=== PATIENT | male | born 1945 | race Caucasian/White ===

== ENCOUNTER 2022-02-07 15:09 | Emergency (ER) | payer MEDICARE, SELFPAY ==
[2022-02-07 15:24] VITALS: BP 144/82; PULSE 66; RESP 20; TEMP 36.7; O2SAT 98; BMI 22.4
[2022-02-07 15:33] VITALS: BP 124/82; PULSE 64; RESP 20; O2SAT 98
--- NOTE | 2022-02-07 15:46 | CRLHL7_ITS ---
For Patients: As a result of the Century Cures Act, medical imaging exams and procedure reports are released immediately into your electronic medical record. You may view this report before your referring provider. If you have questions, please contact your health care provider. INDICATION: Constipation, distention. TECHNIQUE: CT abdomen and pelvis acquired with 83 cc Isovue 370 IV contrast. COMPARISON: None. FINDINGS: Lower chest: Moderate right-sided and trace left-sided pleural effusions with compressive consolidation. Partial visualization of enlarged heart with right atrial/ventricle leads. Liver: Multiple simple hepatic cysts. Gallbladder and bile ducts: Unremarkable. No stones or inflammation. No biliary dilatation. Pancreas: Unremarkable. No mass or inflammation. Spleen: Unremarkable. Normal in size. No masses. Adrenal glands: Indeterminate 1.5 centimeter left adrenal nodule Kidneys: Tiny hypodensities in both kidneys, too small to characterize. Additional large right superior pole renal cyst. Indeterminate 1.2 centimeter left exophytic heterogeneous renal lesion. GI tract: Moderate colonic stool burden.. Normal in caliber. No sign of mass or inflammation. Appendix not seen. Vasculature: Abdominal aorta is normal in caliber. Mesenteric arteries are patent. Lymph nodes: No lymphadenopathy. Peritoneum/Abdominal Wall: Unremarkable. No sign of mass or infiltration. No free air or significant free fluid. Pelvis: Significant prostatomegaly, abutting the base of the bladder. Bladder is mildly distended with circumferential wall thickening. Bones: Degenerative changes of the osseous structures. Minimal anterolisthesis of L4 on L5. Posterior hardware fixation at L4-L5 IMPRESSION: Moderate colonic stool burden. No free intraperitoneal air, or drainable fluid collections. Significant prostatomegaly, abutting the base of the bladder. Correlate for chronic bladder outlet obstruction. Moderate right and small left-sided pleural effusions with bibasilar consolidations. Indeterminate 1.2 centimeter left exophytic heterogeneous renal lesion. Recommend outpatient contrast-enhanced renal protocol MRI. Questionable additional indeterminate 1.5 centimeter adrenal nodule. This could be followed up with outpatient MRI as well. Please note that all CT scans at this facility use dose modulation, iterative reconstruction, and/or weight-based dosing when appropriate to reduce radiation dose to as low as reasonably achievable. Dictated by Reilly Song MD @ 02/07/2022 5:46:05 PM (Electronically Signed)
--- NOTE | 2022-02-07 15:47 | ED.GENADULT ---
HPI - General Adult General Chief complaint: Constipation Stated complaint: Bowel obstruction Time Seen by Provider: 02/07/22 15:26 History of Present Illness HPI narrative: This 76-year-old male comes in reporting constipation over the past couple weeks more intensely the than normal. He states that he has a neurogenic bladder and bowel. He states that he had a surgery on his low back because of nerve impingement. He has been dealing with urinary frequency and constipation for the past several years. He did have a normal colonoscopy about a year ago. He states that he has not had a good bowel movement for upwards of 2 weeks. He has had some liquid passing but no bowel movement. He did start a new medicine which is helping him significantly with regard to his urinary frequency. This may be contributing to more constipation. He has been taking senna and Dulcolax. He also uses a fiber supplement. Related Data Home Medications Medication Instructions Recorded Confirmed fluoxetine 10 mg capsule 10 mg PO DAILY 02/07/22 02/07/22 gemster 02/07/22 Allergies Allergy/AdvReac Type Severity Reaction Status Date / Time epinephrine AdvReac tacycardia Verified 02/07/22 17:07 Review of Systems Status of ROS: Reports: 10 or more systems reviewed and unremarkable except as noted in History and below Narrative: Constitutional: Well-developed, well-nourished, no acute distress. HEENT: Normocephalic, atraumatic. Neck: Normal range of motion. Nontender. Supple. Heart: Regular. No murmurs. Normal rate. Intact distal pulses. Lungs: Clear to auscultation. No chest discomfort. No wheezes, rhonchi, or rales. Abdomen: Normal bowel sounds. No particular tenderness. No rebound tenderness. Mild abdominal distension. Genitalia: Deferred. Back: No midline tenderness. Normal range of motion. Extremities: Normal range of motion. No injury. Skin: Intact. No rash. Warm. No erythema or pallor. Neurologic: No altered sensation. No weakness. Alert and oriented. Psychiatric: No suicidality. No anxiety or depression. No insomnia. Nursing notes and vitals signs are reviewed. [facility] Social History Smoking Status: Never smoker Do you use any of these nicotine containing products: None Second hand tobacco smoke exposure: No How often do you have a drink containing alcohol: monthly or less How many standard drinks containing alcohol do you have on a typical day: 1 or 2 AUDIT-C Alcohol total score: 1 Non-prescribed substance use: denies use Exam Narrative: Exam Narrative: Constitutional: Well-developed, well-nourished, no acute distress. HEENT: Normocephalic, atraumatic. Neck: Normal range of motion. Nontender. Supple. Heart: Regular. No murmurs. Normal rate. Intact distal pulses. Lungs: Clear to auscultation. No chest discomfort. No wheezes, rhonchi, or rales. Abdomen: Normal bowel sounds. No rebound tenderness. Genitalia: Deferred. Back: No midline tenderness. Normal range of motion. Extremities: Normal range of motion. No injury. Skin: Intact. No rash. Warm. No erythema or pallor. Neurologic: No altered sensation. No weakness. Alert and oriented. Psychiatric: No suicidality. No anxiety or depression. No insomnia. Nursing notes and vitals signs are reviewed. Const: Vital Signs, click to edit/add: Vital Signs - 24 hr 02/07/22 15:24 02/07/22 15:33 02/07/22 16:30 Temperature 98.0 F Pulse Rate [Left P ulse Oximeter] 66 64 Respiratory Rate 20 20 Blood Pressure [Ri ght Upper Arm] 144/82 H 124/82 113/81 Pulse Oximetry 98 98 Oxygen Delivery Me thod Room Air Room Air Course Vital Signs Vital signs: Initial Vital Signs Temperature 98.0 F 02/07/22 15:24 Temperature Source Temporal Artery Scan 02/07/22 15:24 Pulse Rate 66 02/07/22 15:24 Pulse Rhythm 02/07/22 15:24 Respiratory Rate 20 02/07/22 15:24 Blood Pressure 144/82 H 02/07/22 15:24 Blood Pressure Mean 102 02/07/22 15:24 Blood Pressure Position Sitting 02/07/22 15:24 Pulse Oximetry 98 02/07/22 15:24 Oxygen Delivery Method 02/07/22 15:24 Vital Signs Temperature 98.0 F 02/07/22 15:24 Pulse Rate 66 02/07/22 15:24 Respiratory Rate 20 02/07/22 15:24 Blood Pressure 144/82 H 02/07/22 15:24 Pulse Oximetry 98 02/07/22 15:24 Oxygen Delivery Method 02/07/22 15:24 Temperature 98.0 F 02/07/22 15:24 Pulse Rate 64 02/07/22 15:33 Respiratory Rate 20 02/07/22 15:33 Blood Pressure 113/81 02/07/22 16:30 Pulse Oximetry 98 02/07/22 15:33 Oxygen Delivery Method 02/07/22 15:33 Medical Decision Making MDM Narrative Medical decision making narrative: This patient comes in reporting chronic constipation related to some neurogenic causes. His constipation is been worse over the past couple weeks during which time he started a medicine from his urologist to treat urinary frequency. He is concerned that there may be some blockage or more serious problem in his abdomen. He comes in requesting a CT scan for evaluation. An IV was established and labs were drawn an order for this to occur. CT imaging does not show any serious findings. There are some lesions on his kidneys and adrenal gland. These can be evaluated later. He does have a significantly enlarged prostate which may be causing some urinary outlet obstruction. He has a moderate colonic stool burden. These findings are relayed to the patient. I actually printed out the CT report for him. He was reassured with these findings. He did receive a bottle of magnesium citrate and is encouraged to use mxbg-cir-suwjoie treatments to manage his constipation. I suggested that he may decrease the frequency of taking the new medication for urinary retention as this may be contributing to his constipation. He should otherwise follow-up with his urologist or primary physician as needed. Lab Data Labs: Lab Results 02/07/22 02/07/22 Range/Units 16:20 16:20 WBC 3.93 L (4.50-11.00) K/uL RBC 4.28 L (4.30-5.90) m/uL Hgb 12.2 L (13.5-17.5) gm/dL Hct 36.4 L (37.0-53.0) % MCV 85 (80-100) fL MCH 29 (26-34) pg MCHC 34 (32-36) gm/dL RDW Coeff of Valdo 12.4 (11.5-15.5) % Plt Count 221 (140-440) K/uL Neut % (Auto) 64.8 (42.0-72.0) % Lymph % (Auto) 17.6 L (20-44) % [place] % (Auto) 8.4 (0.0-11.0) % Eos % (Auto) 8.4 H (0.0-7.0) % Baso % (Auto) 0.8 (0.0-3.0) % Neut # (Auto) 2.50 (1.7-7.0) K/uL Lymph # (Auto) 0.70 L (0.90-2.90) K/uL [place] # (Auto) 0.30 (0.00-0.90) K/UL Eos # (Auto) 0.30 (0.00-0.50) K/uL Baso # (Auto) 0.00 (0.00-0.30) K/uL Abs Immat Gran (auto) 0.00 (0.00-0.30) K/uL Sodium 134 L (135-149) mmol/L Potassium 4.5 (3.6-5.1) mmol/L Chloride 102 (96-114) mmol/L Carbon Dioxide 29 (20-32) mmol/L BUN 15 (7-30) mg/dL Creatinine 0.7 (0.5-1.5) mg/dL Estimated Creat Clear 68.54 Estimated GFR 95 ml/min Glucose 108 (60-115) mg/dL Calcium 8.4 (8.4-10.6) mg/dL Imaging Data CT scan - abdomen: Radiologist's impression: Moderate colonic stool burden. No free intraperitoneal air, or drainable fluid collections. Significant prostatomegaly, abutting the base of the bladder. Correlate for chronic bladder outlet obstruction. Moderate right and small left-sided pleural effusions with bibasilar consolidations. Indeterminate 1.2 centimeter left exophytic heterogeneous renal lesion. Recommend outpatient contrast-enhanced renal protocol MRI. Questionable additional indeterminate 1.5 centimeter adrenal nodule. This could be followed up with outpatient MRI as well. Discharge Plan Discharge Clinical Impression: Constipation Patient Disposition: Home, Self-Care Condition: Unchanged Additional Instructions: Use [id number]-[id number] medicines as needed and directed to manage bowel regimens. Follow-up with primary physician or urologist for further evaluation and treatment as needed. Prescriptions: No Action fluoxetine 10 mg capsule 10 mg PO DAILY Label Comments: TAKE 1 CAPSULE BY MOUTH ONCE DAILY. gemster Follow Up/Referrals: Jair Hancock MD [Primary Care Provider] - Stand Alone Forms: Second Light Info Instructions
--- OUTSIDE RECORDS SUMMARY | 2022-02-07 15:54 | XMS_ITS | Encounter Summary ---
:1945 Author Organization [place] Address [facility] [place] [address] Care Team Providers Name Role Phone Clinic, [facility] Primary Care Provider [phone] Encounter Details Date Type Department Care Team Description 05/28/2020 Home Infusion [facility] ChriststephanbenignoTamiko fry, [facility] [address] [place], [place] [phone] [place] [address] [place] [address] (Wo rk) Social History Tobacco Use Types Packs/Day Years Used Date Never Smoker Smokeless Tobacco: Never Used Alcohol Use Standard Drinks/Week Comments Yes 0 (1 standard drink = 0.6 oz pure alcoho l) Sex Assigned at Date Recorded Not on file COVID-19 Exposure Response Date Recorded In the last month, have you been in contact Unable to assess 05/15/2020 9:41 AM FINANCE BUSINESS PARTNER with someone who was confirmed or suspected to have Coronavirus / COVID-19? documented as of this encounter Progress Notes Sebastian Mccarthy - 05/28/2020 11:59 PM CST This is a recent snapshot of the patient's [facility] medical record. For current drug dose and complete information and questions, call [phone] or In Basket pool, home[facility]usion ([id number]) CSN Number: [id number] NCE BUSINESS PARTNER documented in this encounter Plan of Treatment Not on filedocumented as of this encounter Visit Diagnoses Not on filedocumented in this encounter Care Teams Inside Barrel Lathe Operator Relationship Specialty Start Date End Date Clinic, Marianna [facility] PCP - General 05/01/20 [address] [place] [address] documented as of this encounter
--- OUTSIDE RECORDS SUMMARY | 2022-02-07 15:54 | XMS_ITS | Encounter Summary ---
:1945 Author Organization [place] Address [facility] [place] [address] Care Team Providers Name Role Phone [facility] [phone] Encounter Details Date Type Department Care Team Description 11/29/2021 Documentation Only [facility] Art aRmirez, [facility] RN [address] [place] [address] Social History Tobacco Use Types Packs/Day Years Used Date Never Smoker Smokeless Tobacco: Never Used Alcohol Use Standard Drinks/Week Comments Yes 0 (1 standard drink = 0.6 oz pure alcoho l) Sex Assigned at Date Recorded Not on file documented as of this encounter Progress Notes Ansley Ramirez RN - 11/29/2021 8:28 AM CDT Delete documented in this encounter Plan of Treatment Not on filedocumented as of this encounter Visit Diagnoses Not on filedocumented in this encounter Care Teams Metal Neutralizer Relationship Specialty Start Date End Date [facility], [facility] PCP - General 05/01/20 [address] [place], [place] [id number] documented as of this encounter
--- OUTSIDE RECORDS SUMMARY | 2022-02-07 15:54 | XMS_ITS | Encounter Summary ---
:1945 Author Organization [place] Address [address] [place] [address] Care Team Providers Name Role Phone Clinic, [facility] [place] Primary Care Provider [phone] Reason for Visit Reason Comments MRI Safety Clearance Checklist MRI checklist Encounter Details Date Type Department Care Team Description 11/29/2021 Documentation Only [facility], MRI Safety Clearance [facility] Checklist (MRI [place] checkl... [address] [facility] [address] [place] [address] Social History Tobacco Use Types Packs/Day Years Used Date Never Smoker Smokeless Tobacco: Never Used Alcohol Use Standard Drinks/Week Comments Yes 0 (1 standard drink = 0.6 oz pure alcoho l) Sex Assigned at Date Recorded Not on file documented as of this encounter Progress Notes Ansley Ramirez RN - 11/29/2021 8:31 AM CDT Is the implanted device safe for MRI Exam? Yes Is this device 3T compatible? Yes Device Type: Pacemaker Device Information: Make: Medidio Model: [facility] Orders for Device Programming -- Yes -- The patient has a MRI conditional pulse generator and leads from the same litigator -- Yes -- The pulse generator and leads have been implanted for at least 6 weeks -- Yes-- The device is implanted in the right or left pectoral region -- Yes -- There are not any additional active cardiac devices, abandoned leads, lead extenders or adapters -- Yes -- The device lead impedance measurements are within the normal range. (Manufacture recommendations: Medtronic Advisa and Revo 200-1,500 ohms; Medtronic ICD and EYEWEAR CONSULTANT's 200-3000 ohms and defibrillation lead impedance 20-200 ohms) -- Yes -- If the patient is pacemaker dependent the thresholds are less than or equal to 2.0V @ 0.4ms. Date of last in-office Device check: 11/13/2021 Results of last in-office Device check: 1. Right atrium impedance: 608 ohms 2. Right ventricle impedance: 513 ohms 3. Left ventricle impedance: N/A 4. Right atrium threshold: 0.75V @ 0.4 ms 5. Right ventricle threshold: 0.75V @ 0.4 ms 6. Left ventricle threshold: N/A Device programming during the scan guidelines Pacing Mode (check one): DOO Pacing Rate: 80 bpm or 10 beats above intrinsic rate Ansley Ramirez and Mony Sanchez, Device RN's documented in this encounter Plan of Treatment Not on filedocumented as of this encounter Visit Diagnoses Not on filedocumented in this encounter Care Teams Machine Tool Dresser Relationship Specialty Start Date End Date Clinic, [facility]na [facility] PCP - General 05/01/20 [address] [place] [address] documented as of this encounter
--- OUTSIDE RECORDS SUMMARY | 2022-02-07 15:54 | XMS_ITS | Encounter Summary ---
:1945 Author Organization [place] Address [address] [place] [address] Care Team Providers Name Role Phone Clinic, [facility]na [facility] Primary Care Provider [phone] Reason for Visit Reason Onset Date Comments *-*INCOMING RECORDS*-* 01/29/2022 Neurosurgery refe rral Encounter Details Date Type Department Care Team Description 01/29/2022 Telephone [facility] Alfredo, *-*INCOM ING RECORDS*-* Neurosurgery Clinic Argenis Bonds LPN (Neurosurgery referral) [place] [phone] [place] [address] (Work) [place] [address] Social History Tobacco Use Types Packs/Day Years Used Date Never Smoker Smokeless Tobacco: Never Used Alcohol Use Standard Drinks/Week Comments Yes 0 (1 standard drink = 0.6 oz pure alcoho l) Sex Assigned at Date Recorded Not on file COVID-19 Exposure Response Date Recorded In the last 10 days, have you been in contact with No / Unsu re 01/08/2022 1:33 PM CDT someone who was confirmed or suspected to have Coronavirus/COVID-19? documented as of this encounter Miscellaneous Notes Telephone Encounter - Cammie Fuentes LPN - 01/29/2022 9:01 AM CDT Fax request sent for medical records to [phone]. Are Everywhere also accessed. Pt had cervical MR Cervical At [facility] 01/08/2022.. Cammie Fisher LPN Telephone Encounter - Cammie Fuentes LPN - 01/29/2022 8:59 AM CDT Referred by: Dr Zakiya Roberts @ [facility] Fx: [phone] [place] Auth/Ref #: [id number] Please call to schedule your appointment ?? 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 Now w. progressive weakness of upper extremities,neurogenic bladder. Additional Information: Referred to Dr Souza or Dr Douglas documented in this encounter Plan of Treatment Not on filedocumented as of this encounter Visit Diagnoses Not on filedocumented in this encounter Care Teams Vice President Relationship Specialty Start Date End Date Clinic, Marianna [facility] PCP - General 05/01/20 [address] [place] [address] documented as of this encounter
--- OUTSIDE RECORDS SUMMARY | 2022-02-07 15:54 | XMS_ITS | Encounter Summary ---
:1945 Author Organization [place] Address [address] [place] [address] Care Team Providers Name Role Phone Clinic, [facility] [place] Primary Care Provider [phone] Reason for Referral Consultation (Routine) - Pending Review Specialty Diagnoses / Procedures Referred By Contact Refer red To Contact Neurological Surgery Diagnoses Disease of spinal cord, unspecified (H) Generic External Data [facility] [address] [facility] [address] [place] [address] Phone: Fax: Referral ID Status Reason Start Date Expiration Date Visits V isits Requested Authorized [id number] Pending 01/27/2022 01/27/2023 1 1 Review Encounter Details Date Type Department Care Team Description 01/27/2022 Transcribe Orders GENERIC EXTERNAL Provider, Generic D isease of spinal DATA DEPARTMENT External Data cord, unspe cified (H) (Primary Dx ) Social History Tobacco Use Types Packs/Day Years [...] have Coronavirus/COVID-19? documented as of this encounter Plan of Treatment Scheduled Referrals Name Type Priority Associated Diagnoses Order S chedule Neurosurgery Referral Referral Routine Disease of spinal c ord, Ordered: 01/27/2022 unspecified (H) documented as of this encounter Visit Diagnoses Diagnosis Disease of spinal cord, unspecified (H) - Primary documented in this encounter Care Teams Licensed Final Expense Agents Relationship Specialty Start Date End Date Clinic, [facility]na [facility] PCP - General 05/01/20 [address] [place] [address] documented as of this encounter
--- OUTSIDE RECORDS SUMMARY | 2022-02-07 15:54 | XMS_ITS | Encounter Summary ---
:1945 Author Organization [place] Address [facility] [place] [address] Care Team Providers Name Role Phone Clinic, Marianna [facility] Primary Care Provider [phone] Encounter Details Date Type Department Care Team Description 05/29/2020 Home Infusion [place] [facility] ChriststephanbenignoTamiko fry, [facility] [address] [facility] [address] [place], [place] [phone] [place] [address] [place] [address] (Wo rk) Social History Tobacco Use Types Packs/Day Years Used Date Never Smoker Smokeless Tobacco: Never Used Alcohol Use Standard Drinks/Week Comments Yes 0 (1 standard drink = 0.6 oz pure alcoho l) Sex Assigned at Date Recorded Not on file COVID-19 Exposure Response Date Recorded In the last month, have you been in contact Unable to assess 05/15/2020 9:41 AM MARKER MACHINE with someone who was confirmed or suspected to have Coronavirus / COVID-19? documented as of this encounter Progress Notes Sebastian Mccarthy - 05/29/2020 11:59 PM CST This is a recent snapshot of the patient's [facility] medical record. For current drug dose and complete information and questions, call [phone] or In Basket pool, [facility] ([id number]) CSN Number: [id number] ER MACHINE documented in this encounter Plan of Treatment Not on filedocumented as of this encounter Visit Diagnoses Not on filedocumented in this encounter Care Teams Prism Inspector Relationship Specialty Start Date End Date Clinic, [facility]na [facility] PCP - General 05/01/20 [address] [place] [address] documented as of this encounter
--- OUTSIDE RECORDS SUMMARY | 2022-02-07 15:54 | XMS_ITS | Clinical Summary ---
:1945 Author Organization [facility] Address [address] [place] [address] Care Team Providers Name Role Phone Clinic, Marianna [facility] Primary Care Provider [phone] Allergies Active Allergy Reactions Severity Noted Date Comments Epinephrine Unknown 06/09/2019 Tachycardia In 1970's Fentanyl Unknown 06/09/2019 Difficult awake catherine Medications Medication Sig Dispensed Refills Start Date End Date Status FLUoxetine (PROZAC) 20 [FLUOXETINE 0 06/09/2019 Active MG capsule (PROZAC) 20 MG CAPSULE] Take 20 mg by mouth daily as needed. cholecalciferol, [CHOLECALCIFEROL, 0 06/09/2019 Active vitamin D3, (VITAMIN D3 VITAMIN D3, ORAL) (VITAMIN D3 ORAL)] Take 1 tablet by mouth daily as needed. magnesium oxide [MAGNESIUM OXIDE 0 06/09/2019 Active (MAG-OX) 400 mg (241.3 (MAG-OX) 400 MG mg magnesium) tablet (241.3 MG MAGNESIUM) TABLET] Take 400 mg by mouth daily. aspirin 325 MG EC [ASPIRIN 325 MG 0 06/16/2019 Active tabletIndications: EC TABLET] Take 1 Neurogenic claudication tablet (325 mg due to lumbar spinal total) by mouth stenosis at bedtime. Resume 5 days after spine surgery on 06/20/19. senna-docusate [SENNA-DOCUSATE 0 06/16/2019 Active (PERICOLACE) 8.6-50 mg (PERICOLACE) tabletIndications: 8.6-50 MG TABLET] Neurogenic claudication Take 1 tablet by due to lumbar spinal mouth 2 (two) stenosis times a day as needed for constipation. acetaminophen (TYLENOL) [ACETAMINOPHEN 0 06/19/2019 Active 500 MG (TYLENOL) 500 MG tabletIndications: TABLET] Take 1 Neurogenic claudication tablet (500 mg due to lumbar spinal total) by mouth stenosis every 4 (four) hours as needed. baclofen (LIORESAL) 5 [BACLOFEN 20 tablet 0 06/19/2019 Active mg tabletIndications: (LIORESAL) 5 MG Neurogenic claudication TABLET] Take 1 due to lumbar spinal tablet (5 mg stenosis total) by mouth at bedtime as needed (pain/spasms, belching). Active Problems Problem Noted Date Neurogenic claudication due to lumbar spinal stenosis 06/15/2019 Recurrent major depressive disorder, in full remission 06/15/2019 S/P ablation of atrial fibrillation 06/15/2019 Peripheral polyneuropathy 06/15/2019 Encounters Date Type Specialty Care Team Description 01/29/2022 Telephone Neurosurgery Cammie Fuentes, *-*[facility] RECORDS*-* (Neurosurgery referral) 01/27/2022 Transcribe Orders Provider, Generic Disea se of spinal External Data cord, unspecif ied (H) (Primary Dx ) 01/08/2022 Hospital Encounter Radiology. Non-Fv Credentialed Ce rvical disc Provider, Radiology disorder with myelopathy, mid-cervical re gion, unspecified lev el 01/08/2022 Hospital Encounter Med Surg Non-Fv Credentialed Provider, Radiol Ellen Healy MD 01/08/2022 Travel 01/07/2022 Telephone Med Surg Estrella White Pt. RN Information/ins truct ion 11/29/2021 Documentation Only Cardiology Mony Sanchez RN MRI Safety Clearance Checklist (MRI checkl... 11/29/2021 Documentation Only Cardiology Ansley Ramirez, ASCENCION from Last 3 Months Immunizations Name Administration Dates Next Due FLU 6-35 months 02/23/2019, 03/23/2018, 03/10/2017, 03/01/2013, 04/26/2012, 03/06/2011, 02/12/2010, 02/06/2009 Influenza (High Dose) 3 valent 04/05/2015, 02/13/2014 vaccine Influenza Vaccine IM > 6 months 07/15/2016 Valent IIV4 (Alfuria,Fluzone) Pneumo Conj 13-V (2010&after) 04/05/2015 Pneumococcal 23 valent 03/06/2011 Tdap (Adacel,Boostrix) 07/15/2016 Zoster vaccine recombinant adjuvanted 10/22/2018 (SHINGRIX) Social History Tobacco Use Types Packs/Day Years [...] was confirmed or suspected to have Coronavirus/COVID-19? Last Filed Vital Signs Vital Sign Reading Time Taken Comments Blood Pressure 131/91 01/08/2022 2:30 PM CDT Pulse 78 01/08/2022 3:05 PM CDT Temperature - - Respiratory Rate 16 01/08/2022 2:30 PM CDT Oxygen Saturation 100% 01/08/2022 3:05 PM CDT Inhaled Oxygen Concentration - - Weight 75.4 kg (166 lb 3.2 oz) 06/15/2019 6:22 AM REFUGE WORKER Height 185.4 cm (6' 1) 06/09/2019 10:57 AM REFUGE WORKER Body Mass Index 21.93 06/09/2019 10:57 AM REFUGE WORKER Plan of Treatment Health Maintenance Due Date Last Done Comments ANNUAL REVIEW OF HM ORDERS 1945 DEPRESSION ACTION PLAN 1945 PHQ-9 1945 HEPATITIS C SCREENING 1963 LIPID 1980 FALL RISK ASSESSMENT 2010 MEDICARE ANNUAL WELLNESS 2010 VISIT ZOSTER IMMUNIZATION (2 of 12/17/2018 10/22/2018 2) COVID-19 Vaccine (3 - 09/27/2020 08/02/2020, 07/12/2020 Booster for Pfizer series) INFLUENZA VACCINE (#1) 2022 03/01/2021, 02/25/2021, 01/20/2020, Additional history exists ADVANCE CARE PLANNING 06/15/2024 06/15/2019 DTAP/TDAP/TD IMMUNIZATION 07/15/2026 07/15/2016, 02/09/2013 , (4 - Td or Tdap) 08/07/2002 Pneumococcal Vaccine: 65+ Completed 04/05/2015, 02/15/2015 , Years 03/06/2011, Additional history exists HEPATITIS B IMMUNIZATION Aged Out No long er eligible based on patient 's age to complete this topic IPV IMMUNIZATION Aged Out No longer eligi ble based on patient 's age to complete this topic MENINGITIS IMMUNIZATION Aged Out No longe r eligible based on patient 's age to complete this topic Medical Devices Implanted Type Area Clinical Engineering Manager Device Shelf Model / Identifier Expiration Serial / Date Lot Imp Erasmo Medt Tsrh Prebent 04.0cm [id number] Metallic Right: [employer] [id number] / Implanted: Qty: 1 on 06/15/2019 Hardware/Anc Spine / hor Lumbar NA Procedures Procedure Name Priority Date/Time Associated Diagnosis Comme nts MR CERVICAL SPINE Routine 01/08/2022 3:17 PM Cervical disc Res ults for this W/O & W CONTRAST CDT disorder with procedure are in myelopathy, the results mid-cervical region, section . unspecified level from Last 3 Months Results MR Cervical Spine w/o & w Contrast (01/08/2022 3:17 PM CDT) Anatomical Region Laterality Modality Spine, SUBRAD MR NEURO, UMP MR SPINE, RAD MR Magnetic Resonance Specimen (Source) Anatomical Location Collection Method / Collectio n Time Received Time / Laterality Volume Impressions 01/09/2022 9:40 AM CDT IMPRESSION: ?? 1. Expansile cystic lesion in the mid ce rvical spinal cord as detailed above. No obvious enhancement of the les ion and there is a peripheral T2 hypointense rim. This could represent a cavernous venous malformation with sequela of previous he morrhage, although other etiologies are not entirely excluded. Co mparison to previous imaging to document stability may be helpful. 2. Marked multilevel degenerative change s throughout the cervical spine as detailed above. Multiple disc h erniations throughout the cervical spine. Marked facet hypertrophy , particularly on the right at C2-C3 and C3-C4 and on the left at C4-C5 . 3. Edema on the right at the opposing C2 -C3 endplates also apparently involving the right C2-C3 facet. This co uld potentially be a source of pain. 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 Previously told inoperable. Now with pro gressive weakness of upper extremities, neurogenic bladder. TECHNIQUE: Multiplanar, multisequence MR I of the cervical spine without and with gadobutrol (GADAVIST) i njection 7.5 mL. COMPARISON: None. FINDINGS: Cervical spine alignment is gr ossly within normal limits. No significant loss of vertebral body heigh t. No focal destructive bony lesion. Moderate STIR hyperintense edema asymmetric towards the right at the endplates at C2-C3 also appearing to involve the right C2 pedicle and around the C2-C3 facet joint . No focal destructive bony lesion. Abnormal heterogeneous expansile lesion within the spinal cord extending from approximately the C3-C4 l evel down to the mid aspect of C6. There appear to be internal cystic c avities with septations in this lesion as well as a peripheral STIR and T2 hypointense rim. The periphery of the lesion also demonstrate s susceptibility hypointensity probably due to blood products. No defin ite associated enhancement with the lesion. This expansile lesion m easures approximately 1.0 x 1.8 x 4.3 cm in AP, transverse, and cran iocaudal dimensions. Level by level as follows: C2-C3: Moderate loss of disc height with degenerative endplate changes and edema more pronounced towards the ri ght as well as involving the right posterior elements. Marked right g reater than left facet hypertrophy. No spinal canal narrowing. Severe right neural foraminal narrowing. Moderate left neural foramina l narrowing. C3-C4: Moderate loss of disc height. Cir cumferential disc bulge with endplate osteophytic spurring more prono unced towards the right subarticular and foraminal region. Marke d right greater than left facet hypertrophy. Mild spinal canal manda rowing. Severe right neural foraminal narrowing. Mild left neural fo raminal narrowing. C4-C5: Mild loss of disc height. Circumf erential disc bulge with mild endplate osteophytic spurring. Marked le ft greater than right facet hypertrophy. Mild spinal canal narrowing . Severe right neural foraminal narrowing. Severe left neural foraminal narrowing. C5-C6: Mild loss of disc height. Circumf erential disc bulge. Moderate left greater than right facet of atrophy with possible fusion of the left facet joint. Mild spinal canal narr owing. Moderate to severe right neural foraminal narrowing. Modera te left neural foraminal narrowing. C6-C7: Mild loss of disc height. No sign ificant disc herniation. Mild facet hypertrophy. No spinal canal narro wing. Mild bilateral neural foraminal narrowing. C7-T1: Mild loss of disc height. No sign ificant disc herniation. Moderate left greater than right facet h ypertrophy. No spinal canal narrowing. Mild right neural foraminal n arrowing. Moderate left neural foraminal narrowing. Paraspinous soft tissues are unremarkabl e. 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 Previously told inoperable. Now with pro gressive weakness of upper extremities, neurogenic bladder. TECHNIQUE: Multiplanar, multisequence MR I of the cervical spine without and with gadobutrol (GADAVIST) i njection 7.5 mL. COMPARISON: None. FINDINGS: Cervical spine alignment is gr ossly within normal limits. No significant loss of vertebral body heigh t. No focal destructive bony lesion. Moderate STIR hyperintense edema asymmetric towards the right at the endplates at C2-C3 also appearing to involve the right C2 pedicle and around the C2-C3 facet joint . No focal destructive bony lesion. Abnormal heterogeneous expansile lesion within the spinal cord extending from approximately the C3-C4 l evel down to the mid aspect of C6. There appear to be internal cystic c avities with septations in this lesion as well as a peripheral STIR and T2 hypointense rim. The periphery of the lesion also demonstrate s susceptibility hypointensity probably due to blood products. No defin ite associated enhancement with the lesion. This expansile lesion m easures approximately 1.0 x 1.8 x 4.3 cm in AP, transverse, and cran iocaudal dimensions. Level by level as follows: C2-C3: Moderate loss of disc height with degenerative endplate changes and edema more pronounced towards the ri ght as well as involving the right posterior elements. Marked right g reater than left facet hypertrophy. No spinal canal narrowing. Severe right neural foraminal narrowing. Moderate left neural foramina l narrowing. C3-C4: Moderate loss of disc height. Cir cumferential disc bulge with endplate osteophytic spurring more prono unced towards the right subarticular and foraminal region. Marke d right greater than left facet hypertrophy. Mild spinal canal manda rowing. Severe right neural foraminal narrowing. Mild left neural fo raminal narrowing. C4-C5: Mild loss of disc height. Circumf erential disc bulge with mild endplate osteophytic spurring. Marked le ft greater than right facet hypertrophy. Mild spinal canal narrowing . Severe right neural foraminal narrowing. Severe left neural foraminal narrowing. C5-C6: Mild loss of disc height. Circumf erential disc bulge. Moderate left greater than right facet of atrophy with possible fusion of the left facet joint. Mild spinal canal narr owing. Moderate to severe right neural foraminal narrowing. Modera te left neural foraminal narrowing. C6-C7: Mild loss of disc height. No sign ificant disc herniation. Mild facet hypertrophy. No spinal canal narro wing. Mild bilateral neural foraminal narrowing. C7-T1: Mild loss of disc height. No sign ificant disc herniation. Moderate left greater than right facet h ypertrophy. No spinal canal narrowing. Mild right neural foraminal n arrowing. Moderate left neural foraminal narrowing. Paraspinous soft tissues are unremarkabl e. IMPRESSION: 1. Expansile cystic lesion in the mid ce rvical spinal cord as detailed above. No obvious enhancement of the les ion and there is a peripheral T2 hypointense rim. This could represent a cavernous venous malformation with sequela of previous he morrhage, although other etiologies are not entirely excluded. Co mparison to previous imaging to document stability may be helpful. 2. Marked multilevel degenerative change s throughout the cervical spine as detailed above. Multiple disc h erniations throughout the cervical spine. Marked facet hypertrophy , particularly on the right at C2-C3 and C3-C4 and on the left at C4-C5 . 3. Edema on the right at the opposing C2 -C3 endplates also apparently involving the right C2-C3 facet. This co uld potentially be a source of pain. 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 Agent Dior Casas Daughter [facility] Agent Care Teams Haul Truck Driver Relationship Specialty Start Date End Date Clinic, Marianna Monroe PCP - General 05/01/20 [id number] [place] [address]
--- OUTSIDE RECORDS SUMMARY | 2022-02-07 15:54 | XMS_ITS | Encounter Summary ---
:1945 Author Organization [facility] Address [facility] [place] [address] Care Team Providers Name Role Phone Clinic, Marianna Monroe Primary Care Provider [phone] Encounter Details Date Type Department Care Team Description 05/22/2020 Home Infusion [facility] Tamiko Iniguez, [facility] [address] [facility] [address] [place], [place] [phone] [place] [address] [place] [address] (Wo rk) Social History Tobacco Use Types Packs/Day Years Used Date Never Smoker Smokeless Tobacco: Never Used Alcohol Use Standard Drinks/Week Comments Yes 0 (1 standard drink = 0.6 oz pure alcoho l) Sex Assigned at Date Recorded Not on file COVID-19 Exposure Response Date Recorded In the last month, have you been in contact Unable to assess 05/15/2020 9:41 AM MATERIALS SPECIALIST with someone who was confirmed or suspected to have Coronavirus / COVID-19? documented as of this encounter Progress Notes Derek Ruiz - 05/22/2020 11:59 PM CST This is a recent snapshot of the patient's [facility] medical record. For current drug dose and complete information and questions, call [phone] or In Basket pool, homeinfusion ([id number]) CSN Number: [id number] RIALS SPECIALIST documented in this encounter Plan of Treatment Not on filedocumented as of this encounter Visit Diagnoses Not on filedocumented in this encounter Care Teams Spice Mixer Relationship Specialty Start Date End Date Clinic, Marianna Monroe PCP - General 05/01/20 [address] [place] [address] documented as of this encounter
--- OUTSIDE RECORDS SUMMARY | 2022-02-07 15:54 | XMS_ITS | Encounter Summary ---
:1945 Author Organization [facility] Address [address] [place] [address]. [place] [address] Care Team Providers Name Role Phone Marianna Valderrama Primary Care Provider [phone] Encounter Details Date Type Department Care Team Description 01/08/2022 Travel Social History Tobacco Use Types Packs/Day Years [...] as of this encounter Plan of Treatment Not on filedocumented as of this encounter Visit Diagnoses Not on filedocumented in this encounter Care Teams String Cutter Relationship Specialty Start Date End Date [facility], Marianna Monroe PCP - General 05/01/20 [address] [place] [address] documented as of this encounter
--- OUTSIDE RECORDS SUMMARY | 2022-02-07 15:54 | XMS_ITS | Encounter Summary ---
:1945 Author Organization [facility] Address [address] [place] [address] Care Team Providers Name Role Phone [facility], Marianna Monroe Primary Care Provider [phone] Reason for Visit Reason Onset Date Comments Pt. Information/instruction 01/07/2022 Encounter Details Date Type Department Care Team Description 01/07/2022 Telephone [facility] Estrella White Pt. [facility] [address] richy De Oliveira RN Information/instruction [address] [place] [address] Social History Tobacco Use Types Packs/Day Years Used Date Never Smoker Smokeless Tobacco: Never Used Alcohol Use Standard Drinks/Week Comments Yes 0 (1 standard drink = 0.6 oz pure alcoho l) Sex Assigned at Date Recorded Not on file documented as of this encounter Miscellaneous Notes Telephone Encounter - Estrella White, RN - 01/07/2022 3:44 PM CDT Chart review for upcoming procedure. documented in this encounter Plan of Treatment Not on filedocumented as of this encounter Visit Diagnoses Not on filedocumented in this encounter Care Teams Riveting Machine Operator Tape Control Relationship Specialty Start Date End Date Clinic, Marianna Monroe PCP - General 05/01/20 [address] [place] [address] documented as of this encounter
--- OUTSIDE RECORDS SUMMARY | 2022-02-07 15:54 | XMS_ITS | Encounter Summary ---
:1945 Author Organization [facility] Address [address] [place] [address] Care Team Providers Name Role Phone Clinic, Marianna Carreroton Primary Care Provider [phone] Reason for Referral Diagnostic Imaging MRI (Routine) - Closed Specialty Diagnoses / Procedures Referred By Contact Refer red To Contact Diagnoses Cervical disc disorder with myelopathy, mid-cervical region, unspecified level Zakiya Roberts MD Procedures MR Cervical Spine w/o & w Contrast [place] [id number] 5 Referral ID Status Reason Start Date Expiration Date Visits Requ ested Visits Authorized [id number] Closed 11/27/2021 11/27/2022 1 1 Reason for Visit Diagnostic Imaging MRI (Routine) - Closed Specialty Diagnoses / Procedures Referred By Contact Refer red To Contact Diagnoses Cervical disc disorder with myelopathy, mid-cervical region, unspecified level Zakiya Roberts MD Procedures MR Cervical Spine w/o & w Contrast [place] [address] 5 Referral ID Status Reason Start Date Expiration Date Visits Requ ested Visits Authorized [id number] Closed 11/27/2021 11/27/2022 1 1 Encounter Details Date Type Department Care Team Description 01/08/2022 [facility] Non-Fv Credentialed Cer vical disc Encounter [facility] Imaging Provider, Radiology disorder with [address] myelopathy, [place], [place] mid-cervical [address] region, unspecified [phone] level Social History Tobacco Use Types Packs/Day Years [...] have Coronavirus/COVID-19? documented as of this encounter Medications at Time of Discharge Medication Sig Dispensed Refills Start Date End Date acetaminophen (TYLENOL) 500 [ACETAMINOPHEN 0 06/2019 MG tabletIndications: (TYLENOL) 500 MG Neurogenic claudication due TABLET] Take 1 to lumbar spinal stenosis tablet (500 mg total) by mouth every 4 (four) hours as needed. aspirin 325 MG EC [ASPIRIN 325 MG EC 0 06/16/2019 tabletIndications: TABLET] Take 1 Neurogenic claudication due tablet (325 mg to lumbar spinal stenosis total) by mouth at bedtime. Resume 5 days after spine surgery on 06/20/19. baclofen (LIORESAL) 5 mg [BACLOFEN (LIORESAL) 20 tablet 0 0 06/19/2019 tabletIndications: 5 MG TABLET] Take 1 Neurogenic claudication due tablet (5 mg total) to lumbar spinal stenosis by mouth at bedtime as needed (pain/spasms, belching). cholecalciferol, vitamin [CHOLECALCIFEROL, 0 05/19 D3, (VITAMIN D3 ORAL) VITAMIN D3, (VITAMIN D3 ORAL)] Take 1 tablet by mouth daily as needed. FLUoxetine (PROZAC) 20 MG [FLUOXETINE (PROZAC) 0 06/09/2019 capsule 20 MG CAPSULE] Take 20 mg by mouth daily as needed. magnesium oxide (MAG-OX) [MAGNESIUM OXIDE 0 06/09 400 mg (241.3 mg magnesium) (MAG-OX) 400 MG tablet (241.3 MG MAGNESIUM) TABLET] Take 400 mg by mouth daily. senna-docusate (PERICOLACE) [SENNA-DOCUSATE 0 8.6-50 mg (PERICOLACE) 8.6-50 tabletIndications: MG TABLET] Take 1 Neurogenic claudication due tablet by mouth 2 to lumbar spinal stenosis (two) times a day as needed for constipation. documented as of this encounter Plan of Treatment Not on filedocumented as of this encounter Procedures Procedure Name Priority Date/Time Associated Diagnosis Comme nts MR CERVICAL SPINE Routine 01/08/2022 3:17 PM Cervical disc Res ults for this W/O & W CONTRAST CDT disorder with procedure are in myelopathy, the results mid-cervical region, section . unspecified level documented in this encounter Results MR Cervical Spine w/o & w [...] uld potentially be a source of pain. ABE ORTIZ MD Narrative 01/09/2022 9:40 AM CDT [...] soft tissues are unremarkabl e. Procedure Note Abe Ortiz MD - 01/09/2022 MRI CERVICAL SPINE [...] uld potentially be a source of pain. ABE ORTIZ MD Zakiya Roberts MD IMG MRI ORDERABLES documented in this encounter Visit Diagnoses Diagnosis Cervical disc disorder with myelopathy, mid-cervical region, unspecified level documented in this encounter Administered Medications Inactive Administered Medications - up to 3 most recent administrations Medication Order MAR Action Action Date Dose Rate Site gadobutrol (GADAVIST) injection Given 01/08/2022 3:10 PM CDT 7.5 mLs 7.5 mL 7.5 mL, Intravenous, ONCE, On Thu01/08/22 at 1430, For 1 dose, Supplied by, and administered by MRI. documented in this encounter Care Teams Headliner Installer Relationship Specialty Start Date End Date Clinic, Marianna Monroe PCP - General 05/01/20 [address] [place] [address] documented as of this encounter
--- OUTSIDE RECORDS SUMMARY | 2022-02-07 15:55 | XMS_ITS | Encounter Summary ---
:1945 Author Organization [place] Address [facility] [place] [address] Care Team Providers Name Role Phone Clinic, Marianna Monroe Primary Care Provider [phone] Encounter Details Date Type Department Care Team Description 05/07/2020 Home Infusion [facility] Infusi on Tamiko Iniguez, [facility] [address] [facility] [address] [place], [place] [phone] [place] [address] [place] [address] (Wo rk) Social History Tobacco Use Types Packs/Day Years Used Date Never Smoker Smokeless Tobacco: Never Used Alcohol Use Standard Drinks/Week Comments Yes 0 (1 standard drink = 0.6 oz pure alcoho l) Sex Assigned at Date Recorded Not on file documented as of this encounter Progress Notes Maxim Tejeda - 05/07/2020 11:59 PM CST This is a recent snapshot of the patient's [facility] medical record. For current drug dose and complete information and questions, call [phone] or In [employer], homeinfusion ([id number]) CSN Number: [id number] RMAN & CHIEF EXECUTIVE OFFICER documented in this encounter Plan of Treatment Not on filedocumented as of this encounter Visit Diagnoses Not on filedocumented in this encounter Care Teams Information Systems Audit Manager Relationship Specialty Start Date End Date Clinic, Marianna Monroe PCP - General 05/01/20 [address] [place] [address] documented as of this encounter
--- OUTSIDE RECORDS SUMMARY | 2022-02-07 15:55 | XMS_ITS | Encounter Summary ---
:1945 Author Organization [place] Address [facility] [place] [address] Care Team Providers Name Role Phone Unavailable Primary Care Provider Unavailable Encounter Details Date Type Department Care Team Description 04/26/2020 Home Infusion [facility] on Tamiko Iniguez, [facility] [address] [place], [place] [phone] [facility] [phone] [place] [address] (Wo rk) Social History Tobacco Use Types Packs/Day Years Used Date Never Smoker Smokeless Tobacco: Never Used Alcohol Use Standard Drinks/Week Comments Yes 0 (1 standard drink = 0.6 oz pure alcoho l) Sex Assigned at Date Recorded Not on file documented as of this encounter Progress Notes Sebastian Mccarthy - 04/26/2020 11:59 PM CST This is a recent snapshot of the patient's [facility] medical record. For current drug dose and complete information and questions, call [phone] or In avtar [place] homeinfusion ([id number]) CSN Number: [id number] KERCHIEF SAMPLE CLERK documented in this encounter Plan of Treatment Not on filedocumented as of this encounter Visit Diagnoses Not on filedocumented in this encounter
--- OUTSIDE RECORDS SUMMARY | 2022-02-07 15:55 | XMS_ITS | Encounter Summary ---
:1945 Author Organization [place] Address [facility] [place] [address] Care Team Providers Name Role Phone Unavailable Primary Care Provider Unavailable Encounter Details Date Type Department Care Team Description 04/27/2020 Home Infusion [place] [facility] on Tamiko Iniguez, [facility] [address] [place], [place] [phone] 500 [facility] [phone] [place] [address] (Wo rk) Social History Tobacco Use Types Packs/Day Years Used Date Never Smoker Smokeless Tobacco: Never Used Alcohol Use Standard Drinks/Week Comments Yes 0 (1 standard drink = 0.6 oz pure alcoho l) Sex Assigned at Date Recorded Not on file documented as of this encounter Progress Notes Derek Ruiz - 04/27/2020 11:59 PM CST This is a recent snapshot of the patient's [facility] medical record. For current drug dose and complete information and questions, call [phone] or In avtar [place] [facility] ([id number]) CSN Number: [id number] DINNER documented in this encounter Plan of Treatment Not on filedocumented as of this encounter Visit Diagnoses Not on filedocumented in this encounter
--- OUTSIDE RECORDS SUMMARY | 2022-02-07 15:55 | XMS_ITS | Encounter Summary ---
:1945 Author Organization [place] Address [address] [place] [address] Care Team Providers Name Role Phone Clinic, Marianna [place] Primary Care Provider [phone] Encounter Details Date Type Department Care Team Description 05/18/2020 Orders Only [facility], [facility] PA-C [address] [place] [facility] [place] [address] CLINICS [phone] [address] [place], [place] [address] (Wo rk) Social History Tobacco Use Types Packs/Day Years Used Date Never Smoker Smokeless Tobacco: Never Used Alcohol Use Standard Drinks/Week Comments Yes 0 (1 standard drink = 0.6 oz pure alcoho l) Sex Assigned at Date Recorded Not on file COVID-19 Exposure Response Date Recorded In the last month, have you been in contact Unable to assess 05/15/2020 9:41 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 documented as of this encounter Plan of Treatment Not on filedocumented as of this encounter Procedures Procedure Name Priority Date/Time Associated Comments Diagnosis CBC WITH PLATELETS & Routine 05/29/2020 4:30 PM R esults for this DIFFERENTIAL GOLD FRAME ASSEMBLER procedure are i n the results section. ERYTHROCYTE Routine 05/29/2020 4:30 PM Results f or this SEDIMENTATION RATE GOLD FRAME ASSEMBLER procedure are in AUTO the results section. CRP INFLAMMATION Routine 05/29/2020 4:30 PM Resul ts for this GOLD FRAME ASSEMBLER procedure are i n the results section. AST Routine 05/29/2020 4:30 PM Results f or this GOLD FRAME ASSEMBLER procedure are i n the results section. BASIC METABOLIC PANEL Routine 05/29/2020 4:30 PM Results for this GOLD FRAME ASSEMBLER procedure are i n the results section. CBC WITH PLATELETS & Routine 05/22/2020 10:45 Res ults for this DIFFERENTIAL AM GOLD FRAME ASSEMBLER procedure are i n the results section. ERYTHROCYTE Routine 05/22/2020 10:45 Results for this SEDIMENTATION RATE AM GOLD FRAME ASSEMBLER procedure are in AUTO the results section. CRP INFLAMMATION Routine 05/22/2020 10:45 Results for this AM GOLD FRAME ASSEMBLER procedure are i n the results section. BASIC METABOLIC PANEL Routine 05/22/2020 10:45 Re sults for this AM GOLD FRAME ASSEMBLER procedure are i n the results section. documented in this encounter Results Erythrocyte sedimentation rate auto (05/29/2020 4:30 PM GOLD FRAME ASSEMBLER) P athologist Signature Sed Rate 8 0 - 20 mm/h 05/29/2020 [facility] 9:21 PM [facility] Specimen Anatomical Collection Method Collection Time Receive d Time (Source) Location / / Volume Laterality 05/29/2020 4:30 PM 1 7:09 GOLD FRAME ASSEMBLER PM GOLD FRAME ASSEMBLER Barry Wright PA-C LAB - BLOOD ORDERABLES Performing Organization Address City/State/ZIP Code Phon e Number M [facility] [address] [place], [place] [address] [phone] [facility] [address] [phone] CRP inflammation (05/29/2020 4:30 PM GOLD FRAME ASSEMBLER) athologist Signature CRP Inflammation <2.9 0.0 - 8.0 05/29/2020 [place] mg/L 7:56 PM [facility] Specimen Anatomical Collection Method Collection Time Receive d Time (Source) Location / / Volume Laterality 05/29/2020 4:30 PM 1 7:09 GOLD FRAME ASSEMBLER PM GOLD FRAME ASSEMBLER Barry Wright PA-C LAB - BLOOD ORDERABLES Performing Organization Address City/State/ZIP Code Phon e Number M [facility] [address] [place], [place] [address] [facility] [address] [place], [place] [address] [place] [address] (ABNORMAL) CBC with platelets differential (05/29/2020 4:30 PM GOLD FRAME ASSEMBLER) [facility] gist Method Time Signature WBC 3.5 (L) 4.0 - 05/29/2020 [facility] 11.0 7:40 PM [facility] 10e9/L [facility] RBC Count 4.67 4.4 - 5.9 05/29/2020 [facility] 10e12/L 7:40 PM [facility] Hemoglobin 13.7 13.3 - 05/29/2020 [facility] 17.7 g/dL 7:40 PM [facility] Hematocrit 41.3 40.0 - 05/29/2020 [facility] 53.0 % 7:40 PM [facility] MCV 88 78 - 100 05/29/2020 [facility] fl 7:40 PM [facility] MCH 29.3 26.5 - 05/29/2020 [facility] 33.0 pg 7:40 PM [facility] MCHC 33.2 31.5 - 05/29/2020 [facility] 36.5 g/dL 7:40 PM [facility] RDW 13.1 10.0 - 05/29/2020 [facility] 15.0 % 7:40 PM [facility] Platelet Count 180 150 - 450 05/29/2020 [facility] 10e9/L 7:40 PM [facility] Diff Method Automated 05/29/2020 [facility] Method 7:40 PM [facility] % Neutrophils 60.2 % 05/29/2020 [facility] 7:40 PM [facility] % Lymphocytes 22.9 % 05/29/2020 [facility] 7:40 PM [facility] % Monocytes 9.0 % 05/29/2020 [facility] 7:40 PM [facility] % Eosinophils 6.5 % 05/29/2020 [facility] 7:40 PM [facility] % Basophils 1.4 % 05/29/2020 [facility] 7:40 PM [facility] % Immature 0.0 % 05/29/2020 [facility] Granulocytes 7:40 PM [facility] Nucleated RBCs 0 0 /100 05/29/2020 [facility] 7:40 PM [facility] Absolute 2.1 1.6 - 8.3 05/29/2020 [facility] Neutrophil 10e9/L 7:40 PM [facility] Absolute 0.8 0.8 - 5.3 05/29/2020 [facility] Lymphocytes 10e9/L 7:40 PM [facility] Absolute 0.3 0.0 - 1.3 05/29/2020 [facility] Monocytes 10e9/L 7:40 PM [facility] Absolute 0.2 0.0 - 0.7 05/29/2020 [facility] Eosinophils 10e9/L 7:40 PM [facility] Absolute 0.1 0.0 - 0.2 05/29/2020 [facility] Basophils 10e9/L 7:40 PM [facility] Abs Immature 0.0 0 - 0.4 05/29/2020 [facility] Granulocytes 10e9/L 7:40 PM [facility] Absolute 0.0 05/29/2020 [facility] Nucleated RBC 7:40 PM [facility] Specimen Anatomical Collection Method Collection Time Receive d Time (Source) Location / / Volume Laterality 05/29/2020 4:30 PM 7:09 GOLD FRAME ASSEMBLER PM GOLD FRAME ASSEMBLER Barry Wright PA-C LAB - BLOOD ORDERABLES Performing Organization Address City/State/ZIP Code Phon e Number [facility] [address] [place], [place] [address] [phone] [facility] [address] [phone] (ABNORMAL) Basic metabolic panel (05/29/2020 4:30 PM GOLD FRAME ASSEMBLER) athologist Signature Sodium 137 133 - 144 05/29/2020 [place] mmol/L 7:50 PM [facility] Potassium 3.8 3.4 - 5.3 05/29/2020 [place] mmol/L 7:50 PM [facility] Chloride 104 94 - 109 05/29/2020 [place] mmol/L 7:50 PM [facility] Carbon Dioxide 32 20 - 32 05/29/2020 [place] mmol/L 7:[address] [facility] Anion Gap 1 (L) 3 - 14 05/29/2020 [place] mmol/L 7:[address] [facility] Glucose 110 (H) 70 - 99 05/29/2020 [place] mg/dL 7:[address] [facility] Urea Nitrogen 13 7 - 30 05/29/2020 [place] mg/dL 7:[address] [facility] Creatinine 0.77 0.66 - 05/29/2020 [place] 1.25 mg/dL 7:[address] [facility] GFR Estimate 89 >60 05/29/2020 [place] mL/min/{1. 7:54 PM [facility] 73_m2} HOSPITAL Comment: Non GFR Calc Starting 05/04/2018, serum creatinine ba sed estimated GFR (eGFR) will be calculated using the Chronic Kidney Dise [facility] Epidemiology Collaboration (CKD-EPI) equation. GFR Estimate If >90 >60 mL/min/{1.73_m2} 05/29/2020 7: 54 PM [facility] Comment: GFR Calc Starting 05/04/2018, serum creatinine ba sed estimated GFR (eGFR) will be calculated using the Chronic Kidney Dise [facility] Epidemiology Collaboration (CKD-EPI) equation. Calcium 9.0 8.5 - 10.1 mg/dL 05/29/2020 7:54 PM [facility] Specimen Anatomical Collection Method Collection Time Receive d Time (Source) Location / / Volume Laterality 05/29/2020 4:30 PM 7:09 GOLD FRAME ASSEMBLER PM GOLD FRAME ASSEMBLER Barry Wright PA-C LAB - BLOOD ORDERABLES Performing Organization Address City/State/ZIP Code Phon e Number M [facility] [address] [place] [address] [facility] [address] [place] [place] [address], [facility] [phone] [facility] [address] [place] [address], [facility] AST (05/29/2020 4:30 PM GOLD FRAME ASSEMBLER) athologist Signature AST 24 0 - 45 U/L 05/29/2020 [place] 7:54 PM GOLD FRAME ASSEMBLER [facility] Specimen Anatomical Collection Method Collection Time Receive d Time (Source) Location / / Volume Laterality 05/29/2020 4:30 PM 7:09 GOLD FRAME ASSEMBLER PM GOLD FRAME ASSEMBLER Barry MILLER-C LAB - BLOOD ORDERABLES Performing Organization Address City/State/ZIP Code Phon e Number M [facility] [address] [place] [address] [facility] [address] [place] [address], [place] [phone] Erythrocyte sedimentation rate auto (05/22/2020 10:45 AM GOLD FRAME ASSEMBLER) athologist Signature Sed Rate 8 0 - 20 mm/h 05/22/2020 [facility] 1:52 PM GOLD FRAME ASSEMBLER [facility] Specimen Anatomical Collection Method Collection Time Receive d Time (Source) Location / / Volume Laterality 05/22/2020 10:45 05/22/2020 AM GOLD FRAME ASSEMBLER 12:40 PM GOLD FRAME ASSEMBLER Barry MILLER-C LAB - BLOOD ORDERABLES Performing Organization Address City/State/ZIP Code Phon e Number [facility] [address] [place], [place] [address] [facility] [address] [place], [place] [address]33 [facility] [phone] CRP inflammation (05/22/2020 10:45 AM GOLD FRAME ASSEMBLER) athologist Signature CRP Inflammation <2.9 0.0 - 8.0 05/22/2020 [place] mg/L 1:00 PM GOLD FRAME ASSEMBLER [facility] Specimen Anatomical Collection Method Collection Time Receive d Time (Source) Location / / Volume Laterality 05/22/2020 10:45 05/22/2020 AM GOLD FRAME ASSEMBLER 12:40 PM GOLD FRAME ASSEMBLER Barry Reilly Adriana MILLER-C LAB - BLOOD ORDERABLES Performing Organization Address City/State/ZIP Code Phon e Number M [facility] [address] [place] [address] [facility] [address] [place], [place] [address], [place] [phone] (ABNORMAL) CBC with platelets differential (05/22/2020 10:45 AM [facility]) [facility] Method Time Signature WBC 3.0 (L) 4.0 - 05/22/2020 [facility] 11.0 12:47 PM [facility] 10e9/L [facility] RBC Count 4.55 4.4 - 5.9 05/22/2020 [facility] 10e12/L 12:47 PM [facility] Hemoglobin 13.7 13.3 - 05/22/2020 [facility] 17.7 g/dL 12:47 [facility] Hematocrit 40.3 40.0 - 05/22/2020 [facility] 53.0 % 12:47 PM [facility] MCV 89 78 - 100 05/22/2020 [facility] fl 12:47 PM [facility] MCH 30.1 26.5 - 05/22/2020 [facility] 33.0 pg 12:47 PM [facility] MCHC 34.0 31.5 - 05/22/2020 [facility] 36.5 g/dL 12:47 [facility] RDW 13.2 10.0 - 05/22/2020 [facility] 15.0 % 12:47 PM [facility] Platelet Count 185 150 - 450 05/22/2020 [facility] 10e9/L 12:47 [facility] Diff Method Automated 05/22/2020 [facility] Method 12:47 PM [facility] % Neutrophils 56.1 % 05/22/2020 [facility] 12:47 PM [facility] % Lymphocytes 23.1 % 05/22/2020 [facility] 12:47 PM [facility] % Monocytes 11.4 % 05/22/2020 [facility] 12:47 PM [facility] % Eosinophils 7.4 % 05/22/2020 [facility] 12:47 PM [facility] % Basophils 2.0 % 05/22/2020 [facility] 12:47 PM [facility] % Immature 0.0 % 05/22/2020 [facility] Granulocytes 12:47 [facility] Nucleated RBCs 0 0 /100 05/22/2020 [facility] 12:47 PM [facility] Absolute 1.7 1.6 - 8.3 05/22/2020 [facility] Neutrophil 10e9/L 12:47 PM [facility] Absolute 0.7 (L) 0.8 - 5.3 05/22/2020 [facility] Lymphocytes 10e9/L 12:47 PM [facility] Absolute 0.3 0.0 - 1.3 05/22/2020 [facility] Monocytes 10e9/L 12:47 PM [facility] Absolute 0.2 0.0 - 0.7 05/22/2020 [facility] Eosinophils 10e9/L 12:47 PM [facility] Absolute 0.1 0.0 - 0.2 05/22/2020 [facility] Basophils 10e9/L 12:47 PM [facility] Abs Immature 0.0 0 - 0.4 05/22/2020 [facility] Granulocytes 10e9/L 12:47 PM [facility] Absolute 0.0 05/22/2020 [facility] Nucleated RBC 12:47 PM [facility] Specimen Anatomical Collection Method Collection Time Receive d Time (Source) Location / / Volume Laterality 05/22/2020 10:45 05/22/2020 AM GOLD FRAME ASSEMBLER 12:40 PM GOLD FRAME ASSEMBLER Barry Wright PA-C LAB - BLOOD ORDERABLES Performing Organization Address City/State/ZIP Code Phon e Number [facility] [address] [place] [address] [facility] [address] [phone] (ABNORMAL) Basic metabolic panel (05/22/2020 10:45 AM GOLD FRAME ASSEMBLER) P athologist Signature Sodium 136 133 - 144 05/22/2020 [facility] mmol/L 12:54 PM [facility] Potassium 3.6 3.4 - 5.3 05/22/2020 [facility] mmol/L 12:54 PM [facility] Chloride 104 94 - 109 05/22/2020 [facility] mmol/L 12:54 PM [facility] Carbon Dioxide 29 20 - 32 05/22/2020 [facility] mmol/L 1:[address] [facility] Anion Gap 3 3 - 14 05/22/2020 [place] mmol/L 1:[address] [facility] Glucose 103 (H) 70 - 99 05/22/2020 [place] mg/dL 1:[address] [facility] Urea Nitrogen 12 7 - 30 05/22/2020 [place] mg/dL 1:[address] [facility] Creatinine 0.74 0.66 - 05/22/2020 [place] 1.25 mg/dL 1:[address] [facility] GFR Estimate >90 >60 05/22/2020 [place] mL/min/{1. 1:00 PM [facility] 73_m2} HOSPITAL Comment: Non GFR Calc Starting 05/04/2018, serum creatinine ba sed estimated GFR (eGFR) will be calculated using the Chronic Kidney Dise [facility] Epidemiology Collaboration (CKD-EPI) equation. GFR Estimate If >90 >60 mL/min/{1.73_m2} 05/22/2020 1: 00 PM [facility] Comment: GFR Calc Starting 05/04/2018, serum creatinine ba sed estimated GFR (eGFR) will be calculated using the Chronic Kidney Dise [facility] Epidemiology Collaboration (CKD-EPI) equation. Calcium 8.9 8.5 - 10.1 mg/dL 05/22/2020 1:00 PM [facility] Specimen Anatomical Collection Method Collection Time Receive d Time (Source) Location / / Volume Laterality 05/22/2020 10:45 05/22/2020 AM GOLD FRAME ASSEMBLER 12:40 PM GOLD FRAME ASSEMBLER Barry Wright PA-C LAB - BLOOD ORDERABLES Performing Organization Address City/State/ZIP Code Phon e Number M [place] [address] [place] [address] [address] [facility] [address] [place] [address], [facility] [phone] [place] [address] [place] [address], [facility] [phone] HOSPITAL documented in this encounter Visit Diagnoses Not on filedocumented in this encounter Care Teams Electrical And Instrument Mechanic Relationship Specialty Start Date End Date Clinic, Marianna Monroe PCP - General 05/01/20 [address] [place] [address] documented as of this encounter
--- OUTSIDE RECORDS SUMMARY | 2022-02-07 15:55 | XMS_ITS | Encounter Summary ---
:1945 Author Organization [place] Address [facility] [place] [address] Care Team Providers Name Role Phone Unavailable Primary Care Provider Unavailable Encounter Details Date Type Department Care Team Description 04/28/2020 Home Infusion [place] [facility] Tamiko Iniguez, [facility] [address] [place], [place] [phone] 500 [facility] [phone] [place] [address] (Wo rk) Social History Tobacco Use Types Packs/Day Years Used Date Never Smoker Smokeless Tobacco: Never Used Alcohol Use Standard Drinks/Week Comments Yes 0 (1 standard drink = 0.6 oz pure alcoho l) Sex Assigned at Date Recorded Not on file documented as of this encounter Progress Notes Derek Ruiz - 04/28/2020 11:59 PM CST This is a recent snapshot of the patient's [facility] medical record. For current drug dose and complete information and questions, call [phone] or In Gretel avilez home[facility]usion ([id number]) CSN Number: [id number] TENANCE SHOP LABORER documented in this encounter Plan of Treatment Not on filedocumented as of this encounter Visit Diagnoses Not on filedocumented in this encounter
--- OUTSIDE RECORDS SUMMARY | 2022-02-07 15:55 | XMS_ITS | Encounter Summary ---
:1945 Author Organization [place] Address [facility] [place] [address] Care Team Providers Name Role Phone Clinic, Marianna Monroe Primary Care Provider [phone] Encounter Details Date Type Department Care Team Description 05/06/2020 Home Infusion [place] [facility] Tamiko Iniguez, [facility] [address] [facility] [place], [place] [phone] [place] [address] [place] [address] (Wo rk) Social History Tobacco Use Types Packs/Day Years Used Date Never Smoker Smokeless Tobacco: Never Used Alcohol Use Standard Drinks/Week Comments Yes 0 (1 standard drink = 0.6 oz pure alcoho l) Sex Assigned at Date Recorded Not on file documented as of this encounter Progress Notes Christa Calix - 05/06/2020 11:59 PM CST This is a recent snapshot of the patient's [facility] medical record. For current drug dose and complete information and questions, call [phone] or In Estate Assist, homeinfusion ([id number]) CSN Number: [id number] L OPERATOR documented in this encounter Plan of Treatment Not on filedocumented as of this encounter Visit Diagnoses Not on filedocumented in this encounter Care Teams Mechanical Adjuster Relationship Specialty Start Date End Date Clinic, Marianna Monroe PCP - General 05/01/20 [address] [place] [address] documented as of this encounter
--- OUTSIDE RECORDS SUMMARY | 2022-02-07 15:55 | XMS_ITS | Encounter Summary ---
:1945 Author Organization [place] Address [address] [place] [address]. [place] [address] Care Team Providers Name Role Phone Clinic, Marianna Monroe Primary Care Provider [phone] Encounter Details Date Type Department Care Team Description 04/30/2020 Home Infusion [facility] Infusi on Tamiko Iniguez, [facility] [address] [facility] [address] [place], [place] [phone] [place] [address] [place] [address] (Wo rk) Social History Tobacco Use Types Packs/Day Years Used Date Never Smoker Smokeless Tobacco: Never Used Alcohol Use Standard Drinks/Week Comments Yes 0 (1 standard drink = 0.6 oz pure alcoho l) Sex Assigned at Date Recorded Not on file documented as of this encounter Progress Notes Derek Ruiz - 04/30/2020 11:59 PM CST This is a recent snapshot of the patient's [facility] medical record. For current drug dose and complete information and questions, call [phone] or In [employer] jber homeinfusion ([id number]) CSN Number: [id number] CAL COATING TECHNICIAN documented in this encounter Plan of Treatment Not on filedocumented as of this encounter Visit Diagnoses Not on filedocumented in this encounter Care Teams Web Ui Designer Relationship Specialty Start Date End Date Clinic, Marianna Monroe PCP - General 05/01/20 [address] [place] [address] documented as of this encounter
--- OUTSIDE RECORDS SUMMARY | 2022-02-07 15:55 | XMS_ITS | Encounter Summary ---
:1945 Author Organization [facility] [place] [address] Care Team Providers Name Role Phone Clinic, [facility] Primary Care Provider [phone] Encounter Details Date Type Department Care Team Description 05/15/2020 Home [facility] Tamiko Iniguez, [facility] [address] [facility] [address] [place], [place] [phone] [place] [address] [place] [address] (Wo rk) Social History Tobacco Use Types Packs/Day Years Used Date Never Smoker Smokeless Tobacco: Never Used Alcohol Use Standard Drinks/Week Comments Yes 0 (1 standard drink = 0.6 oz pure alcoho l) Sex Assigned at Date Recorded Not on file COVID-19 Exposure Response Date Recorded In the last month, have you been in contact Unable to assess 05/15/2020 9:41 AM [employer] MEMBER with someone who was confirmed or suspected to have Coronavirus / COVID-19? documented as of this encounter Progress Notes Nisha Matthew - 05/15/2020 11:59 PM CST This is a recent snapshot of the patient's [facility] medical record. For current drug dose and complete information and questions, call [phone] or In [employer], homeinfusion ([id number]) CSN Number: [id number] [employer]AC[employer] MEMBER documented in this encounter Plan of Treatment Not on filedocumented as of this encounter Visit Diagnoses Not on filedocumented in this encounter Care Teams Scarfer Relationship Specialty Start Date End Date Clinic, [facility] PCP - General 05/01/20 [id number] [place] [address] documented as of this encounter
--- OUTSIDE RECORDS SUMMARY | 2022-02-07 15:55 | XMS_ITS | Encounter Summary ---
:1945 Author Organization [place] Address [address] [place] [address] Care Team Providers Name Role Phone Unavailable Primary Care Provider Unavailable Encounter Details Date Type Department Care Team Description 04/17/2020 [facility] [address] [facility] [place] [address] [facility] [phone] [address] [place], [place] [address] (Wo rk) Social History Tobacco Use Types Packs/Day Years Used Date Never Smoker Smokeless Tobacco: Never Used Alcohol Use Standard Drinks/Week Comments Yes 0 (1 standard drink = 0.6 oz pure alcoho l) Sex Assigned at Date Recorded Not on file documented as of this encounter Plan of Treatment Not on filedocumented as of this encounter Procedures Procedure Name Priority Date/Time Associated Comments Diagnosis CBC WITH PLATELETS & Routine 05/15/2020 2:45 PM R esults for this DIFFERENTIAL SNOW PLOW OPERATOR procedure are i n the results section. ERYTHROCYTE Routine 05/15/2020 2:45 PM Results f or this SEDIMENTATION RATE SNOW PLOW OPERATOR procedure are in AUTO the results section. CRP INFLAMMATION Routine 05/15/2020 2:45 PM Resul ts for this SNOW PLOW OPERATOR procedure are i n the results section. AST Routine 05/15/2020 2:45 PM Results f or this SNOW PLOW OPERATOR procedure are i n the results section. BASIC METABOLIC PANEL Routine 05/15/2020 2:45 PM Results for this SNOW PLOW OPERATOR procedure are i n the results section. CBC WITH PLATELETS & Routine 05/07/2020 6:43 PM R esults for this DIFFERENTIAL SNOW PLOW OPERATOR procedure are i n the results section. ERYTHROCYTE Routine 05/07/2020 6:43 PM Results f or this SEDIMENTATION RATE SNOW PLOW OPERATOR procedure are in AUTO the results section. CRP INFLAMMATION Routine 05/07/2020 6:43 PM Resul ts for this SNOW PLOW OPERATOR procedure are i n the results section. AST Routine 05/07/2020 6:43 PM Results f or this SNOW PLOW OPERATOR procedure are i n the results section. BASIC METABOLIC PANEL Routine 05/07/2020 6:43 PM Results for this SNOW PLOW OPERATOR procedure are i n the results section. CBC WITH PLATELETS & Routine 05/01/2020 2:45 PM R esults for this DIFFERENTIAL SNOW PLOW OPERATOR procedure are i n the results section. ERYTHROCYTE Routine 05/01/2020 2:45 PM Results f or this SEDIMENTATION RATE SNOW PLOW OPERATOR procedure are in AUTO the results section. CRP INFLAMMATION Routine 05/01/2020 2:45 PM Resul ts for this SNOW PLOW OPERATOR procedure are i n the results section. AST Routine 05/01/2020 2:45 PM Results f or this SNOW PLOW OPERATOR procedure are i n the results section. BASIC METABOLIC PANEL Routine 05/01/2020 2:45 PM Results for this SNOW PLOW OPERATOR procedure are i n the results section. documented in this encounter Results Erythrocyte sedimentation rate auto (05/15/2020 2:45 PM SNOW PLOW OPERATOR) athologist Signature Sed Rate 8 0 - 20 mm/h 05/15/2020 [facility] 4:43 PM SNOW PLOW OPERATOR [facility]OSPITAL Specimen Anatomical Collection Method Collection Time Receive d Time (Source) Location / / Volume Laterality 05/15/2020 2:45 PM 0 4:17 SNOW PLOW OPERATOR PM SNOW PLOW OPERATOR Barry Wright PA-C LAB - BLOOD ORDERABLES Performing Organization Address City/State/ZIP Code Phon e Number [facility] [address] [place], [place] [address] [facility] [address] [place] [address] [facility] [phone] CRP inflammation (05/15/2020 2:45 PM SNOW PLOW OPERATOR) athologist Signature CRP Inflammation <2.9 0.0 - 8.0 05/15/2020 [facility] mg/L 4:[address] [facility] Specimen Anatomical Collection Method Collection Time Receive d Time (Source) Location / / Volume Laterality 05/15/2020 2:45 PM 0 4:17 SNOW PLOW OPERATOR PM SNOW PLOW OPERATOR Barry Wright PA-C LAB - BLOOD ORDERABLES Performing Organization Address City/State/ZIP Code Phon e Number [place] [address] [address], [place] [address] [facility] [address] [place], [place] [address] [facility] [phone] CBC with platelets differential (05/15/2020 2:45 PM SNOW PLOW OPERATOR) [facility] Method Time Signature WBC 4.5 4.0 - 05/15/2020 [facility] 11.0 4:29 PM [facility] 10e9/L [facility] RBC Count 4.71 4.4 - 5.9 05/15/2020 [facility] 10e12/L 4:[address] [facility] Hemoglobin 13.7 13.3 - 05/15/2020 [facility] 17.7 g/dL 4:[address] [facility] Hematocrit 42.0 40.0 - 05/15/2020 [facility] 53.0 % 4:[address] [facility] MCV 89 78 - 100 05/15/2020 [facility] fl 4:[address] [facility] MCH 29.1 26.5 - 05/15/2020 [facility] 33.0 pg 4:[address] [facility] MCHC 32.6 31.5 - 05/15/2020 [facility] 36.5 g/dL 4:[address] [facility] RDW 13.2 10.0 - 05/15/2020 [facility] 15.0 % 4:[address] [facility] Platelet Count 207 150 - 450 05/15/2020 [facility] 10e9/L 4:[address] [facility] Diff Method Automated 05/15/2020 [facility] Method 4:[address] [facility] % Neutrophils 67.9 % 05/15/2020 [facility] 4:[address] [facility] % Lymphocytes 17.4 % 05/15/2020 [facility] 4:[address] [facility] % Monocytes 7.5 % 05/15/2020 [facility] 4:[address] [facility] % Eosinophils 5.9 % 05/15/2020 [facility] 4:[address] [facility] % Basophils 1.1 % 05/15/2020 [facility] 4:[address] [facility] % Immature 0.2 % 05/15/2020 [facility] Granulocytes 4:[address] [facility] Nucleated RBCs 0 0 /100 05/15/2020 [facility] 4:[address] [facility] Absolute 3.1 1.6 - 8.3 05/15/2020 [facility] Neutrophil 10e9/L 4:[address] [facility] Absolute 0.8 0.8 - 5.3 05/15/2020 [facility] Lymphocytes 10e9/L 4:[address] [facility] Absolute 0.3 0.0 - 1.3 05/15/2020 [place] Monocytes 10e9/L 4:[address] [facility] Absolute 0.3 0.0 - 0.7 05/15/2020 [facility] Eosinophils 10e9/L 4:[address] [facility] Absolute 0.1 0.0 - 0.2 05/15/2020 [facility] Basophils 10e9/L 4:[address] [facility] Abs Immature 0.0 0 - 0.4 05/15/2020 [facility] Granulocytes 10e9/L 4:[address] [facility] Absolute 0.0 05/15/2020 [place] Nucleated RBC 4:[address] [facility] Specimen Anatomical Collection Method Collection Time Receive d Time (Source) Location / / Volume Laterality 05/15/2020 2:45 PM 0 4:17 SNOW PLOW OPERATOR PM SNOW PLOW OPERATOR Barry Wright PA-C LAB - BLOOD ORDERABLES Performing Organization Address City/State/ZIP Code Phon e Number [facility] [address] [place] [address] [facility] [address] [phone] (ABNORMAL) Basic metabolic panel (05/15/2020 2:45 PM SNOW PLOW OPERATOR) P athologist Signature Sodium 138 133 - 144 05/15/2020 [place] mmol/L 4:[address] [facility] Potassium 3.5 3.4 - 5.3 05/15/2020 [place] mmol/L 4:[address] [facility] Chloride 104 94 - 109 05/15/2020 [place] mmol/L 4:[address] [facility] Carbon Dioxide 31 20 - 32 05/15/2020 [place] mmol/L 4:[address] [facility] Anion Gap 3 3 - 14 05/15/2020 [place] mmol/L 4:[address] [facility] Glucose 108 (H) 70 - 99 05/15/2020 [place] mg/dL 4:[address] [facility] Urea Nitrogen 13 7 - 30 05/15/2020 [place] mg/dL 4:[address] [facility] Creatinine 0.79 0.66 - 05/15/2020 [place] 1.25 mg/dL 4:[address] [facility] GFR Estimate 88 >60 05/15/2020 [place] mL/min/{1. 4:43 PM [facility] 73_m2} HOSPITAL Comment: Non GFR Calc Starting 05/04/2018, serum creatinine ba sed estimated GFR (eGFR) will be calculated using the Chronic Kidney Dise [facility] Epidemiology Collaboration (CKD-EPI) equation. GFR Estimate If >90 >60 mL/min/{1.73_m2} 05/15/2020 4: 43 PM [facility] Comment: GFR Calc Starting 05/04/2018, serum creatinine ba sed estimated GFR (eGFR) will be calculated using the Chronic Kidney Dise [facility] Epidemiology Collaboration (CKD-EPI) equation. Calcium 8.9 8.5 - 10.1 mg/dL 05/15/2020 4:43 PM [facility] Specimen Anatomical Collection Method Collection Time Receive d Time (Source) Location / / Volume Laterality 05/15/2020 2:45 PM 0 4:17 SNOW PLOW OPERATOR PM SNOW PLOW OPERATOR Barry Wright PA-C LAB - BLOOD ORDERABLES Performing Organization Address City/State/ZIP Code Phon e Number [facility] [address] [place], [place] [address] [facility] [address] [place], [place] [address] [facility] [phone] AST (05/15/2020 2:45 PM SNOW PLOW OPERATOR) P athologist Signature AST 19 0 - 45 U/L 05/15/2020 [facility] 4:43 PM SNOW PLOW OPERATOR [facility] Specimen Anatomical Collection Method Collection Time Receive d Time (Source) Location / / Volume Laterality 05/15/2020 2:45 PM 0 4:17 SNOW PLOW OPERATOR PM SNOW PLOW OPERATOR Barry FAMC LAB - BLOOD ORDERABLES Performing Organization Address City/[facility]/ZIP Code Phon e Number [facility] [address] [place], [place] [address] [facility] [address] [place], [place] [address], [facility] [phone] Erythrocyte sedimentation rate auto (05/07/2020 6:43 PM SNOW PLOW OPERATOR) P athologist Signature Sed Rate 9 0 - 20 mm/h 05/08/2020 [facility] 9:43 AM SNOW PLOW OPERATOR [facility] Specimen Anatomical Collection Method Collection Time Receive d Time (Source) Location / / Volume Laterality 05/07/2020 6:43 PM 0 7:57 SNOW PLOW OPERATOR AM SNOW PLOW OPERATOR Barry FAMC LAB - BLOOD ORDERABLES Performing Organization Address City/[facility]/ZIP Code Phon e Number [facility] [address] [place], [place] [address] [facility] [address] [place], [place] [address], [facility] [phone] CRP inflammation (05/07/2020 6:43 PM SNOW PLOW OPERATOR) P athologist Signature CRP Inflammation <2.9 0.0 - 8.0 05/08/2020 [place] mg/L 8:49 AM SNOW PLOW OPERATOR [facility] Specimen Anatomical Collection Method Collection Time Receive d Time (Source) Location / / Volume Laterality 05/07/2020 6:43 PM 0 7:57 SNOW PLOW OPERATOR AM SNOW PLOW OPERATOR Barry MILLER-C LAB - BLOOD ORDERABLES Performing Organization Address City/[facility]/ZIP Code Phon e Number [facility] [address] [place], [place] [address] [facility] [address] [place], [place] [address] [place] [address] CBC with platelets differential (05/07/2020 6:43 PM [facility]) [facility] gist Method Time Signature WBC 4.6 4.0 - 05/08/2020 [facility] 11.0 9:40 AM [facility] 10e9/L [facility] RBC Count 4.52 4.4 - 5.9 05/08/2020 [facility] 10e12/L 9:[address] [facility] Hemoglobin 13.3 13.3 - 05/08/2020 [facility] 17.7 g/dL 9:[address] [facility] Hematocrit 40.0 40.0 - 05/08/2020 [facility] 53.0 % 9:[address] [facility] MCV 89 78 - 100 05/08/2020 [facility] fl 9:[address] [facility] MCH 29.4 26.5 - 05/08/2020 [facility] 33.0 pg 9:[address] [facility] MCHC 33.3 31.5 - 05/08/2020 [facility] 36.5 g/dL 9:[address] [facility] RDW 13.2 10.0 - 05/08/2020 [facility] 15.0 % 9:[address] [facility] Platelet Count 223 150 - 450 05/08/2020 [facility] 10e9/L 9:[address] [facility] Diff Method Automated 05/08/2020 [facility] Method 9:[address] [facility] % Neutrophils 64.2 % 05/08/[address] [facility] 9:[address] [facility] % Lymphocytes 21.0 % 05/08/[address] [facility] 9:[address] [facility] % Monocytes 7.0 % 05/08/[address] [facility] 9:[address] [facility] % Eosinophils 6.3 % 05/08/[address] [facility] 9:[address] [facility] % Basophils 1.3 % 05/08/2020 [facility] 9:[address] [facility] % Immature 0.2 % 05/08/2020 [facility] Granulocytes 9:[address] [facility] Nucleated RBCs 0 0 /100 05/08/2020 [facility] 9:[address] [facility] Absolute 2.9 1.6 - 8.3 05/08/2020 [facility] Neutrophil 10e9/L 9:[address] [facility] Absolute 1.0 0.8 - 5.3 05/08/2020 [place] Lymphocytes 10e9/L 9:[address] [facility] Absolute 0.3 0.0 - 1.3 05/08/2020 [facility] Monocytes 10e9/L 9:[address] [facility] Absolute 0.3 0.0 - 0.7 05/08/2020 [facility] Eosinophils 10e9/L 9:[address] [facility] Absolute 0.1 0.0 - 0.2 05/08/2020 [place] Basophils 10e9/L 9:[address] [facility] Abs Immature 0.0 0 - 0.4 05/08/2020 [place] Granulocytes 10e9/L 9:[address] [facility] Absolute 0.0 05/08/2020 [place] Nucleated RBC 9:[address] [facility] Specimen Anatomical Collection Method Collection Time Receive d Time (Source) Location / / Volume Laterality 05/07/2020 6:43 PM 0 7:57 SNOW PLOW OPERATOR AM SNOW PLOW OPERATOR Barry Wright PA-C LAB - BLOOD ORDERABLES Performing Organization Address City/State/ZIP Code Phon e Number [facility] [address] [place] [address] [facility] [address] [phone] (ABNORMAL) Basic metabolic panel (05/07/2020 6:43 PM SNOW PLOW OPERATOR) P athologist Signature Sodium 137 133 - 144 05/08/2020 [place] mmol/L 8:[address] [facility] Potassium 3.8 3.4 - 5.3 05/08/2020 [place] mmol/L 8:[address] [facility] Chloride 106 94 - 109 05/08/2020 [place] mmol/L 8:[address] [facility] Carbon Dioxide 29 20 - 32 05/08/2020 [place] mmol/L 8:[address] [facility] Anion Gap 2 (L) 3 - 14 05/08/2020 [place] mmol/L 8:[address] [facility] Glucose 106 (H) 70 - 99 05/08/2020 [place] mg/dL 8:[address] [facility] Urea Nitrogen 12 7 - 30 05/08/2020 [place] mg/dL 8:[address] [facility] Creatinine 0.80 0.66 - 05/08/2020 [place] 1.25 mg/dL 8:[address] [facility] GFR Estimate 85 >60 05/08/2020 [place] mL/min/{1. 8:49 AM [facility] 73_m2} HOSPITAL Comment: Starting 05/04/2018, serum creatinine ba sed estimated GFR (eGFR) will be calculated using the Chronic Kidney Dise [facility] Epidemiology Collaboration (CKD-EPI) equation. GFR Estimate If 99 >60 mL/min/{1.73_m2} 05/08/2020 8: 49 AM [facility] Comment: Starting 05/04/2018, serum creatinine ba sed estimated GFR (eGFR) will be calculated using the Chronic Kidney Dise [facility] Epidemiology Collaboration (CKD-EPI) equation. Calcium 8.7 8.5 - 10.1 mg/dL 05/08/2020 8:49 AM [facility] Specimen Anatomical Collection Method Collection Time Receive d Time (Source) Location / / Volume Laterality 05/07/2020 6:43 PM 0 7:57 SNOW PLOW OPERATOR AM SNOW PLOW OPERATOR Barry Wright PA-C LAB - BLOOD ORDERABLES Performing Organization Address City/State/ZIP Code Phon e Number [facility] [address] [place], [place] [address] [facility] [address] [place], [place] [address], [facility] [phone] AST (05/07/2020 6:43 PM SNOW PLOW OPERATOR) P athologist Signature AST 21 0 - 45 U/L 05/08/2020 [facility] 8:[address] [facility] Specimen Anatomical Collection Method Collection Time Receive d Time (Source) Location / / Volume Laterality 05/07/2020 6:43 PM 0 7:57 SNOW PLOW OPERATOR AM SNOW PLOW OPERATOR Barry Wright PA-C LAB - BLOOD ORDERABLES Performing Organization Address City/State/ZIP Code Phon e Number [facility] [address] [place], [place] [address] [facility] [address] [place] [address], [facility] [phone] Erythrocyte sedimentation rate auto (05/01/2020 2:45 PM SNOW PLOW OPERATOR) athologist Signature Sed Rate 13 0 - 20 mm/h 05/01/2020 [facility] 4:[address] [facility] Specimen Anatomical Collection Method Collection Time Receive d Time (Source) Location / / Volume Laterality 05/01/2020 2:45 PM 0 4:01 SNOW PLOW OPERATOR PM SNOW PLOW OPERATOR Barry Wright PA-C LAB - BLOOD ORDERABLES Performing Organization Address City/[facility]/ZIP [facility] Phon e Number [facility] [address] [place], [place] [address] [facility] [address] [place], [place] [address], [facility] [phone] CRP inflammation (05/01/2020 2:45 PM SNOW PLOW OPERATOR) athologist Signature CRP Inflammation <2.9 0.0 - 8.0 05/01/2020 [place] mg/L 4:[address] [facility] Specimen Anatomical Collection Method Collection Time Receive d Time (Source) Location / / Volume Laterality 05/01/2020 2:45 PM 0 4:01 SNOW PLOW OPERATOR PM SNOW PLOW OPERATOR Barry Wright PA-C LAB - BLOOD ORDERABLES Performing Organization Address City/[facility]/ZIP Code Phon e Number [facility] [address] [place], [place] [address] [facility] [address] [place], [place] [address], [facility] [phone] CBC with platelets differential (05/01/2020 2:45 PM SNOW PLOW OPERATOR) [facility] gist Method Time Signature WBC 5.3 4.0 - 05/01/2020 [facility] 11.0 4:06 PM [facility] 10e9/L [facility] RBC Count 4.56 4.4 - 5.9 05/01/2020 [place] 10e12/L 4:[address] [facility] Hemoglobin 13.5 13.3 - 05/01/2020 [facility] 17.7 g/dL 4:[address] [facility] Hematocrit 40.5 40.0 - 05/01/2020 [facility] 53.0 % 4:[address] [facility] MCV 89 78 - 100 05/01/2020 [facility] fl 4:[address] [facility] MCH 29.6 26.5 - 05/01/2020 [facility] 33.0 pg 4:[address] [facility] MCHC 33.3 31.5 - 05/01/2020 [facility] 36.5 g/dL 4:[address] [facility] RDW 13.1 10.0 - 05/01/2020 [facility] 15.0 % 4:[address] [facility] Platelet Count 198 150 - 450 05/01/2020 [facility] 10e9/L 4:[address] [facility] Diff Method Automated 05/01/2020 [facility] Method 4:[address] [facility] % Neutrophils 69.9 % 05/01/[address] [facility] 4:[address] [facility] % Lymphocytes 15.4 % 05/01/[address] [facility] 4:[address] [facility] % Monocytes 8.3 % 05/01/[address] [facility] 4:[address] [facility] % Eosinophils 5.5 % 05/01/2020 [facility] 4:[address] [facility] % Basophils 0.9 % 05/01/2020 [facility] 4:[address] [facility] % Immature 0.0 % 05/01/2020 [facility] Granulocytes 4:[address] [facility] Nucleated RBCs 0 0 /100 05/01/2020 [facility] 4:[address] [facility] Absolute 3.7 1.6 - 8.3 05/01/2020 [facility] Neutrophil 10e9/L 4:[address] [facility] Absolute 0.8 0.8 - 5.3 05/01/2020 [facility] Lymphocytes 10e9/L 4:[address] [facility] Absolute 0.4 0.0 - 1.3 05/01/2020 [facility] Monocytes 10e9/L 4:[address] [facility] Absolute 0.3 0.0 - 0.7 05/01/2020 [facility] Eosinophils 10e9/L 4:[address] [facility] Absolute 0.1 0.0 - 0.2 05/01/2020 [facility] Basophils 10e9/L 4:[address] [facility] Abs Immature 0.0 0 - 0.4 05/01/2020 [facility] Granulocytes 10e9/L 4:[address] [facility] Absolute 0.0 05/01/2020 [place] Nucleated RBC 4:[address] [facility] Specimen Anatomical Collection Method Collection Time Receive d Time (Source) Location / / Volume Laterality 05/01/2020 2:45 PM 0 4:01 SNOW PLOW OPERATOR PM SNOW PLOW OPERATOR Barry Wright PA-C LAB - BLOOD ORDERABLES Performing Organization Address City/State/ZIP Code Phon e Number [place] [address] [address] [place] [address] [facility] [address] [phone] (ABNORMAL) Basic metabolic panel (05/01/2020 2:45 PM SNOW PLOW OPERATOR) athologist Signature Sodium 137 133 - 144 05/01/2020 [place] mmol/L 4:[address] [facility] Potassium 3.8 3.4 - 5.3 05/01/2020 [place] mmol/L 4:[address] [facility] Chloride 106 94 - 109 05/01/2020 [place] mmol/L 4:[address] [facility] Carbon Dioxide 28 20 - 32 05/01/2020 [place] mmol/L 4:[address] [facility] Anion Gap 3 3 - 14 05/01/2020 [place] mmol/L 4:[address] [facility] Glucose 101 (H) 70 - 99 05/01/2020 [place] mg/dL 4:[address] [facility] Urea Nitrogen 18 7 - 30 05/01/2020 [place] mg/dL 4:[address] [facility] Creatinine 0.78 0.66 - 05/01/2020 [facility] 1.25 mg/dL 4:[address] [facility] GFR Estimate 88 >60 05/01/2020 [place] mL/min/{1. 4:20 PM [facility] 73_m2} HOSPITAL Comment: Non GFR Calc Starting 05/04/2018, serum creatinine ba sed estimated GFR (eGFR) will be calculated using the Chronic Kidney Dise [facility] Epidemiology Collaboration (CKD-EPI) equation. GFR Estimate If >90 >60 mL/min/{1.73_m2} 05/01/2020 4: 20 PM [facility] Comment: GFR Calc Starting 05/04/2018, serum creatinine ba sed estimated GFR (eGFR) will be calculated using the Chronic Kidney Dise [facility] Epidemiology Collaboration (CKD-EPI) equation. Calcium 8.5 8.5 - 10.1 mg/dL 05/01/2020 4:20 PM [facility] Specimen Anatomical Collection Method Collection Time Receive d Time (Source) Location / / Volume Laterality 05/01/2020 2:45 PM 0 4:01 SNOW PLOW OPERATOR PM SNOW PLOW OPERATOR Barry Wright PA-C LAB - BLOOD ORDERABLES Performing Organization Address City/State/ZIP [facility] Phon e Number [facility] [address] [place], [place] [address] [facility] [address] [place], [place] [address], [facility] [phone] AST (05/01/2020 2:45 PM SNOW PLOW OPERATOR) athologist Signature AST 18 0 - 45 U/L 05/01/2020 [facility] 4:[address] [facility] Specimen Anatomical Collection Method Collection Time Receive d Time (Source) Location / / Volume Laterality 05/01/2020 2:45 PM 0 4:01 SNOW PLOW OPERATOR PM SNOW PLOW OPERATOR Barry Wright PA-C LAB - BLOOD ORDERABLES Performing Organization Address City/State/ZIP [facility] Phon e Number [facility] [address] [place], [place] [address] [facility] [address] [place], [place] [address], [facility] [phone] documented in this encounter Visit Diagnoses Not on filedocumented in this encounter
--- OUTSIDE RECORDS SUMMARY | 2022-02-07 15:55 | XMS_ITS | Encounter Summary ---
:1945 Author Organization [place] Address [facility] [place] [address] Care Team Providers Name Role Phone Clinic, Marianna Monroe Primary Care Provider Encounter Details Date Type Department Care Team Description 05/16/2020 Home Infusion [facility] Tamiko Iniguez, [facility] [address] [facility] [place], [place] [phone] [place] [address] [place] [address] (Wo rk) Social History Tobacco Use Types Packs/Day Years Used Date Never Smoker Smokeless Tobacco: Never Used Alcohol Use Standard Drinks/Week Comments Yes 0 (1 standard drink = 0.6 oz pure alcoho l) Sex Assigned at Date Recorded Not on file COVID-19 Exposure Response Date Recorded In the last month, have you been in contact Unable to assess 05/15/2020 9:41 AM FINANCIAL REPORTING ANALYST with someone who was confirmed or suspected to have Coronavirus / COVID-19? documented as of this encounter Progress Notes Nisha Matthew - 05/16/2020 11:59 PM CST This is a recent snapshot of the patient's [facility] medical record. For current drug dose and complete information and questions, call [phone] or In [facility], homeinfusion ([id number]) CSN Number: [id number] NCIAL REPORTING ANALYST documented in this encounter Plan of Treatment Not on filedocumented as of this encounter Visit Diagnoses Not on filedocumented in this encounter Care Teams Movers Relationship Specialty Start Date End Date Clinic, Marianna Monroe PCP - General 05/01/20 [id number] [place] [address] documented as of this encounter
--- OUTSIDE RECORDS SUMMARY | 2022-02-07 15:55 | XMS_ITS | Encounter Summary ---
:1945 Author Organization [place] Address [address] [place] [address]. [place] [address] Care Team Providers Name Role Phone Marianna Valderrama Primary Care Provider [phone] Encounter Details Date Type Department Care Team Description 05/15/2020 Travel Social History Tobacco Use Types Packs/Day Years Used Date Never Smoker Smokeless Tobacco: Never Used Alcohol Use Standard Drinks/Week Comments Yes 0 (1 standard drink = 0.6 oz pure alcoho l) Sex Assigned at Date Recorded Not on file COVID-19 Exposure Response Date Recorded In the last month, have you been in contact Unable to assess 05/15/2020 9:41 AM STATEMENT REQUEST CLERK with someone who was confirmed or suspected to have Coronavirus / COVID-19? documented as of this encounter Plan of Treatment Not on filedocumented as of this encounter Visit Diagnoses Not on filedocumented in this encounter Care Teams Ton Container Shipper Relationship Specialty [facility] Date [facility] - [facility] [address] [place] [address] documented as of this encounter
--- OUTSIDE RECORDS SUMMARY | 2022-02-07 15:55 | XMS_ITS | Encounter Summary ---
:1945 Author Organization [place] Address [facility] [place] [address] Care Team Providers Name Role Phone Unavailable Primary Care Provider Unavailable Encounter Details Date Type Department Care Team Description 04/29/2020 Home Infusion [facility] Tamiko Iniguez, [facility] [address] [place], [place] [phone] [address] [facility] [phone] [place] [address] (Wo rk) Social History Tobacco Use Types Packs/Day Years Used Date Never Smoker Smokeless Tobacco: Never Used Alcohol Use Standard Drinks/Week Comments Yes 0 (1 standard drink = 0.6 oz pure alcoho l) Sex Assigned at Date Recorded Not on file documented as of this encounter Progress Notes Derek Ruiz - 04/29/2020 11:59 PM CST This is a recent snapshot of the patient's [facility] medical record. For current drug dose and complete information and questions, call [phone] or In [facility] home[facility]usion ([id number]) CSN Number: [id number] CE SUPPORT CLERK documented in this encounter Plan of Treatment Not on filedocumented as of this encounter Visit Diagnoses Not on filedocumented in this encounter
--- OUTSIDE RECORDS SUMMARY | 2022-02-07 15:56 | XMS_ITS | Encounter Summary ---
:1945 Author Organization [place] Address [address] [place] [address]. 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 documented as of this encounter Plan of Treatment Not on filedocumented as of this encounter Procedures Procedure Name Priority Date/Time Associated Diagnosis Comme nts EMG - HIM SCAN 06/15/2019 documented in this encounter Results EMG - HIM SCAN (06/15/2019) Narrative This result has an attachment that is no t available. Historical Provider IP NEUROLOGY ORDERABLES documented in this encounter Visit Diagnoses Not on filedocumented in this encounter Care Teams Founder And Ceo Relationship Specialty Start Date End Date Clinic, Marianna Monroe PCP - General 05/01/20 [id number] [place], [place] [phone] documented as of this encounter
--- OUTSIDE RECORDS SUMMARY | 2022-02-07 15:56 | XMS_ITS | Encounter Summary ---
:1945 Author Organization [place] Address [address] [place] [address]. [place] [address] Care Team Providers Name Role Phone Unavailable Primary Care Provider Unavailable Encounter Details Date Type Department Care Team Description 11/20/2005 Historic Results [facility] Heart Unknown, [facility] ide[address] [place] [address] Social History Tobacco Use Types Packs/Day Years Used Date Never Assessed Sex Assigned at Date Recorded Not on file documented as of this encounter Plan of Treatment Not on filedocumented as of this encounter Procedures Procedure Name Priority Date/Time Associated Diagnosis Comme nts ECHO CARDIAC - HIM SCAN 11/20/2005 12:00 AM CDT - ARCHIVE documented in this encounter Results ECHO CARDIAC - HIM SCAN - ARCHIVE (11/20/2005 12:00 AM CDT) Specimen (Source) Anatomical Location Collection Method / Collectio n Time Received Time / Laterality Volume 11/20/2005 Narrative This result has an attachment that is no t available. Provider Scan CV ECHO ORDERABLES documented in this encounter Visit Diagnoses Not on filedocumented in this encounter
--- OUTSIDE RECORDS SUMMARY | 2022-02-07 15:56 | XMS_ITS | Encounter Summary ---
:1945 Author Organization [place] Address [address] [place] [address]. 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 He has had problems in his left hand with both pain and numbness for about the past year. This has gotten progressively more severe. He ultimately sought orthopedic consultation which was followed by neurologic consultation with Dr. Trujillo. EMG was positive for carpal tunnel in his left hand and he was admitted to the hospital for left carpal tunnel release. At present he has no symptoms in his right hand. PAST MEDICAL HISTORY: Father age 63 of cerebrovascular accident. Mother at age 88 of natural causes. He has two sisters both of whom suffer from schizophrenia. SOCIAL HISTORY: Nicotine none. Alcohol occasional. Caffeine occasional. MEDICATIONS: Include Protonix 40 mg every other day and Diamox which he uses three times a day to control facial tick. ALLERGIES: HE STATES NOVOCAIN. HOSPITALIZATIONS: None. PAST SURGICAL PROCEDURES: Deviated septum corrected in the past. Double hernia corrected in the past. SIGNIFICANT PAST MEDICAL PROBLEMS: 1. Sleep apnea for which he has C-PAP. 2. He has a chronic cough which is best described as a tick and he has also developed an involuntary head shaking motion which has been successfully treated with Diamox by his neurologist. 3. GERD for which he received satisfactory relief from Protonix. REVIEW OF SYSTEMS: His general weight has been stable. His energy level is good. He feels he is under more stress than usual due to his [employer] present labor dispute with the [employer]. HEENT: His hearing and vision are adequate. Involuntary head bobbing has been noted in the past. No chronic sinus problems. Teeth are in good condition. CARDIOVASCULAR/RESPIRATORY: No chest aches or pains. No rapid or irregular heart rate. No chronic cough, no shortness of breath with exertion. GASTROINTESTINAL: Food is well tolerated. Bowel habits are normal. No abdominal pain. Esophageal reflux as noted above. No blood in the stool. GENITOURINARY: No nocturia, no dysuria. NEUROMUSCULAR: Strength is normal. Joints negative. SKIN negative. PHYSICAL EXAM: Revealed an alert well nourished, well developed white male in no distress. Height 74, weight 191 pounds, temperature 97.6, pulse 64 and regular. Blood pressure 130/80. HEENT: Pupils equal and reactive to light. Extraocular muscles intact. Conjunctiva normal. Tympanic membranes negative. Nose midline. Mouth - posterior pharynx negative. Slight involuntary head bobbing noted. NECK: Supple without palpable cervical adenopathy or thyroid irregularities. No carotid bruits. CHEST: Lungs were clear to auscultation. HEART was regular without murmur. No apparent cardiomegaly. ABDOMEN: Soft, flat and easily palpable without palpable liver, kidney, spleen or other abdominal masses. GENITORECTAL: Deferred. UPPER EXTREMITIES: Of mild interest the patient exhibits mild clonus type activity in his right hand when it is forcibly fully extended. Left hand, findings deferred to his operating surgeon. LOWER EXTREMITIES: Negative. IMPRESSION: 1. Carpal tunnel syndrome left wrist. SECONDARY DIAGNOSIS: 1. Sleep apnea. 2. Chronic involuntary head bobbing, etiology undetermined. 3. GERD. LABORATORY FINDINGS: Hemoglobin was 14.3 grams percent, WBC was 3,900 with 54 neutrophils, 32 lymphs, 8 monos, 3 eosinophils, 2 basophils. Serum potassium is 4.1. Serum creatinine was 1.1. Chest x-ray appeared to be within normal limits. Electrocardiogram showed a normal sinus bradycardia, no evidence of injury or ischemia. The patient is a good surgical risk. [id number] _ E BARB CRAWLEY MD 141:0 MT: Document: [id number] [place], [place] Name: MR#: [id number] KUMAR -[id number] HISTORY AND PHYSCIAL Page 3 of 2 LCN: SDS DSC: [place], [place] Name: MR#: THONG KUMAR -[id number] : Admit Date: Account #: 1945 12/10/2004 [id number] Doctor: Ivette CRAWLEY MD HISTORY AND PHYSICAL Page 1 of 2 documented in this encounter Plan of Treatment Not on filedocumented as of this encounter Visit Diagnoses Not on filedocumented in this encounter
--- OUTSIDE RECORDS SUMMARY | 2022-02-07 15:56 | XMS_ITS | Encounter Summary ---
:1945 Author Organization [place] Address [address] [place] [address]. [place] [address] Care Team Providers Name Role Phone Unavailable Primary Care Provider Unavailable Encounter Details Date Type Department Care Team Description 11/20/2005 Historic Results [facility] Isidro Pickett [facility] [address] [place], [place] [address] (Wo rk) Social History Tobacco Use Types Packs/Day Years Used Date Never Assessed Sex Assigned at Date Recorded Not on file documented as of this encounter Plan of Treatment Not on filedocumented as of this encounter Procedures Procedure Name Priority Date/Time Associated Comments Diagnosis TROPONIN I Timed 11/20/2005 6:30 PM Results f or this CDT procedure are i n the results section. TROPONIN I Timed 11/20/2005 2:58 PM Results f or this CDT procedure are i n the results section. ROUTINE UA WITH STAT 11/20/2005 11:25 Results for this MICROSCOPIC AM CDT procedure are i n the results section. TROPONIN I STAT 11/20/2005 10:36 Results for this AM CDT procedure are i n the results section. HEMOGRAM DIFFERENTIAL STAT 11/20/2005 10:36 Re sults for this AND PLATELET AM CDT procedure are i n the results section. TSH WITH FREE T4 REFLEX STAT 11/20/2005 10:36 Results for this AM CDT procedure are i n the results section. INR STAT 11/20/2005 10:36 Results for this AM CDT procedure are i n the results section. PARTIAL THROMBOPLASTIN STAT 11/20/2005 10:36 R esults for this TIME AM CDT procedure are i n the results section. MYOGLOBIN STAT 11/20/2005 10:36 Results for this AM CDT procedure are i n the results section. D DIMER QUANTITATIVE STAT 11/20/2005 10:36 Res ults for this AM CDT procedure are i n the results section. BASIC METABOLIC PANEL STAT 11/20/2005 10:36 Re sults for this AM CDT procedure are i n the results section. documented in this encounter Results Troponin I (11/20/2005 6:30 PM CDT) P athologist Signature Troponin I <0.04 0.00 - 0.40 MISYS ug/L Comment: Note: New test methodology star cali on September. Specimen Anatomical Collection Method Collection Time Receive d Time (Source) Location / / Volume Laterality 11/20/2005 6:30 PM 6 6:30 CDT PM CDT Isidro Pickett MD LAB - BLOOD ORDERABLES Performing Organization Address City/State/[facility] Code Phon e Number MISYS Troponin I (11/20/2005 2:58 PM CDT) athologist Signature Troponin I <0.04 0.00 - 0.40 MISYS ug/L Comment: Note: New test methodology star cali on September. Specimen Anatomical Collection Method Collection Time Receive d Time (Source) Location / / Volume Laterality 11/20/2005 2:58 PM 6 2:30 CDT PM CDT Isidro Pickett MD LAB - BLOOD ORDERABLES Performing Organization Address City/State/ZIP Code Phon e Number MISYS (ABNORMAL) Routine UA with microscopic (11/20/2005 11:25 AM CDT) [facility] gist Method Time Signature Source Midstream MISYS Urine Color Urine Light Yellow MISYS Appearance Urine Clear MISYS Glucose Urine Negative NEG mg/dL MISYS Bilirubin Urine Negative NEG MISYS Ketones Urine 5 (A) NEG mg/dL MISYS Specific [place] 1.005 1.003 - MISYS Urine 1.035 Blood Urine Negative NEG MISYS pH Urine 8.0 (H) 5.0 - 7.0 MISYS pH Protein Albumin Negative NEG mg/dL MISYS Urine Urobilinogen Normal 0.0 - 2.0 MISYS mg/dL mg/dL Nitrite Urine Negative NEG MISYS Leukocyte Negative NEG MISYS Esterase Urine WBC Urine 0 0 - 2 MISYS /HPF RBC Urine 0 0 - 2 MISYS /HPF Mucous Urine Present (A) NEG /LPF MISYS Specimen Anatomical Collection Method Collection Time Receive d Time (Source) Location / / Volume Laterality 11/20/2005 11:25 11/20/2005 AM CDT 10:25 AM CDT Shi Sagastume MD LAB - URINE ORDERABLES Performing Organization Address City/State/ZIP Code Phon e Number MISYS (ABNORMAL) Hemogram differential and platelet (11/20/2005 10:36 AM CDT) [facility] gist Method Time Signature MCV 83 78 - 100 MISYS fl MCH 28.2 26.5 - MISYS 33.0 pg MCHC 34.2 32.0 - MISYS 36.0 g/dL RDW 12.2 10.0 - MISYS 15.0 % WBC 2.7 (L) 4.0 - MISYS 11.0 10e9/L RBC Count 5.64 4.4 - 5.9 MISYS 10e12/L Hemoglobin 15.9 13.3 - MISYS 17.7 g/dL Hematocrit 46.6 40.0 - MISYS 53.0 % % Neutrophils 54 40 - 75 % MISYS % Lymphocytes 33 20 - 48 % MISYS % Monocytes 10 0 - 12 % MISYS % Eosinophils 3 0 - 6 % MISYS % Basophils 0 0 - 2 % MISYS Platelet Count 184 150 - 450 MISYS 10e9/L Absolute 1.5 (L) 1.6 - 8.3 MISYS Neutrophil 10e9/L Absolute 0.9 0.8 - 5.3 MISYS Lymphocytes 10e9/L Absolute 0.3 0.0 - 1.3 MISYS Monocytes 10e9/L Absolute 0.1 0.0 - 0.7 MISYS Eosinophils 10e9/L Absolute 0.0 0.0 - 0.2 MISYS Basophils 10e9/L Diff Method Automated MISYS Method Specimen Anatomical Collection Method Collection Time Receive d Time (Source) Location / / Volume Laterality 11/20/2005 10:36 11/20/2005 AM CDT 10:25 AM CDT Shi Sagastume MD LAB - BLOOD ORDERABLES Performing Organization Address City/State/ZIP Code Phon e Number MISYS INR (11/20/2005 10:36 AM CDT) P athologist Signature INR 0.96 0.86 - 1.14 MISYS Specimen Anatomical Collection Method Collection Time Receive d Time (Source) Location / / Volume Laterality 11/20/2005 10:36 11/20/2005 AM CDT 10:25 AM CDT Shi Sagastume MD LAB - BLOOD ORDERABLES Performing Organization Address City/[facility] Code Phon e Number MISYS Partial thromboplastin time (11/20/2005 10:36 AM CDT) P athologist Signature PTT 25 22 - 37 sec MISYS Specimen Anatomical Collection Method Collection Time Receive d Time (Source) Location / / Volume Laterality 11/20/2005 10:36 11/20/2005 AM CDT 10:25 AM CDT Shi Sagastume MD LAB - BLOOD ORDERABLES Performing Organization Address City/[facility]/ZIP Code Phon e Number MISYS D dimer quantitative (11/20/2005 10:36 AM CDT) P athologist Signature D Dimer <0.2 0.0 - 0.50 MISYS ug/ml FEU Comment: Reviewed, acceptable Specimen Anatomical Collection Method Collection Time Receive d Time (Source) Location / / Volume Laterality 11/20/2005 10:36 11/20/2005 AM CDT 10:25 AM CDT Shi Sagastume MD LAB - BLOOD ORDERABLES Performing Organization Address City/[facility]/ZIP Code Phon e Number MISYS Basic metabolic panel (11/20/2005 10:36 AM CDT) P athologist Signature Sodium 140 133 - 144 MISYS mmol/L Potassium 4.4 3.4 - 5.3 MISYS mmol/L Chloride 108 94 - 109 MISYS mmol/L Carbon Dioxide 22 20 - 32 MISYS mmol/L Glucose 92 60 - 110 MISYS mg/dL Urea Nitrogen 14 7 - 30 MISYS mg/dL Creatinine 0.80 0.80 - MISYS 1.50 mg/dL GFR Estimate >90 >60 MISYS mL/min/1.7 m2 GFR Estimate If >90 >60 MISYS Black mL/min/1.7 m2 Calcium 9.2 8.5 - 10.4 MISYS mg/dL Anion Gap 10 6 - 17 MISYS mmol/L Specimen Anatomical Collection Method Collection Time Receive d Time (Source) Location / / Volume Laterality 11/20/2005 10:36 11/20/2005 AM CDT 10:25 AM CDT Shi Sagastume MD LAB - BLOOD ORDERABLES Performing Organization Address City/State/ZIP Code Phon e Number MISYS Troponin I (11/20/2005 10:36 AM CDT) P athologist Signature Troponin I <0.04 0.00 - 0.40 MISYS ug/L Comment: Note: New test methodology star cali on September. Specimen Anatomical Collection Method Collection Time Receive d Time (Source) Location / / Volume Laterality 11/20/2005 10:36 11/20/2005 AM CDT 10:25 AM CDT Shi Sagastume MD LAB - BLOOD ORDERABLES Performing Organization Address City/[facility]/ZIP Code Phon e Number MISYS Myoglobin (11/20/2005 10:36 AM CDT) P athologist Signature Myoglobin 68 <120 ug/L MISYS Specimen Anatomical Collection Method Collection Time Receive d Time (Source) Location / / Volume Laterality 11/20/2005 10:36 11/20/2005 AM CDT 10:25 AM CDT Shi Sagastume MD LAB - BLOOD ORDERABLES Performing Organization Address City/State/ZIP Code Phon e Number MISYS TSH with free T4 reflex (11/20/2005 10:36 AM CDT) P athologist Signature TSH 1.54 0.4 - 5.0 MISYS mU/L Specimen Anatomical Collection Method Collection Time Receive d Time (Source) Location / / Volume Laterality 11/20/2005 10:36 11/20/2005 AM CDT 10:25 AM CDT Shi Sagastume MD LAB - BLOOD ORDERABLES Performing Organization Address City/State/ZIP Code Phon e Number MISYS documented in this encounter Visit Diagnoses Not on filedocumented in this encounter
--- OUTSIDE RECORDS SUMMARY | 2022-02-07 15:56 | XMS_ITS | Encounter Summary ---
:1945 Author Organization [place] Address [address] [place] [address] Care Team Providers Name Role Phone Unavailable Primary Care Provider Unavailable Encounter Details Date Type Department Care Team Description 11/20/2005 Results [facility] [place] [facility] Isidro Pickett MD Hospital Results [address] [place], [place] [address] (Wo rk) Social History Tobacco Use Types Packs/Day Years Used Date Never Assessed Sex Assigned at Date Recorded Not on file documented as of this encounter Plan of Treatment Not on filedocumented as of this encounter Procedures Procedure Name Priority Date/Time Associated Diagnosis Comme [facility] ECHO HEART Routine 11/20/2005 3:32 PM Results for this XTHORACIC,COMPLETE, CDT procedur e are in W/O DOPPLER the results section. documented in this encounter Results ECHO HEART,COMPLETE (11/20/2005 3:32 PM CDT) Specimen (Source) Anatomical Collection Method Collection Time Re ceived Time Location / / Volume Laterality 11/20/2005 3:32 PM CDT Impressions RADIOLOGY RESULTS - 11/29/2005 10:09 AM CDT ECHOCARDIOGRAM Tape #: ??[id number] ?? Name of Patient: ??Sherrell Kumar ?? : ??45 Technologist's initials: ??JT M-Mode (cm) _2.5+ ??LA (<4.0) 3.7-5.0Ao (<3.7) _5.6_ ??LVed (<5.6) _3.9_ ??LVes (variable) _1.3_ ??IVSd (<1.2) _1.3_ ??LVPWd (<1.2) _30.1 ??FS (>25%) 60-65 ??EF (55-65%) Aortic Valve ??JOSAFAT (cm2) ??LVOT (cm) ??max PG (mmHg) ??mean PG (mmHg) ??max toñito V1 (m/s) ??max toñito V2 (m/s) _452_ ??P1/2t (msec) ?? Mitral Valve ??MVA (cm2) ??mean PG (mmHg) ??max PG (mmHg) Tricuspid Valve ??TR max toñito (m/s) _25.6 ??mmHg+RAP=RVSP Pulmonary Valve ??mmHg+RAP=PAPed ?? INDICATION FOR PROCEDURE: ??Lkwre-kzpe-v ld patient with atrial fibrillation and chest pain. IMPRESSION: 1. ??The underlying rhythm is difficult to evaluate, it appears to be relatively regular. 2. ??The aortic root is moderately enla rged measuring 4.5 centimeters at the coronary sinuses and 5.0 centimet ers at the ascending aorta. ?? The aortic valve is trileaflet. ??There is mild aortic insufficiency. 3. ??Both atria are normally sized and configured. 4. ??The mitral valve complex reveals m ild thickening of the mitral leaflets. ??There is no mitral stenosis, there is trace mitral insufficiency. 5. ??Imaging of the ventricles shows LV at the upper limits of normal. ??There is mild left ventricular hypertrophy. ??LV and RV systolic function are normal. ??LVEF of 60 percent is approximated. ?? No wall motion abnormalities are seen. 6. ??Flow patterns across the mitral va lve support mild diastolic dysfunction of the left ventricle. 7. ??The pulmonary outflow tract is nor mal. 8. ??Right ventricle, tricuspid valve a nd right atrium are normal. ?? There is trace tricuspid insufficiency. ??The velocity is upper limits of normal at 25 millimeters of mercury p nathaniel right atrial pressure to give RV systolic pressure. 9. ??No pleural or pericardial effusion s are seen. ??The interatrial septum is mildly thickened but appears i ntact. 10.No pleural or pericardial effusions are evident. This patient with history of atrial fibr illation showed normal size atria, no wall motion abnormalities, no pericardial effusion, but there was moderate+ aortic root dilation at 4.5 up to 5.0 centimeters. ??Clinical correlation is i ndicated. ??LV and RV systolic function are well maintained. ??There is trace MR, trace TR, mild AR, and there is diastolic dysfunction of th e LV. ?? Isidro Pickett MD SPECIAL IMAGING STUDIES Performing Organization Address City/State/ZIP Code Phon e Number RADIOLOGY RESULTS documented in this encounter Visit Diagnoses Not on filedocumented in this encounter
--- OUTSIDE RECORDS SUMMARY | 2022-02-07 15:56 | XMS_ITS | Encounter Summary ---
:1945 Author Organization [place] Address [address] [place] [address] Care Team Providers Name Role Phone Unavailable Primary Care Provider Unavailable Encounter Details Date Type Department Care Team Description 04/06/2010 Results Only [facility] Francisco Foster MD Hospital Results [facility] [address] [place], [place] [address] (Wo rk) Social History Tobacco Use Types Packs/Day Years Used Date Never Assessed Sex Assigned at Date Recorded Not on file documented as of this encounter Plan of Treatment Not on filedocumented as of this encounter Procedures Procedure Name Priority Date/Time Associated Diagnosis Comme nts CT HEAD W/O Routine 04/06/2010 6:57 PM Results f or this CONTRAST PAPER SPOOLER procedure are i n the results section. documented in this encounter Results CT Head w/o contrast* (04/06/2010 6:57 PM PAPER SPOOLER) Specimen (Source) Anatomical Collection Method Collection Time Re ceived Time Location / / Volume Laterality 04/06/2010 6:57 PM PAPER SPOOLER Impressions RADIOLOGY RESULTS - 04/06/2010 8:[address] HEAD WITHOUT CONTRAST ?? Apr 06 0 6:57:00 PM HISTORY: Left facial trauma. The patient has known tremors. ?? TECHNIQUE: Noncontrast axial images are obtained from the skull base to the vertex. FINDINGS: Study is slightly degraded due to patient motion. The imaged portions of the paranasal sinuses demons trate mucous retention cysts or polyps within both maxillary sinuses. The remaining paranasal sinuses are clear. No fracture is eviden t. The ventricles are normal in size, shape and position. There is no acute intracranial hemorrhage, mass effect or stroke. IMPRESSION: 1. No acute intracranial abnormality. 2. Mucous retention cysts or polyps with in both maxillary sinuses. Kaylin Foster MD IMG CT ORDERABLES Performing Organization Address City/State/ZIP Code Phon e Number RADIOLOGY RESULTS documented in this encounter Visit Diagnoses Not on filedocumented in this encounter
--- OUTSIDE RECORDS SUMMARY | 2022-02-07 15:56 | XMS_ITS | Encounter Summary ---
:1945 Author Organization [place] Address [address] [place] [address] Care Team Providers Name Role Phone Clinic, [facility] Primary Care Provider [phone] Encounter Details Date Type Department Care Team Description 06/14/2019 [facility] [place] [facility] [address] [facility] [address] [place], [place] [id number] Social History Tobacco Use Types Packs/Day Years Used Date Never Assessed Sex Assigned at Date Recorded Not on file COVID-19 Exposure Response Date Recorded In the last month, have you been in contact Unable to assess 05/15/2020 9:41 AM MAPPER with someone who was confirmed or suspected to have Coronavirus / COVID-19? documented as of this encounter OR Notes Anesthesia Postprocedure Evaluation - Marcie Negrete - 06/15/2019 2:25 PM MAPPER Patient: Thong Kumar Procedure(s): RIGHT LUMBAR 4-5 TRANSFORAMINAL LUMBAR INTERBODY FUSION (Right) Anesthesia type: general Patient location: PACU Last vitals: Vitals Value Taken Time BP 101/51 06/15/2019 2:05 PM Temp 36.4 ??C (97.5 ??F) 06/15/2019 2:05 PM Pulse 45 06/15/2019 2:05 PM Resp 16 06/15/2019 2:05 PM SpO2 94 % 06/15/2019 2:05 PM Post vital signs: stable Level of consciousness: awake and responds to simple questions Post-anesthesia pain: pain controlled Post-anesthesia nausea and vomiting: no Pulmonary: unassisted, return to baseline Cardiovascular: stable and blood pressure at baseline Hydration: adequate Anesthetic events: no QCDR Measures: ASA# 11 - Anushka-op Cardiac Arrest: ASA11B - Patient did NOT experience unanticipated cardiac arrest ASA# 12 - Anushka-op Mortality Rate: ASA12B - Patient did NOT ASA# 13 - PACU Re-Intubation Rate: ASA13B - Patient did NOT require a new airway mgmt ASA# 10 - Composite Anes Safety: ASA10A - No serious adverse event Additional Notes: Patient with post-op pain. Groans, answers affirmative when asked about pain. Sayspain is burning, sharp quality. Heart rate into 50s and 60s (which is essentially tachycardic for him). Treated with IV Tylenol, IV dilaudid (patient received Mg2+, precedex, pre-op tylenol, ketamine). at bedside, said no more dilaudid. Hemodynamics stable. Patient still endorsing pain. Wakes, answers questions. ER Anesthesia Preprocedure Evaluation - Marcie Negrete - 06/15/2019 6:32 AM MAPPER Anesthesia Evaluation Patient summary reviewed History of anesthetic complications (slow emergence) Airway Mallampati: I Neck ROM: limited Pulmonary - normal exam breath sounds clear to auscultation (-) asthma, shortness of breath, recent URI Cardiovascular - normal exam (+) , hypercholesterolemia, (-) past [place], CAD, CABG/stent, angina ROS comment: Patient cleared by cardiology for this surgery. S/P valve sparing aortic root replacement. Asymptomatic. Atrial fibrillation briefly post-op at that time, no recurrences. Patient bradycardic at baseline but heart rate does respond to exercise. Vice President Payer recommends avoiding beta-blockade and AV-evans blockers. Neuro/Psych Endo/Other GI/Hepatic/Renal (+) GERD well controlled, Dental Anesthesia Plan Planned anesthetic: general endotracheal Pre-op: Mg2+, tylenol Intra-op: precedex infusion, versed, ketamine NO Fentanyl ASA 2 Induction: intravenous Anesthetic plan and risks discussed with: patient Anesthesia plan special considerations: antiemetics, Post-op plan: routine recovery ER documented in this encounter Miscellaneous Notes Addendum Note - Marcie Negrete MD - 06/15/2019 9:58 PM CST Addendum Note by Marcie Negrete MD at 06/15/2019 9:58 PM Author: Marcie Negrete MD Service: -- Author Type: Physician Filed: 06/15/2019 9:58 PM Date of Service: 06/15/2019 9:58 PM Status: Signed Toilet Attendant: Marcie Negrete MD (Physician) Addendum created 06/15/192157 by Marcie Negrete MD Clinical Note Signed ER Anesthesia Care Transfer Note - Jailyn Cody APRN CRNA - 06/15/2019 10:28 AM CST Last vitals: Vitals: 06/15/19 1020 BP: 111/56 Pulse: (!) 44 Resp: 21 Temp: 35.9 ??C (96.6 ??F) SpO2: 100% Patient's level of consciousness is drowsy Spontaneous respirations: yes Maintains airway independently: yes Dentition unchanged: yes Oropharynx: oropharynx clear of all foreign objects QCDR Measures: ASA# 20 - Surgical Safety Checklist: WHO surgical safety checklist completed prior to induction PQRS# 430 - Adult PONV Prevention: 4558F - Pt received => 2 anti-emetic agents (different classes) preop & intraop ASA# 8 - Peds PONV Prevention: NA - Not pediatric patient, not GA or 2 or more risk factors NOT present PQRS# 424 - Anushka-op Temp Management: 4559F - At least one body temp DOCUMENTED => 35.5C or 95.9F within required timeframe PQRS# 426 - PACU Transfer Protocol:G9655 - Transfer of care checklist used ASA# 14 - Acute Post-op Pain: ASA14B - Patient did NOT experience pain >= 7 out of 10 ER documented in this encounter Plan of Treatment Not on filedocumented as of this encounter Visit Diagnoses Not on filedocumented in this encounter Care Teams Utilization Management Manager Relationship Specialty Start Date End Date Lav[place], Marianna Monroe PCP - General 05/01/20 [address] [place] [address] documented as of this encounter
--- OUTSIDE RECORDS SUMMARY | 2022-02-07 15:56 | XMS_ITS | Encounter Summary ---
:1945 Author Organization [place] Address [address] [place] [address]. [place] [address] Care Team Providers Name Role Phone Unavailable Primary Care Provider Unavailable Encounter Details Date Type Department Care Team Description 11/20/2005 Discharge Summary [facility] Ember Roy, ([facility]) [facility] [address] [place] [address] (Wo rk) Social History Tobacco Use Types Packs/Day Years Used Date Never Assessed Sex Assigned at Date Recorded Not on file documented as of this encounter Progress Notes Ember Roy - 11/23/2005 11:38 AM CDT PRELIMINARY DISCHARGE DIAGNOSIS: 1. Paroxysmal atrial fibrillation. 2. Chest pressure in setting of a. fib. with rapid ventricular response. 3. Ruled out for myocardial infarction. 4. Normal stress echocardiogram. 5. Gastroesophageal reflux disease. 6. Obstructive sleep apnea, untreated. HISTORY OF PRESENT ILLNESS AND HOSPITAL COURSE: Mr. Kumar is a 60-year-old male who in general been pretty healthy. 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 He presented to the ER yesterday for 1 hour of palpitations with some associated chest discomfort best described as a pressure. It is nonradiating, he did perhaps havea little bit of shortness of breath but no nausea, vomiting or diaphoresis. In the ER he was found to have atrial fibrillation with a heart rate of 141. He did spontaneously convert in the ER. This seemed to happen after Valsalva maneuver. He was admitted for further evaluation. Serial troponins were obtained because of his chest pressure. They were normal. This morning he hada stress echocardiogram that was normal. The stress EKG portion was nondiagnostic because of abnormality on the resting EKG. He had no symptoms with this stress test, he did have 6 seconds of a. fib. at the end of the stress test. Overnight I reviewed his telemetry on the tele. box and his heart rate was generally 50-53. I have considered a beta-kelly for rate control when he does have these episodes of a. fib. but at this point it seems to probably pose more risk than benefit given his resting bradycardia. Certainly if he continues to have problems, a low dose beta-kelly with slow titration might be reasonable for rate control. I also offered anticoagulation with Coumadin. Even though his episodes are relatively short, I do think that Coumadin was indicated. He describes several episodes in the last 5 years that, albeit brief, were consistent with a. fib. His episode after the stress test th is morning was not symptomatic. I suspect he has more episodes than he realizes. He does, however, not want to Coumadin. His friends who have been on it and does not want to be tied to the INR checks, etc. etc. He has opted instead for aspirin. I have recommended 325 mg of aspirin daily in lieu of Coumadin. I have explained that the relative risk of atrial fibrillation untreated versus treatment withaspirin versus treatment with Coumadin. He understands that his risk of stroke is somewhat higher onaspirin than on Coumadin. He also understands that his risk of significant bleeding is also somewhatlower on aspirin than on Coumadin. All in all it is his choice to take aspirin. His episodes are relatively brief. His ejection fraction is his normal and in the big picture taking aspirin for this is probably an okay decision. I am recommending that he avoid stimulants such as caffeine or theophylline. I am providing a card, a number for the [facility]. He has expressed some interest in following up with a music educator for second opinion. EMBER ROY MD MT: [id number] Name: THONG KUMAR MRN: [id number] Account: [id number] : 1945 Admit Date: Discharge Date: 11/21/2005 Document: [id number] cc: Ivette Crawley MD [facility] documented in this encounter Plan of Treatment Not on filedocumented as of this encounter Visit Diagnoses Not on filedocumented in this encounter
--- OUTSIDE RECORDS SUMMARY | 2022-02-07 15:56 | XMS_ITS | Encounter Summary ---
:1945 Author Organization [place] Address [address] [place] [address]. [place] [address] Care Team Providers Name Role Phone Unavailable Primary Care Provider Unavailable Encounter Details Date Type Department Care Team Description 06/13/[address] [facility] Heart Unknown, [facility] ide[address] [place] [address] Social History Tobacco Use Types Packs/Day Years Used Date Never Assessed Sex Assigned at Date Recorded Not on file documented as of this encounter Plan of Treatment Not on filedocumented as of this encounter Procedures Procedure Name Priority Date/Time Associated Diagnosis Comme nts ECHO CARDIAC - HIM SCAN 06/13/2011 12:00 AM CPAS - ARCHIVE documented in this encounter Results ECHO CARDIAC - HIM SCAN - ARCHIVE (06/13/2011 12:00 AM CPAS) Specimen (Source) Anatomical Location Collection Method / Collectio n Time Received Time / Laterality Volume 06/13/2011 Narrative This result has an attachment that is no t available. Provider Scan CV ECHO ORDERABLES documented in this encounter Visit Diagnoses Not on filedocumented in this encounter
--- OUTSIDE RECORDS SUMMARY | 2022-02-07 15:56 | XMS_ITS | Encounter Summary ---
:1945 Author Organization [place] Address [address] [place] [address]. [place] [address] Care Team Providers Name Role Phone Unavailable Primary Care Provider Unavailable Encounter Details Date Type Department Care Team Description 12/11/2004 Operative Report Fiona Zavala MD (911 Telecommunicator) [facility] [address] [place] [address] (Wo rk) Social History Tobacco Use Types Packs/Day Years Used Date Never Assessed Sex Assigned at Date Recorded Not on file documented as of this encounter Progress Notes Fiona Zavala - 12/11/2004 11:59 PM CDT : 1st ASS'T: Hilda Resendez CST 2nd ASS'T: PRE-OPERATIVE DIAGNOSIS: Left carpal tunnel syndrome. POST-OPERATIVE DIAGNOSIS: Left carpal tunnel syndrome. OPERATION: Left carpal tunnel release. ANESTHESIA: Local. INDICATIONS: Mr. Kumar is a young man with carpal tunnel syndrome in his left upper extremity. He is brought to surgery for carpal tunnel release. PROCEDURE: After obtaining informed surgical consent, the patient was brought to the operating room. The left arm was prepped and draped in the usual sterile fashion. The palm was infiltrated with one percent plain lidocaine. The arm was exsanguinated, and the tourniquet inflated. A standard carpal tunnel incision was made. Dissection was carried down to the palmar fascia, which was divided longitudinally. An Olivecrona was place into the carpal canal. Transverse carpal ligament was divided. Deep forearm fascia was divided. The underlying median nerve had a classic hourglass constriction. The synovium was gently debrided away from the nerve, allowing the nerve to expand and revascularize. Motor branch was free of compression. The wound was irrigated thoroughly and closed in a single layer with interrupted nylon suture. A sterile dressing was applied along with a volar splint. The tourniquet was deflated. There were no intraoperative complications. Blood loss was minimal. Sponge and needle counts were correct, and the patient was returned to the recovery room in stable condition. [id number] FIONA ZAVALA MD MT: Document: [id number] [place], [place] Name: MR#: THONG KUMAR [id number] OPERATIVE REPORT Page 2 of 1 LCN: SDS DSC: 12/10/2004 [place], [place] Name: MR#: THONG KUMAR [id number] : Procedure Date: Account #: 1945 [id number] Doctor: FIONA ZAVALA MD OPERATIVE REPORT Page 1 of 1 documented in this encounter Plan of Treatment Not on filedocumented as of this encounter Visit Diagnoses Not on filedocumented in this encounter
--- OUTSIDE RECORDS SUMMARY | 2022-02-07 15:56 | XMS_ITS | Encounter Summary ---
:1945 Author Organization [place] Address [address] [place] [address]. [place] [address] Care Team Providers Name Role Phone Unavailable Primary Care Provider Unavailable Encounter Details Date Type Department Care Team Description 04/16/2005 [facility] [place] [address] (Wo rk) Social History Tobacco Use Types Packs/Day Years Used Date Never Assessed Sex Assigned at Date Recorded Not on file documented as of this encounter Plan of Treatment Not on filedocumented as of this encounter Procedures Procedure Name Priority Date/Time Associated Diagnosis Comme [facility] COLON BARIUM Routine 04/16/2005 2:24 PM Result s for this ENEMA WWO KUB PEANUT SHAKER procedure are in the results section. documented in this encounter Results X-RAY COLON CONTRAST (04/16/2005 2:24 PM PEANUT SHAKER) Specimen (Source) Anatomical Collection Method Collection Time Re ceived Time Location / / Volume Laterality 04/16/2005 2:24 PM PEANUT SHAKER Impressions RADIOLOGY RESULTS - 04/17/2005 9:[address] WATER SOLUBLE ENEMA ?? HISTORY: ??Abdominal pain and redundant colon. ? FINDINGS: ??There is a large amount of f eces seen throughout the colon which makes it impossible to exclude xiao yps or mass lesion. ??There is, however, no obstruction from flow of the contrast from the rectum through the cecum. ??No other significan t abnormality noted. ? IMPRESSION: ?? 1. ??No evidence for obstruction. 2. ??Extensive, residual feces, which ma kes it impossible to exclude mass lesion. ?? 3. ??Very redundant colon. Julito Padron MD SPECIAL IMAGING STUDIES Performing Organization Address City/State/ZIP Code Phon e Number RADIOLOGY RESULTS documented in this encounter Visit Diagnoses Not on filedocumented in this encounter
--- OUTSIDE RECORDS SUMMARY | 2022-02-07 15:56 | XMS_ITS | Encounter Summary ---
:1945 Author Organization [facility] Address [address] [place] [id number] Care Team Providers Name Role Phone Unavailable Primary Care Provider Unavailable Encounter Details Date Type Department Care Team Description [facility] to [facility]; 06/19/2019 [facility] MD Alvino HSV (herpes simplex virus) infection; [place] [facility] Acute urinary retention [address] [id number] [place], [place] [phone] [id number] Social History Tobacco Use Types Packs/Day Years Used Date Never Smoker Smokeless Tobacco: Never Used Alcohol Use Standard Drinks/Week Comments Yes 0 (1 standard drink = 0.6 oz pure alcoho l) Sex Assigned at Date Recorded Not on file documented as of this encounter Last Filed Vital Signs Vital Sign Reading Time Taken Comments Blood Pressure - - Pulse - - Temperature - - Respiratory Rate - - Oxygen Saturation - - Inhaled Oxygen Concentration - - Weight 75.4 kg (166 lb 3.2 oz) 06/15/2019 6:22 AM [employer]AR[employer] WORK[employer] Height 185.4 cm (6' 1) 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 male underwent the aforementioned procedure on 06/15/2019. There were no intraoperative complications and the patient was transferred to the recovery room and later the orthopedic unit in stable condition. Once the patient reached the orthopedic floor our orthopedic pain protocol was implemented along with the following: Therapy: PT and OT Complications during admission: None Consultations during admission: Hospitalist service for medical management Pertinent Results at Discharge: Hemoglobin Date/Time Value Ref Range Status 06/17/2019 12:15 PM 11.2 (L) 14.0 - 18.0 g/dL Final 06/17/2019 06:01 AM 11.4 (L) 14.0 - 18.0 g/dL Final 06/16/2019 08:48 AM 12.2 (L) 14.0 - 18.0 g/dL Final Platelets Date/Time Value Ref Range Status 06/17/2019 12:15 PM 164 140 - 440 thou/uL Final 06/17/2019 06:01 AM 157 140 - 440 thou/uL Final Vitals: 06/19/19 0753 BP: 154/74 Pulse: 60 Resp: 16 Temp: 97.3 ??F (36.3 ??C) SpO2: 97% Principal Problem: Neurogenic claudication due to lumbar spinal stenosis Active Problems: Recurrent major depressive disorder, in full remission (H) S/P ablation of atrial fibrillation Peripheral polyneuropathy Discharge Information: Condition at discharge: good Discharge destination: Home or Self Care Medications at discharge: Thong Kumar Home Medication Instructions KEESHA:[id number] Printed on:07/03/19 1232 Medication Information acetaminophen (TYLENOL) 500 MG tablet Take 1 tablet (500 mg total) by mouth every 4 (four) hours as needed. aspirin 325 MG EC tablet Take 1 tablet (325 mg total) by mouth at bedtime. Resume 5 days after spine surgery on 06/20/19. baclofen (LIORESAL) 5 mg tablet Take 1 tablet (5 mg total) by mouth at bedtime as needed (pain/spasms, belching). cholecalciferol, vitamin D3, (VITAMIN D3 ORAL) Take 1 tablet by mouth daily as needed. FLUoxetine (PROZAC) 20 MG capsule Take 20 mg by mouth daily as needed. magnesium oxide (MAG-OX) 400 mg (241.3 mg magnesium) tablet Take 400 mg by mouth daily. senna-docusate (PERICOLACE) 8.6-50 mg tablet Take 1 tablet by mouth 2 (two) times a day as needed for constipation. Activity: WBAT. No bending, lifting, or twisting for 6 weeks Follow-up Care: The patient will be followed in our office in approximately 2 weeks or sooner should the need arise. Patient should follow up with their PCP as directed. 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 documented as of this encounter Progress Notes Irina Hogue - 06/19/2019 11:34 AM CST Contacted following TCUs regarding bed availability today 1.[facility]-does not accept weekend admissions 2. [facility]-no male bed available to day. Will update pt and when available. MARIAN Strong [facility] 06/19/2019 11:36 AM Pt planning to dc home with . Home care arranged with [facility]. 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 Medicine PROGRESS NOTE Identification/Summary: Thong Kumar is a 74 y.o. male with a past medical history of aortic valveinsufficiency, MDD in remission, CAD, essential tremor, afib s/p ablation, valve-sparing aortic rootaneurysm s/p replacement, HLD who was admitted on 06/15/2019 for elective spinal surgery. Assessment and MDM: Addendum/ekg changes Changes reverted to baseline, no further Sx or wkup Hyponatremia Has improved Epigastric discomfort/belching Frequent belching at baseline Discomfort resolved one-time dose of baclofen was effective Orolabia HSV New herpetiform lesion posterior pharynx Starting acyclovir treatment plan 7 days No evidence of viral encephalitis Hypomagnesium Protocol Hallucinations Resolved, likely was oxycodone related Oxycodone prn Acute urinary retention Joseph, will order referral urology MDD, remission Continue fluoxetine ?? GERD Diet controlled ?? Afib, s/p ablation Regular on exam today No recurrences of afib ?? Peripheral neuropathy Chronic, upper extremities, related to spinal disease Agree with DC for today Diet: Diet Regular DVT Prophylaxis: Defer to ortho service Code Status: Full (Unassessed) Milestones to discharge: per ortho Interval History/Subjective: Voiding well, had BM, no cp or shortness of breath. Physical Exam/Objective: Vitals I/O Temp: [97.2 ??F (36.2 ??C)-97.8 ??F (36.6 ??C)] 97.3 ??F (36.3 ??C) Heart Rate: [60-67] 60 Resp: [16] 16 BP: (123-154)/(67-74) 154/74 SpO2: [94 %-97 %] 97 % I/O last 3 completed shifts: In: 2009 [P.O.:2009] Out: 3731 [Urine:3700; Drains:30; Stool:1] 166 lb 3.2 oz (75.4 kg) Body mass index is 21.93 kg/m??. Constitutional: Appears comfortable in the bed Eyes: Anicteric, non-pallorous conjunctiva HENT: dentition intact, mucous membranes moist, healing lip ulcer, see image of pharynx, unchanged Neck: No masses, no lymphadenopathy, trachea midline Lungs: CTA B/L, normal WOB Cardiovascular: RRR, murmur, quiet Gastrointestinal: Soft, nontender, bowel sounds present Extremities: No hand or foot lesions, no edema, moving all 4 extremities, drain removed, numbness ofarms (baseline) Skin: Normal temperature and texture, no rashes or ulcers of visible skin Psych: Normal mood and affect, A&Ox3, no hallucinations at this time Joseph catheter removed Medications: Personally Reviewed. ??? acyclovir 400 mg Oral TID ??? bisacodyL 10 mg Rectal Once ??? calcium (as carbonate) 200 mg Oral BID ??? docusate sodium 100 mg Oral BID ??? FLUoxetine 20 mg Oral DAILY ??? magnesium oxide 400 mg Oral DAILY ??? multivitamin therapeutic 1 tablet Oral DAILY ??? polyethylene glycol 17 g Oral BID ??? senna-docusate 1 tablet Oral BID ??? sodium chloride 3 mL Intravenous Line Care ??? sodium phosphates 133 mL 1 enema Rectal Once Data reviewed today: I personally reviewed all new medications, labs, imaging/diagnostics reports over the past 24 hours. Abe Cardoza MD, MPH Hospitalist [facility] Office # [phone] Garrett Morales - 06/19/2019 7:14 AM CST ORTHOPEDIC PROGRESS NOTE Procedure(s): RIGHT LUMBAR 4-5 TRANSFORAMINAL LUMBAR INTERBODY FUSION on 06/15/2019. 4 Days Post-Op PAIN: No pain at this time, Baclofen given at bedtime worked well, not taking any pain medication otherwise NAUSEA: no Denies chest pain and shortness of breath Vitals: 06/19/19 0008 BP: 143/67 Pulse: 66 Resp: 16 Temp: 97.8 ??F (36.6 ??C) SpO2: 94% Temp (24hrs), Av.8 ??F (36.6 ??C), Min:97.2 ??F (36.2 ??C), Max:98.4 ??F (36.9 ??C) Lab Results Component Value Date HGB 11.2 (L) 06/17/2019 HGB 11.4 (L) 06/17/2019 HGB 12.2 (L) 06/16/2019 EXAM The patient is A&Ox3. Calves are soft and non-tender. Sensation is intact. Dorsiflexion and plantar flexion is intact. Dorsalis pedis pulses intact. The incision is covered. Dressing C/D/I Hemovac drain removed yesterday without incident ASSESSMENT POD #4 s/p right L4-5 transforaminal fusion PLAN Continue PT/OT Weightbearing status:??WBAT.??No bending, lifting, or twisting for 6 weeks after spine surgery Discharge planning: TCU when bed available Garrett Linares PA-C [facility] Abigail Mtz LICSW - 06/18/2019 2:49 PM CST SW discussed with PT. SW met with pt to discuss recommendations. Pts WINSOME and grandson also present. Discussed TCU. Pt reports that he would like SW to check with [facility] in [place] as it is very close to home. SW asked about other options and pt agreeable to referral to [facility] in [place] as he hasbeen there before. Pt initially reported that if [facility] unable to accept that he will return home with home care. Pt Agreeable to SW following care. Will plan to continue to see how pt does and assistwith discharge plan. SW sent referrals to [facility] and [facility]. 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 Medicine PROGRESS NOTE Identification/Summary: Thong Kumar is a 74 y.o. male with a past medical history of aortic valveinsufficiency, MDD in remission, CAD, essential tremor, afib s/p ablation, valve-sparing aortic rootaneurysm s/p replacement, HLD who was admitted on 06/15/2019 for elective spinal surgery. Assessment and MDM: Addendum/ekg changes Changes reverted to baseline, no further Sx or wkup Hyponatremia Recheck tomorrow, po has improved Epigastric discomfort/belching Frequent belching at baseline Discomfort resolved one-time dose of baclofen was effective Orolabia HSV New herpetiform lesion posterior pharynx Starting acyclovir treatment plan 7 days No evidence of viral encephalitis Hypomagnesium Protocol Recheck at 1pm Hallucinations/adverse affect of oxycodone Resolved, likely was oxycodone related Oxycodone changed to prn Acute urinary retention Will send UA given hallucinations MDD, remission Continue fluoxetine ?? GERD Diet controlled ?? Afib, s/p ablation Regular on exam today No recurrences of afib ?? Peripheral neuropathy Chronic, upper extremities, related to spinal disease Diet: Diet Regular DVT Prophylaxis: Defer to ortho service Code Status: Full (Unassessed) Milestones to discharge: per ortho Interval History/Subjective: Vital signs stable, no further hallucinations, has been refusing oxycodone, daily urinary output, belching improved. Physical Exam/Objective: Vitals I/O Temp: [97.8 ??F (36.6 ??C)-98.5 ??F (36.9 ??C)] 98.4 ??F (36.9 ??C) Heart Rate: [65-81] 81 Resp: [16-18] 16 BP: (106-129)/(57-61) 108/61 SpO2: [93 %-95 %] 93 % I/O last 3 completed shifts: In: 660 [P.O.:660] Out: 3485 [Urine:3420; Drains:65] 166 lb 3.2 oz (75.4 kg) Body mass index is 21.93 kg/m??. Constitutional: Appears comfortable in the chair Eyes: Anicteric, non-pallorous conjunctiva HENT: dentition intact, mucous membranes moist, healing lip ulcer, see image of pharynx Neck: No masses, no lymphadenopathy, trachea midline Lungs: CTA B/L, normal WOB Cardiovascular: RRR, murmur, quiet Gastrointestinal: Soft, nontender, bowel sounds present Extremities: No hand or foot lesions, no edema, moving all 4 extremities, drain removed, site is oozing, numbness of arms (baseline) Skin: Normal temperature and texture, no rashes or ulcers of visible skin Psych: Normal mood and affect, A&Ox3, no hallucinations at this time Joseph catheter Medications: Personally Reviewed. ??? acyclovir 400 mg Oral TID ??? bisacodyL 10 mg Rectal Once ??? calcium (as carbonate) 200 mg Oral BID ??? docusate sodium 100 mg Oral BID ??? FLUoxetine 20 mg Oral DAILY ??? magnesium oxide 400 mg Oral TID ??? [START ON 06/19/2019] magnesium oxide 400 mg Oral DAILY ??? multivitamin therapeutic 1 tablet Oral DAILY ??? polyethylene glycol 17 g Oral BID ??? senna-docusate 1 tablet Oral BID ??? sodium chloride 3 mL Intravenous Line Care ??? sodium phosphates 133 mL 1 enema Rectal Once Data reviewed today: I personally reviewed all new medications, labs, imaging/diagnostics reports over the past 24 hours. Abe Cardoza MD, MPH Hospitalist [facility] Office # [phone] Garrett Morales - 06/18/2019 8:59 AM CST ORTHOPEDIC PROGRESS NOTE Procedure(s): RIGHT LUMBAR 4-5 TRANSFORAMINAL LUMBAR INTERBODY FUSION on 06/15/2019. 3 Days Post-Op PAIN: mild NAUSEA: no Denies chest pain and shortness of breath Vitals: 06/18/19 0744 BP: 108/61 Pulse: 81 Resp: 16 Temp: 98.4 ??F (36.9 ??C) SpO2: 93% Temp (24hrs), Av.2 ??F (36.8 ??C), Min:97.8 ??F (36.6 ??C), Max:98.5 ??F (36.9 ??C) Lab Results Component Value Date HGB 11.2 (L) 06/17/2019 HGB 11.4 (L) 06/17/2019 HGB 12.2 (L) 06/16/2019 EXAM The patient is A&Ox3. Calves are soft and non-tender. Sensation is intact. Dorsiflexion and plantar flexion is intact. Dorsalis pedis pulses intact. The incision is covered. Dressing C/D/I Hemovac drain intact, 25cc output overnight ASSESSMENT POD #3 s/p right L4-5 transforaminal fusion PLAN Continue PT/OT Follow drain protocol -??remove drain when output is less than 30ml in 8 hours or on POD#3 at 0600. Weightbearing status:??WBAT.??No bending, lifting, or twisting for 6 weeks after spine surgery Discharge planning: TCU likely Thursday Garrett Linares PA-C [facility] Ekaterina Uribe PA-C - 06/17/2019 4:32 PM CST Orthopedic Progress Note Assessment: 2 Days Post-Op S/P RIGHT LUMBAR 4-5 TRANSFORAMINAL LUMBAR INTERBODY FUSION Plan: - Follow drain protocol - remove drain when output is less than 30ml in 8 hours or on POD#3 at 0600. - 800ml blood loss after cell saver return - hgb stable at 12.2 today, use caution with drain to ensure it remains in place. - Epigastric pain - hospitalist addressing - Urinary retention - joseph in place - Continue PT/OT - Weightbearing status: WBAT. No bending, lifting, or twisting for 6 weeks after spine surgery. - Anticoagulation: SCDs, cindy stockings and early ambulation. - Discharge planning: TCU recommended, however patient is refusing. Hopefully home with home care pending clinical improvement, likely 1-2 days Subjective: Pain: mild Nausea, Vomiting: No Lightheadedness, Dizziness: No Neuro: Patient denies new onset numbness or paresthesias Patient is doing okay today. He has epigastric pain and frequent belching. He continues to report some neck pain, but has good range of motion of the neck. Surgical pain in the back is mild. He reportspain in his anterior thigh exacerbated by straight leg raise and states it feels muscular. No radiating pain, new numbness or tingling. He has a slight headache, mild and non- positional. He did have some confusion and hallucinations overnight, but feels like his head is more clear today. No other complaints. Objective: Vitals: 06/17/19 1604 BP: 106/57 Pulse: 67 Resp: 16 Temp: 98.5 ??F (36.9 ??C) SpO2: 93% The patient is A&Ox3. Appears comfortable. Sensation is intact. Dorsiflexion and plantar flexion is intact. Dorsalis pedis pulse intact. Calves are soft and non-tender. Negative Shoaib's. The incision is covered. Dressing C/D/I. Pertinent Labs Lab Results: personally reviewed. 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 Medicine PROGRESS NOTE Identification/Summary: Thong Kumar is a 74 y.o. male with a past medical history of aortic valveinsufficiency, MDD in remission, CAD, essential tremor, afib s/p ablation, valve-sparing aortic rootaneurysm s/p replacement, HLD who was admitted on 06/15/2019 for elective spinal surgery. Addendum: this note was accidentaly amended with 06/18/19 clinical information. It therefore appears similar to 06/18/19 note. Please see the note addendum Hx for the events of 06/17/19 Assessment and MDM: Addendum/ekg changes Changes reverted to baseline, no further Sx or wkup Hyponatremia Recheck tomorrow, po has improved Epigastric discomfort/belching Frequent belching at baseline Discomfort resolved one-time dose of baclofen was effective Orolabia HSV New herpetiform lesion posterior pharynx Starting acyclovir treatment plan 7 days No evidence of viral encephalitis Hypomagnesium Protocol Recheck at 1pm Hallucinations Resolved, likely was oxycodone related Acute urinary retention Will send UA given hallucinations MDD, remission Continue fluoxetine ?? GERD Diet controlled ?? Afib, s/p ablation Regular on exam today No recurrences of afib ?? Peripheral neuropathy Chronic, upper extremities, related to spinal disease Diet: Diet Regular DVT Prophylaxis: Defer to ortho service Code Status: Full (Unassessed) Milestones to discharge: per ortho Interval History/Subjective: Vital signs stable, no further hallucinations, has been refusing oxycodone, daily urinary output, belching improved. Physical Exam/Objective: Vitals I/O Temp: [97.3 ??F (36.3 ??C)-98.7 ??F (37.1 ??C)] 97.3 ??F (36.3 ??C) Heart Rate: [60-82] 64 Resp: [16-20] 16 BP: (118-141)/(58-73) 128/63 SpO2: [92 %-96 %] 92 % I/O last 3 completed shifts: In: 1094.6 [P.O.:300; I.V.:794.6] Out: 1775 [Urine:1575; Drains:200] 166 lb 3.2 oz (75.4 kg) Body mass index is 21.93 kg/m??. Constitutional: Appears comfortable in the chair Eyes: Anicteric, non-pallorous conjunctiva HENT: dentition intact, mucous membranes moist, healing lip ulcer, see image of pharynx Neck: No masses, no lymphadenopathy, trachea midline Lungs: CTA B/L, normal WOB Cardiovascular: RRR, murmur, quiet Gastrointestinal: Soft, nontender, bowel sounds present Extremities: No hand or foot lesions, no edema, moving all 4 extremities, drain removed, site is oozing, numbness of arms (baseline) Skin: Normal temperature and texture, no rashes or ulcers of visible skin Psych: Normal mood and affect, A&Ox3, no hallucinations at this time Joseph catheter Medications: Personally Reviewed. ??? acetaminophen 500 mg Oral Q4H ??? bisacodyL 10 mg Rectal Once ??? calcium (as carbonate) 200 mg Oral BID ??? docusate sodium 100 mg Oral BID ??? FLUoxetine 20 mg Oral DAILY ??? magnesium oxide 400 mg Oral TID ??? [START ON 06/19/2019] magnesium oxide 400 mg Oral DAILY ??? multivitamin therapeutic 1 tablet Oral DAILY ??? oxyCODONE 5 mg Oral Q4H ??? polyethylene glycol 17 g Oral BID ??? senna-docusate 1 tablet Oral BID ??? sodium chloride 0.9% 1,000 mL Intravenous Once ??? sodium chloride 3 mL Intravenous Line Care ??? [START ON 06/18/2019] sodium phosphates 133 mL 1 enema Rectal Once Data reviewed today: I personally reviewed all new medications, labs, imaging/diagnostics reports over the past 24 hours. 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 Cynthia Ken - 06/16/2019 3:15 PM CST Progress Notes by Cynthia Ken OT Student at 06/16/2019 3:15 PM Author: Cynthia Ken OT Student Service: -- Author Type: OT Student Filed: 06/16/2019 3:33 PM Date of Service: 06/16/2019 3:15 PM Status: Attested Deck Hand: Cynthia Ken OT Student (OT Student) Related Notes: Original Note by Cynthia Ken OT Student (OT Student) filed at 06/16/2019 3:32 PM Cosigner: Lisa Garcia OT at 06/16/2019 3:34 PM Attestation signed by Lisa Garcia OT at 06/16/2019 3:34 PM Therapy was directed and co-signed by Lisa PERDUE/L on 06/16/2019 SLUMS Scoring If High School Educated If Less than High School Educated Normal 27-30 25-30 Mild Neurocognitive Disorder 21-26 20-24 Dementia 1-20 1-19 The SLUMS is a cognitive screening assessment used to identify the presence of cognitive deficits, and/or to identify a change in cognition over time. High school education:Yes Patient Score: Orientation: 3 Short term memory: 5 Language: 33 Attention: 01/28 Visuospatial/executive function: /6 Score Interpretation: Per chart above, pt demonstrates mild cognitive deficits in the areas noted above. Per clinical observation, pt has difficulty with problem-solving and safety judgement. Recommending pt have 24-hour supervision to ensure safety upon discharge. We will continue to monitor pt whilein the hospital. Please note that this examination is used to screen individuals to look for the presence of cognitive deficits, and to identify changes in cognition over time. This is not a diagnosis and the examination should be followed by further cognitive assessments if deficits are observed. 06/16/2019 by HERNÁN Vanegas Abe Hoover MD - 06/16/2019 1:[address] [facility] Medicine PROGRESS NOTE Identification/Summary: Thong Kumar is a 74 y.o. male with a past medical history of aortic valveinsufficiency, MDD in remission, CAD, essential tremor, afib s/p ablation, valve sparing aortic rootreplacement, HLD who was admitted on 06/15/2019 for elective spinal surgery. Assessment and MDM: MDD, remission Continue fluoxetine ?? GERD Diet controlled ?? Afib, s/p ablation Regular on exam today No recurrences of afib ?? Peripheral neuropathy Chronic, upper extremities, related to spinal disease Diet: Diet Regular DVT Prophylaxis: Defer to ortho service Code Status: Full (Unassessed) Milestones to discharge: per ortho Interval History/Subjective: Says that his arm numbness is baseline. Tolerating p.o. Pain fairly well controlled. Hemoglobin stable. Physical Exam/Objective: Vitals I/O Temp: [96.9 ??F (36.1 ??C)-98.2 ??F (36.8 ??C)] 97.3 ??F (36.3 ??C) Heart Rate: [45-75] 70 Resp: [15-24] 20 BP: (95-156)/(51-86) 118/58 SpO2: [94 %-98 %] 96 % I/O last 3 completed shifts: In: 4462 [P.O.:320; I.V.:2050; Blood:792; IV Piggyback:1100] Out: 3200 [Urine:1275; Drains:300; Blood:1625] 166 lb 3.2 oz (75.4 kg) Body mass index is 21.93 kg/m??. Constitutional: Appears comfortable in the chair Eyes: Anicteric, non-pallorous conjunctiva HENT: dentition intact, mucous membranes moist, healing lip ulcer Neck: No masses, no lymphadenopathy, trachea midline Lungs: CTA B/L, normal WOB Cardiovascular: RRR, murmur, quiet Gastrointestinal: Soft, nontender, bowel sounds present Extremities: drain in place decreased output, no edema, moving all 4 extremities, numbness of arms (baseline) Skin: Normal temperature and texture, no rashes or ulcers of visible skin Psych: Normal mood and affect, A&Ox3 Medications: Personally Reviewed. ??? acetaminophen 500 mg Oral Q4H ??? [START ON 06/17/2019] bisacodyL 10 mg Rectal Once ??? docusate sodium 100 mg Oral BID ??? FLUoxetine 20 mg Oral DAILY ??? magnesium oxide 400 mg Oral DAILY ??? multivitamin therapeutic 1 tablet Oral DAILY ??? oxyCODONE 5 mg Oral Q4H ??? polyethylene glycol 17 g Oral BID ??? senna-docusate 1 tablet Oral BID ??? sodium chloride 3 mL Intravenous Line Care ??? [START ON 06/18/2019] sodium phosphates 133 mL 1 enema Rectal Once Data reviewed today: I personally reviewed all new medications, labs, imaging/diagnostics reports over the past 24 hours. Abe Cardoza MD, MPH Hospitalist [facility] Office # [phone] [employer]UCATION WORKER Ekaterina Moreira PA-C - 06/16/2019 1:01 PM CST Orthopedic Progress Note Assessment: 1 Day Post-Op S/P RIGHT LUMBAR 4-5 TRANSFORAMINAL LUMBAR INTERBODY FUSION Plan: - Follow drain protocol - leave drain in until at least POD #2 and notify ortho prior to removing. Plan to remove drain when output is less than 30ml in 8 hours or on POD#3 at 0600. - 800ml blood loss after cell saver return - hgb stable at 12.2 today, use caution with drain to ensure it remains in place. - Continue PT/OT - Weightbearing status: WBAT. No bending, lifting, or twisting for 6 weeks after spine surgery. - Anticoagulation: SCDs, cindy stockings and early ambulation. - Discharge planning: TCU recommended, however patient is refusing. Hopefully home with home care pending clinical improvement, likely in 2 days. Subjective: Pain: mild Nausea, Vomiting: No Lightheadedness, Dizziness: Yes Neuro: Patient denies new onset numbness or paresthesias Patient is doing okay today. During therapy, he became unbalance and reported feeling lightheaded. He reports that this neck is stiff and sore, but that is a chronic problem and he denies any headachesor head pain. Offered to have him get back in bed from the chair, but he wanted to remain sitting inthe chair. He denies any new numbness, tingling or weakness. Surgical pain is under good control. Noother complaints. Objective: Vitals: 06/16/19 1134 BP: 118/58 Pulse: 70 Resp: 20 Temp: 97.3 ??F (36.3 ??C) SpO2: 96% The patient is A&Ox3. Appears comfortable. Sensation is intact. Dorsiflexion and plantar flexion is intact. Dorsalis pedis pulse intact. Calves are soft and non-tender. Negative Shoaib's. The incision is covered. Dressing C/D/I. Drain output 20ml overnight Pertinent Labs Lab Results: personally reviewed. No results found for: INR, PROTIME Lab Results Component Value Date HGB 12.2 (L) 06/16/2019 No results found for: NA, K, CL, CO2 Report completed by: Ekaterina Moreira PA-C Date: 06/16/2019 Time: 1:01 PM Y CHILDHOOD EDUCATION WORKER Lisa Garcia OT - 06/16/2019 10:29 AM CST 06/16/19 0930 Visit Specifics Eval Type Inital eval Inital OT Consult 06/16/19 Bed/Tabs/Pad Alarm Applied Yes Treatment Time ADL Training 15 General Onset date 06/15/19 Chart Reviewed Yes PT/OT Patient/Caregiver Stated Goals get dressed; none stated Family/Caregiver Present No Precautions Weight Bearing Status fwb LEs General Precautions Spinal;Bed alarm/Tab alarm Home Living Type of Home House Home Layout Two level;Able to live on main level with bedroom/bathroom Bathroom Shower/Tub Walk-in shower (also has tub/shower with grab bars) Bathroom Toilet Raised Bathroom Equipment Shower chair;Grab bars in shower;Other (Comment) (cupboard near toilet;grab bars in tub shower) Prior Status Independent With All ADL's/IADL's;Driving;Functional mobility (Pt reports he was ind in everything) Lives With Spouse Device Used No Comments R foot drop per PT; pt may be a poor historian. ADL Upper Body Dressing recovery assistant Land Surveying Party Chief SBA;Sitting;Cues for technique;Cues for safety;After OT intervention;Increased effort;Increased time to complete;Decreased cognition Lower Body Dressing Pants;Underware;Socks Pants CGA;Standing;Sitting;Cues for technique;Cues for safety;Cues for sequencing;After OT interventions;Increased effort;Increased time to complete;Decreased cognition;Decreased flexability Underware CGA;Sitting;Standing;Cues for technique;Cues for safety;After OT interventions;Increased effort;Increased time to complete;Decreased balance;Decreased flexability;Decreased cognition Socks SBA;Sitting;Cues for technique;Cues for safety;Cues for sequencing;After OT interventions;Increased effort;Increased time to complete;Decreased flexability;Pain;Decreased cognition ADL Comments needed problem solving cueing for dressing. Activity Tolerance Endurance Good Balance Sitting Balance Standby Standing Balance Standby Functional Transfers Functional Transfers Chair Transfers Chair Transfers CGA (x2 reps ) Transfer Cues Technique;Correct hand placement;Safety;Step by step instructions Transfer Deficits Fatigue;Increased effort;Increased time;Decreased cognition Cognition Overall Cognitive Status Further cognitive assessment recommended Behavior Behavior During Session Cooperative Vision-Basic Assessment Current Vision Wears glasses only for reading Glasses on During Eval/Cognitive Testing Yes RUE Assessment RUE Assessment WFL LUE Assessment LUE Assessment WFL Hand Function Gross Grasp Functional Gross Motor Coordination Functional Fine Motor Coordination (pt complained of weak grasp from past spinal cord injury.) Sensation Light Touch No apparent deficits Assessment Assessment Decreased ADL status;Decreased funtional mobility;Decreased cognition Recommendations OT Discharge Recommendation TCU Treatment Suggestions for Next Session SLUMS;tx toilet OT Care Plan REVIEWED DAILY Yes, goals remain appropriate Handouts Given Precautions after Spine/Back Surgery;Body Mechanics after Spine/Back Surgery Y CHILDHOOD EDUCATION WORKER Christa Morales - 06/16/2019 8:58 AM CST 06/16/19 0830 Visit Specifics Eval Type Initial eval Inital PT Consult 06/16/19 Bed/Tabs/Pad Alarm Applied Yes General Onset date 06/15/19 Chart Reviewed Yes PT/OT Patient/Caregiver Stated Goals None Stated Family/Caregiver Present No Treatment Time Gait Training 10 Precautions Weight Bearing Status fwb LEs General Precautions Spinal Home Living Type of Home House Home Layout Two level;Able to live on main level with bedroom/bathroom;Stairs to enter without rails (2 steps to enter) Prior Status Independent With Functional mobility;Stairs/Steps;Without device Lives With Spouse Device Used No Comments Chronic right foot drop Cognition Overall Cognitive Status Impaired Arousal/Alertness Delayed responses to stimuli Following Commands Follows one step commands Safety Judgment Decreased awareness of need for safety;Decreased awareness of need for assistance Awareness of Errors Decreased awareness of errors Deficits Decreased awareness of deficits Problem Solving Assistance required to generate solutions;Assistance required to implement solutions;Assistance required to identify errors made RLE Assessment RLE Assessment (Gross weakness, right foot drop) LLE Assessment LLE Assessment (Gross weakness) Transfer Sit To Stand Min assist;Assist of 1;Verbal cues Stand To Sit Min assist;Assist of 2;Verbal cues Transfer Comments reviewed spine precautions. verbal cueing for safety and hand placement. Extra assist to sit due to dizziness and poor balance Ambulation Weight Bearing Status fwb LEs Distance (ft) 5 Assistance Minimum assistance;Chair follow;Minimal verbal cues Assistive Device Rolling walker Verbal Cues Safety;Posture;Device advancement Quality of Gait/Comment LOB right, need assist of PT and rehabilitation specialist to chair, patient reports feeling off balance. BP assessed 118/56, RN notified Pattern Step through;Decreased step length;Decreased pace;Flexed posture;Unsteady;Narrow KATHE Plan Treatment/Interventions Functional transfer training;Gait/stair training;Home exercise program;Neuromuscular re-ed;Strengthening/ROM PT Frequency 2x/day Assessment Prognosis Good Problem List Decreased mobility;Impaired balance;Pain;Decreased strength Barriers to Discharge None Recommendation PT Discharge Recommendation TCU PT Equipment Recommendation Rolling walker / FWW;Transfer / gait belt Treatment Suggestions for Next Session Gait, LE exercises PT Care Plan REVIEWED DAILY Yes, goals remain appropriate PT Handouts Given HEP;spine precautions Y CHILDHOOD EDUCATION WORKER Tamar Vo - 06/15/2019 6:52 AM CST Pharmacy Note - Admission Medication History Pertinent Provider Information: does not take medication every day, only when not sun for several days Prior To Admission ([employer]) med list completed and updated in EMR. [employer] Med List Medication Sig Last Dose ??? aspirin 325 MG EC tablet Take 325 mg by mouth at bedtime. 06/07/2019 ??? cholecalciferol, vitamin D3, (VITAMIN D3 ORAL) Take 1 tablet by mouth daily as needed. Past Weekat Unknown time ??? FLUoxetine (PROZAC) 20 MG capsule Take 20 mg by mouth daily as needed. Past Week at Unknown time ??? magnesium oxide (MAG-OX) 400 mg (241.3 mg magnesium) tablet Take 400 mg by mouth daily. Past Week at Unknown time Information source(s): Patient Patient was asked about OTC/herbal products specifically. [employer] med list reflects this. Based on the pharmacist???s assessment, the [employer] med list information appears reliable Allergies were reviewed, assessed, and updated with the patient. Patient does not use any multi-dose medications prior to admission. Thank you for the opportunity to participate in the care of this patient. Tamar Vo RPh 06/15/2019 6:52 AM Y CHILDHOOD EDUCATION WORKER documented in this encounter H&P Notes Fortunato Hunter - 06/15/2019 7:24 AM CST I have performed an assessment and examined the patient, as necessary, to update the patient's current status that may have changed since the prior History and Physical. The History & Physical has been reviewed and no updates are needed. Y CHILDHOOD EDUCATION WORKER documented in this encounter Consult Notes Abe Cardoza MD - 06/15/2019 3:10 PM CST MEDICINE CONSULT Physician requesting consult: Dr. Hunter Reason for consult: HTN Assessment and Plan: Thong Kumar is a 74 y.o. old male with aortic valve insufficiency, MDD in remission, CAD, essential tremor, afib s/p ablation, valve sparing aortic root replacement, HLD HTN? Cardiology recommends avoid BB and AVnode blockers. Not on meds currently, asa held MDD, remission Continue fluoxetine GERD Diet controlled Afib, s/p ablation Regular on exam No recurrences of afib Peripheral neuropathy unk etiology per pt, possibly lumbar spinal stenosis Discussed with ortho, will need Hb recheck tomorror for significant blood loss Status-post L4-5 transforaminal decompression/fusion/autobone graft performed on 06/15/19 Medical history/pre-op/office notes reviewed as available EBL: 1625 mL from 06/15/2019 7:24 AM to 06/15/2019 10:15 AM Pre-op Hb: 13.6 PPx: defer to surgery, will comment if medicine input requested History: Thong Kumar is a 74 y.o. old male vs stable post op, on ra now, pain controlled. Tolerating po, no abd pain, n/v. No shortness of breath, cp. Hx obtained from pt and . 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 Past Medical History: Diagnosis Date ??? H/O atrial fibrillation without current medication ??? History of anesthesia complications Patient Active Problem List Diagnosis Date Noted ??? Neurogenic claudication due to lumbar spinal stenosis 06/15/2019 Surgical History He has a past surgical history that includes Nasal septum surgery; Hernia repair; Carpal tunnel release; Cardiac electrophysiology mapping and ablation; and Cardiac surgery (2011). Past Surgical History: Procedure Laterality Date ??? CARDIAC ELECTROPHYSIOLOGY MAPPING AND ABLATION ??? CARDIAC SURGERY 2012 aortic aneurysm ??? CARPAL TUNNEL RELEASE ??? HERNIA REPAIR ??? NASAL SEPTUM SURGERY Allergies Allergies Allergen Reactions ??? Epinephrine Tachycardia In 1970's ??? Fentanyl Difficult awakening Prior to Admission Medications Medications Prior to Admission Medication Sig Dispense Refill Last Dose ??? aspirin 325 MG EC tablet Take 325 mg by mouth at bedtime. 06/07/2019 ??? cholecalciferol, vitamin D3, (VITAMIN D3 ORAL) Take 1 tablet by mouth daily as needed. Past Weekat Unknown time ??? FLUoxetine (PROZAC) 20 MG capsule Take 20 mg by mouth daily as needed. Past Week at Unknown time ??? magnesium oxide (MAG-OX) 400 mg (241.3 mg magnesium) tablet Take 400 mg by mouth daily. Past Week at Unknown time Social History Reviewed, and he reports that he has never smoked. He has never used smokeless tobacco. He reports current alcohol use. He reports that he does not use drugs. Social History Tobacco Use ??? Smoking status: Never Smoker ??? Smokeless tobacco: Never Used Substance Use Topics ??? Alcohol use: Yes Family History Reviewed, and family history is not on file. Denies FMHx diabetes Review of Systems All pertinent positives and negatives reviewed in History. All other 12 point review of systems reviewed and negative. Objective: Physical Exam Constitutional: Appears drowsy but responsive, Body mass index is 21.93 kg/m??. Eyes: Anicteric, non-pallorous conjunctiva HENT: dentition intact, mucous membranes moist, healing lip ulcer Neck: No masses, no lymphadenopathy, trachea midline Lungs: CTA B/L, normal WOB Cardiovascular: RRR, murmur quiet Gastrointestinal: Soft, nontender, bowel sounds present Extremities: drain in place, no edema Skin: Normal temperature and texture, no rashes or ulcers of visible skin Psych: Normal mood and affect, drowsy joseph Cardiographics ECG: bradycardia, artifact present Imaging XR C Arm Greater Than One Hour Please see Operative or Procedure Note for details on this exam or Radiology Report for body part of interest (if applicable). XR Crosstable Lateral Lumbar Spine Ranjith Narrative: EXAM: XR CROSSTABLE LATERAL LUMBAR SPINE PORTABLE LOCATION: [facility] DATE/TIME: 06/15/2019, 8:06 AM INDICATION: Intraoperative. COMPARISON: Lumbar MRI 03/24/2019. Impression: A lateral fluoroscopic image of the lumbar spine performed at 0809 hours on 06/15/2019. Anterior spondylolisthesis at L4-L5 as on preoperative imaging. A surgical instrument is present terminating along the posterosuperior margin of the L5 pedicle. This was communicated with Dr. Hunter at 0809 hours on 06/15/2019. Lab Review No results found for any previous visit. Appreciate the opportunity to participate in the care of Thong Kumar, please feel free to contactfor any questions or concerns Abe Cardoza MD, MPH Hospitalist [facility] Office # [phone] Y CHILDHOOD EDUCATION WORKER documented in this encounter Nursing Notes González Rivera RN - 06/15/2019 8:22 AM CST Level confirmed with Dr. Brooks at 0810 to be at Lumbar 4-5 consistent with consent. Y CHILDHOOD EDUCATION WORKER documented in this encounter Miscellaneous Notes Plan of Care - Philomena Sinha I - 06/19/2019 3:08 PM CST Problem: Discharge Barriers Goal: Patient's discharge needs are met Outcome: Adequate for Discharge Patient education given on 06/19/2019 including joseph catheter care and the patient and spouse expresses understanding and acceptance of instructions. Philomena Sinha 06/19/2019 3:08 PM Y CHILDHOOD EDUCATION WORKER Plan of Care - Benoit Dodd - 06/19/2019 2:59 PM CST Problem: Physical Therapy Goal: PT Goals Description Patient will demonstrate the following by 06/19/19, in order to maximize independence with functional mobility to facilitate safe discharge: -Sit<>stand with FWW assistive device, mod I -Ambulate 100 feet with FWW assistive device, supervision -Negotiate 2 stairs with 1 rails, CGA, in order to access home. -Pt will demonstrate and verbalize understanding of spinal precautions. -Pt will demonstrate understanding and independence of post-surgical back exercises with handout provided. Goals entered on 06/16/2019 by Christa Morales PT Outcome: Completed Physical Therapy Discharge Summary Date of PT Discharge: 06/19/2019 Recommended Equipment: FWW Discharge Destination: Home Discharge Comments: pt met goals 2 and 3 above; pt is progressing toward goals #1, 4 and 5. Pt wouldbenefit from TCU stay to allow pt to progress with these goals, but pt and spouse chose to go home with home care. 06/19/2019 by Benoit Dodd PT, DPT Y CHILDHOOD EDUCATION WORKER Plan of Care - Ce Gallegos - 06/19/2019 12:23 PM CST Problem: Occupational Therapy Goal: OT Goals Description Patient will demonstrate the following by 06/22/19, in order to maximize independence with ADL/IADL performance: -Patient will be SBA with dressing him/herself with AE as needed. -Patient will be SBA with bed, chair, toilet, tub/shower, and kitchen mobility. Goals entered on 06/16/2019 by Lisa Garcia OT Outcome: Progressing Occupational Therapy Discharge Summary Date of OT Discharge: 06/19/19 Refer to daily doc flowsheet for equipment issued and current functional status. Discharge Destination: TCU Discharge Comments: Progressing goals. Requires assistance to stand from chair d/t weakness and unsteady and with LB dressing. Pt unsteady and impulsive increasing risk for falls. Continue OT at TCU> 06/19/2019 by Ce Gallegos OT Y CHILDHOOD EDUCATION WORKER Plan of Care - Cary Valdivia - 06/19/2019 1:20 AM CST Problem: Pain Goal: Patient's pain/discomfort is manageable Outcome: Progressing Problem: Safety Goal: Patient will be injury free during hospitalization Outcome: Progressing Patient offering no complaints of pain. Uses call light appropriately. Bed alarm remains in place orpatient safety. Y CHILDHOOD EDUCATION WORKER Plan of Care - Real Carrizales - 06/18/2019 3:03 PM CST Problem: Safety Goal: Patient will be injury free during hospitalization Outcome: Progressing Problem: Daily Care Goal: Daily care needs are met Outcome: Progressing Problem: Impaired Physical Mobility Goal: Mobility is maintained at optimum level per patient situation Outcome: Progressing Pt states pain is minimal and does not want to take tylenol or oxycodone. States baclofen yesterday helped is chronic neck pain and requested to take some again later this evening. Joseph in place. Hemovac discontinued per protocol with initial moderate, serous drainage from site that has since slowed down; no bleeding. Incision CDI. Continues to be slightly unsteady while ambulating. No complaints ofepigastric upset this shift and tolerating all meals. Plan: anticipate discharge tomorrow home vs TCU. Y CHILDHOOD EDUCATION WORKER Plan of Care - Cary Valdivia - 06/18/2019 12:59 AM CST Problem: Potential for Falls Goal: Patient will remain free of falls Outcome: Progressing Problem: Pain Goal: Patient's pain/discomfort is manageable Outcome: Progressing Patient offers no complaints of pain, declining scheduled tylenol and oxycodone. Uses call light, bed alarm in place for safety. Y CHILDHOOD EDUCATION WORKER Plan of Care - Doris Joyner - 06/17/2019 10:34 PM CST Pt is alert and oriented x 3 but does seem forgetful. Bed and chair alarm in place. Up with one assist, gait belt and walker. Working with PT. TCU encouraged, however, patient would like to return home. Pain controlled. Refusing oxycodone and tylenol. States pain with swallowing. Throat red. Acyclovirordered. VSS. Drain not removed as patient had more than 50cc out after therapy. Dressing to back CDI. CMS intact. Y CHILDHOOD EDUCATION WORKER Plan of Care - Tracee Goel - 06/17/2019 2:08 PM CST Problem: Discharge Barriers Goal: Patient's discharge needs are met Outcome: Progressing Goal: Patient???s discharge needs are met. Outcome: Care Progression reviewed with Hospitalist, Director Informatics. Discharge Disposition: Discussed and plan to discharge to: Home with [facility] for PT and OT Planned Discharge Date: 1 day Problem: Barriers to discharge include: POD 2, Post op cares, Pain control, Joseph, Hallucinations overnight, Clinical progression, Ortho recommendations Transportation needs/Ride Time: Family Met with patient and to re-address therapy recommendations for TCU at discharge. Patient again declines TCU. Offered home care again, patient now agreeable. Does not have a preference in home careagency. Referral sent to [facility], patient will be seen by Alida. states she will transport patient home. Plan of Care - Real Carrizales - 06/17/2019 2:08 PM CST Problem: Pain Goal: Patient's pain/discomfort is manageable Outcome: Progressing Problem: Safety Goal: Patient will be injury free during hospitalization Outcome: Progressing Problem: Impaired Physical Mobility Goal: Mobility is maintained at optimum level per patient situation Outcome: Progressing Problem: Potential for bowel or bladder impairment Goal: Elimination patterns remain at baseline or improves Outcome: Progressing Pt refuses the need for oxycodone stating he has minimal pain to surgical back, complains of pain inneck which is chronic in nature, and complains of heartburn with increased amount of belching. Pt states that tylenol doesn't agree with him and prefers not to take it. Cardiac workup performed and baclofen given for his symptoms. Up with 1-2 and walker, unsteady at times. No hallucinations or disorientation. Joseph patient. 1Liter bolus NS given for low sodium level. Plan: discharge to TCU vs Home 1-2 days. Y CHILDHOOD EDUCATION WORKER Plan of Care - Jordan Elizabeth - 06/17/2019 6:21 AM CST Problem: Potential for Falls Goal: Patient will remain free of falls Outcome: Progressing Patient is unsteady on feet. Having tremors this morning in Lower extremities. Problem: Pain Goal: Patient's pain/discomfort is manageable Outcome: Progressing Patient c/o 10/10 pain, PRN Dilaudid given and scheduled Oxycodone given. Patient refused scheduled Oxycodone this morning. MD came to see patient this AM. Problem: Daily Care Goal: Daily care needs are met Outcome: Progressing Patient mention that he is hallucinating, seeing mice run across the ground and having visitors sitting at the side of the bed. Catheter in place. Up with 2 assist and a gait belt, on a bed/chair alarm. Drinking plenty of fluids. Patient nauseas this morning and c/o heartburn as well is a headache, MD saw patient as discussed pain medications, patient is wanting to hold off for now. PRN Maalox given with some relief of the heartburn. IV SL. Dressing CDI. No Numbness and tingling present. Drain in place with no output this morning. Patient is currently refusing a TCU. Will continue to monitor. Y CHILDHOOD EDUCATION WORKER Plan of Care - Trisha Reed - 06/16/2019 10:37 PM CST Problem: Knowledge Deficit Goal: Patient/family/caregiver demonstrates understanding of disease process, treatment plan, medications, and discharge instructions Outcome: Progressing Problem: Potential for Falls Goal: Patient will remain free of falls Outcome: Progressing Problem: Pain Goal: Patient's pain/discomfort is manageable Outcome: Progressing Problem: Safety Goal: Patient will be injury free during hospitalization Outcome: Progressing Patient alert and oriented. VSS. Tolerating diet. Denies shortness of breath/chest pain. Denies nausea/vomiting. Patient have trouble voiding all day and have been refusing to be straight cath despite constant encouragement and education. Patient finally agreed to be catheterize after feeling a lot of bladder discomfort. Bladder scan showing 580. Joseph inserted per bladder protocol and Dr. Cardoza made aware; 800 ml of returned urine. At 2039,patient complained of back, neck and leg pain and urethral pain from joseph insertion and requested for a quick pain relief. Per patient the discomfort is making him feel very miserable. IV dilaudid given X1; patient verbalized adequate pain control since. Neurovascular checks, no deviation from baseline. Back incision clean, dry and intact. Up with 1 assist and a walker. Provided with much emotional support. Will continue with plan of care. Y CHILDHOOD EDUCATION WORKER Plan of Care - Mitali Barba - 06/16/2019 3:36 PM CST Problem: Knowledge Deficit Goal: Patient/family/caregiver demonstrates understanding of disease process, treatment plan, medications, and discharge instructions Outcome: Progressing Problem: Potential for Falls Goal: Patient will remain free of falls Outcome: Progressing Problem: Pain Goal: Patient's pain/discomfort is manageable Outcome: Progressing Problem: Safety Goal: Patient will be injury free during hospitalization Outcome: Progressing Pt aaox4. Pt reports pain in neck and back max 6/10 with movement, tolerable with scheduled pain medications. Ice in use. Back incision site c/d/i, dressing changed this shift. CMS intact with baselinenumbness and weakness in fingers. Pt unsteady with ambulation, ax2 with belt and walker. Pt unable to void post joseph removal this am. Pt bladder scanned for 308 initially after an attempted void around noon. Pt hesitant to straight cath, pt attempted again to void with no results. Straight cath attempted at 1300, unsuccessful. Pt did not tolerate further advancement of catheter. Pt refused second attempt. Education done, pt still refused a second attempt. Pt tried to void qh after attempt. Bladder scan showed around 400ml. Oncoming nurse notified, will have pt attempt in one hour. Y CHILDHOOD EDUCATION WORKER Plan of Care - Tracee Goel - 06/16/2019 12:04 PM CST Problem: Discharge Barriers Goal: Patient's discharge needs are met Outcome: Progressing Goal: Patient???s discharge needs are met. Outcome: Care Progression reviewed with Hospitalist, Director Informatics. Discharge Disposition: Discussed and plan to discharge to: Home Planned Discharge Date: 1 days Problem: Barriers to discharge include: POD 1, Post op cares, Therapy, Ortho recommendations, Monitoring hgb Transportation needs/Ride Time: Family Met with patient to review role of care management, progression of care and possible need for services at discharge, including OP services, home care, or nursing home care. Patient lives with spousein a single family home. States he is independent with all ADLs at baseline. will transport home. Discussed therapy recommendations for TCU at discharge. Patient declines TCU, states that he has hada bad experience at a TCU in the past and has no interest in going to one again. Discussed home careas an option. Patient states that he does not need any home care set up. States that his gym offers therapy services and he plans on utilizing that. CM will remain available for any discharge planning needs. Plan of Care - Doris Hayes - 06/16/2019 5:07 AM CST Problem: Knowledge Deficit Goal: Patient/family/caregiver demonstrates understanding of disease process, treatment plan, medications, and discharge instructions Outcome: Progressing Problem: Potential for Falls Goal: Patient will remain free of falls Outcome: Progressing Problem: Pain Goal: Patient's pain/discomfort is manageable Outcome: Progressing Bed alarm remained on throughout the night, did not set off. Provided education on use of SCDs, as pt reluctant to wear them. Pt has difficulty articulating needs, many demands and uncertainty. Pain managed by Oxycodone and Tylenol during the night. Y CHILDHOOD EDUCATION WORKER Plan of Care - Mitali Barba - 06/15/2019 3:11 PM CST Problem: Safety Goal: Patient will be injury free during hospitalization Outcome: Progressing Problem: Daily Care Goal: Daily care needs are met Outcome: Progressing Pt lethargic post operatively. Pt is not awake enough to answer questions, arouses to voice but quickly falls asleep. Pt does follow commands but does not get any words out at this time due to sleepiness. Pt is on a NC at 4L, has periods of apnea. RT called to set up CPAP, pt does have history of OSAbut does not use CPAP at home. HR in 40's. Hand foreman/project manager ankle strength strong and equal bilaterally. Joseph and hemovac patent and intact. Y CHILDHOOD EDUCATION WORKER Op Note - Fortunato Hunter - 06/15/2019 12:49 PM CST DATE OF SERVICE: 06-15-19 PREOPERATIVE DIAGNOSES: 1. 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 Failure of extensive conservative measures. 3. Expansile lesion cervical spine which has been extensively evaluated at [facility] and was deemed to be nonoperative 4. Use of neuro monitoring throughout the case to make certain that positioning would not cause problems given the cervical spine expansile lesion POSTOPERATIVE DIAGNOSES: same PROCEDURE: 1. Right-sided L4-5 transforaminal/transfacet decompression of the exiting L4 and traversing L5 nerve root. 2. Transforaminal lumbar interbody fusion L4-5 with autograft bone from the facet joint and placement of a Medtronic elevate 8-12 mm height, 28 mm length cage. 3. Left-sided posterior spinal fusion with decortication of the transverse processes, the facet joint and the lamina. 4. Pedicle screw fixation in the pedicles of L4 and L5 bilaterally. SURGEON: Dr. Rizwna Hunter. EMPLOYMENT ASSISTANT: Gustavo Gonzalez PA-C who was needed for patient positioning, soft tissue retraction, patient safety and assistance with closure of the wound. ESTIMATED BLOOD LOSS: 800 after Cell Saver return DRAINS: One deep Hemovac due to the bleeding during surgery. COMPLICATIONS: None perceived. SPECIMENS SENT: None. HISTORY OF PRESENT ILLNESS AND INDICATIONS FOR PROCEDURE: This is a pleasant 74-year-old pt who has had a chronic right-sided foot drop for years. He initially came to see me because of an expansile lesion in the cervical spine. He had this extensively evaluated at [facility] and it has been deemed to be nonoperative. He then came to see me about this chronic foot drop and we had a very extensive conversation about the fact that it is possible that his foot drop is coming from his expansile lesion in the cervical spine but he had severe right-sided foraminal stenosis L4-5 and central stenosis L4-5 with a degenerative spondylolisthesis. I told him I couldnot be certain the surgery would help him but he was insistent that we try to do something to help his foot drop. We discussed risks benefits options and alternatives to surgery. He had severe spinal stenosis and a degenerative spondylolisthesis at L4-5. We discussed that the fusion would be necessaryalong with the decompression laminectomy surgery. We also discussed the risks of surgery including but not limited to, bleeding, infection, nerve damage, failure of the procedure to relieve symptoms, iatrogenic instability, errant instrumentation placement requiring revision or repair, DVT, PE, blindness and even . Therefore, the patient was seen in the preop area of [facility] today. Low back was marked and the consent was again reverified. Pt was brought to the operating room, intubated via general endotracheal anesthetic and placed on a Ray table with a Familia frame with care taken to pad all bony prominences. Pause for the Cause was performed correctly identifying the patient, procedure, proposed plan and radiographs and all were in agreement. We then prepped and draped the patient in a standard fashion for a lumbar spine procedure. We localized our incision and dissected down over the L4 hemilamina bilaterally. We performed a right L4 hemilaminotomy and then scored the pars intraarticularis. We used an osteotome to remove the descending articular process of L4 flush with the pedicle. We then removed the ascending articular process of L5 flush with the pedicle which gave us our transforaminal/transfacet decompression of the exiting L4 and traversing L5 nerve roots. The patient had a fair amount of bleeding from the very beginning but had a severe amount of bleeding in the epidural space from his severe stenosis. We packed it a number of times and spent a great deal of time using bipolar electrocautery in an attempt to cauterize all bleeding epidurals thatwould not stop with packing. We then performed a box annulotomy at L4-5, used a combination of ODC curettes, pituitary rongeurs and Kerrison rongeurs to remove the disk material. We gently decorticated the endplates and placed autograft bone from our facetectomy in the disk space. We then placed our Medtronic cage. It had good fit and fill. We then performed a full laminectomy on the left side and partial medial facetectomy at L4-5. We then turned our attention to placing our pedicle screws. We then used a Midas Javy tamia for our starting point. Then used a pedicle probe to cannulate the pedicle. We then used a Day probe to palpate our cannulated pedicle to make sure there were no breaches. We then used a 5.5 mm tap again, using our Day probe to palpate our cannulated pedicle. We placed 6.5 x45 screws in the pedicles of L4 and L5 bilaterally. All screws had good position on PA and lateral x-ray. We then decorticated our left-sided transverse processes, facet joint and lamina, and placed autograft bone . We then placed our 4 small connectorsand two rods which were tightened to direct selling counselor's specifications. We then irrigated the wound copiously, placed vancomycin powder in the wound and closed the deep fascia with #1 Vicryl, subcutaneous tissue with 2-0 Vicryl, skin with 3-0 Vicryl. Sterile dressing was applied. We did place a deep draingiven the significant epidural bleeding. the patient tolerated procedure well. There were no apparent complications. He will be weightbearing as tolerated bilateral lower extremities with strict instructions to avoid bending, lifting and twisting over the next 6 weeks. He will have early mobilization and CINDY stockings for his DVT prophylaxis and 2 grams of Ancef IV q.8 hours x2 doses for antibiotics. Return to see me in 6 weeks, sooner if there are any problems, questions or concerns. Instrumentation used for this case was a Medtronic TSRH 3Dx screws 6.5 x45 with 4 small connectors and two rods. Y CHILDHOOD EDUCATION WORKER documented in this encounter Plan of Treatment Not on filedocumented as of this encounter Procedures Procedure Name Priority Date/Time Associated Comments Diagnosis MAGNESIUM Routine 06/19/2019 6:29 AM Results f or this EARLY CHILDHOOD EDUCATION WORKER procedure are i n the results section. BASIC METABOLIC PANEL Routine 06/19/2019 6:29 AM Results for this EARLY CHILDHOOD EDUCATION WORKER procedure are i n the results section. POTASSIUM Routine 06/18/2019 6:01 AM Results f or this EARLY CHILDHOOD EDUCATION WORKER procedure are i n the results section. TROPONIN I Routine 06/17/2019 6:11 PM Results f or this EARLY CHILDHOOD EDUCATION WORKER procedure are i n the results section. ECG 12-LEAD WITH MUSE Routine 06/17/2019 6:00 PM Results for this ? EARLY CHILDHOOD EDUCATION WORKER procedure are in SJN,SJO,[facility] the results section. XR CHEST PORT 1 VIEW Routine 06/17/2019 3:06 PM R esults for this EARLY CHILDHOOD EDUCATION WORKER procedure are i n the results section. ROUTINE UA WITH Routine 06/17/2019 12:26 Results for this MICROSCOPIC REFLEX TO PM EARLY CHILDHOOD EDUCATION WORKER proced ure are in CULTURE the results section. URINE CULTURE - Routine 06/17/2019 12:26 Results for this HISTORICAL PM EARLY CHILDHOOD EDUCATION WORKER procedure are i n the results section. EXTRA RED TOP TUBE Routine 06/17/2019 12:25 PM EARLY CHILDHOOD EDUCATION WORKER CBC WITH PLATELETS AND Routine 06/17/2019 12:15 R esults for this DIFFERENTIAL PM EARLY CHILDHOOD EDUCATION WORKER procedure are i n the results section. TROPONIN I Routine 06/17/2019 12:15 Results for this PM EARLY CHILDHOOD EDUCATION WORKER procedure are i n the results section. MAGNESIUM Routine 06/17/2019 12:15 Results for this PM EARLY CHILDHOOD EDUCATION WORKER procedure are i n the results section. LIPASE Routine 06/17/2019 12:15 Results for this PM EARLY CHILDHOOD EDUCATION WORKER procedure are i n the results section. COMPREHENSIVE Routine 06/17/2019 12:15 Results fo r this METABOLIC PANEL PM EARLY CHILDHOOD EDUCATION WORKER procedure ar e in the results section. ECG 12-LEAD WITH MUSE STAT 06/17/2019 12:02 Re sults for this ? PM EARLY CHILDHOOD EDUCATION WORKER procedure are in SJN,SJO,WWH the results section. CBC WITH PLATELETS AND Routine 06/17/2019 6:01 AM Results for this DIFFERENTIAL EARLY CHILDHOOD EDUCATION WORKER procedure are i n the results section. TROPONIN I Routine 06/17/2019 6:01 AM Results f or this EARLY CHILDHOOD EDUCATION WORKER procedure are i n the results section. MAGNESIUM Routine 06/17/2019 6:01 AM Results f or this EARLY CHILDHOOD EDUCATION WORKER procedure are i n the results section. BASIC METABOLIC PANEL Routine 06/17/2019 6:01 AM Results for this EARLY CHILDHOOD EDUCATION WORKER procedure are i n the results section. HEMOGLOBIN Routine 06/16/2019 8:48 AM Results f or this EARLY CHILDHOOD EDUCATION WORKER procedure are i n the results section. XR SURGERY CINDY FLUORO Routine 06/15/2019 9:23 AM Results for this GREATER THAN 5 MIN EARLY CHILDHOOD EDUCATION WORKER procedure are in the results section. XR CROSSTABLE LATERAL Routine 06/15/2019 8:06 AM Results for this LUMBAR SPINE PORTABLE EARLY CHILDHOOD EDUCATION WORKER proced ure are in the results section. EKG CARDIAC - HIM SCAN 06/15/2019 ECHO CARDIAC - HIM 06/15/2019 SCAN documented in this encounter Results (ABNORMAL) Basic metabolic panel (06/19/2019 6:29 AM EARLY CHILDHOOD EDUCATION WORKER) [facility] gist Method Time Signature Sodium 133 (L) 136 - 145 06/19/2019 [facility] mmol/L 7:11 AM EARLY CHILDHOOD EDUCATION WORKER [facility] Potassium 4.2 3.5 - 5.0 06/19/2019 [facility] mmol/L 7:11 AM EARLY CHILDHOOD EDUCATION WORKER [facility] [employer] [employer] [facility] Chloride 103 98 - 107 06/19/2019 [facility] mmol/L 7:11 AM [facility] Carbon Dioxide 23 22 - 31 06/19/2019 [facility] (CO2) mmol/L 7:11 AM EARLY CHILDHOOD EDUCATION WORKER [facility] [employer] [facility] Anion Gap 7 5 - 18 06/19/2019 [facility] mmol/L 7:11 AM EARLY CHILDHOOD EDUCATION WORKER [facility] Glucose 95 70 - 125 06/19/2019 [facility] mg/dL 7:11 AM [facility] Calcium 8.5 8.5 - 10.5 06/19/2019 [facility] mg/dL 7:11 AM [facility] Urea Nitrogen 9 8 - 28 06/19/2019 [facility] mg/dL 7:11 AM [facility] Creatinine 0.62 (L) 0.70 - 06/19/2019 [facility] 1.30 mg/dL 7:11 AM [facility] GFR Estimate If >60 >60 06/19/2019 [facility]ALTH Black mL/min/1.7 7:[address] LABORATORY GFR Estimate >60 >60 06/19/2019 [facility]ALTH mL/min/1.7 7:[address] LABORATORY Specimen Anatomical Collection Method / Collection Time Recei isai Time (Source) Location / Volume Laterality Blood specimen Venipuncture / 06/19/2019 6:29 06/19/19 20 6:52 (specimen) Unknown AM EARLY CHILDHOOD EDUCATION WORKER AM EARLY CHILDHOOD EDUCATION WORKER Narrative [facility] - 06/19/2019 7:11 AM EARLY CHILDHOOD EDUCATION WORKER Fasting Glucose reference range is 70-99 mg/dL per [place] [employer] (ADA) michelle felix. Abe Cardoza MD LAB - BLOOD ORDERABLES Performing Organization Address City/State/[place] [address] [facility] CenterMirna Elizabeth [address] [place] [address] [facility] [address] [place], [place] [address] [id number] Magnesium (06/19/2019 6:29 AM EARLY CHILDHOOD EDUCATION WORKER) P athologist Signature Magnesium 1.8 1.8 - 2.6 06/19/2019 [facility]ALTH mg/dL 7:13 AM EARLY CHILDHOOD EDUCATION WORKER [facility] Specimen Anatomical Collection Method / Collection Time Recei isai Time (Source) Location / Volume Laterality Blood specimen Venipuncture / 06/19/2019 6:29 06/19/19 20 6:52 (specimen) Unknown AM EARLY CHILDHOOD EDUCATION WORKER AM EARLY CHILDHOOD EDUCATION WORKER Abe Cardoza MD LAB - BLOOD ORDERABLES Performing Organization Address City/[facility]/ZIP Code Phon e Number [facility] [place] [address] Lab Isac Elizabeth [facility] [place] [place] [address] LABORATORY Potassium (06/18/2019 6:01 AM EARLY CHILDHOOD EDUCATION WORKER) athologist Signature Potassium 4.0 3.5 - 5.0 06/18/2019 [facility]ALTH mmol/L 6:25 AM EARLY CHILDHOOD EDUCATION WORKER [facility] Specimen Anatomical Collection Method / Collection Time Recei isai Time (Source) Location / Volume Laterality Blood specimen Venipuncture / 06/18/2019 6:01 06/18/19 20 6:15 (specimen) Unknown AM EARLY CHILDHOOD EDUCATION WORKER AM EARLY CHILDHOOD EDUCATION WORKER Karina Candelaria MD LAB - BLOOD ORDERABLES Performing Organization Address [facility]/ZIP Code Phon e Number [facility] [place] [address] Lab Isac Elizabeth [facility]MAURICIO [facility] [address] [id number] LABORATORY Troponin I (06/17/2019 6:11 PM EARLY CHILDHOOD EDUCATION WORKER) athologist Signature Troponin I <0.01 0.00 - 0.29 06/17/2019 [facility]ALTH ng/mL 6:35 PM [facility] Specimen Anatomical Collection Method / Collection Time Recei isai Time (Source) Location / Volume Laterality Blood specimen Venipuncture / 06/17/2019 6:11 06/17/19 20 6:13 (specimen) Unknown PM EARLY CHILDHOOD EDUCATION WORKER PM EARLY CHILDHOOD EDUCATION WORKER Abe Cardoza MD LAB - BLOOD ORDERABLES Performing Organization Address City/[facility]/ZIP Code Phon e Number [facility] [place] [address] Jhonny Elizabeth [facility] [address] LABORATORY ECG 12-LEAD WITH MUSE (LHE) (06/17/2019 6:00 PM EARLY CHILDHOOD EDUCATION WORKER) [facility] gist Method Time Signature Systolic Blood 06/18/2019 [facility] RADIANT Pressure 4:00 PM CONVERSION EARLY CHILDHOOD EDUCATION WORKER Diastolic Blood 06/18/2019 HE RADIANT Pressure 4:00 PM CONVERSION EARLY CHILDHOOD EDUCATION WORKER Ventricular Rate 67 BPM 06/18/2019 [facility] RADIANT 4:00 PM CONVERSION EARLY CHILDHOOD EDUCATION WORKER Atrial Rate 67 BPM 06/18/2019 HE RADIANT 4:00 PM CONVERSION EARLY CHILDHOOD EDUCATION WORKER OR Interval 136 ms 06/18/2019 HE RADIANT 4:00 PM CONVERSION EARLY CHILDHOOD EDUCATION WORKER QRS Duration 100 ms 06/18/2019 [facility] RADIANT 4:00 PM CONVERSION EARLY CHILDHOOD EDUCATION WORKER QT 402 ms 06/18/2019 HE RADIANT 4:00 PM CONVERSION EARLY CHILDHOOD EDUCATION WORKER QTc 424 ms 06/18/2019 [facility] RADIANT 4:00 PM CONVERSION EARLY CHILDHOOD EDUCATION WORKER P [place] 06/18/2019 [facility] RADIANT 4:00 PM CONVERSION EARLY CHILDHOOD EDUCATION WORKER R AXIS 53 degrees 06/18/2019 HE RADIANT 4:00 PM CONVERSION EARLY CHILDHOOD EDUCATION WORKER T [place] 43 degrees 06/18/2019 HE RADIANT 4:00 PM CONVERSION EARLY CHILDHOOD EDUCATION WORKER Interpretation Baseline artifact makes rhythm difficult to evaluate 06/18/2019 HE RADIANT ECG Voltage criteria for left ventricular hypertrophy 4:[address] and T wave abnormality CS T Abnormal ECG When compared with ECG of 17-JUN-2019 12:15, Premature ventricular complexes are no longer Present ST no longer depressed in Inferior leads T wave inversion no longer evident in Inferior leads Confirmed by TALA ??QING MARIE LOC: ([id number]) on 06/18/2019 4:00:33 PM Specimen Anatomical Collection Method Collection Time Receive d Time (Source) Location / / Volume Laterality 06/17/2019 6:00 PM 0 4:00 EARLY CHILDHOOD EDUCATION WORKER PM EARLY CHILDHOOD EDUCATION WORKER Abe Cardoza MD ECG ORDERABLES Performing Organization Address City/State/ZIP Code Phon e Number HE CARDIOLOGY CONVERSION HE RADIANT CONVERSION XR Chest Port 1 View (06/17/2019 3:06 PM EARLY CHILDHOOD EDUCATION WORKER) Anatomical Region Laterality Modality Chest Digital Radiography Specimen (Source) Anatomical Location Collection Method / Collectio n Time Received Time / Laterality Volume Impressions 06/17/2019 3:29 PM EARLY CHILDHOOD EDUCATION WORKER The cardiac silhouette is normal in size . Enlarged main pulmonary artery contour. Mediastinal borders are well-defined. Intact and aligned sternal wires. The lungs are symmetrically inflated. No alveolar or interstitial lung opacities. No pleural fluid or pneumothorax. A skin fold projects in the right chest lateral to the hilum on the second acquired view. Symmetric acromioclavicular osteoarthrosis. Narrative 06/17/2019 3:29 PM EARLY CHILDHOOD EDUCATION WORKER EXAM: XR CHEST 1 VIEW PORTABLE LOCATION: [facility] DATE/TIME: 06/17/2019 3:06 PM INDICATION: h o aortic root replacement, epigastric discomfort, CAD hx COMPARISON: MR angiogram chest 11/25/2017 Procedure Note Aleksey Noland MD - 10/25/2020Format ting of this note might be different from the original. EXAM: XR CHEST 1 VIEW PORTABLE LOCATION: [facility] DATE/TIME: 06/17/2019 3:06 PM INDICATION: h o aortic root replacement, epigastric discomfort, CAD hx COMPARISON: MR angiogram chest 11/25/2017 IMPRESSION: The cardiac silhouette is normal in size . Enlarged main pulmonary artery contour. Mediastinal borders are well-defined. Intact and aligned sternal wires. The lungs are symmetrically inflated. No alveolar or interstitial lung opacities. No pleural fluid or pneumothorax. A skin fold projects in the right chest lateral to the hilum on the second acquired view. Symmetric acromioclavicular osteoarthrosis. Abe Cardoza MD IMG DIAGNOSTIC IMAGING ORDER KORI (ABNORMAL) UA with Microscopic reflex to Culture (06/17/2019 12:26 PM EARLY CHILDHOOD EDUCATION WORKER) [facility] gist Method Time Signature Color Urine Yellow Colorless, 06/17/2019 [facility]ALTH Yellow, 12:41 PM [employer], EARLY CHILDHOOD EDUCATION WORKER [facility] Yellow Appearance Urine Clear Clear 06/17/2019 [facility]ALTH 12:41 PM [employer] EARLY CHILDHOOD EDUCATION WORKER [facility] Glucose Urine Negative Negative 06/17/2019 [facility] 12:41 PM [employer] [facility] Bilirubin Urine Negative Negative 06/17/2019 [facility] 12:41 PM [employer] [facility] Ketones Urine 100 mg/dL Negative 06/17/2019 [facility] (A) 12:41 PM [employer] [facility] Specific [place] 1.005 1.001 - 06/17/2019 [facility] Urine 1.030 12:41 PM [employer] [facility] Blood Urine Moderate Negative 06/17/2019 [facility] (A) 12:41 PM [employer] [facility] pH Urine 5.0 4.5 - 8.0 06/17/2019 [facility] 12:41 PM [employer] [facility] Protein Albumin Negative Negative 06/17/2019 [facility] Urine mg/dL 12:41 PM [employer] EARLY CHILDHOOD EDUCATION WORKER [facility] Urobilinogen <2.0 <2.0 06/17/2019 [facility] Urine E.U./dL E.U./dL, 12:41 PM [facility] 2.0 E.U./dL EARLY CHILDHOOD EDUCATION WORKER [facility] Nitrite Urine Negative Negative 06/17/2019 [facility] 12:41 PM [employer] EARLY CHILDHOOD EDUCATION WORKER [facility] Leukocyte Moderate Negative 06/17/2019 [facility] Esterase Urine (A) 12:41 PM [employer] EARLY CHILDHOOD EDUCATION WORKER [facility] Bacteria Urine None Seen None Seen 06/17/2019 HEALTH hpf 12:41 PM [employer] EARLY CHILDHOOD EDUCATION WORKER [facility] RBC Urine 3-5 (A) None Seen, 06/17/2019 [facility] 0-2 hpf 12:41 PM [place] EARLY CHILDHOOD EDUCATION WORKER [facility] WBC Urine 10-25 (A) None Seen, 06/17/2019 [facility] 0-5 hpf 12:41 PM [place] EARLY CHILDHOOD EDUCATION WORKER [facility] Squamous 0-5 None Seen, 06/17/2019 [facility] Epithelials 0-5 lpf 12:41 PM [place] [employer] EARLY CHILDHOOD EDUCATION WORKER [facility] Mucus Urine Few (A) None Seen 06/17/2019 [facility] lpf 12:41 PM [place] EARLY CHILDHOOD EDUCATION WORKER [facility] Specimen Anatomical Location Collection Method Collection Time Received Time (Source) / Laterality / Volume Urine specimen URINE SPECIMEN Non-blood 06/17/2019 12:26 020 (specimen) COLLECTION, Collection / PM EARLY CHILDHOOD EDUCATION WORKER 12:31 PM EARLY CHILDHOOD EDUCATION WORKER CATHETERIZED / Unknown Unknown Narrative [facility] - 06/17/2019 12:41 PM EARLY CHILDHOOD EDUCATION WORKER Urine Culture ordered based on [facility] Laboratory criteria Abe Cardoza MD LAB - URINE ORDERABLES Performing Organization Address City/State/ZIP Code Phon e Number [facility] [place] [id number] [facility] Isac Ver[address] [place] [address] [facility] [place] [id number], [facility] Urine Culture - Historical (06/17/2019 12:26 PM EARLY CHILDHOOD EDUCATION WORKER) athologist Signature Culture No Growth 06/18/2019 [facility] 7:13 AM [facility] Specimen Anatomical Location Collection Method Collection Time Received Time (Source) / Laterality / Volume Urine specimen URINE SPECIMEN Non-blood 06/17/2019 12:26 020 2:13 (specimen) COLLECTION, Collection / PM EARLY CHILDHOOD EDUCATION WORKER PM EARLY CHILDHOOD EDUCATION WORKER CATHETERIZED / Unknown Unknown Abe Cardoza MD LAB - MICRO GENERAL ORDERABL ES Performing Organization Address City/State/ZIP Code Phon [place] [address] [address] [facility] EXTRA [employer] TOP TUBE (06/17/2019 12:25 PM EARLY CHILDHOOD EDUCATION WORKER) Specimen Anatomical Collection Method / Collection Time Recei isai Time (Source) Location / Volume Laterality Blood specimen Venipuncture / 06/17/2019 12:25 020 1:30 (specimen) Unknown PM EARLY CHILDHOOD EDUCATION WORKER PM EARLY CHILDHOOD EDUCATION WORKER Fortunato Hunter MD LAB - BLOOD ORDERABLES (ABNORMAL) CBC WITH PLATELETS AND DIFFERENTIAL (06/17/2019 12:15 PM EARLY CHILDHOOD EDUCATION WORKER) [facility] gist Method Time Signature WBC 8.5 4.0 - 06/17/2019 HEALTH 11.0 12:21 PM [facility] thou/uL INDS LABORATORY RBC Count 3.82 (L) 4.40 - 06/17/2019 HEALTH 6.20 12:21 PM [facility] mill/uL IN[facility] LABORATORY Hemoglobin 11.2 (L) 14.0 - 06/17/2019 HEALTH 18.0 g/dL 12:21 PM EARLY CHILDHOOD EDUCATION WORKER [facility] INDS LABORATORY Hematocrit 32.1 (L) 40.0 - 06/17/2019 HEALTH 54.0 % 12:21 PM EARLY CHILDHOOD EDUCATION WORKER [facility] INDS LABORATORY MCV 84 80 - 100 06/17/2019 HEALTH fL 12:21 PM [facility] INDS LABORATORY MCH 29.3 27.0 - 06/17/2019 HEALTH 34.0 pg 12:21 PM [facility] LABORATORY MCHC 34.9 32.0 - 06/17/2019 HEALTH 36.0 g/dL 12:21 PM [facility] [employer] LAB[facility] RDW 12.4 11.0 - 06/17/2019 M HEALTH 14.5 % 12:21 PM EARLY CHILDHOOD EDUCATION WORKER [employer] LAB[facility] Platelet Count 164 140 - 440 06/17/2019 M HEALTH thou/uL 12:21 PM [facility]REG[facility] H[facility]ITAL COMPANYHantec [employer] [place] [employer] LAB[facility] Mean Platelet 8.9 8.5 - 06/17/2019 M HEALTH Volume 12.5 fL 12:21 PM EARLY CHILDHOOD EDUCATION WORKER NovariantREGENCY HOSPITAL COMPANYHantec [employer] [place] [employer] LAB[facility] % Neutrophils 80 (H) 50 - 70 % 06/17/2019 M HEALTH 12:21 PM [facility] [employer] [place] [employer] LAB[facility] % Lymphocytes 8 (L) 20 - 40 % 06/17/2019 M HEALTH 12:21 PM [facility]ariantREGENCY HOSPITAL COMPANYHantec [employer] [place] [employer] LAB[facility] % Monocytes 11 (H) 2 - 10 % 06/17/2019 M HEALTH 12:21 PM [facility] [employer] [place] [employer] LAB[facility] % Eosinophils 0 0 - 6 % 06/17/2019 M HEALTH 12:21 PM EARLY CHILDHOOD EDUCATION WORKER [employer] [employer] LAB[facility] % Basophils 0 0 - 2 % 06/17/2019 HEALTH 12:21 PM EARLY CHILDHOOD EDUCATION WORKER [employer] LAB[facility] Absolute 6.8 2.0 - 7.7 06/17/2019 M HEALTH Neutrophils thou/uL 12:21 PM EARLY CHILDHOOD EDUCATION WORKER [employer] [employer] LAB[facility] Absolute 0.7 (L) 0.8 - 4.4 06/17/2019 M HEALTH Lymphocytes thou/uL 12:21 PM EARLY CHILDHOOD EDUCATION WORKER [employer] [employer] LAB[facility] Absolute 1.0 (H) 0.0 - 0.9 06/17/2019 M HEALTH Monocytes thou/uL 12:21 PM EARLY CHILDHOOD EDUCATION WORKER [employer] [employer] LAB[facility] Eosinophils 0.0 0.0 - 0.4 06/17/2019 M HEALTH Absolute thou/uL 12:21 PM EARLY CHILDHOOD EDUCATION WORKER [employer] [employer] LABOR[facility] Absolute 0.0 0.0 - 0.2 06/17/2019 M HEALTH Basophils thou/uL 12:21 PM EARLY CHILDHOOD EDUCATION WORKER [employer] [employer] LAB[facility] Specimen Anatomical Collection Method / Collection Time Recei isai Time (Source) Location / Volume Laterality Blood specimen Venipuncture / 06/17/2019 12:15 020 (specimen) Unknown PM EARLY CHILDHOOD EDUCATION WORKER 12:19 PM EARLY CHILDHOOD EDUCATION WORKER Abe Cardoza MD LAB - BLOOD ORDERABLES Performing Organization Address City/[facility]/ZIP Code Phon e Number [facility] [place] [address] Lab Mirna Elizabeth [facility] [place] [address] LABORATORY Lipase (06/17/2019 12:15 PM EARLY CHILDHOOD EDUCATION WORKER) P athologist Signature Lipase 21 0 - 52 U/L 06/17/2019 HEALTH 12:39 PM EARLY CHILDHOOD EDUCATION WORKER [facility] LABORATORY Specimen Anatomical Collection Method / Collection Time Recei isai Time (Source) Location / Volume Laterality Blood specimen Venipuncture / 06/17/2019 12:15 020 (specimen) Unknown PM EARLY CHILDHOOD EDUCATION WORKER 12:19 PM EARLY CHILDHOOD EDUCATION WORKER Abe Cardoza MD LAB - BLOOD ORDERABLES Performing Organization Address [facility] Phon e Number [facility] [place] [address] Lab Isac Elizabeth [facility] [place]Mir[place] [address] LABORATORY (ABNORMAL) Comprehensive metabolic panel (06/17/2019 12:15 PM EARLY CHILDHOOD EDUCATION WORKER) Patholo gist Method Time Signature Sodium 129 (L) 136 - 145 06/17/2019 HEALTH mmol/L 12:37 PM [facility] LABORATORY Potassium 4.3 3.5 - 5.0 06/17/2019 HEALTH mmol/L 12:37 PM [facility] LABORATORY Chloride 95 (L) 98 - 107 06/17/2019 HEALTH mmol/L 12:37 PM [facility] LABORATORY Carbon Dioxide 26 22 - 31 06/17/2019 M HEALTH (CO2) mmol/L 12:37 PM [facility] LABORATORY Anion Gap 8 5 - 18 06/17/2019 HEALTH mmol/L 12:37 PM [facility] LABORATORY Glucose 125 70 - 125 06/17/2019 M HEALTH mg/dL 12:37 PM [facility] LABOR[facility]ORY Urea Nitrogen 12 8 - 28 06/17/2019 HEALTH mg/dL 12:37 PM [facility] LABORATORY Creatinine 0.66 (L) 0.70 - 06/17/2019 HEALTH 1.30 12:37 PM [facility] mg/dL [facility] LAB[facility] GFR Estimate If >60 >60 06/17/2019 HEALTH Black mL/min/1. 12:37 PM [facility] 73m2 [facility] LAB[facility] GFR Estimate >60 >60 06/17/2019 HEALTH mL/min/1. 12:37 PM [facility] 73m2 [facility] Bilirubin Total 1.0 0.0 - 1.0 06/17/2019 HEALTH mg/dL 12:37 PM [facility] LABORATORY Calcium 8.2 (L) 8.5 - 06/17/2019 HEALTH 10.5 12:37 PM [facility] mg/dL [facility] Protein Total 5.5 (L) 6.0 - 8.0 06/17/2019 HEALTH g/dL 12:37 PM [facility] LABORATORY Albumin 3.2 (L) 3.5 - 5.0 06/17/2019 HEALTH g/dL 12:37 PM [facility] LABOR[facility] Alkaline 54 45 - 120 06/17/2019 HEALTH Phosphatase U/L 12:37 PM [facility] LABOR[facility] AST 25 0 - 40 06/17/2019 HEALTH U/L 12:37 PM [facility] LAB[facility] ALT 13 0 - 45 06/17/2019 HEALTH U/L 12:37 PM [facility] LAB[facility] Specimen Anatomical Collection Method / Collection Time Recei isai Time (Source) Location / Volume Laterality Blood specimen Venipuncture / 06/17/2019 12:15 020 (specimen) Unknown PM EARLY CHILDHOOD EDUCATION WORKER 12:19 PM EARLY CHILDHOOD EDUCATION WORKER Narrative [facility] - 06/17/2019 12:37 PM EARLY CHILDHOOD EDUCATION WORKER Fasting Glucose reference range is 70-99 mg/dL per [place] [employer] (ADA) michelle felix. Abe Cardoza MD LAB - BLOOD ORDERABLES Performing Organization Address City/State/ZIP Code Phon e Number [place] [address] [facility] [address] [place] [address] [address] [facility] [place] [address] [facility] [place] [address], [facility] Troponin I (06/17/2019 12:15 PM EARLY CHILDHOOD EDUCATION WORKER) athologist Signature Troponin I 0.01 0.00 - 0.29 06/17/2019 M HEALTH ng/mL 12:43 PM EARLY CHILDHOOD EDUCATION WORKER [facility] LAB[facility]ATORY Specimen Anatomical Collection Method / Collection Time Recei isai Time (Source) Location / Volume Laterality Blood specimen Venipuncture / 06/17/2019 12:15 020 (specimen) Unknown PM EARLY CHILDHOOD EDUCATION WORKER 12:19 PM EARLY CHILDHOOD EDUCATION WORKER Abe Cardoza MD LAB - BLOOD ORDERABLES Performing Organization Address City/[facility] Phon e Number [facility] [place] [address] [place], [place] [address]mauricio Elizabeth [facility] [address] [address] LABORATORY (ABNORMAL) Magnesium (06/17/2019 12:15 PM EARLY CHILDHOOD EDUCATION WORKER) athologist Signature Magnesium 1.6 (L) 1.8 - 2.6 06/17/2019 M HEALTH mg/dL 12:39 PM EARLY CHILDHOOD EDUCATION WORKER [facility] LABORATORY Specimen Anatomical Collection Method / Collection Time Recei isai Time (Source) Location / Volume Laterality Blood specimen Venipuncture / 06/17/2019 12:15 020 (specimen) Unknown PM EARLY CHILDHOOD EDUCATION WORKER 12:19 PM EARLY CHILDHOOD EDUCATION WORKER Abe Cardoza MD LAB - BLOOD ORDERABLES Performing Organization Address City/[facility]/ZIP Code Phon e Number [facility] [place] [address] Lab Isac Elizabeth [facility] [address] [address] LABORATORY ECG 12-LEAD WITH MUSE (LHE) (06/17/2019 12:02 PM EARLY CHILDHOOD EDUCATION WORKER) [facility] gist Method Time Signature Systolic Blood 06/17/2019 HE RADIANT Pressure 4:53 PM CONVERSION EARLY CHILDHOOD EDUCATION WORKER Diastolic Blood 06/17/2019 HE RADIANT Pressure 4:53 PM CONVERSION EARLY CHILDHOOD EDUCATION WORKER Ventricular Rate 61 BPM 06/17/2019 HE RADIANT 4:53 PM CONVERSION EARLY CHILDHOOD EDUCATION WORKER Atrial Rate 61 BPM 06/17/2019 HE RADIANT 4:53 PM CONVERSION EARLY CHILDHOOD EDUCATION WORKER OR Interval 160 ms 06/17/2019 HE RADIANT 4:53 PM CONVERSION EARLY CHILDHOOD EDUCATION WORKER QRS Duration 102 ms 06/17/2019 HE RADIANT 4:53 PM CONVERSION EARLY CHILDHOOD EDUCATION WORKER QT 422 ms 06/17/2019 HE RADIANT 4:53 PM CONVERSION EARLY CHILDHOOD EDUCATION WORKER QTc 424 ms 06/17/2019 HE RADIANT 4:53 PM CONVERSION EARLY CHILDHOOD EDUCATION WORKER P [place] 117 degrees 06/17/2019 HE RADIANT 4:53 PM CONVERSION EARLY CHILDHOOD EDUCATION WORKER R AXIS 84 degrees 06/17/2019 HE RADIANT 4:53 PM CONVERSION EARLY CHILDHOOD EDUCATION WORKER T [place] -59 degrees 06/17/2019 HE RADIANT 4:53 PM CONVERSION EARLY CHILDHOOD EDUCATION WORKER Interpretation Sinus rhythm with marked sin us arrhythmia with occasional Premature ventricular complexes 06/17/2019 HE RADIAN T ECG Voltage criteria for left ventricular hypertrophy 4:[address] & T wave abnormality, consider inferolateral ischemia EARLY CHILDHOOD EDUCATION WORKER Abnormal ECG No previous ECGs available Confirmed by COLETTE ??, LES LOC:JN ([id number]) on 06/17/2019 4 :53:42 PM Specimen Anatomical Collection Method Collection Time Receive d Time (Source) Location / / Volume Laterality 06/17/2019 12:02 06/17/2019 4:53 PM EARLY CHILDHOOD EDUCATION WORKER PM EARLY CHILDHOOD EDUCATION WORKER Abe Cardoza MD ECG ORDERABLES Performing Organization Address City/State/ZIP Code Phon e Number HE CARDIOLOGY CONVERSION HE RADIANT CONVERSION (ABNORMAL) CBC WITH PLATELETS AND DIFFERENTIAL (06/17/2019 6:01 AM EARLY CHILDHOOD EDUCATION WORKER) [facility] gist Method Time Signature WBC 8.9 4.0 - 06/17/2019 M HEALTH 11.0 6:19 AM EARLY CHILDHOOD EDUCATION WORKER [facility] thou/uL INDS LABORATORY RBC Count 3.98 (L) 4.40 - 06/17/2019 M HEALTH 6.20 6:19 AM EARLY CHILDHOOD EDUCATION WORKER [facility] mill/uL INDS LABORATORY Hemoglobin 11.4 (L) 14.0 - 06/17/2019 M HEALTH 18.0 g/dL 6:19 AM EARLY CHILDHOOD EDUCATION WORKER [facility] INDS LABORATORY Hematocrit 33.6 (L) 40.0 - 06/17/2019 M HEALTH 54.0 % 6:19 AM EARLY CHILDHOOD EDUCATION WORKER [facility]ONArist[facility]ST[facility] MCV 84 80 - 100 06/17/2019 HEALTH fL 6:19 AM EARLY CHILDHOOD EDUCATION WORKER [facility] LAB[facility] MCH 28.6 27.0 - 06/17/2019 M HEALTH 34.0 pg 6:19 AM EARLY CHILDHOOD EDUCATION WORKER [facility] IN[facility] LAB[facility] MCHC 33.9 32.0 - 06/17/2019 M HEALTH 36.0 g/dL 6:19 AM [facility] INDS LABORAT[facility] RDW 12.4 11.0 - 06/17/2019 M HEALTH 14.5 % 6:19 AM EARLY CHILDHOOD EDUCATION WORKER [employer] [facility] Platelet Count 157 140 - 440 06/17/2019 HEALTH thou/uL 6:19 AM EARLY CHILDHOOD EDUCATION WORKER [employer] [facility] [employer] [facility] Mean Platelet 9.6 8.5 - 06/17/2019 M HEALTH Volume 12.5 fL 6:19 AM EARLY CHILDHOOD EDUCATION WORKER [employer] [facility] % Neutrophils 85 (H) 50 - 70 % 06/17/2019 M HEALTH 6:19 AM EARLY CHILDHOOD EDUCATION WORKER [employer] [facility] [employer] [facility] % Lymphocytes 6 (L) 20 - 40 % 06/17/2019 HEALTH 6:19 AM EARLY CHILDHOOD EDUCATION WORKER [employer] [facility] % Monocytes 8 2 - 10 % 06/17/2019 HEALTH 6:19 AM EARLY CHILDHOOD EDUCATION WORKER [employer] [facility] [employer] % Eosinophils 0 0 - 6 % 06/17/2019 M HEALTH 6:19 AM EARLY CHILDHOOD EDUCATION WORKER [employer] [facility] % Basophils 0 0 - 2 % 06/17/2019 M HEALTH 6:19 AM EARLY CHILDHOOD EDUCATION WORKER [employer] [facility] LAB[facility]AT[facility] Absolute 7.6 2.0 - 7.7 06/17/2019 M HEALTH Neutrophils thou/uL 6:19 AM EARLY CHILDHOOD EDUCATION WORKER [facility] INDS LABORATORY Absolute 0.6 (L) 0.8 - 4.4 06/17/2019 M HEALTH Lymphocytes thou/uL 6:19 AM EARLY CHILDHOOD EDUCATION WORKER [employer] [facility] LAB[facility] Absolute 0.7 0.0 - 0.9 06/17/2019 M HEALTH Monocytes thou/uL 6:19 AM EARLY CHILDHOOD EDUCATION WORKER [employer] [facility] LABORATORY Eosinophils 0.0 0.0 - 0.4 06/17/2019 M HEALTH Absolute thou/uL 6:19 AM EARLY CHILDHOOD EDUCATION WORKER [employer] [facility] Absolute 0.0 0.0 - 0.2 06/17/2019 M HEALTH Basophils thou/uL 6:19 AM EARLY CHILDHOOD EDUCATION WORKER [employer] [facility] Specimen Anatomical Collection Method / Collection Time Recei isai Time (Source) Location / Volume Laterality Blood specimen Venipuncture / 06/17/2019 6:01 06/17/19 20 6:06 (specimen) Unknown AM EARLY CHILDHOOD EDUCATION WORKER AM EARLY CHILDHOOD EDUCATION WORKER Karina Candelaria MD LAB - BLOOD ORDERABLES Performing Organization Address City/State/ZIP Code Phon e Number [facility] [place] [address] Lab [address] [place], [place] [address] LABORATORY (ABNORMAL) Basic metabolic panel (06/17/2019 6:01 AM EARLY CHILDHOOD EDUCATION WORKER) [facility] gist Method Time Signature Sodium 129 (L) 136 - 145 06/17/2019 HEALTH mmol/L 6:31 AM [facility] LABORATORY Potassium 4.3 3.5 - 5.0 06/17/2019 HEALTH mmol/L 6:31 AM [facility] LABORATORY Chloride 95 (L) 98 - 107 06/17/2019 HEALTH mmol/L 6:31 AM [facility] LABORATORY Carbon Dioxide 24 22 - 31 06/17/2019 HEALTH (CO2) mmol/L 6:31 AM [facility] LABORATORY Anion Gap 10 5 - 18 06/17/2019 HEALTH mmol/L 6:31 AM [facility] LABORATORY Glucose 118 70 - 125 06/17/2019 HEALTH mg/dL 6:31 AM [facility] LABORATORY Calcium 8.3 (L) 8.5 - 10.5 06/17/2019 HEALTH mg/dL 6:31 AM [facility] LABORATORY Urea Nitrogen 13 8 - 28 06/17/2019 HEALTH mg/dL 6:31 AM [facility] LABORATORY Creatinine 0.68 (L) 0.70 - 06/17/2019 HEALTH 1.30 mg/dL 6:31 AM [facility] LABORATORY GFR Estimate If >60 >60 06/17/2019 HEALTH Black mL/min/1.7 6:31 AM [place] [id number] INDS LABORATORY GFR Estimate >60 >60 06/17/2019 HEALTH mL/min/1.7 6:31 AM [facility] 3m2 INDS LABORATORY Specimen Anatomical Collection Method / Collection Time Recei isai Time (Source) Location / Volume Laterality Blood specimen Venipuncture / 06/17/2019 6:01 06/17/19 20 6:06 (specimen) Unknown AM EARLY CHILDHOOD EDUCATION WORKER AM EARLY CHILDHOOD EDUCATION WORKER Narrative [facility] - 06/17/2019 6:31 AM EARLY CHILDHOOD EDUCATION WORKER Fasting Glucose reference range is 70-99 mg/dL per [place] [employer] (ADA) michelle felix. Karina Candelaria MD LAB - BLOOD ORDERABLES Performing Organization Address City/[facility] Phon e Number [place] [address] [facility] CenterMirna Elizabeth [place] [address] [address] [facility] LABORATORY [facility] [place] [address], [facility] Troponin I (06/17/2019 6:01 AM EARLY CHILDHOOD EDUCATION WORKER) P athologist Signature Troponin I <0.01 0.00 - 0.29 06/17/2019 [facility] ng/mL 6:40 AM [facility] LABORATORY Specimen Anatomical Collection Method / Collection Time Recei isai Time (Source) Location / Volume Laterality Blood specimen Venipuncture / 06/17/2019 6:01 06/17/19 20 6:06 (specimen) Unknown AM EARLY CHILDHOOD EDUCATION WORKER AM EARLY CHILDHOOD EDUCATION WORKER Karina Candelaria MD LAB - BLOOD ORDERABLES Performing Organization Address City/[facility]/ZIP Code Phon e Number [facility] [place] [address] Lab [facility] CenterMirna Elizabeth [facility] [address] [address] LABORATORY (ABNORMAL) Magnesium (06/17/2019 6:01 AM EARLY CHILDHOOD EDUCATION WORKER) P athologist Signature Magnesium 1.6 (L) 1.8 - 2.6 06/17/2019 HEALTH mg/dL 6:35 AM [facility] LABORATORY Specimen Anatomical Collection Method / Collection Time Recei isai Time (Source) Location / Volume Laterality Blood specimen Venipuncture / 06/17/2019 6:01 06/17/19 20 6:06 (specimen) Unknown AM EARLY CHILDHOOD EDUCATION WORKER AM EARLY CHILDHOOD EDUCATION WORKER Karina Candelaria MD LAB - BLOOD ORDERABLES Performing Organization Address City/[facility]/ZIP Code Phon e Number [facility] [place] [address] Lab [address] [facility] [address] [place] [address] [facility] [place] [address] LABORATORY (ABNORMAL) Hemoglobin (06/16/2019 8:48 AM EARLY CHILDHOOD EDUCATION WORKER) athologist Signature Hemoglobin 12.2 (L) 14.0 - 06/16/2019 HEALTH 18.0 g/dL 8:54 AM EARLY CHILDHOOD EDUCATION WORKER [facility] LABORATORY Specimen Anatomical Collection Method / Collection Time Recei isai Time (Source) Location / Volume Laterality Blood specimen Venipuncture / 06/16/2019 8:48 06/16/19 20 8:51 (specimen) Unknown AM EARLY CHILDHOOD EDUCATION WORKER AM EARLY CHILDHOOD EDUCATION WORKER Abe Cardoza MD LAB - BLOOD ORDERABLES Performing Organization Address City/[facility]/ZIP Code Phon e Number [facility] [place] [address] Elizabeth [address] [place] [address] LABORATORY XR Surgery CINDY Fluoro G/T 5 Min (06/15/2019 9:23 AM EARLY CHILDHOOD EDUCATION WORKER) Anatomical Region Laterality Modality Abdomen/Pelvis Other Specimen (Source) Anatomical Location Collection Method / Collectio n Time Received Time / Laterality Volume Narrative 06/15/2019 9:24 AM EARLY CHILDHOOD EDUCATION WORKER Please see Operative or Procedure Note for details on this exam or Radiology Report for body part of interest (if applicable). Procedure Note Provider, Historical - 10/25/2020Formatt ing of this note might be different from the original. Please see Operative or Procedure Note f or details on this exam or Radiology Report for body part of interest (if applicable). Bismark Gnozalez PA-C IMG DIAGNOSTIC IMAGING ORDER KORI XR Lumbar Spine Port 1 View (06/15/2019 8:06 AM EARLY CHILDHOOD EDUCATION WORKER) Anatomical Region Laterality Modality Spine Other Specimen (Source) Anatomical Location Collection Method / Collectio n Time Received Time / Laterality Volume Impressions 06/15/2019 8:51 AM EARLY CHILDHOOD EDUCATION WORKER A lateral fluoroscopic image of the lumbar spine performed at 0809 hours on 06/15/2019. Anterior spondylolisthesis at L4-L5 as on preoperative imaging. A surgical instrument is present terminating along the posterosuperior margin of the L5 pedicle. This was communicated with Dr. Hunter at 0809 hours on 06/15/2019. Narrative 06/15/2019 8:51 AM EARLY CHILDHOOD EDUCATION WORKER EXAM: XR CROSSTABLE LATERAL LUMBAR SPINE PORTABLE LOCATION: [facility] DATE/TIME: 06/15/2019, 8:06 AM INDICATION: Intraoperative. COMPARISON: Lumbar MRI 03/24/2019. Procedure Note Jason Brooks MD - 10/25/2020Forma tting of this note might be different from the original. EXAM: XR CROSSTABLE LATERAL LUMBAR SPINE PORTABLE LOCATION: [facility] DATE/TIME: 06/15/2019, 8:06 AM INDICATION: Intraoperative. COMPARISON: Lumbar MRI 03/24/2019. IMPRESSION: A lateral fluoroscopic image of the lumb ar spine performed at 0809 hours on 06/15/2019. Anterior spondylolisthesis at L4-L5 as on preoperative imaging. A surgical instrument is present terminating along the posterosuperior margin of the L5 pedicle. This was communicated with Dr. Hunter at 0809 hours on 06/15/2019. Bismark Gonzalez PA-C IMG DIAGNOSTIC IMAGING ORDER KORI ECHO CARDIAC - HIM SCAN (06/15/2019) Narrative This result has an attachment that is no t available. Historical Provider CV ECHO ORDERABLES EKG CARDIAC - HIM SCAN (06/15/2019) Narrative This result has an attachment that is no t available. 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
--- OUTSIDE RECORDS SUMMARY | 2022-02-07 15:56 | XMS_ITS | Encounter Summary ---
:1945 Author Organization [place] Address [address] [place] [address]. [place] [address] Care Team Providers Name Role Phone Unavailable Primary Care Provider Unavailable Encounter Details Date Type Department Care Team Description 11/20/2005 Historic Results [facility] Heart Unknown, [facility] ide[address] [place] [address] Social History Tobacco Use Types [...]
--- OUTSIDE RECORDS SUMMARY | 2022-02-07 15:56 | XMS_ITS | Encounter Summary ---
:1945 Author Organization [place] Address [address] [place] [address] Care Team Providers Name Role Phone Unavailable Primary Care Provider Unavailable Encounter Details Date Type Department Care Team Description 11/21/2005 Results [facility] Isidro Pickett MD Hospital Results [address], [place] [address] (Wo rk) Social History Tobacco Use Types Packs/Day Years Used Date Never Assessed Sex Assigned at Date Recorded Not on file documented as of this encounter Plan of Treatment Not on filedocumented as of this encounter Procedures Procedure Name Priority Date/Time Associated Diagnosis Comme [facility] ECHO HEART Routine 11/21/2005 7:40 AM Result s for this XTHORACIC, CDT procedure are i n STRESS/REST the results section. documented in this encounter Results ECHO HEART, FULL STRESS/REST (11/21/2005 7:40 AM CDT) Specimen (Source) Anatomical Collection Method Collection Time Re ceived Time Location / / Volume Laterality 11/21/2005 7:40 AM CDT Impressions RADIOLOGY RESULTS - 11/29/2005 10:09 AM CDT Tape #: ??[id number] ?? Name of Patient: ??Sherrell Kumar ?? : ??45 Technologist's initials: ??JT INDICATION FOR PROCEDURE: ??chest pain, palpitations, new atrial fibrillation with chest discomfort durin g the arrhythmia noted. The patient exercised for ten minutes an d 44 seconds of the [place] protocol. ??Heart rate went from 77 to 1 42 beats per minute which was 88 percent of maximum for his age. ??Blo od pressure went from 120/84 to 156/88. ??He had no chest pain. His resting EKG is abnormal with voltage and ST-T changes suggesting mild LVH with secondary ST abnormalities . ??With exercise the inferolateral ST abnormalities become mo re marked although they are upsloping going 3 to 4 millimeters of de pression all of it upsloping in the inferior leads and less dramatica lly in the lateral leads. ?? Post-exercise these ST segment changes n ormalize. No significant arrhythmias were noted du ring exercise. ??Post-exercise the patient had a ten second run of what is likely paroxysmal atrial fibrillation. ??Regular sinus rhythm was subsequently restored. Echocardiography at rest shows normal LV systolic function. ??There is mild left ventricular hypertrophy presen t. Post-exercise all wall segments improved . ??No evidence of exercise induced hypokinesia-ischemia is seen. IMPRESSION: 1. ??Negative stress echocardiographic study for wall motion abnormalities or ischemia. 2. ??Nondiagnostic stress EKG study. 3. ??Underlying mild left ventricular h ypertrophy. 4. ??Post-exercise a ten second run of what appears to be paroxysmal atrial fibrillation noted. Isidro Pickett MD SPECIAL IMAGING STUDIES Performing Organization Address City/State/ZIP Code Phon e Number RADIOLOGY RESULTS documented in this encounter Visit Diagnoses Not on filedocumented in this encounter
--- OUTSIDE RECORDS SUMMARY | 2022-02-07 15:56 | XMS_ITS | Encounter Summary ---
:1945 Author Organization [place] Address [address] [place] [address]. [place] [address] Care Team Providers Name Role Phone Marianna Valderrama Primary Care Provider [phone] Reason for Visit Reason Comments Other acp Encounter Details Date Type Department Care Team Description 06/15/2019 Ambulatory - [facility] Katina Ariza [facility] [address] [facility] [address] [place] [address] Social History Tobacco Use Types Packs/Day Years Used Date Never Smoker Smokeless Tobacco: Never Used Alcohol Use Standard Drinks/Week Comments Yes 0 (1 standard drink = 0.6 oz pure alcoho l) Sex Assigned at Date Recorded Not on file COVID-19 Exposure Response Date Recorded In the last month, have you been in contact Unable to assess 05/15/2020 9:41 AM ANGLESMITH HELPER with someone who was confirmed or suspected to have Coronavirus / COVID-19? documented as of this encounter Plan of Treatment Not on filedocumented as of this encounter Visit Diagnoses Not on filedocumented in this encounter Care Teams Gps Field Data Collector Relationship Specialty Start Date End Date Clinic, [facility]na [facility] PCP - General 05/01/2038155 [address] [place], [place] [id number] documented as of this encounter
--- OUTSIDE RECORDS SUMMARY | 2022-02-07 15:56 | XMS_ITS | Encounter Summary ---
:1945 Author Organization [place] Address [address] [place] [address] Care Team Providers Name Role Phone Unavailable Primary Care Provider Unavailable Reason for Visit Reason Comments acp Encounter Details Date Type Department Care Team Description 06/15/2019 Documentation Only [facility] Katina Persaud acp [address] [facility] [address] [place] [address] Social History Tobacco Use Types [...]
--- OUTSIDE RECORDS SUMMARY | 2022-02-07 15:56 | XMS_ITS | Encounter Summary ---
:1945 Author Organization [place] Address [address] [place] [address]. [place] [address] Care Team Providers Name Role Phone Unavailable Primary Care Provider Unavailable Encounter Details Date Type Department Care Team Description 04/06/2010 Emergency room [facility] Francisco Foster MD Hospital Results EMERGENCY PHYSI [facility] [address] [place], [place] [address] (Wo rk) Social History Tobacco Use Types Packs/Day Years Used Date Never Assessed Sex Assigned at Date Recorded Not on file documented as of this encounter Progress Notes Kaylin Foster - 04/07/2010 10:59 PM ART DISPLAY MAKER FINAL CHIEF COMPLAINT: Slipped on black ice. HISTORY OF PRESENT ILLNESS: Mr. Thong Kumar is a 65-year-old gentleman with a history of paroxysmal atrial fibrillation on Coumadin who was walking outside when he slipped on some black ice and hefell striking the left side of his head. He had no loss of consciousness. He does have a bruise overthat area as well as a laceration. He described a bruise over his left forearm. He states that he has no significant amount of pain. He apparently felt like his right leg where shaky initially but he did ambulate at the scene and has ambulated since then. He denies a headache, nausea, vomiting, arm orleg pain or weakness at this time. He denies any neck pain, shortness of breath, palpitations, lightheadedness or other symptoms. He believes his last tetanus shot was in the last few years. He has been treated for melanoma and he believes that this was updated when he had his surgery at least a year ago. He says that his INR levels are always normal, the last time it was checked was several months ago. He denies any symptoms prior to the fall. States that it was purely a mechanical fall. PAST MEDICAL HISTORY: Carpal tunnel, atrial fibrillation, depression, GERD, melanoma. CURRENT MEDICATIONS: Coumadin, citalopram, antacid. ALLERGIES: Novocain, but denies an allergy to lidocaine. SOCIAL HISTORY: He denies smoking and alcohol use. REVIEW OF SYSTEMS: Pertinent positives and negatives per HPI, remainder of 10- point review of systems is negative. PHYSICAL EXAMINATION: VITAL SIGNS: Blood pressure 160/88, pulse 60, respiratory rate 20, temperature 98.0, oxygen saturation 96% on room air. HEENT: Eyes: Conjunctivae pink. Sclerae are anicteric. Ears, nose and throat: Moist mucous membranes. Posterior oropharynx is clear. Tympanic membranes clear bilaterally, no hemotympanum. NECK: Supple without any meningeal signs. There is no midline tenderness and full range of motion. RESPIRATORY: Lungs are clear to auscultation bilaterally, no crackles, rubs or wheezes. No chestwall tenderness. CARDIOVASCULAR: Regular rate and rhythm, no murmurs, rubs or gallops. BACK: No midline tenderness over the back. GASTROINTESTINAL: Abdomen is soft and nontender. PELVIS: Stable. No tenderness, no pain with axial loading. EXTREMITIES: There is a contusion with ecchymoses over the ulnar aspect of the left forearm. The patient has no significant tenderness to palpation. He has full range of motion at the shoulders, elbows, wrists and hands without any tenderness over these areas. No tenderness over the clavicles. NEUROLOGIC: No facial droop, dysphasia or dysarthria. Tongue is midline. Symmetric palatal elevation. Extraocular motion intact, no nystagmus. Normal sensation over the face, bilateral upper and lower extremities. Strength 5/5 of bilateral upper and lower extremities, trapezius and sternocleidomastoid. Coordination intact to [id number]. Normal casual gait. SKIN: There is an abrasion over the left maxilla. There is a 3 cm laceration above the left eyebrow. It is 0.5 cm wide and 0.5 cm deep, there does not appear to be any underlying crepitus or bony violation, it does extend approximately 0.2 cm over the left eyebrow and there is a significant amount of swelling. The patient also does have periorbital ecchymosis on the left with some tenderness over the upper orbit. He has full extraocular motionincluding upward gaze. LABORATORY STUDIES AND EVALUATION: CT scan of the head was obtained and was negative without evidence of fracture or intracranial hemorrhage. CT of the orbits was ordered, but the patient declined to stay. INR was therapeutic at 2.5. EMERGENCY DEPARTMENT COURSE AND MEDICAL DECISION MAKING: Mr. Thong Kumar is a 65-year-old gentleman who comes today with a fall with laceration and head injury after slipping on the ice. He had a laceration that involved the left forehead and extended into the eyebrow. I repaired this laceration with good cosmesis, so I did recommend to him that he may need to see a plastic surgeon in followup given that it extends over the eyebrow and there may be some cosmesis difficulties once the swelling goes down. A head CT was obtained promptly when the patient arrived at the Emergency Department and this showed no evidence of fracture or bleeding. His INR was therapeutic at 2.5. He was observed in the emergency department over the course of several hours and he had no changes in his neurologic function, worsening headache or other signs of progressive head injury. I did recommend to him that we obtain a CT of the orbits given that he had some tenderness over the orbits. He has full extraocular range of motion and I see no entrapment, but I cannot rule out an orbital fracture and he does have a significant amount of swelling in that. He declined to stay for this and so this was canceled. The patient went home with his [id number]. He was given strict precautions to return if he develops any worsening of his symptoms, any new neurologic symptoms, any vomiting or if he becomes worse in any way.He was instructed to have his sutures removed in the next 5-7 days and to follow up with Plastic Surgery if there is any cosmetic concerns; he does have a plastic surgeon already. He is instructed to follow up with his primary care doctor in the next few days as well for recheck. He was given instructions for facial laceration and concussion. He was discharged home on no new medications. DIAGNOSES: 1. Closed head injury. 2. Facial laceration. 3. Facial abrasion. 4. Arm contusion. Electronically signed on 04/07/2010 22:59 by KAYLIN FOSTER MD MT: [id number] Name: THONG KUMAR MRN: [id number] Account: [id number] : 1945 Visit Date: 04/06/2010 Document: [id number] DISPLAY MAKER documented in this encounter Plan of Treatment Not on filedocumented as of this encounter Visit Diagnoses Not on filedocumented in this encounter
--- OUTSIDE RECORDS SUMMARY | 2022-02-07 15:56 | XMS_ITS | Encounter Summary ---
:1945 Author Organization [place] Address [address] [place] [address] Care Team Providers Name Role Phone Unavailable Primary Care Provider Unavailable Encounter Details Date Type Department Care Team Description 11/20/2005 Historic Results INTERFACED REPORT InterfaceLara MD Social History Tobacco Use Types Packs/Day Years Used Date Never Assessed Sex Assigned at Date Recorded Not on file documented as of this encounter Plan of Treatment Not on filedocumented as of this encounter Procedures Procedure Name Priority Date/Time Associated Diagnosis Comme nts EKG 12 LEAD Routine 11/20/2005 10:26 AM Results for this CDT procedure are i n the results section . documented in this encounter Results EKG 12 LEAD (11/20/2005 10:26 AM CDT) Component Value Ref Range Test Analysis Performed Pathologis t Method Time At Signature Ventricular Rate 59 BPM RADIOLOGY RESULTS Atrial Rate 59 BPM RADIOLOGY RESULTS AR Interval 172 ms RADIOLOGY RESULTS QRS Duration 90 ms RADIOLOGY RESULTS QT 406 ms RADIOLOGY RESULTS QTc 401 ms RADIOLOGY RESULTS P [place] 62 degrees RADIOLOGY RESULTS R AXIS 39 degrees RADIOLOGY RESULTS T [place] 60 degrees RADIOLOGY RESULTS Interpretation AGE AND GENDER SPECIFIC ECG ANALYSIS RADIOLOGY ECG Sinus bradycardia RESULTS Otherwise normal ECG Unconfirmed report - interpretation of this ECG is compute r generated - see medical record for final interpretation Specimen Anatomical Collection Method Collection Time Receive d Time (Source) Location / / Volume Laterality 11/20/2005 10:26 11/25/2005 6:07 AM CDT PM CDT Transcripton Ady MARIE ECG ORDERABLES Performing Organization Address City/State/ZIP Code Phon e Number RADIOLOGY RESULTS documented in this encounter Visit Diagnoses Not on filedocumented in this encounter
--- OUTSIDE RECORDS SUMMARY | 2022-02-07 15:56 | XMS_ITS | Encounter Summary ---
:1945 Author Organization [place] Address [address] [place] [address]. [place] [address] Care Team Providers Name Role Phone Unavailable Primary Care Provider Unavailable Encounter Details Date Type Department Care Team Description 11/20/2005 Admission [facility]&P [facility] Ember Roy, (Manager Social) [facility] [address] [place] [address] (Wo rk) Social History Tobacco Use Types Packs/Day Years Used Date Never Assessed Sex Assigned at Date Recorded Not on file documented as of this encounter Progress Notes Ember Roy - 11/20/2005 6:03 PM CDT PRELIMINARY CHIEF COMPLAINT: Palpitations and chest pressure. HISTORY OF PRESENT ILLNESS: Mr. Kumar is a 60-year-old male who is very healthy. He does not really have any chronic medical problems except for sleep apnea and gastroesophageal reflux disease. He had 1 hour of palpitations with some associated chest discomfort which he best described as a pressure,although he states that that is not a completely accurate description. The chest discomfort was nonradiating and he did perhaps have a little bit of shortness of breath, but no nausea, vomiting or diaphoresis. He came into the ER for evaluation. EKG reveals atrial fibrillation with rapid ventricular response of 141. He spontaneously converted in the Emergency Department and now his heart rate is in the 60s. His chest pressure has resolved. He is being admitted for further evaluation of atrial fibrillation with chest pressure. He does state that he has had perhaps 5-6 similar episodes in the past that have all been self-limited and have occurred over the last 5 years perhaps every 4-6 months. PAST MEDICAL HISTORY: Gastroesophageal reflux disease, obstructive sleep apnea. He has had a sleep study and has tried CPAP but did not tolerate the machine. He also has constipation chronically. PAST SURGICAL HISTORY: Bilateral hernia repair and a left carpal tunnel release. MEDICATIONS: Protonix 40 mg every other day. ALLERGIES: No known drug allergies. FAMILY HISTORY: His father had a stroke at 58 years of age but nothing else. 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 He is and lives withhis , has 2 grown kids who are healthy and live locally. He does not drink alcohol or use tobacco. REVIEW OF SYSTEMS: Cardiac symptoms as mentioned above. Pulmonary symptoms are just a little bit ofshortness of breath, but nothing else. No GI symptoms or urinary symptoms. No bruising or bleeding, no rashes or skin changes. No endocrine complaints. No musculoskeletal complaints. No neurologic symptoms. No cognitive changes. No edema or lymphadenopathy. No infectious symptoms. PHYSICAL EXAMINATION: VITAL SIGNS: Blood pressure 115/70, heart rate 65, temperature 95.8, respiratory rate 18, oxygen saturation 95% on room air. GENERAL: Generally no distress. HEENT: Extraocular muscles intact. Pupils are equally round and react to light. Posterior oropharynx is clear. NECK: Without lymphadenopathy or masses. CHEST: Clear to auscultation with good effort. HEART: Regular rate and rhythm without murmur. ABDOMEN: Bowel sounds present, nontender, nondistended. EXTREMITIES: Show no clubbing, cyanosis or edema. SKIN: Appears normal. LABORATORY DATA: White blood cell count 2.7, hemoglobin 15.9, platelets 194,000. INR 0.96, PTT 25, D-dimer less than 0.2. Sodium 140, potassium 4.4, chloride 108, bicarbonate 22, BUN 14, creatinine 0.8, calcium 9.2, troponin less than 0.04, myoglobin 68, TSH reflex is normal at 1.54. Chest x-ray is un remarkable, no acute disease. Urinalysis shows no significant abnormalities. Second troponin less than 0.04. EKG as mentioned above shows atrial fibrillation with rapid ventricular response with a rateof 140. IMPRESSION: 1. Paroxysmal atrial fibrillation, newly diagnosed. 2. Chest pressure associated with rapid ventricular response. 3. Gastroesophageal reflux disease. 4. Obstructive sleep apnea, untreated. PLAN: We will monitor him on telemetry. We will check serial troponins to be sure that he has not had a myocardial infarction. I doubt that he has. His symptoms, however, with atrial fib do warrant further evaluation for underlying heart disease. Assuming that he will rule out, I will check a stress e chocardiogram tomorrow. This will be to evaluate for underlying coronary ischemia. I talked with himabout taking Coumadin for his atrial fib, but he does not really want to take Coumadin. I explained the risk of stroke and its reduction with Coumadin use. He prefers to take aspirin. He is aware that a lthough aspirin dose decrease the risk of stroke, it does not decrease it as much as Coumadin. He isjust not willing to endure the inconvenience of Coumadin dosing at this time. I will prescribe aspirin 325 mg daily. Depending on how things go over this next day, I would consider a low dose beta-kelly for rate control when he has these episodes. Even though he does have symptoms that warrant further evaluation for underlying heart disease, I do imagine his stress echocardiogram will probably be normal and if that is the case, we will discharge him after that test tomorrow. EMBER ROY MD MT: [id number] Name: THONG KUMAR MRN: [id number] Account: [id number] : 1945 Admitted: [id number] Document: [id number] documented in this encounter Plan of Treatment Not on filedocumented as of this encounter Visit Diagnoses Not on filedocumented in this encounter
--- OUTSIDE RECORDS SUMMARY | 2022-02-07 15:56 | XMS_ITS | Encounter Summary ---
:1945 Author Organization [place] Address [address] [place] [address] Care Team Providers Name Role Phone Clinic, [facility] Primary Care Provider [phone] Encounter Details Date Type Department Care Team Description 06/15/2019 Surgery - [facility] Fortunato Hunter, [facility] [address] [place] [phone] [place], [place] [id number] (Wo rk) Social History Tobacco Use Types Packs/Day Years Used Date Never Smoker Smokeless Tobacco: Never Used Alcohol Use Standard Drinks/Week Comments Yes 0 (1 standard drink = 0.6 oz pure alcoho l) Sex Assigned at Date Recorded Not on file COVID-19 Exposure Response Date Recorded In the last month, have you been in contact Unable to assess 05/15/2020 9:41 AM POST MANAGER with someone who was confirmed or suspected to have Coronavirus / COVID-19? documented as of this encounter Last Filed Vital Signs Vital Sign Reading Time Taken Comments Blood Pressure - - Pulse - - Temperature - - Respiratory Rate - - Oxygen Saturation - - Inhaled Oxygen Concentration - - Weight 75.4 kg (166 lb 3.2 oz) 06/15/2019 6:22 AM POST MANAGER Height 185.4 cm (6' 1) 06/09/2019 10:57 AM POST MANAGER Body Mass Index 21.93 06/09/2019 10:57 AM POST MANAGER documented in this encounter Plan of Treatment Not on filedocumented as of this encounter Visit Diagnoses Not on filedocumented in this encounter Care Teams Electrician Supervisor Relationship Specialty Start Date End Date Clinic, [facility]na Monroe PCP - General 05/01/20 [address] [place] [address] documented as of this encounter
--- OUTSIDE RECORDS SUMMARY | 2022-02-07 15:56 | XMS_ITS | Encounter Summary ---
:1945 Author Organization [place] Address [address] [place] [address] Care Team Providers Name Role Phone Unavailable Primary Care Provider Unavailable Encounter Details Date Type Department Care Team Description 11/20/2005 Results Only [facility] Shi Camejo MD Hospital Results EMERGENCY PHYSI [facility] [address] [place] [address] (Wo rk) Social History Tobacco Use Types Packs/Day Years Used Date Never Assessed Sex Assigned at Date Recorded Not on file documented as of this encounter Plan of Treatment Not on filedocumented as of this encounter Procedures Procedure Name Priority Date/Time Associated Diagnosis Comme nts CHEST ONE VIEW Routine 11/20/2005 10:49 AM Res ults for this CDT procedure are i n the results section. documented in this encounter Results CHEST X-RAY 1 VW (11/20/2005 10:49 AM CDT) Specimen (Source) Anatomical Collection Method Collection Time Re ceived Time Location / / Volume Laterality 11/20/2005 10:49 AM CDT Impressions RADIOLOGY RESULTS - 11/25/2005 4:36 PM C DT VIEWS OF THE CHEST - 11/20/05 ?? HISTORY: ??Chest pain and shortness of b reath. ?? FINDINGS: ??Negative. Shi Sagastume MD GENERAL IMAGING Performing Organization Address City/State/ZIP Code Phon e Number RADIOLOGY RESULTS documented in this encounter Visit Diagnoses Not on filedocumented in this encounter
--- OUTSIDE RECORDS SUMMARY | 2022-02-07 16:00 | XMS_ITS | Clinical Summary ---
:1945 Author Organization [email or web address] [facility] [place] [address] Care Team Providers Name Role Phone Jair Hancock MD Primary Care Provider [phone] Benoit Dutta MD Unavailable Kem Stephenson Unavailable Kem Mukherjee MD Unavailable [phone] Allergies Active Allergy Reactions Severity Noted Date Comments Epinephrine Tachycardia High 07/23/2012 Other reaction( s): tachycardia Fentanyl Other - Describe In 07/07/2020 Slow to wake, took 4 Comment Field days Nsaids (Non-Steroidal Other - Describe In 06/27/2021 Patient discharged Anti-Inflammatory Comment Field 06/26/21 fo r Traumatic Drug) rhabdomyolysis. Patient to avoi d NSAIDs such as advil/aleve/mot rin/na proxen/ibuprofe n until cleared t o take by his provider . Medications Medication Sig Dispensed Refills Start Date End Date Status CALCIUM Take 1 Tab by 0 Active CARBONATE/VITAMIN D3 mouth once daily. (CALCIUM 600 + D ORAL) aspirin enteric coated Take 1 tablet by 0 09/22/2011 Active (ECOTRIN) 325 mg mouth once daily tablet with a meal. guaifenesin/pseudoephe Take 1 Tablet by 0 Active drne HCl (MUCINEX D mouth once daily. ORAL) B-complex with vitamin Take 1 Tablet by 0 Active C (B COMPLEX-C ORAL) mouth once daily. FLUoxetine (PROZAC) 10 Take 1 Capsule 90 Capsule 3 02/25/2021 Active mg capsuleIndications: (10 mg) by mouth Major depression in once daily. remission (HC) omeprazole (PRILOSEC) Take 20 mg by 0 Active 20 mg Delayed-Release mouth once daily capsule before a meal. sennosides-docusate Take 1 Tablet by 0 Active (Senna with Docusate mouth once daily Sodium) (8.6-50 mg) if needed for tablet Constipation. diphenhydrAMINE [The details of 0 Active (Benadryl Allergy) 25 the medication mg tablet are not available because there are pending changes by a home health clinician.] magnesium oxide Take 400 mg by 0 Active (MAG-OX 400) 400 mg mouth once daily. tablet cyclobenzaprine Take 1 Tablet (5 30 Tablet 1 09/09/2021 Active (FLEXERIL) 5 mg mg) by mouth 3 tabletIndications: times daily. Abnormally increased muscle contraction Active Problems Problem Noted Date Tremor 09/09/2021 Overview: Aug 28, 2010 Entered By: TRUE DONOVAN ment: longstanding, minimal yes-yes head tremorsA2010 Entered By: TRUE DONOVAN Comment: formerly treated with acetazolamide Melanoma of skin 06/28/2021 Overview: Jun 24, 2010 Entered By: TUCKER BAXTER Comment: s/p left cheek lesion removal in 2009.Jan 15, 2011 Entered By: TRUE DONOVAN Comment: Followed by Derm q6m (Dr. Stephenson, [place]) Depression 06/28/2021 Sensorineural hearing loss, bilateral 06/28/2021 Brachial neuritis 06/28/2021 Overview: Jun 24, 2010 Entered By: TUCKER BAXTER Comment: bilat upper extremity numbness. Carpal tunnel syndrome 06/28/2021 Overview: Jun 24, 2010 Entered By: TUCKER BAXTER Comment: s/p repair in left upper extremity 2004. Family history of stroke (cerebrovascular) 06/28/2021 Overview: Jan 15, 2011 Entered By: TRUE DONOVAN ment: father- at 63, first stroke at 58 Felon of finger 06/28/2021 H/O Malignant melanoma 06/28/2021 Herniation of intervertebral disc without myelopathy 0 06/28/2021 Overview: Jun 24, 2010 Entered By: TUCKER BAXTER Comment: C4 herniated discFeb 2010 Entered By: TUCKER BAXTER Comment: lumbar disc herniation ?which one. Osteoarthritis 06/28/2021 Impotence of organic origin 06/28/2021 Leukopenia 06/28/2021 Traumatic rhabdomyolysis 06/25/2021 Fall 06/24/2021 Hypothermia 06/24/2021 Generalized weakness 06/24/2021 Urinary retention 07/11/2020 Overview: June 2020: Emergency room visit, had joseph placed. 08/20/2020: Urology Appointment, 452ml pos t Void Residual. Jan 2022: Dr. Melgoza, Urologist started on G emtesa. Constipation 2020 Overview: February 2020: saw [facility], recommended Col onoscopy after double bowel prep. GI Consult suggested bowel medications. Irregular bowel habits 02/02/2020 Abnormal weight loss 01/31/2020 Overview: Jan 2020: CT scan of chest/abdomen/pelv is is negative for cause of weight loss. Presbyopia 07/08/2019 Hyperopia of right eye 07/08/2019 Hyperopic astigmatism of left eye 07/08/2019 Neurogenic claudication due to lumbar spinal stenosis 06/15/2019 S/P ablation of atrial fibrillation 06/15/2019 Recurrent major depressive disorder, in full remission 06/15/2019 Peripheral polyneuropathy 06/15/2019 Chronic bilateral low back pain 03/20/2019 Overview: 03/18/19: Dr Hunter Consult. Nuclear senile cataract of both eyes 08/26/2016 Change in bowel habits 06/13/2016 Overview: May 2016: trying ditropan XL. July 2017 : Not taking ditropan as was not effective. Numbness and tingling in left hand 05/26/2014 Overview: Previous Carpal Tunnel Syndrome surgery. April 2014: Dr. Sidhu consult, EMG J an 2014: shows mild median nerve changes , Ulnar Neuropathy of elbow,and chronic C6-7 radiculopathy. 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 Cavernous hemangioma 04/25/2014 Overview: 21mm Cervical spine. April 2014: Saw Neurology Consult, Dr. Sidhu ACP (advance care planning) 07/28/2013 Overview: Patient has identified Health Care Agent (s): No Add Health Care Agents: No Patient has Advance Care Plan Documents (Health Care Directive, POLST): No, Health Care Packet mailed to patient 07/28/13. Patient has identified Specific Treatmen t Preferences: No Specific limits to treatment preferences NOT identified: ASSUME FULL TREATMENT. Screen for colon cancer 08/20/2012 Overview: Colonoscopy 08/2012 poor prep, unable to reach the end of the colon, recommend BE. Dr. Lezama would recommend: repeat of this same Xray Barium Enema in 5 years, then possibly stop since he would be 75 years old Jan 2020: Colonoscopy was completed and negative other than hemorrhoids. Could/Can stop Colon cancer screening per GI Dr. Simsomycosis 01/26/2012 Bradycardia 09/13/2011 Overview: July 2020: Holter Frequent runs of Non- sustained Atrial Tachycardia. Elevated troponin 09/13/2011 Prolonged QT interval 09/13/2011 Overview: 2011 while on Citalopram (Celexa). November 2013: stopped Citalopram (Celexa) to see if contributing to long QT. December 2013: Paroxetine caused stomach a binu and headache so stopped. Jun 2016: on fluoxetine every other day and EKG with Normal QTc. Microcytosis 09/13/2011 Dizziness and giddiness 08/07/2011 CAD (coronary artery disease) 07/17/2011 Overview: Angiogram 04/27 Mild disease in RCA, min in LAD and Cx. Hyperlipidemia LDL goal < 70 07/17/2011 Overview: November 2013: tried to change to Atorvastat in (Lipitor), cost too high, doing Prior Auth. Patient stopped Simvastatin (Zocor) 2015 . July 2017: statin recommended, but Anitra ent declined. 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 See phone note October 2010. Major depression in remission 07/27/2010 Overview: May 2016: Restarted fluoxetine. Citalopram (Celexa) started around 2008. Long QT 2011 while on Citalopram (Celexa). November 2013: stopped Citalopram (Celexa) to see if contributing to long QT. November 2013: taken off Citalopram (Celexa) and started on paxil and Patient had side effects of upset stomach, headaches and dark dreams and thoughts, so stopped. Feb 2014: Patient wants to restart Cital opram (Celexa), Dr. Dutta ok with restart and monitor QT Closely, comfortable with a QT in the 460-480 range. If it goes up above 500, we may have to rethink. Benoit Dutta MD July 2019: Not taking fluoxetine consis tently, Asked him to take 10mg fluoxetine consistently and follow up 1 month. Retention cyst of nasal sinus 07/27/2010 Elevated BP 10/06/2008 Chronic cough 10/06/2008 Atrial fibrillation 02/25/2006 Overview: STRESS ECHO 11/21/2005 Negative Stress echo study for wall eugenie on abnormalities or ischemia. 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 A-fib 06/27/2011 10/29/2011 Overview: Left atrial MAZE procedure (vein isolati on) with the AtriCure device. Amputation of left atrial appendage. Aortic aneurysm of unspecified site without mention of ruptu re 06/19/2011 02/27/2021 Major depressive disorder, recurrent episode, severe, withou t 04/10/2009 07/27/2010 mention of psychotic behavior Encounters Date Type Specialty Care Team Description 01/31/2022 Hospital Encounter Lia Saxena MD Hip pain, right; Tianna Mcgrath D, Hip serafin n, left PT 01/31/2022 Travel 01/24/2022 Hospital Encounter Gage Saxena MD H ip pain, right; Hip pain, left 01/24/2022 Travel 01/16/2022 Hospital Encounter Lia Saxena MD Hip pain, right; Lili Duvall, Hip serafin n, left PT 01/16/2022 Travel 01/07/2022 Telephone Gage Saxena MD Referra l (Physical Therapy) 12/06/2021 Telephone Benoit Dutta Devic e Check 12/03/2021 Telephone Jair Hancock Concer ns (well water) 11/13/2021 Procedure Only Device Check ([employer] DUAL CHAMBER PA JOSEFINA... 11/13/2021 Travel from Last 3 Months Immunizations Name Administration Dates Next Due COVID-19 vaccine ([employer] 08/02/2020, 07/12/2020 30mcg/0.3mL) KLARISSA FENTON Influenza Virus, Unspecified 02/09/2013, 02/24/2010 Influenza, High-dose Inactivated 04/05/2015, 02/13/2014 Influenza, IIV3 (Age >=3 years) 03/01/2013, 04/26/2012, 02/16, 02/12/2010, 02/06/2009 Influenza, IIV4 07/15/2016 Influenza, Inactivated AIIV4 (Age 65+ 02/25/2021, 01/20/2020 Years) Preserv Free Influenza, Inactivated IIV3 (Age 65+ 02/23/2019, 03/23/2018, 03/10/2017 Years) Preserv Free Pneumococcal Poly,23-Valent 03/06/2011 (Pneumovax) Pneumococcal conj 13-Valent (Prevnar 04/05/2015, 02/15/2015 13) Pneumococcal, Unspecified 06/24/2010 TD, UNSPECIFIED 08/07/2002 Tdap 07/15/2016, 02/09/2013 Zoster (Shingrix-RZV, recombinant) 10/22/2018 Family History Medical History Relation Name Comments Stroke Father Glaucoma Maternal Grandfather Other Mother Psychiatric illness Sister Schizophreni a Relation Name Status Comments Father Maternal Grandfather Mother Sister Social History Tobacco Use Types Packs/Day Years Used Date Never Smoker Smokeless Tobacco: Never Used Tobacco Cessation: Counseling Given: Yes Alcohol Use Standard Drinks/Week Comments Yes 0 (1 standard drink = 0.6 oz pure occasi onal, as of 2020: couple a alcohol) week. Alcohol Habits Answer Date Recorded How often do you have a drink Not asked containing alcohol? How many drinks containing alcohol do Not asked you have on a typical day when you are drinking? How often do you have six or more Not asked drinks on one occasion? Comment: occasional, as of 2020: couple a week. Sex Assigned at Date Recorded Not on file COVID-19 Exposure Response Date Recorded In the last 10 days, have you been in contact with No / Unsu re 01/31/2022 10:11 AM CDT someone who was confirmed or suspected to have Coronavirus/COVID-19? Obstetrics History Last Filed Vital Signs Vital Sign Reading Time Taken Comments Blood Pressure 120/80 09/09/2021 2:21 PM CDT Pulse 88 09/09/2021 2:21 PM CDT Temperature 36.7 ??C (98 ??F) 07/25/2021 1:52 PM ELEMENT SETTER Respiratory Rate 16 07/25/2021 1:52 PM ELEMENT SETTER Oxygen Saturation 94% 07/25/2021 1:52 PM ELEMENT SETTER Inhaled Oxygen Concentration - - Weight 75.8 kg (167 lb) 09/09/2021 2:21 PM CDT Height 190.5 cm (6' 3) 07/01/2021 11:18 AM ELEMENT SETTER Body Mass Index 20.87 07/01/2021 11:18 AM ELEMENT SETTER Plan of Treatment Upcoming Encounters Date Type Specialty Care Team Description 02/11/2022 Appointment 02/14/2022 Procedure Only Health Maintenance Due Date Last Done Comments Hepatitis C screening for age 1003/05/1963 18-79 Zoster (shingles) series for age 0812/17/2018 10/22/2018 50+ (2 of 2) COVID-19 vaccine series (3 - 01/02/2021 08/02/2020, 021 Booster for Pfizer series) Influenza for age 65+ 01/16/2022 02/25/2021, 01/20/2020, 02/23/2019, Additional history exists Depression screening for age 12+ 02/25/2022 02/25/2021, 10/2019, 01/20/2020, Additional history exists Medicare Wellness for age 65+ 02/25/2022 02/25/2021, 2019, 08/09/2018, Additional history exists BMI (ht and wt on same day) for 04/22/2022 04/22/2021, 02/15, age 18+ 11/07/2020, Additional history exists Tetanus booster 07/15/2026 07/15/2016, 02/09/2013, 06/19/2011 (Completed outside of [facility]), Additional history exists Pneumococcal series for age 65+ Completed 04/05/2015, 05/2014, 03/06/2011, Additional history exists Tdap Completed 07/15/2016, 02/09/2013 Medical Devices Implanted Type Area Manager Cafe Device Shelf Model / Identifier Expiration Serial / Lot Date Guzmandenisha Valsalva Woven Prosthesis Cv Implants N/A: 01/16/2016 [id number] / Implanted: Qty: 1 on 06/26/2011 at [facility] Aortic [id number] / Arch [id number] Iol Nash +21 Farhad [id number] - [id number] Opthalmology Left: Timothy rgan 03/15/2026 [id number] 21.0 / Implanted: Qty: 1 on 04/25/2021 by Isidro Sarkar MD at [facility] Implants [employer] [id number] / NA [place] Ptfe [id number] - [id number] N/A: BARD RADIO LOGY 03/17/2016 [id number] / Implanted: Qty: 1 on 06/26/2011 at [facility] Heart / [id number] Results Not on filefrom Last 3 Months Insurance Payer Benefit Plan / Subscriber ID Effective Dates Phone Addre ss Type Group MEDICARE PART A MEDICARE PART A [id number] 2010-Prese ATTN: CLAIMS - HB USE ONLY HB ONLY nt [address] [place] [address] MEDICARE PART B MEDICARE PART B [id number] 2010-Prese ATTN: CLAIMS - HB USE ONLY HB ONLY nt [address] [place] [address] MEDICARE PART A MEDICARE PART A [id number] 2010-Prese ATTN: CLAIMS - HB USE ONLY HB ONLY nt [address] [place] [address] BLUE CROSS PPS HC BLUE CROSS [id number] 2019-Presen [address] [address] [place] [address] BLUE CROSS MR BLUE CROSS [id number] 2019-Presen [address] [place], [place] [id number] MEDICA MEDICA PRIME [id number] 2011-Presen [address] [address] [place] [phone] ([address]) [place] [id number] Thong Kumar Personal/Family Self [phone] ([address]) [place] [id number] Thong Kumar Personal/Family Self [phone] ([address]) [place] [id number] Advance Directives Documents on File Type Date Recorded Patient Canteen Attendant Explanati on Healthcare Directive 02/08/2018 12:00 AM 02/03/20 18 Latest Code Status on File Code Status Date Activated Date Inactivated Comments Full Code 06/24/2021 9:38 PM 06/26/2021 2:35 PM Code Status Discussion: Unable to Assess Preferences, Provid er to review later Full Code 09/13/2011 12:56 AM 09/13/2011 4:42 PM Full Code 06/26/2011 3:27 PM 07/04/2011 5:01 PM Full Code 06/26/2011 6:05 AM 06/26/2011 3:27 PM Full Code 06/25/2011 9:47 AM 06/25/2011 4:22 PM Care Teams Police Commissioner Relationship Specialty Start Date End Date Jair Hancock, PCP - General Family Practice 04/12/12 [id number] [place], [place] [id number] Benoit Dutta Consulting Physician Cardiovascular Disease 01/09/15 MD Isidro [address] [place] [address] Kem Stephenson Dermatology Dermatology [id number]/20/[id number] [facility] [address] [place], [place] [id number] Kem Mukherjee Urology Surgery - Urology 02/25/21 MD Vipul [address], [place] [id number]
--- OUTSIDE RECORDS SUMMARY | 2022-02-07 16:00 | XMS_ITS | Continuity of Care Document ---
:1945 Author Organization [facility] Care Team Providers Name Role Phone [facility] Unavailable Unavailable Problems Combined list of problems from Department of Defense and Veterans Affairs facilities. It does not include entries that were removed or entered in error. Problem Status Onset Problem Date of Comments Source Date Type Resolution Deviated nasal Active Condition Jun 24, 2010 [place] septum 001 Entered By: [facility] TUCKER BAXTER Comment: s/p repair in 2000. Anemia * (ICD-9-CM Active Condition [place] 285.9) [facility] Atrial Active Condition [place] fibrillation [facility] Atrial Active Condition [place] Fibrillation [facility] Bilateral inguinal Active Condition Jun 24, 2010 [place] hernia, without Entered By: [facility] mention of TUCKER BAXTER obstruction or Comment: s/p gangrene repair in 1999. Carpal Tunnel Active Condition Jun 24, 2010 [place] Syndrome Entered By: [facility] TUCKER BAXTER Comment: s/p repair in left upper extremity 2004. Cervical Active Condition Jun 24, 2010 [place] radiculopathy Entered By: [facility] (SNOMED CT TUCKER BAXTER [id number]) Comment: bilat upper extremity numbness. 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 Leukocytopenia, Active Condition [place] unspecified [facility] (ICD-9-CM 288.50) Melanoma of Skin Active Condition Jun 24 11 [place] Entered By: [facility] TUCKER BAXTER Comment: s/p left cheek lesion removal in 2009. Jan 15, 2011 Entered By: TRUE DONOVAN Comment: Followed by Derm q6m (Dr. Stephenson, [place]) Neurogenic Bladder Active Condition [place] ([facility] [id number]) [facility] Osteoarthritis Active Condition [place] [facility] Primary nonVA MD Active Condition Jan 15 [place] Entered By: [facility] TRUE DONOVAN Comment: Dr. Mcgee, [facility], Jan 15, 2011 Entered By: TRUE DONOVAN Comment: Neuro-Dr. Trujillo, [place] Sinusitis Active Condition [place] [facility] Tremor Active Condition Aug 28, 2010 [place] Entered By: [facility] TRUE DONOVAN Comment: longstanding, minimal yes-yes head tremors Aug 28, 2010 Entered By: TRUE DONOVAN Comment: formerly treated with acetazolamide Tremor Active Condition [place] [facility] Diagnosis: Active Diagnosis [place] ICD-10-CM G82.54 [facility] Quadriplegia, C5-C7 incompletewith Provider Comments: Quadriplegia, C5-C7 Incomplete Diagnosis: Active Diagnosis [place] ICD-10-CM N31.9 [facility] CS Neuromuscular dysfunction of bladder, unspecifiedwith Provider Comments: Neuromuscular Dysfunction of Bladder, unspecified Diagnosis: Active Diagnosis [place] ICD-10-CM M54.12 [facility] Radiculopathy, cervical regionwith Provider Comments: Cervical radiculopathy (SCT [id number]) Diagnosis: Active Diagnosis [place] ICD-10-CM R26.89 (CB OC) Other abnormalities of gait and mobilitywith Provider Comments: Other abnormalities of gait and mobility Diagnosis: Active Diagnosis [place] ICD-10-CM M50.020 [facility] Cerv disc disord with myelpath, mid-cervical rgn, unsp levelwith Provider Comments: Cervical disc disorder with myelopathy, mid-cervical region, unspecified level Diagnosis: Active Diagnosis [place] ICD-10-CM H90.3 [facility] Sensorineural hearing loss, bilateralwith Provider Comments: Sensorineural hearing loss, bilateral Medications Combined list of outpatient medications from Department of Defense and Veterans Affairs facilities. Medications provided include 1) outpatient medications from the last 15 months, and 2) patient-reported medications. Medication Details Route Status Patient Prescription Prescription Last Ordering Order Source Instructions Expires Number Dispense Provider Date Date ASPIRIN TAKE ONE ORALLY ACTIVE FINK,HOWA 02/09/ [facility] [place] 325MG TAB TABLET 2012 [place] [facility] EVERY DAY CITALOPRAM TAKE 1.5 ORALLY ACTIVE FINK,HOWA 02/09/ [place] HYDROBROMID TABLETS 2012 [place] V A E 20MG TAB BY MOUTH HCS EVERY DAY METOPROLOL TAKE ORALLY ACTIVE FINK,HOWA 02/09/ [facility] [place] TARTRATE 12.5 MG 2012 [place] [facility] TAB BY [facility]OUTH [facility] EVERY DAY SIMVASTATIN TAKE ORALLY ACTIVE FINK,HOWA 02/09/ [place] 40MG TAB ONE-HALF 2012 [place] [facility] TABLET [facility]CS BY MOUTH AT BEDTIME Allergies, Adverse Reactions, Alerts Combined list of allergies from Department of Defense and Veterans Affairs facilities. It does not include entries that were removed or entered in error. Substance Category Reaction Severity Reaction Status Date Comments S ource type Reported EPINEPHRINE Propensity Tachycardi Propensity active [place] to adverse a to adverse 1 LI S [facility] reactions reactions HCS to drug to drug (finding) (finding) Immunizations Combined list of available immunizations from the Department of Defense and Veterans Affairs facilities. Immunization Series Date Administered Site Reaction Lot CVX Drug St atus Comments Source Given By Number Code Improvement Advisor INFLUENZA, complet [place] UNSPECIFIED 2020 ed [place] [facility] COVID-19 2 complet [facility] [place] (PFIZER), 2020 ed [place] [facility] MRNA, LNP-S, H CS PF, 30 MCG/0.3 ML DOSE COVID-19 1 complet [place] (PFIZER), 2020 ed [place] [facility] MRNA, LNP-S, H CS PF, 30 MCG/0.3 ML DOSE INFLUENZA, complet [place] SEASONAL, 2018 ed HEAL TH INJECTABLE INFLUENZA, complet [place] HIGH DOSE 2014 ed [place] [facility] SEAS[facility] PNEUMOCOCCAL complet [place] CONJUGATE PCV 2014 ed [place] [facility] 13 HCS INFLUENZA, complet [place] UNSPECIFIED 2012 ed [place] [facility] TDAP complet [place]o [place] 2012 ed garrido [place] [facility] magallanes HCS Lot#[id number] Exp. 5 PNEUMOCOCCAL, complet erin ck [place] UNSPECIFIED 2010 ed LLLLZ [place] [facility] FORM[facility]ATION 2 HCS INFLUENZA, complet [place] UNSPECIFIED 2009 ed [place] [facility] TD(ADULT) complet [place] UNSPECIFIED 2002 ed [place] [facility] Results Combined list of recent chemistry, hematology and other laboratory results from Department of Defense and Veterans Affairs, ranging from 15 months to all on record, depending upon the facility. Order Results Value Reference Date Interpretation Specimen Commen ts Source Name Range CYSTATIN CYSTATIN C 1.09 0.51 - 09/14 H Specimen Typ e: PLASMA [place] WITH [MASS/VOLUM 1. No comment e ntered. IS [facility] EGFR E] IN SERUM Ordering Pr ovider: DARIAN DOMINGUEZ OR PLASMA Report Releapryl ed Date/Time: Jan 29, 2022 10:57 AM Reporting Lab: [facility] [address] [facility] [address] Performing Lab: [facility] [address] [facility] [address] CYSTATIN CYSTATIN C 65 60 01/29 Specimen Typ e: PLASMA [place] WITH No comment enter ed. IS [facility] EGFR GLOMERULAR Ordering Pro vider: DARIAN DOMINGUEZ FILTRATION Report Relemeghana sed Date/Time: Jan 29, 2022 10:57 AM RATE BY Reporting Lab: [facility] CYSTATIN-BA [address] [facility] [address] SED FORMULA Performing Lab: [facility] PANEL - [address] [place] [address] SERUM OR PLASMA VIT D 25-HYDROXYV 16 12 - 50 01/29 Specimen Typ e: SERUM [place] 25-OH,TOT ITAMIN D3 /2021 No comment e ntered. IS [facility] AL [MASS/VOLUM Ordering Pr ovider: DARIAN DOMINGUEZ] IN SERUM Report Rele ased Date/Time: Jan 29, 2022 10:57 AM OR PLASMA Reporting Lab : [facility] [place] [address] Performing Lab: [facility] [place] [address] CBC LEUKOCYTES 4.36 4.0 - 11.0 11/21 Specimen T ype: BLOOD [place] [#/VOLUME] /2021 No comment en tered. IS [facility] IN BLOOD BY Ordering Pr ovider: LISA TRINIDAD AUTOMATED Report Releas ed Date/Time: Nov 21, 2021 03:08 PM COUNT Reporting Lab: [facility] [address] [place] [address] Performing Lab: [facility] [address] [place] [address] CBC ERYTHROCYTE 4.63 4.6 - 6.2 11/21 Specimen T ype: BLOOD [place] /2021 No comment enter ed. IS [facility] [#/VOLUME] Ordering Pro vider: LISA TRINIDAD IN BLOOD BY Report Rele ased Date/Time: Nov 21, 2021 03:08 PM AUTOMATED Reporting Lab : [facility] COUNT [place] [address] Performing Lab: [facility] [address] [facility] [address] CBC HEMOGLOBIN 13.3 13.5 - 07/ L Specimen Type : BLOOD [place] [MASS/VOLUM 17.9 /2021 No comment e ntered. IS [facility] E] IN BLOOD Ordering Pr ovider: LISA TRINIDAD Report Released Date/Time: Nov 21, 2021 03:08 PM Reporting Lab: [facility] [address] [facility] [address] Performing Lab: [facility] [address] [facility] [address] CBC HEMATOCRIT 39.7 41 - 54 11/21 L Specimen Type : BLOOD [place] [VOLUME /2021 No comment enter ed. IS [facility] FRACTION] Ordering Prov ider: LISA TRINIDAD OF BLOOD BY Report Rele ased Date/Time: Nov 21, 2021 03:08 PM AUTOMATED Reporting Lab : [facility] COUNT [address] [place] [address] Performing Lab: [facility] [address] [facility] [address] CBC MCV 85.7 80 - 100 11/21 Specimen Type: BLOOD [place] [ENTITIC /2021 No comment ente red. IS [facility] VOLUME] BY Ordering Pro vider: LISA TRINIDAD AUTOMATED Report Releas ed Date/Time: Nov 21, 2021 03:08 PM COUNT Reporting Lab: [facility] [place] [address] Performing Lab: [facility] [address] [facility] [address] CBC MCH 28.7 27 - 33 11/21 Specimen Type: B LOOD [place] [ENTITIC /2021 No comment ente red. IS [facility] MASS] BY Ordering Provi maryann: LISA TRINIDAD AUTOMATED Report Releas ed Date/Time: Nov 21, 2021 03:08 PM COUNT Reporting Lab: [facility] [address] [place] [address] Performing Lab: [facility] [place] [address] CBC MCHC 33.5 32.0 - 11/21 Specimen Type: B LOOD [place] [MASS/VOLUM 37.5 /2021 No comment e ntered. IS [facility] E] BY Ordering Provid er: LISA TRINIDAD AUTOMATED Report Releas ed Date/Time: Nov 21, 2021 03:08 PM COUNT Reporting Lab: [facility] [address] [facility] [address] Performing Lab: [facility] [address] [facility] [address] CBC PLATELETS 183 150 - 400 11/21 Specimen Typ e: BLOOD [place] [#/VOLUME] /2021 No comment en tered. IS [facility] IN BLOOD BY Ordering Pr ovider: LISA TRINIDAD AUTOMATED Report Releas ed Date/Time: Nov 21, 2021 03:08 PM COUNT Reporting Lab: [facility] [address] [facility] [address] Performing Lab: [facility] [place] [address] CBC PLATELET 9.9 7.4 - 10.4 11/21 Specimen Typ e: BLOOD [place] MEAN VOLUME /2021 No comment e ntered. IS [facility] [ENTITIC Ordering Provi maryann: LISA TRINIDAD VOLUME] IN Report Relea sed Date/Time: Nov 21, 2021 03:08 PM BLOOD BY Reporting Lab: [facility] AUTOMATED [address] [facility] [address] COUNT Performing Lab: [facility] [address] [facility] [address] CBC ERYTHROCYTE 12.9 11.5 - 11/21 Specimen Typ e: BLOOD [place] DISTRIBUTIO 14.5 No comment e ntered. IS [facility] N WIDTH Ordering Provid er: LISA TRINIDAD [RATIO] BY Report Relea sed Date/Time: Nov 21, 2021 03:08 PM AUTOMATED Reporting Lab : [facility] COUNT [place] [address] Performing Lab: [facility] [address] [facility] [address] COMPREHEN CREATININE 0.8 0.7 - 1.2 11/21 Specimen Type: PLASMA [place] SIVE [MASS/VOLUM /2021 No comment e ntered. IS [facility] METABOLIC E] IN SERUM Ordering Provider: LISA TRINIDAD PANEL+MG OR PLASMA Report Relea sed Date/Time: Nov 21, 2021 03:08 PM Reporting Lab: [facility] [place] [address] Performing Lab: [facility] [place] [address] COMPREHEN UREA 14 8 - 26 11/21 Specimen Type: PLASMA [place] SIVE NITROGEN /2021 No comment ente red. IS [facility] METABOLIC [MASS/VOLUM Ordering Provider: LISA TRINIDAD PANEL+MG E] IN SERUM Report Rel eased Date/Time: Nov 21, 2021 03:08 PM OR PLASMA Reporting Lab : [facility] [address] [facility] [address] Performing Lab: [facility] [place] [address] COMPREHEN GLUCOSE 94 74 - 100 11/21 Specimen Type : PLASMA [place] SIVE [MASS/VOLUM /2021 No comment e ntered. IS [facility] METABOLIC E] IN SERUM Ordering Provider: LISA TRINIDAD PANEL+MG OR PLASMA Report Relea sed Date/Time: Nov 21, 2021 03:08 PM Reporting Lab: [facility] [address] [facility] [address] Performing Lab: [facility] [address] [facility] [address] COMPREHEN SODIUM 138 136 - 145 11/21 Specimen Typ e: PLASMA [place] SIVE [MOLES/VOLU /2021 No comment e ntered. IS [facility] METABOLIC ME] IN Ordering Prov ider: LISA TRINIDAD PANEL+MG SERUM OR Report Releas ed Date/Time: Nov 21, 2021 03:08 PM PLASMA Reporting Lab: [facility] [address] [facility] [address] Performing Lab: [facility] [address] [facility] [address] COMPREHEN POTASSIUM 4.3 3.5 - 5.1 11/21 Specimen T ype: PLASMA [place] SIVE [MOLES/VOLU /2021 No comment e ntered. IS [facility] METABOLIC ME] IN Ordering Prov ider: LISA TRINIDAD PANEL+MG SERUM OR Report Releas ed Date/Time: Nov 21, 2021 03:08 PM PLASMA Reporting Lab: [facility] [address] [facility] [address] Performing Lab: [facility] [address] [facility] [address] COMPREHEN CHLORIDE 105 98 - 107 11/21 Specimen Typ e: PLASMA [place] SIVE [MOLES/VOLU /2021 No comment e ntered. IS [facility] METABOLIC ME] IN Ordering Prov ider: LISA TRINIDAD PANEL+MG SERUM OR Report Releas ed Date/Time: Nov 21, 2021 03:08 PM PLASMA Reporting Lab: [facility] [address] [facility] [address] Performing Lab: [facility] [address] [facility] [address] COMPREHEN CARBON 25 22 - 29 11/21 Specimen Type: PLASMA [place] SIVE DIOXIDE, /2021 No comment ente red. IS [facility] METABOLIC TOTAL Ordering Prov ider: LISA TRINIDAD J PANEL+MG [MOLES/VOLU Report Rel eased Date/Time: Nov 21, 2021 03:08 PM ME] IN Reporting Lab: [facility] SERUM OR [address] [facility] [address] PLASMA Performing Lab: [facility] [place] [address] COMPREHEN CALCIUM 8.9 8.4 - 10.2 11/21 Specimen Ty pe: PLASMA [place] SIVE [MASS/VOLUM /2021 No comment e ntered. IS [facility] METABOLIC E] IN SERUM Ordering Provider: LISA TRINIDAD PANEL+MG OR PLASMA Report Relea sed Date/Time: Nov 21, 2021 03:08 PM Reporting Lab: [facility] [place] [address] Performing Lab: [facility] [address] [facility] [address] COMPREHEN PROTEIN 6.3 6.0 - 8.3 11/21 Specimen Typ e: PLASMA [place] SIVE [MASS/VOLUM /2021 No comment e ntered. IS [facility] METABOLIC E] IN SERUM Ordering Provider: LISA TRINIDAD PANEL+MG OR PLASMA Report Relea sed Date/Time: Nov 21, 2021 03:08 PM Reporting Lab: [facility] [address] [facility] [address] Performing Lab: [facility] [address] [facility] [address] COMPREHEN ALBUMIN 3.6 3.5 - 5.2 11/21 Specimen Typ e: PLASMA [place] SIVE [MASS/VOLUM /2021 No comment e ntered. IS [facility] METABOLIC E] IN SERUM Ordering Provider: LISA TRINIDAD PANEL+MG OR PLASMA Report Relea sed Date/Time: Nov 21, 2021 03:08 PM Reporting Lab: [facility] [place] [address] Performing Lab: [facility] [address] [facility] [address] COMPREHEN BILIRUBIN.T 0.5 0.2 - 1.2 11/21 Specimen Type: PLASMA [place] SIVE OTAL /2021 No comment enter ed. IS [facility] METABOLIC [MASS/VOLUM Ordering Provider: LISA TRINIDAD PANEL+MG E] IN SERUM Report Rel eased Date/Time: Nov 21, 2021 03:08 PM OR PLASMA Reporting Lab : [facility] [address] [facility] [address] Performing Lab: [facility] [address] [facility] [address] COMPREHEN MAGNESIUM 1.9 1.6 - 2.6 11/21 Specimen T ype: PLASMA [place] SIVE [MASS/VOLUM /2021 No comment e ntered. IS [facility] METABOLIC E] IN SERUM Ordering Provider: LISA TRINIDAD PANEL+MG OR PLASMA Report Relea sed Date/Time: Nov 21, 2021 03:08 PM Reporting Lab: [facility] [place] [address] Performing Lab: [facility] [place] [address] COMPREHEN ANION GAP 8 5 - 15 11/21 Specimen Typ e: PLASMA [place] SIVE IN SERUM OR /2021 No comment e ntered. IS [facility] METABOLIC PLASMA Ordering Prov ider: LISA TRINIDAD PANEL+MG Report Release d Date/Time: Nov 21, 2021 03:08 PM Reporting Lab: [facility] [address] [facility] [address] Performing Lab: [facility] [address] [facility] [address] COMPREHEN ALKALINE 80 40 - 150 11/21 Specimen Typ e: PLASMA [place] SIVE PHOSPHATASE /2021 No comment e ntered. IS [facility] METABOLIC [ENZYMATIC Ordering P rovider: LISA TRINIDAD PANEL+MG ACTIVITY/VO Report Rel eased Date/Time: Nov 21, 2021 03:08 PM LUME] IN Reporting Lab: [facility] SERUM OR ONE [facility] [address] [facility] [address] PLASMA Performing Lab: [facility] [address] [facility] [address] COMPREHEN ALANINE 30 <55 - 55 11/21 Specimen Type : PLASMA [place] SIVE AMINOTRANSF /2021 No comment e ntered. IS [facility] METABOLIC ERASE Ordering Prov ider: LISA TRINIDAD PANEL+MG [ENZYMATIC Report Rele ased Date/Time: Nov 21, 2021 03:08 PM ACTIVITY/VO Reporting L ab: [facility] LUME] IN ONE [facility] [address] SERUM OR Performing Lab : [facility] PLASMA [address] [place] [address] COMPREHEN ASPARTATE 28 <34 - 34 11/21 Specimen Ty pe: PLASMA [place] SIVE AMINOTRANSF /2021 No comment e ntered. IS [facility] METABOLIC ERASE Ordering Prov ider: LISA TRINIDAD PANEL+MG [ENZYMATIC Report Rele ased Date/Time: Nov 21, 2021 03:08 PM ACTIVITY/VO Reporting L ab: [facility] LUME] IN [address] [facility] [address] SERUM OR Performing Lab : [facility] PLASMA [place] [address] COMPREHEN GLOMERULAR >90 60 11/21 Specimen Ty pe: PLASMA [place] SIVE No comment en tered. IS [facility] [facility] METABOLIC RATE/1.73 Ordering Pr ovider: LISA TRINIDAD PANEL+MG SQ Report Release d Date/Time: Nov 21, 2021 03:08 PM M.PREDICTED Reporting L ab: [facility] [VOLUME [address] [place] [facility] [address] RATE/AREA] Performing L ab: [facility] IN SERUM OR [address] [facility] [address] PLASMA BY CREATININE- BASED FORMULA (MDRD) Vital Signs Combined list of inpatient and outpatient Vital Signs from Department of Defense and Veterans Affairs, ranging from 12 months to all on record, depending upon the facility. Vital Sign Value Date Comments Source SYSTOLIC BLOOD PRESSURE 112 01/29/2022 09:32:00 [facility] DIASTOLIC BLOOD PRESSURE 63 01/29/2022 09:32:00 [facility] PULSE OXIMETRY 96% 01/29/2022 09:32:00 [place] [facility] PULSE 58 01/29/2022 09:32:00 [place] [facility] SYSTOLIC BLOOD PRESSURE 127 11/21/2021 13:54:18 [facility] DIASTOLIC BLOOD PRESSURE 74 11/21/2021 13:54:18 [facility] PULSE OXIMETRY 95% 11/21/2021 13:54:18 [place] [facility] WEIGHT 11/21/2021 13:54:18 [place] [facility] PAIN 0 11/21/2021 13:54:18 [place] [facility] HEIGHT 11/21/2021 13:54:18 [place] [facility] TEMPERATURE 97.8 11/21/2021 13:54:18 [place] [facility] PULSE 59 11/21/2021 13:54:18 [place] [facility] RESPIRATION 18 11/21/2021 13:54:18 [place] [facility] [facility] Encounters Combined list of: 1) Encounters from Department of Veterans Affairs facilities going back up to the last 18 months. 2) Encounters from the Department of Defense facilities going back up to 280 months. Location Location Encounter Encounter Reason Attending ADM DC Stat us Disposition Source Details Type Number For Provider Date Date Visit Outpatient 26236-708/30 [place] Encounter [id number] [facility] HEARING 26814-261 Diagnos GERONIMO PAYNE 01/23 [place] AID EXAM [id number] is: N D [place] V A BOTH EARS ICD-10- HCS CM H90.3 [place] neural hearing loss, bilater al
with Provide r Comment s: Sensori neural hearing loss, bilater al Outpatient 88402-303/01 [place] Encounter [id number] [facility] SELF-MGMT 99419-8 Diagnos VINICIUS GORE 05/22 [place] EDUC & [id number] is: AEL F [facility] 1 PT ICD-10- HCS CM H90.3 Sensori neural hearing loss, bilater al
with Provide r Comment s: Sensori neural hearing loss, bilater al OFFICE O/P 72241-261 LISA Ellison 11/21 [place] [id number] is: J [facility] [facility] 60-74 MIN ICD-10- HCS CM M50.020 Cerv disc disord with myelpat h, mid-cer vical rgn, unsp level<b r/>with Provide r Comment s: Cervica l disc disorde r with myelopa thy, mid-cer vical region, unspeci fied level SELF CARE 63047-4.61 Diagnos MCCALLUMAARON 12/05 [place] MNGMENT [id number] is: E ER TRAINING 10 ICD-10- (CBOC) CM R26.89 Other abnorma lities of gait and mobilit y
w ith Provide r Comment s: Other abnorma lities of gait and mobilit y Outpatient [id number] JOSEPH HI 12/27 [place] Encounter [id number] [facility] 58077-8.61 Diagnos LISA [place] 01/02 [place] Encounter [id number] [facility] ICD[facility]- HCS CM M54.12 Radicul opathy, cervica l region< br/>wit h Provide r Comment s: Cervica l radicul opathy (SCT [id number]) Outpatient 22541-6.61 01/08 [place] En[place] [id number] /[facility] 49665-6.61 01/17 [place] En[place] [id number] /2021 [facility] Outpatient 25100-6.61 01/21 [place] En[place] [id number] /2021 [facility] OFFICE 14095-5.61 Diagnos CRISTELALUKASZ 01/28 [place] CONSULTATI [id number] is: [facility] ICD-10- [facility] CM N31.9 Neuromu scular dysfunc tion of bladder , unspeci fied
with Provide r Comment s: Neuromu scular Dysfunc tion of Bladder , unspeci fied OFFICE 92068-5.61 Diagnos RAVJULIANN,ME 01/29 [place] [facility] [id number] is: ST[facility] K [facility] ICD-10- HCS CM G82.54 Quadrip legia, C5-C7 incompl ete<br/ >with Provide r Comment s: Quadrip legia, C5-C7 Incompl ete Outpatient 99448-5.61 01/31 [place] Encounter [id number] /2021 [facility] Social History Combined list of available smoking, tobacco, and other social [facility]. Social History Type Response Date Comment Source Tobacco smoking status VA-TOBACCO NEVER USED 11/21/2021 [facility]IS History of tobacco use VA-TOBACCO FORMER USER 08/31/2018 [facility] History of tobacco use LIFETIME NON-TOBACCO 07/31/2015 [facility] USER History of tobacco use LIFETIME NON-TOBACCO 06/24/2010 [facility] USER Plan of Care List of future care activities from [facility] Affairs facilities. Additional future care activities may be listed in the Assessment and Plan section. Date/Time Care Activity Care Activity Detail Facility 03/31/2022 AMBULATORY - REHAB MEDICINE AMBULATORY - REHAB [facility]
--- OUTSIDE RECORDS SUMMARY | 2022-02-07 16:00 | XMS_ITS | Encounter Summary ---
:[address] [facility] Address [address] [place] [address] Support Name Relationship Address Phone JIMY CALHOUN Unavailable [address] [facility] [address] LAURA IGNACIO Unavailable [address] [place] [address] WALDO CALHOUNE Unavailable [id number] [place] [address] Insurance Providers: All historical and current Section Date Range: From patient's date of to the date document was created.This section includes the names of all active insurance providers for the patient. Insurance Type of Plan Start of End of Group Member Insurance Policy P atient's Provider Coverage Name Policy Policy Number ID Provider's Carr's Relationship Coverage Coverage Telephone Name to Policy Number [place] MED[place] MCR May 18, [id number] GONZALO CALHOUN P ATIENT [facility] (WNR) ADVANTAGE (WNR) 2018 [id number] [phone] ENT 1 MEDICA MCR MEDICARE MCR Jun 18 [id number] GONZALO CALHOUN PATIENT (WNR) ADVANTAGE (WNR) 2012 32 [phone] ENT MEDICARE MEDICARE PART Feb 15, PART A [id number] 800 GONZALO CALHOUN P ATIENT (WNR) (M) A 2009 [id number] [phone] ENT MEDICARE MEDICARE PART Feb 15, PART B [id number] 800 UNIQUEBR P ATIENT (WNR) (M) B 2009 [id number] [phone] ENT Selected Encounter This section includes the information on record at [place] for the Encounter. Date/Time Encounter Type Encounter Reason Provider Source Description Nov 21, 2021 OFFICE O/P NEW PRIMARY ICD-10-CM M50.020 ZAKIYA TRINIDAD 02:00 PM HI 60-74 MIN CARE/MEDICINE Cerv disc disord with myelpath, mid-cervical rgn, unsp level with Provider Comments: Cervical disc disorder with myelopathy, mid-cervical region, unspecified level IHE Encounter Template Text not used by [place] Assessments - Encounter Diagnoses This section includes the primary and secondary diagnoses documented for the Encounter. 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, HCS recurrent, mild Nov 21, 2021 SECONDARY Melanoma in situ, ZAKIYA TRINIDAD [facility] 04:41 PM unspecified HCS Nov 21, 2021 SECONDARY Neuromuscular AMOSZAKYIA Elizabeth Alvino [facility] 04:41 PM dysfunction of [facility] bladder, unspecified Nov 21, 2021 SECONDARY Unspecified atrial AMOSZAKIYA Alvino [facility] [place] 04:41 PM fibrillation [facility] Plan of Treatment: Future Appointments (+ 6 months) and Future Tests (+/- 45 days) The Plan of Treatment section includes future care activities for the patient [facility]. This section includes future appointments and future orders which are active, pending orscheduled.Future Appointments This section includes appointments that were scheduled to occur 6 months from the date of the Encounter, up to a maximum of 20 appointments. The data comes from all [place] treatment facilities. Appointment Date/Time Appointment Type Appointment Facili ty Name Dec 05, 2021 01:00 PM AMBULATORY - REHAB [facility]IC[facility] Jan 02, 2022 04:30 PM AMBULATORY - MEDICINE [facility] CS Jan 08, 2022 01:30 PM AMBULATORY - NONE [facility] Jan 28, 2022 11:00 AM AMB[facility]ATORY - SURGERY [facility] Jan 29, 2022 09:30 AM AMBULATORY - REHAB MEDICINE [facility] Mar 31, 2022 02:00 PM AMBULATORY - REHAB MEDICINE [facility] Apr 29, 2022 01:30 PM AMBULATORY - SURGERY [facility] Lab Results: +/- 30 days of the encounter This section includes the Chemistry and Hematology Lab Results on record with [place] for the patient. Radiology Reports and Pathology Reports are provided separately, in subsequent sections.Lab Results This section contains the Chemistry/Hematology Results that were resulted 30 days before or 30 daysafter the date of the Encounter. Date/Time Source Result Type Result - Unit Interpretation Reference Range Comment Nov 21, 2021 03:39 PM [facility] CBC Specim en Type: BLOOD No comment enter ed. Ordering Provid er: ZAKIYA TRINIDAD Report Released Date/Time: Nov 21, 2021 03:08 PM Reporting Lab: [facility] [id number] Performing Lab: [facility] [id number] WBC 4.36 4.0-11.0 RBC 4.63 4.6-6.2 HGB 13.3 L 13.5-17.9 HCT 39.7 L 41-54 MCV 85.7 80-100 MCH 28.7 27-33 MCHC 33.5 32.0-37.5 PLT 183 150-400 MPV 9.9 7.4-10.4 RDW 12.9 11.5-14.5 Nov 21, 2021 03:39 [facility] COMPREHENSIVE METABOLIC S pecimen Type: PLASMA PM PANEL+MG No comment enter ed. Ordering Provid er: ZAKIYA TRINIDAD Report Released Date/Time: Nov 21, 2021 03:08 PM Reporting Lab: [facility] [id number] Performing Lab: [facility] [id number] CREATININE 0.8 0.7-1.2 UREA NITROGEN 14 8-26 GLUCOSE 94 74-100 SODIUM 138 136-145 POTASSIUM 4.3 3.5-5.1 CHLORIDE 105 98-107 CO2 25 22-29 CALCIUM 8.9 8.4-10.2 PROTEIN,TOTAL 6.3 6.0-8.3 ALBUMIN 3.6 3.5-5.2 BILIRUBIN, TOTAL 0.5 0.2-1.2 MAGNESIUM 1.9 1.6-2.6 ANION GAP 8 5-15 ALKALINE PHOSPHATASE 80 40-150 ALT/SGPT 30 <55 AST/SGOT 28 <34 CREAT EGFR(CKD-EPI) >90 >60 Vital Signs: All taken on the encounter date This section contains inpatient and outpatient Vital Signs collected on the date of the Encounter. Date/Time Temperature Pulse Blood Respiratory SP02 Pain Height Weight Dameon dy Source Pressure Rate Mass Index Nov 21, 97.8 F 59 127/74 18 /min 95 % 0 [place] 2021 01:54 /min mm[Hg] [facility] Social History: Smoking Status (Most current) and Tobacco Use (All prior to encounter date) This section includes the most current, and the historical, smoking and tobacco-related health factors from the [place] facility where the Encounter took place.Current Smoking Status This section includes the most current smoking, or tobacco-related health factor, from the [place] facility where the Encounter took place. Date/Time Current Smoking Status Comment Facility Nov 21, 2021 02:00 PM [place]-TOBACCO NEVER USED [facility] Tobacco Use History This section includes a history of the smoking, or tobacco- related health factors, that were collected on or before the date of the Encounter. The data comes from the [facility] where the Encounter took place. Date/Time Smoking Status/Tobacco Use Comment [facility] Aug 31, 2018 03:31 PM VA-TOBACCO FORMER USER [facility] Aug 31, 2018 03:31 PM ND-TOBACCO QUIT 15 YRS OR MORE [facility] Jul 31, 2015 08:56 AM LIFETIME NON-TOBACCO USER [facility] Jun 24, 2010 08:52 AM LIFETIME NON-TOBACCO USER [facility] Encounter Notes: All associated encounter notes This section contains the clinical notes associated to the Encounter. Date/Time Encounter Note(s) Provider Source Nov 21, 2021 02:00 INTERNAL MEDICINE OUTPATIENT NOTE: SAVITA BOO [facility] LOCAL TITLE: MEDICINE CLINIC NURSING NOTE STANDARD TITLE: INTERNAL MEDICINE OUTPATIENT NOT E DATE OF NOTE: NOV 21, 2021@14:00 ENTRY DATE: NOV 21, 2021@14:00:12 AUTHOR: SAEID BOO EXP COSIGNER: URGENCY: STATUS: COMPLETED TYPE OF VISIT: Appointment Check In Type of appointment: In-person appointment REASON FOR VISIT: Annual check-up ALLERGIES: EPINEPHRINE (Jun 24, 2010) VITAL SIGNS: Blood Pressure: 127/74 (11/21/2021 13:54) Pulse: 59 (11/21/2021 13:54) Respiration: 18 (11/21/2021 13:54) Temperature: 97.8 F [36.6 C] (11/21/2021 13:54) Weight: Unavailable (11/21/2021 13:54) Height: Unavailable (11/21/2021 13:54) BMI: BMI not available without height O2 Sat: 95% (11/21/2021 13:54) Pain: 0 (11/21/2021 13:54) PAIN SCREEN: Patient is not having significant pain that the y wish to discuss with their provider today. MEDICATION Over the Counter/Herbal Medications: The patient states that they take some outside medications and/or herbals. COVID-19 Immunization: Refused Pfizer COVID-19 vaccine as of today Suicide Screen: C-SSRS Screening [place] Suicide Severity Rating Scale (C-SSRS) screener 1. Over the past month, have you wished you wer e or wished you could go to sleep and not wake up? No 2. Over the past month, have you had any actual thoughts of killing yourself? No 3. Over the past month, have you been thinking about how you might do this? Response not required due to responses to other questions. 4. Over the past month, have you had these thou ghts and had some intention of acting on them? Response not required due to responses to other questions. 5. Over the past month, have you started to wor k out or worked out the details of how to kill yourself? Response not required due to responses to other questions. 6. If yes, at any time in the past month did yo u intend to carry out this plan? Response not required due to responses to other questions. 7. In your lifetime, have you ever done anythin g, started to do anything, or prepared to do anything to end you r life (for example, collected pills, obtained a gun, gave away valu sarika, went to the roof but didn't jump)? No 8. If YES, was this within the past 3 months? Response not required due to responses to other questions. Depression Screening: Perform PHQ-2 A PHQ-2 screen was performed. The score was 0 w hich is a negative screen for depression. Over the past two weeks, how often have you bee n bothered by the following problems? 1. Little interest or pleasure in doing things Not at all 2. Feeling down, depressed, or hopeless Not at all Alcohol Use Screen (AUDIT-C): Alcohol Screen: SCREEN FOR ALCOHOL (AUDIT-C) An alcohol screening test (AUDIT-C) was negativ e (score=1). 1. How often did you have a drink containing al cohol in the past year? Monthly or less 2. How many drinks containing alcohol did you h ave on a typical day when you were drinking in the past year? One or two drinks 3. How often did you have six or more drinks on one occasion in the past year? Never PTSD Screening: PC-PTSD-5 A PTSD screening test (PC-PTSD-5) was negative (score=0). Have you ever had any experience that was so fr ightening, horrible or upsetting that, IN THE PAST MONTH, you: Have you ever experienced this kind of event? NO 1. Had nightmares about the event(s) or thought about the event(s) when you did not want to? Response not required due to responses to other questions. 2. Tried hard not to think about the event(s) o r went out of your way to avoid situations that reminded you of the ev ent(s)? Response not required due to responses to other questions. 3. Been constantly on guard, watchful, or easil y startled? Response not required due to responses to other questions. 4. [place] numb or detached from people, activitie s, or your surroundings? Response not required due to responses to other questions. 5. [place] guilty or unable to stop blaming yourse lf or others for the event(s) or any problems the event(s) may have caused? Response not required due to responses to other questions. Tobacco Use Screening: The patient has never used tobacco. Nursing Annual Screening: Fall History Screen During the past 12 months, have you had any fal ls? Patient reports having had 2 or more falls with in the past 12 months. MEDICATIONS: Patient is on one of the following medication c lasses: Antihypertensives, Antidepressants, Antipsychot ics, Diuretics, or Controlled substance medication used for pain. FALL RISK ADVICE: Fall Risk Advice provided. Handout entitled Fa ll Prevention At Home reviewed and given to patient and/or significan t other. Script Talk Screen Are you able to read your prescription bottles with your glasses, magnifiers or other aids? Yes or patient not taking any prescriptions. Skin Screen Patient reports any current pressure ulcers, a history of pressure ulcers, or a wound from a medical claims examiner or Patient is bed-confined or a wheelchair-user or Patient requires assistance to transfer/change position No, Skin Screen is Negative Home Abuse/Violence Screen Is your home free of abuse and violence? Yes Outpatient Nutrition Screen Body Mass Index (BMI)= BMI not available withou t height [place]: No data available [place] Hgb A1C: No data available [place] Hgb A1C: No data available Point of Care Hgb A1C: POC HGB A1C____ Is patient's BMI less than 18.5? No Does patient have swallowing, coughing, or chew ing problems affecting oral intake? No Has patient experienced unplanned weight loss o r gain greater than 10 pounds over the last 2 months? No Is patient's Hgb A1C (Glycosylated Hemoglobin) greater than 9.5? Information not available Is patient receiving Total Parenteral Nutrition (TPN) or Tube Feedings? No Patient Health Education Screen BARRIERS/SPECIAL NEEDS: Hearing limitations PREFERRED STYLE OF LEARNING: Watching something Client Assistive Service (JESE) Screen Does the patient require assistance with outpat ient visit? No Herpes Zoster (Shingles) Vaccine: The patient declines to receive the herpes zost er vaccine. Influenza Immunization: The patient has received the seasonal influenza vaccine for the current season at another location. Date: March 01, 2021 Location: [facility] Homelessness/Food Insecurity Screen: In the past 2 months, have you been living in s table housing that you own, rent, or stay in as part of a household? Y es - Living in stable housing. Are you worried or concerned that in the next 2 months you may NOT have stable housing that you own, rent, or stay in a s part of a household? No - Not worried about housing near future The reports the following: Within the past 12 months, you worried whether your food would run out before you got money to buy more. Never true Within the past 12 months, the food you bought just didn't last and you didn't have money to get more. Never true /es/ SAEID BOO LPN Signed: 11/21/2021 14:11 Nov 21, 2021 09:57 INTERNAL MEDICINE NOTE: ZAKIYA TRINIDAD [facility] LOCAL TITLE: MEDICINE CLINIC NOTE STANDARD TITLE: INTERNAL MEDICINE NOTE DATE OF NOTE: NOV 21, 2021@09:57 ENTRY DATE: NOV 21, 2021@09:57:24 AUTHOR: ZAKIYA TRINIDAD COSIGNER: URGENCY: STATUS: COMPLETED Nurse's note reviewed. Chief complaint: Establish care, assistance ASSESSMENT/PLAN: 1. 76-year-old man with known cervical spinal co rd mass and progressive weakness, neurogenic bladder . This spinal cord mass is apparently been known to be present for many years but it is over the las t few years that he has had progressive neurologic symptoms. He and his are primarily interested in assistance with managing his physical li mitations and possible further decline in his health as they do not believe there are a ny measures possible to intervene on for his condition. Records are melia leiva and J LV is the only go back to 2019 and so I am unable to locate the ev aluation that he had at [facility] or even reports from his previous MRIs. I will refer the to the spinal cord injury team for their assistance in evaluation and offering him services that might be helpful. I believe his cervical spinal cord lesion is the likely explan ation for his progressive neurologic symptoms and that is apparently what his primary care provider, provider at [facility], and previous [facility] evaluation has concluded as well. It does not sound as if the l umbar fusion for his severe lumbar spinal stenosis resulted in any i mprovement in his symptoms and in fact he dates his neurogenic bladder to that surgery. I am also going to order an updated cervical MRI to better characterize this lesion, particularly in light of his progressive neurologic decline over the last couple of years. Because he has a pacemaker this will need to be done in the community and I placed a community c are MRI referral. He and his will stop by physical therapy today to see if they ca n get a new walker for him as well. 2. History of atrial fibrillation, status post s ome type of procedure and now with a pacemaker. Not on anticoagulation. 3. Neuorgenic bladder - continue CIC for now. 4. Hx of melanoma, followed by community dermato logy 5. Hx of depressive, on fluoxetine 6. I will be in touch after MRI. will check CBC and CMP today 7. He reports relatively recent colonoscopy and UTD on immunizations -has had two doses of rubberit Covid vaccine and does not w ant booster HPI: 76-year-old here today acco mpanied by his to establish care. He has been seen here in the past interm ittently, the last in 2019. However he is generally gotten [place]ers. They are primarily flroida sanders in assistance with supplies for his self cathing, learning about assistance an d services the [facility] may offer for him as his health is declining, and getting a walker [facility]. He has a complicated medical history of apparently having some type of expansile mass in his cervical spinal cord centered at the C5 level. This extends longitudinally over about 21 mm in the appears t o be thought to be a vascular lesion such as a cavernous hemangioma. This is b een known to be present for decades and he and his report multiple eval uations for it, including at [facility]. 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 They report that each time they were told that it was inoperable and t hat nothing could be done for it. They are somewhat uncert ain when these evaluations occurred. It sounds as if he was not having significant difficulty from [facility] however until the last few years, possibly longer. He d escribes getting numbness in his hand over the last few years initially. This has now progressed so that he has loss of sensation further up his arms and has developed significant weakness in his hands and arms over the last 1 to 2 years. In addition in 2019 he was found to have severe lumbar spinal stenosis and underwent fusion of L 4-L5. This was [facility] by a surgeon with [facility]. He dates difficulty with urination and the diagnosis of a neurogenic bladder from that lumbar surgery. He also describes significant trouble h aving a bowel movement, sometimes going up to 12 to 13 days without havi ng a bowel movement. He needs to take a laxative in order to have a BM. His care has been primarily with the [facility] for primary care closer to his home in [place]. He has been seen by [facility] a urology for his neurogenic bladder and has been self cathing up to every 2 hours for this. I was able to locate a [place] [facility] note from August 2020, which is apparently the last time he was seen by them. That note describes te sting that was done that confirmed a flaccid neurogenic bladder. He appears to the last been seen by [facility] this July when he was offered another neurosurgery evaluation. He and his have not felt that that would be fruitful as a been told by several specialist that there was no intervention possible for hi s cervical lesions. I was able to locate a CAT scan of the cervical spine perfor [facility] in June of this year when he was admitted to [facility] after a fall in the snow , which resulted in rhabdomyolysis and hypothermia. That CT scan describes the expansile lesion in the cervical spine and comments that it is better seen on the 2018 MRI, which apparently is the last time he had an MRI. That I was not able to locate on J . Cervical spine CT Jun 2021 IMPRESSION: 1. No evidence of acute displaced fracture. 2. No evidence of traumatic subluxation. 3. 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 4. Abnormal cystic expansile appearance of the c ord at C4-C6 levels, better demonstrated on the prior MR Other medical problems include a history of atri al fibrillation, for which he describes having some sort of procedure for at t he time he had a aortic root repair in 2011. He has a laina l-chamber permanent pacemaker placed apparently due to an episode of bradycardia and possible sinus node dysfunction. He has a history of depression and in fact his only medication currently is fluoxetine 10 mg a day. He describes sarah pagan been on a statin for cholesterol but choosing not to take it as he felt he did not tolerated. He also has a history of melanoma on his left ch [place]. Active problems - Computerized Problem List is t he source for the followin. Atrial Fibrillation 2. Depressive Disorder NOS 3. Cough 4. Gastroesophageal Reflux Disorder 5. Melanoma of Skin - s/p left cheek lesion removal in 2009. - Followed by Derm q6m (Dr. Stephenson, [place]) 6. Deviated nasal septum - s/p repair in 2000. 7. Bilateral inguinal hernia, without mention o f obstruction or gangrene - s/p repair in 1999. 8. Intervertebral Disk Displacement - C4 herniated disc - lumbar disc herniation ?which one. 9. Cervical Radiculopathy - bilat upper extremity numbness. 10. Carpal Tunnel Syndrome - s/p repair in left upper extremity 2004. 11. Osteoarthritis 12. Constipation, unspecified 13. Impotence of organic origin 14. Sinusitis 15. Tremor - longstanding, minimal yes-yes head tremors - formerly treated with acetazolamide 16. glial tumor - multicystic intramedullary lesion cervical co rd c/w low... - ...grade glial tumor with syrinx unchanged -2004 17. Health Maintenance - last PSA: 06/28=1.38 - pneumovax 06/28, tetanus vaccination 07/18 - neg colonoscopy ~2005 [facility] 1 self report 18. Primary nonVA MD - Dr. Mcgee, [place] [phone] [facility] 19. Family History of Stroke (Cerebrovascular) - father- at 63, first stroke at 58 20. Anemia * 21. Leukocytopenia, unspecified 22. H/O Malignant melanoma 23. Atrial fibrillation 24. Depression 25. Tremor Cscope </=3yr ago, no polyp.F/u 10yr S/p aortic root repair 2011. Active and Recently Outpatient Medicatio ns (including Supplies): Active Non-VA Medications Status 1) Non-VA ASPIRIN 325MG TAB 325MG MOUTH EVERY DA Y ACTIVE 2) Non-VA CITALOPRAM HYDROBROMIDE 20MG TAB 30 MG MOUTH ACTIVE EVERY DAY 3) Non-VA METOPROLOL TARTRATE TAB 12.5 MG MOUTH EVERY ACTIVE DAY 4) Non-VA SIMVASTATIN 40MG TAB 20MG MOUTH AT BED TIME ACTIVE Social History: Lives with Review of Systems: No chest pain, no shortness of breath, no wheezi ng, no cough No abdominal pain; no NVD No fevers/chills/night sweats No change in weight Energy normal, appetite normal No edema VS - Vital Signs Temperature: 97.8 F [36.6 C] (11/21/2021 13:54) Blood Pressure: 127/74 (11/21/2021 13:54) Pulse: 59 (11/21/2021 13:54) Respiration: 18 (11/21/2021 13:54) Pain: 0 (11/21/2021 13:54) Pulse Oximetry: 95% (11/21/2021 13:54) Measurement DT WEIGHT LB(KG)[BMI] 09/20/2018 09:37 175.3(79.51)[23] 07/31/2015 08:55 182(82.55)[23] 02/09/2013 10:50 194.2(88.09)[24] General: NAD, alert and appropriate Neck: Somewhat limited ROM in all directions CV: RRR without murmur or gallop Lungs: CTAP Abdomen: + BS, soft NT ND Extremitites: 2+ pedal pulses, no edema. Neuro: Hyperreflexive at pat yfn and ankle bilaterally. Unable to elicit biceps reflex, 1+ at triceps, bilaterally. 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 Biceps and triceps strength 4+/5 bilateraly. Difficulty raising his arms to 90 de grees Lower extremity strength 5/5 at ankle flexion, 5 /5 at knee flexion/extension. When walking appears to have hip weakness and dr ags right foot some. LAB RESULTS TODAY - pending Other data: CT scan of cervical spine Jun 2021, obtained on [facility] records INDICATION: Neck pain, fall COMPARISON: MRI 08/11/2017. TECHNIQUE: Routine CT Cervic al Spine without IV contrast. Multiplanar reformats. Dose reduction techniques were used. FINDINGS: No acute displaced fractures are demonstrated. T he occipital condyles are intact. Vertebral body heights are unremarkable and unchanged. There is a chronic deformity of the T1 spinous process. There is mild C2-C3 retrolisthesis. Facet alignm ent is symmetric. There is ankylosis of the right C2-C3 and left C5-C6 face t joints. No attenuation abnormalities of the spinal canal are demonstrated to suggest epidural hematoma. Expansile cystic appe arance of the cord demonstrated at the C4-C6 levels. Broad-based disc-osteophyte complexes at C3-C4 and C5-C6. Shallow disc bulging at C4-C5 and C6-C7. Moderate multilevel facet ar thropathy. Moderate C5-C6 spinal canal stenosis. Moderate right C2-C3, severe right C3-C4, severe bilateral C4-C5, and moderate bilateral C5-C6 neural foraminal stenoses. The soft tissues are unremar kable. Prevertebral soft tissues are not thickened. Imaged lung apices are clear. IMPRESSION: 1. No evidence of acute displaced fracture. 2. No evidence of traumatic subluxation. 3. 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 4. 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 Patient Education of Treatment Plan: Patient indicates readiness to learn, verbalizes understanding, agreement and satisfac tion with the treatment plan. Denies further questions. /es/ Zakiya Trinidad MD Staff Physician Signed: 11/21/2021 16:43
--- OUTSIDE RECORDS SUMMARY | 2022-02-07 16:00 | XMS_ITS | Encounter Summary ---
:1945 Author Organization [facility] Address [address] [place] [address] Support Name Relationship Address Phone JIMY CALHOUN Unavailable [address] [place] [address] LAURA IGNACIO Unavailable [address] [place] [address] NEFTALI CALHOUN Unavailable [phone] [place] [address] Insurance Providers: All historical and current Section [...] Carr [place] MED[place] May 18, [id number] GONZALO CALHOUN ATIENT [facility] (WNR) ADVANTAGE (WNR) 2018 8 [id number] [phone] ENT 1 MEDICA MCR MEDICARE MCR Jun 18 [id number] 800 GONZALO CALHOUN PATIENT (WNR) ADVANTAGE (WNR) 2012 32 [phone] ENT MEDICARE MEDICARE PART Feb 15, PART A [id number] 800 GONZALO CALHOUN ATIENT (WNR) (M) A 2009 [id number] [phone] ENT MEDICARE MEDICARE PART Feb 15, PART B [id number] 800 UNIQUEBR P ATIENT (WNR) (M) B 2009 [id number] [phone] ENT Selected Encounter This section includes the information on record at [place] for the Encounter. Date/Time Encounter Type Encounter Reason Provider Source Description May 22, 2021 SELF-MGMT EDUC AUDIOLOGY ICD-10-CM H90.3 LLUVIA GORE 01:30 PM & TRAIN 1 PT Sensorineural F hearing loss, bilateral with Provider Comments: Sensorineural hearing loss, bilateral IHE Encounter Template Text not used by [place] Assessments - Encounter Diagnoses This section includes the primary and secondary diagnoses documented for the Encounter. Date/Time Primary/Secondary Diagnosis Name Provider Source Diagnosis May 22, 2021 PRIMARY Sensorineural LLUVIA GORE V A 04:45 PM hearing loss, F HCS bilateral May 22, 2021 SECONDARY Encounter for LLUVIA GORE V A 04:45 PM fitting and F HCS adjustment of hearing aid Social History: Smoking Status (Most current) and Tobacco Use (All prior to encounter date) This section includes the most current, and the historical, smoking and tobacco-related health factors from the [place] facility where the Encounter took place.Current Smoking Status This section includes the most current smoking, or tobacco-related health factor, from the [place] facility where the Encounter took place. Date/Time Current Smoking Status Comment Facility Aug 31, 2018 03:31 PM [place]-TOBACCO FORMER USER [facility] Tobacco Use History This section includes a history of the smoking, or tobacco- related health factors, that were collected on or before the date of the Encounter. The data comes from the [place] facility where the Encounter took place. Date/Time Smoking Status/Tobacco Use Comment [facility] Aug 31, 2018 03:31 PM [place]-TOBACCO QUIT 15 YRS OR MORE [facility] Jul 31, 2015 08:56 AM LIFETIME NON-TOBACCO USER [facility] Jun 24, 2010 08:52 AM LIFETIME NON-TOBACCO USER [facility] Encounter Notes: All associated encounter notes This section contains the clinical notes associated to the Encounter. Date/Time Encounter Note(s) Provider Source May 22, 2021 04:36 PM AUDIOLOGY NOTE: LLUVIA GORE [facility] LOCAL TITLE: AUDIOLOGY CLINIC NOTE STANDARD TITLE: AUDIOLOGY NOTE DATE OF NOTE: MAY 22, 2021@16:36 ENTRY DATE: MAY 22, 2021@16:36:12 AUTHOR: LLUVIA GORE EXP COSIGNER: URGENCY: STATUS: COMPLETED AUDIOLOGY CLINIC NOTE Has ADDENDA Hearing Aid Fitting Diagnosis: H90.3 Encounter: Z46.1 Total patient time: 45 minutes [id number] Subjective: The [place] was seen for a h earing aid fitting and issuance of two Phonak Audeo P90-R hearing aids (S#: [id number] (R)/ [id number] (L)). The is a new hearing aid user. Objective: Otoscopy revealed clear ear canals and visible t ympanic membranes. Medium domes were judged to be too big, they wer e exchanged with small vented domes, which were judged to be a good fit. Feedb ack technical publications manager was run prior to programming. The devices were programmed to 90%, adjusting up to 100% target, per [place] preference. The [place] reported positiv e subjective impression about the sound quality and fit of the hearing aids. The y reported tolerable and comfortable impression with extraneous sounds, as well a s their own voice. Start-up program is P1, AutoSense OS, 4.0. No second memory wa s added at this time. Assigned the program button as the volume control with nichole ural sync, and it's use was explained and practiced. Education was provided, util izing standardized curriculum, for approximately 30 minutes regarding care, cleaning, maintenance, u se of hearing aids and the trial period. Hearing aid insertion /removal was practiced. The was informed on the supply ordering procedure, water and dust resist ance of hearing aids, battery life, and hearing aid features. The [place]'s address was confirmed in [facility]. Acclimatization period, use of communication str ategies and realistic expectations in light of the 's hearing s tatus were discussed. Assessment: Educational needs, ability and readiness to lear n, and barriers to successful education have been consider ed. Printed educational materials on use and care of hearing aids have been provi ded and were explained verbally to the . The [place] verbalized understan ding of information provided today and demonstrated the ability to perform necessary tasks for succe ssful hearing aid use. [place] has concerns of pressing the but tons, given the lack of feeling in his hands. I agree with him. We discussed the concep t of a remote control, and he expressed interest. I will order a remote contro l for the today. Plan: The was an active participant in today's appointment and was agreeable to the treatment plan: 1. The [place] was directed to call if soreness or problems arise. 2. The [place] was advised in regards to follow- up process for these hearing aids, including general follow-up instru ctions in the time of COVID. They were advised to contact the clinic if they have needs with either his hearing or his hearin g aids going forward. 3. Remote control ordered. It can be mailed to t he [place]'s address on file upon receipt at this clinic. This treatment plan was discussed with the pearle nt. The patient verbally demonstrated an understanding of the information provided and actively participated in the treatment plan. /pb/ Jethro Hawkins Ph.D. TEAM PHYSICIAN Signed: 05/22/2021 16:45 05/29/2021 ADDENDUM STATUS: COMPLETED RECEIVED, CERTIFIED AND ISSUED PHONAK REMOTE CON TROL MAILED DEVICE TO INSTRUCTED /pb/ LLUVIA BOWIE AUDIO TECH Signed: 05/29/2021 11:52
--- OUTSIDE RECORDS SUMMARY | 2022-02-07 16:00 | XMS_ITS | Encounter Summary ---
:1945 Author Organization [facility] Address [address] [place] [address] Support Name Relationship Address Phone JIMY CALHOUN Unavailable [address] [facility] [place] [address] LAURA IGNACIO Unavailable [address] [place] [address] WALDO CALHOUNE Unavailable [phone] [place] [address] Insurance Providers: All historical and current Section [...] Carr [place] May 18, [id number] 800 GONZALO CALHOUN P ATIENT [facility] (WNR) ADVANTAGE (WNR) 2018 8 [id number] [phone] ENT 1 MEDICA MCR MEDICARE MCR Jun 18 [id number] 800 GONZALO CALHOUN PATIENT (WNR) ADVANTAGE (WNR) 2012 32 [phone] ENT MEDICARE MEDICARE PART Feb 15, PART A [id number] 800 GONZALO CLAHOUN ATIENT (WNR) (M) A 2009 [id number] [phone] ENT MEDICARE MEDICARE PART Feb 15, PART B [id number] 800 UNIQUEBR P ATIENT (WNR) (M) B 2009 [id number] [phone] ENT Selected Encounter This section includes the information on record at [place] for the Encounter. Date/Time Encounter Type Encounter Description Reason Provider Source Mar 01, 2021 12:00 Outpatient Encounter EVENT (HISTORICAL) AM IHE Encounter Template Text not used by [place] Plan of Treatment: Future Appointments (+ 6 months) and Future Tests (+/- 45 days) The Plan of Treatment section includes future care activities for the patient from all [place] [facility]. This section includes future appointments and future orders which are active, pending orscheduled.Future Appointments This section includes appointments that were scheduled to occur 6 months from the date of the Encounter, up to a maximum of 20 appointments. The data comes from all [place] treatment facilities. Appointment Date/Time Appointment Type Appointment Facili ty Name May 22, 2021 01:30 PM AMBULATORY - SURGERY [facility] Immunizations: All administered on the encounter date This section contains immunizations associated to the Encounter. Immunization Series Date Issued Reaction Comments INFLUENZA, UNSPECIFIED FORMULATION Mar 01, 2021 Social History: Smoking Status (Most current) and Tobacco Use (All prior to encounter date) This section includes the most current, and the historical, smoking and tobacco-related health factors from the [place] facility where the Encounter took place.Current Smoking Status This section includes the most current smoking, or tobacco-related health factor, from the [place] facility where the Encounter took place. Date/Time Current Smoking Status Comment Facility Aug 31, 2018 03:31 PM VA-TOBACCO FORMER USER [facility] Tobacco Use History This section includes a history of the smoking, or tobacco- related health factors, that were collected on or before the date of the Encounter. The data comes from the [place] facility where the Encounter took place. Date/Time Smoking Status/Tobacco Use Comment [facility] it Aug 31, 2018 03:31 PM [place]-TOBAC[place] QUIT [address] [facility] Jul 31, 2015 08:56 AM LIFETIME NON-TOBACCO USER [facility] Jun 24, 2010 08:52 AM LIFETIME NON-TOBACCO USER [facility]
--- OUTSIDE RECORDS SUMMARY | 2022-02-07 16:01 | XMS_ITS | Encounter Summary ---
:1945 Author Organization [facility] Address [address] [place] [id number] Support Name Relationship Address Phone JIMY CALHOUN Unavailable [address] [facility] [address] LAURA IGNACIO Unavailable [address] [place] [address] NEFTALI CALHOUN Unavailable [phone] [phone] [place] [address] Insurance Providers: All historical and current Section [...] Carr [place] May 18, [id number] 800 GONZALO CALHOUN P ATIENT [facility] (WNR) ADVANTAGE (WNR) 2019 8 [id number] [phone] ENT 1 MEDICA MCR MEDICARE MCR Jun 18, [id number] 800 GONZALO CALHOUN PATIENT (WNR) ADVANTAGE (WNR) 2011 32 [phone] ENT MEDICARE MEDICARE PART Feb 15, PART A [id number] 800 UNIQUEBR P ATIENT (WNR) (M) A 2009 [id number] [phone] ENT MEDICARE MEDICARE PART Feb 15, PART B [id number] 800 UNIQUEBR P ATIENT (WNR) (M) B 2009 [id number] [phone] ENT Selected Encounter This section includes the information on record at [place] for the Encounter. Date/Time Encounter Type Encounter Description Reason Provider Source IHE Encounter Template Text not used by [place]
--- OUTSIDE RECORDS SUMMARY | 2022-02-07 16:01 | XMS_ITS | Encounter Summary ---
:1945 Author Organization [facility] Address [address] [place] [address] Support Name Relationship Address Phone JIMY CALHOUN Unavailable [address] [facility] [address] LAURA IGNACIO Unavailable [address] [place] [address] WALDO CALHOUNE Unavailable [phone] [place] [address] Insurance Providers: All historical and current Section Date Range: From patient's date of to the date document was created.This section includes the names of all active insurance providers for the patient. Insurance Type of Plan Start of End of Group Member Insurance Policy P atient's Provider Coverage Name Policy Policy Number ID Provider's Carr's Relationship Coverage Coverage Telephone Name to Policy Number Crar [place] May 18, [id number] GONZALO CALHOUN ATIENT [facility] (WNR) ADVANTAGE (WNR) 2018 8 [id number] [phone] ENT 1 MEDICA MCR MEDICARE MCR Jun 18 [id number] 800 GONZALO CALHOUN PATIENT (WNR) ADVANTAGE (WNR) 2012 32 [phone] ENT MEDICARE MEDICARE PART Feb 15, PART B [id number] 800 GONZALO CALHOUN ATIENT (WNR) (M) B 2009 [id number] [phone] ENT MEDICARE MEDICARE PART Feb 15, PART A [id number] 800 GONZALO CALHOUN ATIENT (WNR) (M) A 2009 [id number] [phone] ENT Selected Encounter This section includes the information on record at [place] for the Encounter. Date/Time Encounter Type Encounter Reason Provider Source Description Dec 05, 2021 SELF CARE PHYSICAL THERAPY ICD-10-CM R26.89 AARON MCCALLUM 01:00 PM MNGMENT Other TRAINING abnormalities of gait and mobility with Provider Comments: Other abnormalities of gait and mobility IHE Encounter Template Text not used by [facility] Assessments - Encounter Diagnoses This section includes the primary and secondary diagnoses documented for the Encounter. Date/Time Primary/Secondary Diagnosis Name Provider Source Diagnosis Dec 10, 2021 PRIMARY Other abnormalities XENAAARON Ivette SENSHIVANI Kaufman 08:50 AM of gait and (CBOC) mobility Plan of Treatment: Future Appointments (+ 6 months) and Future Tests (+/- 45 days) The Plan of Treatment section includes future care activities for the patient from all [place] [facility]. This section includes future appointments and future orders which are active, pending orscheduled.Future Appointments This section includes appointments that were scheduled to occur 6 months from the date of the Encounter, up to a maximum of 20 appointments. The data comes from all [facility]. Appointment Date/Time Appointment Type Appointment Facili ty Name Jan 02, 2022 04:30 PM AMBULATORY - MEDICINE [facility] Jan 08, 2022 01:30 PM AMBULATORY - NONE [facility] Jan 28, 2022 11:00 AM AMBULATORY - SURGERY [facility] Jan 29, 2022 09:30 AM AMBULATORY - REHAB MEDICINE [facility] Mar 31, 2022 02:00 PM AMBULATORY - REHAB MEDICINE [facility] Apr 29, 2022 01:30 PM AMBULATORY - SURGERY [facility] Active, Pending, and Scheduled Orders This section includes a listing of several types of active, pending, and scheduled orders, including clinic medications orders, diagnostic test orders, procedure orders and consult orders; where the start date of the order is 45 days before the date of the Encounter or 45 days after the date of the Encounter. The data comes from all [place] treatment [facility]. Test Date/Time Test Type Test Details Facility Name Jan 10, 2022 05:17 PM Consult Order COMMUNITY CARE-NEUROSURGER Y [facility] Cons Supervisor [employer] [facility] [facility] Lab Results: +/- 30 days of the encounter This section includes the Chemistry and Hematology Lab Results on record with [place] for the patient. Radiology Reports and Pathology Reports are provided separately, in subsequent sections.Lab Results This section contains the Chemistry/Hematology Results that were resulted 30 days before or 30 daysafter the date of the Encounter. Date/Time Source Result Type Result - Unit Interpretation Reference Range Comment Nov 21, 2021 03:39 PM [facility] CBC Specim en Type: BLOOD No comment enter ed. Ordering Provid er: LISA TRINIDAD Report Released Date/Time: Nov 21, 2021 03:08 PM Reporting Lab: [facility] [address] [facility] [id number] Performing Lab: [facility] [address] [facility] [id number] WBC 4.36 4.0-11.0 RBC 4.63 4.6-6.2 HGB 13.3 L 13.5-17.9 HCT 39.7 L 41-54 MCV 85.7 80-100 MCH 28.7 27-33 MCHC 33.5 32.0-37.5 PLT 183 150-400 MPV 9.9 7.4-10.4 RDW 12.9 11.5-14.5 Nov 21, 2021 03:39 [facility] COMPREHENSIVE METABOLIC S pecimen Type: PLASMA PM PANEL+MG No comment enter ed. Ordering Provid er: LISA TRINIDAD Report Released Date/Time: Nov 21, 2021 03:08 PM Reporting Lab: [facility] [address] [facility] [id number] Performing Lab: [facility] [address] [facility] [id number] CREATININE 0.8 0.7-1.2 UREA NITROGEN 14 8-26 GLUCOSE 94 74-100 SODIUM 138 136-145 POTASSIUM 4.3 3.5-5.1 CHLORIDE 105 98-107 CO2 25 22-29 CALCIUM 8.9 8.4-10.2 PROTEIN,TOTAL 6.3 6.0-8.3 ALBUMIN 3.6 3.5-5.2 BILIRUBIN, TOTAL 0.5 0.2-1.2 MAGNESIUM 1.9 1.6-2.6 ANION GAP 8 5-15 ALKALINE PHOSPHATASE 80 40-150 ALT/SGPT 30 <55 AST/SGOT 28 <34 CREAT EGFR(CKD-EPI) >90 >60 Encounter Notes: All associated encounter notes This section contains the clinical notes associated to the Encounter. Date/Time Encounter Note(s) Provider Source Dec 05, 2021 01:05 PM PHYSICAL THERAPY INITIAL EVALUATION NOTE: AARON MCCALLUM (CBOC) LOCAL TITLE: PT-EVALUATION NOTE STANDARD TITLE: PHYSICAL THERAPY INITIAL EVALUAT ION NOTE DATE OF NOTE: DEC 05, 2021@13:05 ENTRY DATE: DEC 05, 2021@13:05:32 AUTHOR: AARON MCCALLUM EXP COSIGNER: URGENCY: STATUS: COMPLETED Evaluation for Rollator Dx: other abnormalities of gait/mobility Tx: PT EVAL LOW 15'; gait 20'; SCMT 9' Anderson's joins appointment to assist with PMHx with 's consent. (See cover sheet for complete PMHx) Relevant PMHx: C4 herniated disk; lumbar disc he rniation; B cervical radiculopathy with UE numbness; OA; cervical gli al tumor SUBJECTIVE: Pt is a 76 yo [place] presenting to PT to be evaluated for a rollator/walker. He currsánchez tlshikha uses rollator at all times. Current rollator is broken - I thrifted it and difficult to manage with L UE weakness. Weight/Height for DME purposes: 175# 6 ft 1 inch Pt Goal: get a walker Pain: none Falls: many - most recently 18 of November without injury Home Environment: a few steps to enter with HR; no steps inside Prior Level of Function: rollator at all times w ithin the last year OBJECTIVE: OBSERVATION: Seated: MWC, TD for propulsion Transfer: Sit>stand from low MWC withou t cushion>rollator, min A for anterior weight shift. Sit>stand from LWC with cushion>ro llator SBA to cue hand safety FUNCTIONAL STRENGTH SCREEN: *30-Second Chair Stand Test: 0 reps Normative Repetitions (Evelio & Todd, 2013) Age Men 75-79 11-17 BALANCE: Four Stage Balance Test: (older adults unable to maintain Tandem 10' are at increased risk for falls) Romberg: unable Modified Tandem: DNT Tandem: DNT Single leg Stance: unable Gait: -Standard Rollator: Trialed Tall rollator with varied hand hold heights. [place] has difficulty with L lehr tender/UE weakness to manage . -Upwalker Lite: PT recommends this walker to all ow decreased demand on L UE stability and lehr tender strength. Visually/verbally r eviewed safety parameters and how to set up hand height/us e. Vet and verb understanding and consent to it being shipped to their home. SCMT: PT recommends formal P T POC to address weakness, fall risk, and difficulty walking. declines. ASSESSMENT/PLAN: Pt appropri ate for Upwalker Lite rollator to improve safety and tolerance for mobility. Consult to PROS for item . Pt goal met and no further needs identified requiring skilled PT d/t vet de clining PT POC re fall risk, weakness, and difficulty walking; discharge from PT at this time. CLINICAL PRESENTATION: stable Patient indicates readiness to learn, verbalizes understanding, agreement and satisfaction with the treatment plan. Denies fur ther questions. /es/ AARON MCCALLUM DPT PHYSICAL THERAPIST Signed: 12/10/2021 08:51
--- OUTSIDE RECORDS SUMMARY | 2022-02-07 16:01 | XMS_ITS | Encounter Summary ---
:1945 Author Organization Department [facility] Address [address] [place] [address] Support Name Relationship Address Phone JIMY CALHOUN Unavailable [address] [facility] [place] [address] LAURA IGNACIO Unavailable [address] [place] [address] WALDO CALHOUNE Unavailable [address] [place] [address] Insurance Providers: All historical and current Section [...] Carr [place] MEDICARE MCR May 18, [id number] GONZALO CALHOUN ATIENT [facility] (WNR) ADVANTAGE (WNR) 2018 8 [id number] [phone] ENT 1 MEDICA MCR MEDICARE MCR Jun 18 [id number] 800 GONZALO CALHOUN PATIENT (WNR) ADVANTAGE (WNR) 2012 32 [phone] ENT MEDICARE MEDICARE PART Feb 15, PART A [id number] 800 GONZALO CALHOUN ATIENT (WNR) (M) A 2009 [id number] [phone] ENT MEDICARE MEDICARE PART Feb 15, PART B [id number] 800 UNIQUEBR P ATIENT (WNR) (M) B 2009 [id number] [phone] ENT Selected Encounter This section includes the information on record at [place] for the Encounter. Date/Time Encounter Type Encounter Description Reason Provider Source Jan 17, 2022 05:24 Outpatient Encounter ADMIN PAT ACTIVTIES PM (MASNONCT) IHE Encounter Template Text not used by [place] Plan of Treatment: Future Appointments (+ 6 months) and Future Tests (+/- 45 days) The Plan of Treatment section includes future care activities for the patient from all [place] [facility] This section includes future appointments and future orders which are active, pending orscheduled.Future Appointments This section includes appointments that were scheduled to occur 6 months from the date of the Encounter, up to a maximum of 20 appointments. The data comes from all [place] treatment facilities. Appointment Date/Time Appointment Type Appointment Facili ty Name Jan 28, 2022 11:00 AM AMBULATORY - SURGERY [facility] S Jan 29, 2022 09:30 AM AMBULATORY - REHAB MEDICINE [facility] Mar 31, 2022 02:00 PM AMBULATORY - REHAB MEDICINE [facility] Apr 29, 2022 01:30 PM AMBULATORY - SURGERY [facility] Active, Pending, and Scheduled Orders This section includes a listing of several types of active, pending, and scheduled orders, including clinic medications orders, diagnostic test orders, procedure orders and consult orders; where the start date of the order is 45 days before the date of the Encounter or 45 days after the date of the Encounter. The data comes from all [place] treatment facilities. Test Date/Time Test Type Test Details Facility Name Jan 10, 2022 05:17 PM Consult Order COMMUNITY [facility] CARE-NEUROSURGERY Cons Masking Machine Operator's Choice Jan 29, 2022 12:00 AM Imaging - [facility] Order Jan 29, 2022 12:00 AM Imaging - Ultrasound US RENAL (P) [place] [facility] Order Jan 29, 2022 03:43 PM Consult Order OT OCCUPATIONAL THERAPY [place] [facility] OUTPT SCID Cons Masking Machine Operator's Choice Jan 29, 2022 03:43 PM Consult Order PT [facility] OUTPT SCI/D REHAB Cons Masking Machine Operator's Choice Jan 29, 2022 03:43 PM Consult Order SECURITIES ATTORNEY SPEECH THERAPY [facility] OUTPT DYSPHAGIA INSTRUMENTAL EVAL Cons Masking Machine Operator's Choice Feb 14, 2022 08:00 AM Imaging - General ESOPHAGRAM VIDEO [facility] Radiology Order SWALLOW Lab Results: +/- 30 days of the encounter This section includes the Chemistry and Hematology Lab Results on record with [facility] for the patient. Radiology Reports and Pathology Reports are provided separately, in subsequent sections.Lab Results This section contains the Chemistry/Hematology Results that were resulted 30 days before or 30 daysafter the date of the Encounter. Date/Time Source Result Type Result - Unit Interpretation Reference Range Comment Jan 29, 2022 11:32 [facility] CYSTATIN C WITH EGFR Spec imen Type: PLASMA AM No comment enter ed. Ordering Provid er: DARIAN DOMINGUEZ Report Released Date/Time: Jan 29, 2022 10:57 AM Reporting Lab: [facility] D[facility] VE [facility] [id number] Performing Lab: [facility] DRI [facility] [id number] CYSTATIN C 1.09 H 0.51-1.05 CYST C EGFR(CKD-EPI) 65 >60 Jan 29, 2022 11:32 [facility] VIT D 25-OH,TOTAL Specime n Type: SERUM AM No comment enter ed. Ordering Provid er: DARIAN DOMINGUEZ Report Released Date/Time: Jan 29, 2022 10:57 AM Reporting Lab: [facility] [address] [id number] Performing Lab: [facility] [address] [id number] VIT D 25-OH,TOTAL 16 12-50 Social History: Smoking Status (Most current) and Tobacco Use (All prior to encounter date) This section includes the most current, and the historical, smoking and tobacco-related health factors from the [place] facility where the Encounter took place.Current Smoking Status This section includes the most current smoking, or tobacco-related health factor, from the [place] facility where the Encounter took place. Date/Time Current Smoking Status Comment Facility Nov 21, 2021 02:00 PM VA-TOBACCO NEVER USED KEVIN PEREZ [facility] Tobacco Use History This section includes a history of the smoking, or tobacco- related health factors, that were collected on or before the date of the Encounter. The data comes from the [place] facility where the Encounter took place. Date/Time Smoking Status/Tobacco Use Comment Spencer wilson Aug 31, 2018 03:31 PM VA-TOBACCO FORMER USER [facility] Aug 31, 2018 03:31 PM VA-TOBACCO QUIT 15 YRS OR MORE [facility] Jul 31, 2015 08:56 AM LIFETIME NON-TOBACCO USER [facility] Jun 24, 2010 08:52 AM LIFETIME NON-TOBACCO USER [facility] Radiology Reports: +/- 30 days of the encounter Radiology Reports For cases when an order for radiology services may have been completed prior to the date of the Encounter, the report list includes the Radiology Reports that were completed up to 30 days before date of the Encounter. For cases when an order for radiology services may have been completed after the date of the Encounter, the report list also includes the Radiology Reports that were completed up to 30days after date of the Encounter. The data comes from all [place] treatment facilities. Date/Time Radiology Report Provider Source Jan 08, 2022 02:34 PM NON [place] MRI CERVICAL SPINE: [facility] ROXY CALHOUN [id number] -1945 M Exm Date: JAN 08, 2022@14:34 Req Phys: LISA TRINIDAD Loc: [facility] XRAY GENERAL AM (Req'g Loc Img Loc: OUTSOURCE MRI Service: Unknown (Case [id number] COMPLETE) NON [place] MRI CERVICAL SPINE ( MRI Detailed) CPT:77544 Reason for Study: OUTSIDE STUDY Clinical History: OUTSIDE STUDY Report Status: Electronically Filed Date Report ed: JAN 15, 2022 Report: This is an outside Imaging study and/or report imported for continuity of patient care. This Imaging study and/or report was not reviewed or verified by a [place] Radiologist. Impression: This is an outside Imaging study and/or report imported for continuity of patient care. This Imaging study and/or report was not reviewed or verified by a [place] Radiologist. Primary Diagnostic Code: VERIFIED BY: / *ELECTRONICALLY FILED* Encounter Notes: All associated encounter notes This section contains the clinical notes associated to the Encounter. Date/Time Encounter Note(s) Provider Source Jan 08, 2022 05:24 PM NONVA NOTE: ANA CESAR IS [facility] LOCAL TITLE: RADIOLOGY NONVA NOTE STANDARD TITLE: NONVA NOTE DATE OF NOTE: JAN 08, 2022@17:24 ENTRY DATE: JAN 17, 2022@17:24:43 AUTHOR: ANA CESAR EXP COSIGNER: URGENCY: STATUS: COMPLETED This note contains attached RADIOLOGY scanned do cument(s) received from an outside facility. Open [employer] Display to review the documen t(s). /pb/ ANA CESAR Senior Software Qa Analyst Signed: 01/17/2022 17:24
--- OUTSIDE RECORDS SUMMARY | 2022-02-07 16:01 | XMS_ITS | Encounter Summary ---
:1945 Author Organization [facility] Address [address] [place] [address] Support Name Relationship Address Phone JIMY CALHOUN Unavailable [address] [place] [address] LAURA IGNACIO Unavailable [address] [place] [address] WALDO CALHOUNE Unavailable [address] [phone] [place] [address] Insurance Providers: All historical and current Section [...] Carr [place] MEDICARE MCR May 18, [id number] GONZALO CALHOUN ATIENT [facility] (WNR) ADVANTAGE (WNR) 2018 8 [id number] [phone] ENT 1 MEDICA MCR MEDICARE MCR Jun 18 [id number] 800 GONZALO CALHOUN PATIENT (WNR) ADVANTAGE (WNR) 2012 32 [phone] ENT MEDICARE MEDICARE PART Feb 15, PART A [id number] 800 GONZALO CALHOUN ATIENT (WNR) (M) A 2009 [id number] [phone] ENT MEDICARE MEDICARE PART Feb 15, PART B [id number] 800 UNIQUEBR P ATIENT (WNR) (M) B 2009 [id number] [phone] ENT Selected Encounter This section includes the information on record at [place] for the Encounter. Date/Time Encounter Type Encounter Description Reason Provider Source Jan 08, 2022 12:00 Outpatient Encounter COMMUNITY CARE AM CONSULT IHE Encounter Template Text not used by [place] Plan of Treatment: Future Appointments (+ 6 months) and Future Tests (+/- 45 days) The Plan of Treatment section includes future care activities for the patient from all [place] [facility] This section includes future appointments and future orders which are active, pending orscheduled.Future Appointments This section includes appointments that were scheduled to occur 6 months from the date of the Encounter, up to a maximum of 20 appointments. The data comes from all [place] treatment facilities. Appointment Date/Time Appointment Type Appointment Facili ty Name Jan 28, 2022 11:00 AM AMBULATORY - SURGERY [facility] S Jan 29, 2022 09:30 AM AMBULATORY - REHAB MEDICINE [facility] Mar 31, 2022 02:00 PM AMBULATORY - REHAB MEDICINE [facility] Apr 29, 2022 01:30 PM AMBULATORY - SURGERY [facility] Active, Pending, and Scheduled Orders This section includes a listing of several types of active, pending, and scheduled orders, including clinic medications orders, diagnostic test orders, procedure orders and consult orders; where the start date of the order is 45 days before the date of the Encounter or 45 days after the date of the Encounter. The data comes from all [place] treatment facilities. Test Date/Time Test Type Test Details Facility Name Jan 10, 2022 05:17 PM Consult Order [facility]OSURGERY Cons Dump Truck Driver Off Highway's Choice Jan 29, 2022 12:00 AM Imaging - CT Scan CT HEAD [facility] Order Jan 29, 2022 12:00 AM Imaging - Ultrasound US RENAL (P) [place] [facility] Order Jan 29, 2022 03:43 PM Consult Order OT OCCUPATIONAL [place]ERAPY [place] [facility] OUTPT SCID Cons Dump Truck Driver Off Highway's Choice Jan 29, 2022 03:43 PM Consult Order PT [facility] OUTPT SCI/D REHAB Cons Dump Truck Driver Off Highway's Choice Jan 29, 2022 03:43 PM Consult Order CONTACT CENTER AGENT SPEECH THERAPY [facility] OUTPT DYSPHAGIA INSTRUMENTAL EVAL Cons Dump Truck Driver Off Highway's Choice Feb 14, 2022 08:00 AM Imaging - General ESOPHAGRAM VIDEO [facility] OLIS [facility] Radiology Order SWALLOW Lab Results: +/- 30 [...] Reference Range Comment Jan 29, 2022 11:32 [facility] CYSTATIN C WITH EGFR Spec imen Type: PLASMA AM No comment enter ed. Ordering Provid er: DARIAN DOMINGUEZ Report Released Date/Time: Jan 29, 2022 10:57 AM Reporting Lab: [facility] DRI [facility] [address] Performing Lab: [facility] DRI VE [facility] [address] CYSTATIN C 1.09 H 0.51-1.05 CYST C EGFR(CKD-EPI) 65 >60 Jan 29, 2022 11:32 [facility] VIT D 25-OH,TOTAL Specime n Type: SERUM AM No comment enter ed. Ordering Provid er: DARIAN DOMINGUEZ Report Released Date/Time: Jan 29, 2022 10:57 AM Reporting Lab: [facility] DRI [facility] [id number] Performing Lab: [facility] DRI VE [facility] [address] VIT D 25-OH,TOTAL 16 12-50 Social History: Smoking Status (Most current) and Tobacco Use (All prior to encounter date) This section includes the most current, and the historical, smoking and tobacco-related health factors from the [place] facility where the Encounter took place.Current Smoking Status This section includes the most current smoking, or tobacco-related health factor, from the [place] facility where the Encounter took place. Date/Time Current Smoking Status Comment Facility Nov 21, 2021 02:00 PM VA-TOBACCO NEVER USED KEVIN PEREZ [facility] Tobacco Use History This section includes a history of the smoking, or tobacco- related health factors, that were collected on or before the date of the Encounter. The data comes from the [place] facility where the Encounter took place. Date/Time Smoking Status/Tobacco Use Comment Spencer wilson Aug 31, 2018 03:31 PM [facility] Aug 31, 2018 03:31 PM VA-TOBACCO QUIT [address] [facility] Jul 31, 2015 08:56 AM LIFETIME NON-TOBACCO USER [facility] Jun 24, 2010 08:52 AM LIFETIME NON-TOBACCO USER [facility] Radiology Reports: +/- 30 days of the [...] the Encounter. The data comes from all [place] treatment facilities. Date/Time Radiology Report Provider Source Jan 08, 2022 02:34 PM NON [place] MRI CERVICAL SPINE: [facility] ROXY CALHOUN [id number] -1945 M Exm Date: JAN 08, 2022@14:34 Req Phys: LISA TRINIDAD Loc: [facility] XRAY GENERAL AM (Req'g Loc Img Loc: OUTSOURCE MRI Service: Unknown (Case [id number] COMPLETE) NON [place] MRI CERVICAL SPINE ( MRI Detailed) CPT:16906 Reason for Study: OUTSIDE STUDY Clinical History: OUTSIDE STUDY Report Status: Electronically Filed Date Report ed: JAN 15, 2022 Report: This is an outside Imaging study and/or report imported for continuity of patient care. This Imaging study and/or report was not reviewed or verified by a [place] Radiologist. Impression: This is an outside Imaging study and/or report imported for continuity of patient care. This Imaging study and/or report was not reviewed or verified by a [place] Radiologist. Primary Diagnostic Code: VERIFIED BY: / *ELECTRONICALLY FILED* Encounter Notes: All associated encounter notes This section contains the clinical notes associated to the Encounter. Date/Time Encounter Note(s) Provider Source Jan 08, 2022 12:00 AM NONVA CONSULT: TRINI PRECIADO [facility] LOCAL TITLE: COMMUNITY CARE CONSULT RESULT MRI STANDARD TITLE: NONVA CONSULT DATE OF NOTE: JAN 08, 2022 ENTRY DATE: JAN 13 022@14:36:45 AUTHOR: TRINI PRECIADO EXP COSIGNER: URGENCY: STATUS: COMPLETED VistA Imaging - Scanned Document COMMUNITY CARE-MRI [facility] APPOINTMENT INFORMATION Documentation received from non-VA provider and scanned into [employer]. /pb/ TRINI PROCESS Signed: 01/13/2022 14:36
--- OUTSIDE RECORDS SUMMARY | 2022-02-07 16:01 | XMS_ITS | Encounter Summary ---
:1945 Author Organization [facility] Address [address] [place] [address] Support Name Relationship Address Phone JIMY CALHOUN Unavailable [address] [place] [address] LAURA IGNACIO Unavailable [address] [place] [address] NEFTALI CALHOUN Unavailable [phone] [place] [address] Insurance Providers: All historical and current Section [...] Carr [place] M[place] May 18, [id number] GONZALO CALHOUN ATIENT [facility] (WNR) ADVANTAGE (WNR) 2018 8 [id number] [phone] ENT 1 MEDICA MCR MEDICARE MCR Jun 18 [id number] 800 GONZALO CALHOUN PATIENT (WNR) ADVANTAGE (WNR) 2012 32 [phone] ENT MEDICARE MEDICARE PART Feb 15, PART A [id number] 800 GONZALO CALHOUN ATIENT (WNR) (M) A 2009 [id number] [phone] ENT MEDICARE MEDICARE PART Feb 15, PART B [id number] 800 UNIQUEBR Junaid ATIENT (WNR) (M) B 2009 [id number] [phone] ENT Selected Encounter This section includes the information on record at AR for the Encounter. Date/Time Encounter Type Encounter Reason Provider Source Description Jan 02, 2022 Outpatient TELEPHONE ICD-10-CM M54.12 ZAKIYA TRINIDAD 04:30 PM Encounter PRIMARY CARE Radiculopathy, cervical region with Provider Comments: Cervical radiculopathy ([facility] [id number]) IHE Encounter Template Text not used by AR Assessments - Encounter Diagnoses This section includes the primary and secondary diagnoses documented for the Encounter. Date/Time Primary/Secondary Diagnosis Name Provider Source Diagnosis Jan 02, 2022 PRIMARY Radiculopathy, ZAKIYA TRINIDAD V A 04:30 PM cervical region HCS Jan 02, 2022 SECONDARY Neuromuscular ZAKIYA TRINIDAD AR 04:30 PM dysfunction of HCS bladder, unspecified Jan 02, 2022 SECONDARY Unspecified atrial [facility] TRINIDAD [facility] 04:30 PM fibrillation [facility] Plan of Treatment: Future Appointments (+ 6 months) and Future Tests (+/- 45 days) The Plan of Treatment section includes future care activities for the patient from all AR treatmentfacilities. This section includes future appointments and future orders which are active, pending orscheduled.Future Appointments This section includes appointments that were scheduled to occur 6 months from the date of the Encounter, up to a maximum of 20 appointments. The data comes from all AR treatment facilities. Appointment Date/Time Appointment Type Appointment Facili ty Name Jan 08, 2022 01:30 PM AMBULATORY - NONE [facility] Jan 28, 2022 11:00 AM AMBULATORY - SURGERY [facility] Jan 29, 2022 09:30 AM AMBULATORY - REHAB MED[facility]INE [facility] Mar 31, 2022 02:00 PM AMBULATORY - REHAB MEDICINE [facility] Apr 29, 2022 01:30 PM AMBULATORY - SURGERY [facility] Active, Pending, and Scheduled Orders This section includes a listing of several types of active, pending, and scheduled orders, including clinic medications orders, diagnostic test orders, procedure orders and consult orders; where the start date of the order is 45 days before the date of the Encounter or 45 days after the date of the Encounter. The data comes from all AR treatment facilities. Test Date/Time Test Type Test Details Facility Name Jan 10, 2022 05:[address] [facility] CARE-NEUROSURGERY Cons Nut Threader[facility] Choice Jan 29, 2022 12:00 AM Imaging - CT Scan CT HEAD ([facility] Order Jan 29, 2022 12:00 AM Imaging - Ultrasound US RENAL (P) [place] [facility] Order Jan 29, 2022 03:43 PM Consult Order OT OCCUPATIONAL THERAPY [place] [facility] OUTPT SCID Cons Nut Threader[facility] Choice Jan 29, 2022 03:43 PM Consult Order PT PHYSICAL THERAPY SCAR ROSARIO [facility] OUTPT SCI/D REHAB Cons [facility] Jan 29, 2022 03:43 PM Consult Order DIRECTOR OF GOVERNMENT SALES SPEECH THERAPY [facility] OUTPT DYSPHAGIA INSTRUMENTAL EVAL Cons Nut [facility] Feb 14, 2022 08:00 AM Imaging - General ESOPHAGRAM VIDEO [facility] Radiology Order SWALLOW Lab Results: +/- [...] Reference Range Comment Jan 29, 2022 11:32 [facility] CYSTATIN C WITH EGFR Spec imen Type: PLASMA AM No comment enter ed. Ordering Provid er: DARIAN DOMINGUEZ Report Released Date/Time: Jan 29, 2022 10:57 AM Reporting Lab: [facility] [address] [facility] [id number] Performing Lab: [facility] [address] [facility] [address] [facility] [id number] CYSTATIN C 1.09 H 0.51-1.05 CYST C EGFR(CKD-EPI) 65 >60 Jan 29, 2022 11:32 [facility] VIT D 25-OH,TOTAL Specime n Type: SERUM AM No comment enter ed. Ordering Provid er: DARIAN DOMINGUEZ Report Released Date/Time: Jan 29, 2022 10:57 AM Reporting Lab: [facility] [address] [facility] [id number] Performing Lab: [facility] [address] [facility] [id number] VIT D 25-OH,TOTAL 16 12-50 Social History: Smoking Status (Most current) and Tobacco Use (All prior to encounter date) This section includes the most current, and the historical, smoking and tobacco-related health factors from the AR facility where the Encounter took place.Current Smoking Status This section includes the most current smoking, or tobacco-related health factor, from the AR facility where the Encounter took place. Date/Time Current Smoking Status Comment Facility Nov 21, 2021 02:00 PM VA-TOBACCO NEVER USED [facility] Tobacco Use History This section includes a history of the smoking, or tobacco- related health factors, that were collected on or before the date of the Encounter. The data comes from the AR facility where the Encounter took place. Date/Time Smoking Status/Tobacco Use Comment [facility] Aug 31, 2018 03:31 PM VA-TOBACCO [facility] Aug 31, 2018 03:31 PM VA-TOBACCO QUIT 15 YRS OR MORE [facility] Jul 31, 2015 08:56 AM LIFETIME NON-TOBACCO USER [facility] Jun 24, 2010 08:52 AM LIFETIME NON-TOBACCO USER [facility] Radiology Reports: +/- 30 days of the [...] the Encounter. The data comes from all AR treatment facilities. Date/Time Radiology Report Provider Source Jan 08, 2022 02:34 PM NON AR MRI CERVICAL SPINE: [facility] ROXY CALHOUN [id number] -1945 M Exm Date: JAN 08, 2022@14:34 Req Phys: ZAKIYA TRINIDAD Loc: MSP XRAY GENERAL AM (Req'g Loc Img Loc: OUTSOURCE MRI Service: Unknown (Case [id number] COMPLETE) NON AR MRI CERVICAL SPINE ( MRI Detailed) CPT:06225 Reason for Study: OUTSIDE STUDY Clinical History: OUTSIDE STUDY Report Status: Electronically Filed Date Report ed: JAN 15, 2022 Report: This is an outside Imaging study and/or report imported for continuity of patient care. This Imaging study and/or report was not reviewed or verified by a AR Radiologist. Impression: This is an outside Imaging study and/or report imported for continuity of patient care. This Imaging study and/or report was not reviewed or verified by a AR Radiologist. Primary Diagnostic Code: VERIFIED BY: / *ELECTRONICALLY FILED* Encounter Notes: All associated encounter notes This section contains the clinical notes associated to the Encounter. Date/Time Encounter Note(s) Provider Source Jan 02, 2022 01:02 PM PACT NOTE: ZAKIYA TRINIDAD S [facility] LOCAL TITLE: MEDICINE CLINIC PROVIDER TELEPHONE NOTE STANDARD TITLE: PACT NOTE DATE OF NOTE: JAN 02, 2022@13:02 ENTRY DATE: JAN 02, 2022@13:03:06 AUTHOR: ZAKIYA TRINIDAD EXP COSIGNER: URGENCY: STATUS: COMPLETED MEDICINE CLINIC PROVIDER TELEPHONE NOTE Has ADDENDA History: Follow-up telephone visit from initial appointment November 21 of this year. is a 76-year-old gen orgelio newly establishing care at the AR this November. Please see my note from November 21 for details. He h as some form of a known cervical spinal cord lesion that apparently has been there for many years but has been expanding and is felt to be nonoperable . He has been having some progressive neurologic symptoms including weakne ss and numbness in his extremities. [facility] services he might be eligible for to manage his physical limitations and down the road if he has progressive deterioration. He reports no change in his status since our visit in November. He has not yet been seen in the spinal cord unit as an originally sc heduled appointment was canceled. He is scheduled for an MRI of his cervical spine in the community on January 08. He inquires about a urology consult t o help manage his neurogenic bladder. Objective: sounds alert and appr opriate on the phone. No physical exam performed. I did review documentation from his p hysical therapy evaluation. Assessment/Plan: 1. 76-year-old man with known cervical spinal co rd mass and progressive weakness, neurogenic bladder. We have telma garcia records available to us on J LV. Awaiting MRI of the cervical spine. I am going to contact the spinal cord unit and asked them to reach out to him again to follow-up and making an appointment. I will also place a referral to urology to see i f they have other options for managing his neurogenic bladder as he is waking up several times at night to self cath. 2. He is interested in ecords are limited and Alvino CHOW is the only go back to 2019 and so I am unable to locate the ev aluation that he had at [facility] or even reports from his previous MRIs. 2. History of atrial fibrillation, status post s ome type of procedure and now with a pacemaker. Not on anticoagulation. 3. Neuorgenic bladder - continue CIC for now, re fannie to 4. Hx of melanoma, followed by community dermato logy 5. Hx of depression, on fluoxetine 6. I will be in touch after MRI. Education/Counseling: He agrees with above plans Time spent video conference specialist: 21-30 minutes /pb/ Zakiya Trinidad MD Staff Physician Signed: 01/02/2022 17:02 01/10/2022 ADDENDUM STATUS: COMPLETED MRI performed at [place] 01/08/22 - result emelyn whitman from [facility]. He has an appt with SCI mid Jan. I have placed a consult to Neurosurgery as well. IMPRESSION: 1. Expansile cystic lesion in the mid cervical s jamison cord as detailed above. No obvious enhancement of the lesion and there is a peripheral T2 hypointense rim. This could represent a rebecca nous venous malformation with sequela of previous hemorrhage , although other etiologies are not entirely excluded. Comparison to previous imaging to document stability may be helpful. 2. Marked multilevel degenerative changes throug hout the cervical spine as detailed above. Multiple disc herniatio ns throughout the cervical spine. Marked facet hypertrophy, partic ularly on the right at C2-C3 and C3-C4 and on the left at C4-C5. 3. Edema on the right at the opposing C2-C3 endp lates also apparently involving the right C2-C3 facet. This could pote ntially be a source of pain. /pb/ Zakiya Trinidad MD Staff Physician Signed: 01/10/2022 17:18 01/13/2022 ADDENDUM STATUS: COMPLETED Will ask PaCT RN to assist i n trying to obtain copies of previous cervical spine MRI imaging from [facility] - will like ly need [facility] from [place]. These images may date back 7-20 years ago . Ideally would obtain copies of reports as well as actual images. /pb/ Zakiya Trinidad MD Staff Physician Signed: 01/13/2022 16:47 Receipt Acknowledged By: 01/14/2022 11:13 /pb/ CARO BALDWINRN RN PACT [employer] Consultant 01/14/2022 ADDENDUM STATUS: COMPLETED Will forward to assoc RN to assist in obtaining records as per PCP request in previous addendum. thanks. /pb/ CARO BALDWINRN RN PACT [employer] Consultant Signed: 01/14/2022 11:13 Receipt Acknowledged By: 01/14/2022 12:21 /pb/ ISABELLA BRITT RN RN PACT [employer] Consultant 01/14/2022 ADDENDUM STATUS: COMPLETED Returner talked to Pt. Pt said he will get a copy of CD and/or copy of report and [facility] the [facility] at h is next appt that's coming up soon. Jan 29 in [place] /pb/ ISABELLA BRITT RN RN PACT Web[employer] Consultant Signed: 01/14/2022 12:23 01/16/2022 ADDENDUM STATUS: COMPLETED Attempted to call about NS referral x 2, left messages. /es/ Zakiya Trinidad MD Staff Physician Signed: 01/21/2022 16:21
--- OUTSIDE RECORDS SUMMARY | 2022-02-07 16:01 | XMS_ITS | Encounter Summary ---
:1945 Author Organization [facility] Address [address] [place] [address] Support Name Relationship Address Phone JIMY CALHOUN Unavailable [address] [facility] [place] [address] LAURA IGNACIO Unavailable [address] [place] [address] NEFTALI CALHOUN Unavailable [phone] [place] [address] Insurance Providers: All historical and current Section [...] Carr [place] May 18, [id number] 800 GONZALO CALHOUN P ATIENT [facility] (WNR) ADVANTAGE (WNR) 2018 8 [id number] [phone] ENT 1 MEDICA MCR MEDICARE MCR Jun 18 [id number] 800 GONZALO CALHOUN PATIENT (WNR) ADVANTAGE (WNR) 2012 32 [phone] ENT MEDICARE MEDICARE PART Feb 15, PART A [id number] 800 UNIQUEBR P ATIENT (WNR) (M) A 2009 [id number] [phone] ENT MEDICARE MEDICARE PART Feb 15, PART B [id number] 800 UNIQUEBR P ATIENT (WNR) (M) B 2009 [id number] [phone] ENT Selected Encounter This section includes the information on record at HI for the Encounter. Date/Time Encounter Type Encounter Reason Provider Source Description Dec 27, 2021 03:01 Outpatient TELEPHONE TRIAGE EMANUEL HI PM Encounter LAMBERT IHE Encounter Template Text not used by HI Plan of Treatment: Future Appointments (+ 6 months) and Future Tests (+/- 45 days) The Plan of Treatment section includes future care activities for the patient from all [facility] This section includes future appointments and future orders which are active, pending orscheduled.Future Appointments This section includes appointments that were scheduled to occur 6 months from the date of the Encounter, up to a maximum of 20 appointments. The data comes from all HI treatment facilities. Appointment Date/Time Appointment Type Appointment Facili ty Name Jan 02, 2022 04:30 PM AMBULATORY - MEDICINE [facility] CS Jan 08, 2022 01:30 PM AMBULATORY - NONE [facility] Jan 28, 2022 11:00 AM AMBULATORY - SURGERY [facility] S Jan 29, 2022 09:30 AM AMBULATORY - REHAB MEDICINE [facility] Mar 31, 2022 02:00 PM AMBULATORY - REHAB MEDICINE [facility] Apr 29, 2022 01:30 PM AMBULATORY - SURGERY [facility] Active, Pending, and Scheduled Orders This section includes a listing of several types of active, pending, and scheduled orders, including clinic medications orders, diagnostic test orders, procedure orders and consult orders; where the start date of the order is 45 days before the date of the Encounter or 45 days after the date of the Encounter. The data comes from all HI treatment [facility]. Test Date/Time Test Type Test Details Facility Name Jan 10, 2022 05:17 PM Consult Order [facility] CARE-NEUROSURGERY Cons Facility Service Associate's Choice Jan 29, 2022 12:00 AM Imaging - CT Scan [facility] HEAD [facility] Order Jan 29, 2022 12:00 AM Imaging - Ultrasound US RENAL (P) [facility] Order Jan 29, 2022 03:43 PM Consult Order OT OCCUPATIONAL THERAPY [place] [facility] OUTPT SCID Cons Facility Service Associate's Choice Jan 29, 2022 03:43 PM Consult Order PT [facility]YSICAL [facility] OUT[facility] SCI/D REHAB Cons Facility Service Associate's Choice Jan 29, 2022 03:43 PM Consult Order COOKER S[place]UP SPEECH THERAPY [facility] OUTPT DYSPHAGIA INSTRUMENTAL EVAL Cons Facility Service Associate's Choice Social History: Smoking Status (Most current) and Tobacco Use (All prior to encounter date) This section includes the most current, and the historical, smoking and tobacco-related health factors from the HI facility where the Encounter took place.Current Smoking Status This section includes the most current smoking, or tobacco-related health factor, from the HI facility where the Encounter took place. Date/Time Current Smoking Status Comment Facility Nov 21, 2021 02:00 PM VA-TOBACCO NEVER USED [facility] Tobacco Use History This section includes a history of the smoking, or tobacco- related health factors, that were collected on or before the date of the Encounter. The data comes from the HI facility where the Encounter took place. Date/Time Smoking Status/Tobacco Use Comment [facility] Aug 31, 2018 03:31 PM VA-[facility]ACCO [facility] Aug 31, 2018 03:31 PM VA-TOBACCO QUIT 15 YRS OR MORE [facility] Jul 31, 2015 08:56 AM LIFETIME NON-TOBACCO USER [facility] Jun 24, 2010 08:52 AM LIFETIME NON-TOBACCO USER [facility] Radiology Reports: +/- 30 days [...] The data comes from all HI treatment facilities. Date/Time Radiology Report Provider Source Jan 08, 2022 02:34 PM NON HI MRI CERVICAL SPINE: [facility] ROXY CALHOUN [id number] -1945 M Ex Date: JAN 08, 2022@14:34 Req Phys: LISA TRINIDAD Loc: [facility]SP XRAY GENERAL AM (Req'g Loc Img Loc: OUTSOURCE MRI Service: Unknown (Case [id number] COMPLETE) NON HI MRI CERVICAL SPINE ( MRI Detailed) CPT:93989 Reason for Study: OUTSIDE STUDY Clinical History: OUTSIDE STUDY Report Status: Electronically Filed Date Report ed: JAN 15, 2022 Report: This is an outside Imaging study and/or report imported for continuity of patient care. This Imaging study and/or report was not reviewed or verified by a HI Radiologist. Impression: This is an outside Imaging study and/or report imported for continuity of patient care. This Imaging study and/or report was not reviewed or verified by a HI Radiologist. Primary Diagnostic Code: VERIFIED BY: / *ELECTRONICALLY FILED* Encounter Notes: All associated encounter notes This section contains the clinical notes associated to the Encounter. Date/Time Encounter Note(s) Provider Source Dec 27, 2021 03:01 PM RN PROGRESS NOTE: GOGO HI [facility] LOCAL TITLE: CCC: CLINICAL TRIAGE LAMBERT STANDARD TITLE: RN PROGRESS NOTE DATE OF NOTE: DEC 27, 2021@15:01:51 ENTRY DATE: DEC 27, 2021@15:01:51 AUTHOR: GOGO HI CLIN EXP COSIGNER: URGENCY: STATUS: COMPLETED Patient Demographics Patient Name: ROXY CALHOUN Patient Primary Address: [address] [place] [address] Patient Primary Phone: [phone] Patient : 1945 SSN: [id number] Patient Age: 76 Caller Relationship: Self Emergency Contactx: LAURA IGNACIO Emergency Contact Phonex: Triage Summary Nurse Summary: Clinical Contact/Call Center David navirus Disease 2019 (COVID-19) Screen, [place]. September 2020 DIAGNOSIS AND TESTING STATUS: ?Has [place] been diagnosed with COVID-19: ( ) Yes* Date: (continue screening) (x ) No (Continue Screening) Comment(s): ?Is [place] waiting for COVID-19 test results: ( ) Yes (Continue Screening) ( x ) No (Continue Screening) Comment: SCREEN: ?Signs and Symptoms: a. Fever or chills: ( ) Yes Check all that apply: ( ) Fever ( ) Chills (x ) No Comment(s): b. New or worsening cough or shortness of breat h: ( ) Yes Check all that apply: ( ) Cough ( ) Shortness of breath (Dyspnea) (x ) No Comment(s): c. Any cold or flu-like symptoms: ( ) Yes Check all that apply: ( ) Cold like symptoms ( ) Runny Nose (Rhinorrhea) ( ) Sore Throat ( ) Flu-like symptoms ( ) Fatigue ( ) Muscle Pain (Myalgia) ( x) No Comment(s): d. New onset diarrhea, nausea or vomiting: ( ) Yes Check all that apply: ( ) Diarrhea ( ) Nausea ( ) Vomiting (x ) No Comment(s): e. New onset headache, loss of taste or loss of smell ( ) Yes Check all that apply: ( ) Headache ( ) Loss of taste ( ) Loss of smell (x ) No Comment(s): EXPOSURE: ?Exposure (within 6 feet for more than 15 minut es) in the last two weeks (14 days) to someone with known or ofe pected case of COVID-19: ( ) Yes ( x ) No Comment(s): ?SCREEN RESULT: Any symptom or exposure= positi ve screen ( ) POSITIVE SCREEN: Patient has a Positive sym ptom and/or exposure. Follow-up required. (x ) Negative Screen * * * NURSES NOTES PATIENT CONCERN/DURATION/ONSET: [place] c/o inco ntinence of bladder with self cath for the past two years. [place] seeking to discuss if there is a way to place catheter for the night and let it collect in a bag, instead of awakening to self cath at night. [place] seeking to discus s with PCP and possible urology consult. denies pain fever, naus ea, vomiting blood in urine. WHAT HAS PATIENT TRIED TO TREAT THE SYMPTOMS: '' nothing per [place]'' HISTORY/PREVIOUS TREATMENT: ''nothing per Vetera n'' WHAT IS PATIENT GOAL FOR THE CALL: evaluation, a dvise and/or appointment. DID YOU CONSIDER USING CCC L IP (TELE or VVC): No access available at this time. TUBER OPERATOR DISPOSITION: 1-2 weeks related to Urin howard concerns. [place] has secured an appointment within time f rame limits, with [facility] staff assistance. Appointment is greater than 12 -24 hours, please seek Appointments/Visits/Admissions in [facility] Best contact for is (Verified). [phone] (Caller could accurately sum marize the agreed upon plan of care as discussed in the education log portion of this note.) Per policy, automated recommendations for an ?ap pointment? indicates an interaction (virtual or in-person) with the care team. 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
--- OUTSIDE RECORDS SUMMARY | 2022-02-07 16:02 | XMS_ITS | Encounter Summary ---
:1945 Author Organization [facility] Address [address] [place] [id number] Support Name Relationship Address Phone JIMY CALHOUN Unavailable [address] [facility] [place] [address] LAURA IGNACIO Unavailable [address] [place] [address] NEFTALI CALHOUN Unavailable [phone] [phone] [place] [address] Insurance Providers: All historical and current Section [...] Carr [place] MEDICARE MCR May 18, [id number] GONZALO CALHOUN ATIENT [facility] (WNR) ADVANTAGE (WNR) 2018 8 [id number] [phone] ENT 1 MEDICA MCR MEDICARE MCR Jun 18 [id number] 800 GONZALO CALHOUN PATIENT (WNR) ADVANTAGE (WNR) 2012 32 [phone] ENT MEDICARE MEDICARE PART Feb 15, PART A [id number] 800 GONZALO CALHOUN ATIENT (WNR) (M) A 2009 [id number] [phone] ENT MEDICARE MEDICARE PART Feb 15, PART B [id number] 800 UNIQUEBR Junaid ATIENT (WNR) (M) B 2009 [id number] [phone] ENT Selected Encounter This section includes the information on record at [place] for the Encounter. Date/Time Encounter Type Encounter Description Reason Provider Source Jan 21, 2022 03:28 Outpatient Encounter TELEPHONE TRIAGE PM IHE Encounter Template Text not used by [facility] Plan of Treatment: Future Appointments (+ 6 months) and Future Tests (+/- 45 days) The Plan of Treatment section includes future care activities for the patient from all [place] [facility]. This section includes future appointments and future orders which are active, pending orscheduled.Future Appointments This section includes appointments that were scheduled to occur 6 months from the date of the Encounter, up to a maximum of 20 appointments. The data comes from all [place] treatment facilities. Appointment Date/Time Appointment Type Appointment Facili ty Name Jan 28, 2022 11:00 AM AMBULATORY - SURGERY [facility] S Jan 29, 2022 09:30 AM AMBULATORY - REHAB MEDICINE [facility] Mar 31, 2022 02:00 PM AMBULATORY - REHAB MEDICINE [facility] Apr 29, 2022 01:30 PM AMBULATORY - SURGERY [facility] Active, Pending, and Scheduled Orders This section includes a listing of several types of active, pending, and scheduled orders, including clinic medications orders, diagnostic test orders, procedure orders and consult orders; where the start date of the order is 45 days before the date of the Encounter or 45 days after the date of the Encounter. The data comes from all [place] treatment facilities. Test Date/Time Test Type Test Details Facility Name Jan 10, 2022 05:17 PM Consult Order [facility]-NEUROSURGERY Cons Outdoor Landscape Architect's Choice Jan 29, 2022 12:00 AM Imaging - CT Scan [facility] Order Jan 29, 2022 12:00 AM Imaging - Ultrasound US RENAL (P) [facility] Order Jan 29, 2022 03:43 PM Consult Order OT OCCUPATIONAL THERAPY [place] [facility] OUTPT SCID Cons Outdoor Landscape Architect's Choice Jan 29, 2022 03:43 PM Consult Order PT PHYSICAL THER[facility]Y [facility] OUTPT SCI/D REHAB Cons Outdoor Landscape Architect's Choice Jan 29, 2022 03:43 PM Consult Order MEMORY CARE DIRECTOR SPEECH THERAPY [facility] [place] [facility] OUTPT DYSPHAGIA INSTRUMENTAL EVAL Cons Outdoor Landscape Architect's Choice Feb 14, 2022 08:00 AM Imaging - General ESOPHAGRAM VIDEO [facility] Radiology Order SWALLOW Lab Results: +/- [...] Reference Range Comment Jan 29, 2022 11:32 [facility] CYSTATIN C WITH EGFR Spec imen Type: PLASMA AM No comment enter ed. Ordering Provid er: DARIAN DOMINGUEZ Report Released Date/Time: Jan 29, 2022 10:57 AM Reporting Lab: [facility] [address] [facility] [id number] Performing Lab: [facility] [address] [facility] [id number] CYSTATIN C 1.09 H 0.51-1.05 CYST C EGFR(CKD-EPI) 65 >60 Jan 29, 2022 11:32 [facility] VIT D 25-OH,TOTAL Specime n Type: SERUM AM No comment enter ed. Ordering Provid er: DARIAN DOMINGUEZ Report Released Date/Time: Jan 29, 2022 10:57 AM Reporting Lab: [facility] ONE [facility] [place] [facility] [phone] Performing Lab: [facility] ONE [facility] DRI VE [facility] [phone] VIT D 25-OH,TOTAL 16 12-50 Social History: Smoking Status (Most current) and Tobacco Use (All prior to encounter date) This section includes the most current, and the historical, smoking and tobacco-related health factors from the [place] facility where the Encounter took place.Current Smoking Status This section includes the most current smoking, or tobacco-related health factor, from the [place] facility where the Encounter took place. Date/Time Current Smoking Status Comment Facility Nov 21, 2021 02:00 PM [place]-TOBACCO NEVER USED KEVIN PEREZ [facility] Tobacco Use History This section includes a history of the smoking, or tobacco- related health factors, that were collected on or before the date of the Encounter. The data comes from the [place] facility where the Encounter took place. Date/Time Smoking Status/Tobacco Use Comment [facility]son Aug 31, 2018 03:31 PM [facility] Aug 31, 2018 03:31 PM [place]-TOBACCO QUIT 15 YRS OR MORE [facility] Jul 31, 2015 08:56 AM LIFETIME NON-TOBACCO USER [facility] Jun 24, 2010 08:52 AM LIFETIME NON-TOBACCO USER [facility] Radiology Reports: +/- 30 days of [...] the Encounter. The data comes from all [place] treatment facilities. Date/Time Radiology Report Provider Source Jan 08, 2022 02:34 PM NON VA MRI CERVICAL SPINE: [facility] ROXY CALHOUN [id number] -1945 M Exm Date: JAN 08, 2022@14:34 Req Phys: ZAKIYA TRINIDAD Loc: [facility]SP XRAY GENERAL AM (Req'g Loc Img Loc: OUTSOURCE MRI Service: Unknown (Case [id number] COMPLETE) NON [place] MRI CERVICAL SPINE ( MRI Detailed) CPT:57624 Reason for Study: OUTSIDE STUDY Clinical History: OUTSIDE STUDY Report Status: Electronically Filed Date Report ed: JAN 15, 2022 Report: This is an outside Imaging study and/or report imported for continuity of patient care. This Imaging study and/or report was not reviewed or verified by a [place] Radiologist. Impression: This is an outside Imaging study and/or report imported for continuity of patient care. This Imaging study and/or report was not reviewed or verified by a [place] Radiologist. Primary Diagnostic Code: VERIFIED BY: / *ELECTRONICALLY FILED* Encounter Notes: All associated encounter notes This section contains the clinical notes associated to the Encounter. Date/Time Encounter Note(s) Provider Source Jan 21, 2022 03:28 PM REPORT OF CONTACT: SANDY LAWRENCE [facility] LOCAL TITLE: PATIENT CONTACT NOTE STANDARD TITLE: REPORT OF CONTACT DATE OF NOTE: JAN 21, 2022@15:28 ENTRY DATE: JAN 21, 2022@15:28:07 AUTHOR: SANDY LAWRENCE EXP COSIGNER: URGENCY: STATUS: COMPLETED PATIENT CONTACT NOTE Has ADDENDA Patient contact Name of : ROXY CALHOUN Name/Relationship of Contact if other than Veter an: Date & Time of Contact: Jan@15:28 Type of Contact: Reason for Contact: Pt called the call center amy that he has not heard back from his PCP about whether or not he can have his Neurosurg milena consult as a comm care consult due to: Approve for [facility] neurosurgery due to inability t o provide care for possible treatment of 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 Recommend [facility] Dr. Celso Souza or Dr Simba Douglas. per consult comment by PORSHA ONEILL. Supervisor Water Softener Service finds comm care consult has not yet been placed for this and pt would like this done so that he ma y have this service. He can be reached at the above # regarding this. Thanks. /es/ SANDY BURROUGHS 23 [facility] Signed: 01/21/2022 15:33 Receipt Acknowledged By: 01/21/2022 16:18 /es/ Zakiya Trinidad MD Staff Physician 01/21/2022 16:17 /es/ CARO BALDWINRN RN PACT Rehabilitator * AWAITING SIGNATURE * PORSHA ONEILL 01/21/2022 ADDENDUM STATUS: COMPLETED Neurosurgery service here forwarded the consult to [facility] - see Neurosurgery consult dated A . [facility] was contacted to schedule [facility] appt but was apparently initially had questions about the referral to [facility]. Now appears that does wish to be seen in [facility] - I have alerted [facility] that they can contact him again to coordinate this ca re. /es/ Zakiya Trinidad MD Staff Physician Signed: 01/21/2022 16:19 Receipt Acknowledged By: * AWAITING SIGNATURE * ASHLEE LUCERO * AWAITING SIGNATURE * PORSHA ONEILL
--- OUTSIDE RECORDS SUMMARY | 2022-02-07 16:02 | XMS_ITS | Encounter Summary ---
:1945 Author Organization [facility] Address [address] [place] [address] Support Name Relationship Address Phone JIMY CALHOUN Unavailable [address] [facility] [place] [address] LAURA IGNACIO Unavailable [address] [place] [address] NEFTALI CALHOUN Unavailable [address] [place] [address] Insurance Providers: All historical and current Section [...] Carr [place] MCR May 18, [id number] GONZALO CALHOUN P ATIENT [facility] (WNR) ADVANTAGE (WNR) 2018 8 [id number] [phone] ENT 1 MEDICA MCR MEDICARE MCR Jun 18 [id number] 800 GONZALO CALHOUN PATIENT (WNR) ADVANTAGE (WNR) 2012 32 [phone] ENT MEDICARE MEDICARE PART Feb 15, PART A [id number] 800 UNIQUEBR P ATIENT (WNR) (M) A 2009 [id number] [phone] ENT MEDICARE MEDICARE PART Feb 15, PART B [id number] 800 UNIQUEBR P ATIENT (WNR) (M) B 2009 [id number] [phone] ENT Selected Encounter This section includes the information on record at [place] for the Encounter. Date/Time Encounter Type Encounter Reason Provider Source Description Jan 28, 2022 OFFICE UROLOGY CLINIC ICD-10-CM N31.9 CRISTELA,LUKASZ M 11:00 AM CONSULTATION Neuromuscular dysfunction of bladder, unspecified with Provider Comments: Neuromuscular Dysfunction of Bladder, unspecified IHE Encounter Template Text not used by [place] Assessments - Encounter Diagnoses This section includes the primary and secondary diagnoses documented for the Encounter. Date/Time Primary/Secondary Diagnosis Name Provider Source Diagnosis Jan 28, 2022 PRIMARY Neuromuscular LUKASZ GRAVES [facility] 12:49 PM dysfunction of HCS bladder, unspecified Plan of Treatment: Future Appointments (+ 6 months) and Future Tests (+/- 45 days) The Plan of Treatment section includes future care activities for the patient from all [place] treatmentfacilities. This section includes future appointments and future orders which are active, pending orscheduled.Future Appointments This section includes appointments that were scheduled to occur 6 months from the date of the Encounter, up to a maximum of 20 appointments. The data comes from all [place] treatment facilities. Appointment Date/Time Appointment Type Appointment Facili ty Name Jan 29, 2022 09:30 AM AMBULATORY - REHAB MEDICINE [facility] Mar 31, 2022 02:00 PM AMBULATORY - REHAB MEDICINE [facility] Apr 29, 2022 01:30 PM AMBULATORY - SURGERY [facility] S Active, Pending, and Scheduled [...] the Encounter. The data comes from all [place] treatment facilities. Test Date/Time Test Type Test Details Facility Name Jan 10, 2022 05:17 PM Consult Order [facility] CARE-NEUROSURGERY Cons Air Conditioning Supervisor's Choice Jan 29, 2022 12:00 AM Imaging - CT [facility] Order Jan 29, 2022 12:00 AM Imaging - Ultrasound US RENAL (P) [facility] Order Jan 29, 2022 03:43 PM Consult Order OT OCCUPATIONAL THERAPY [place] [facility] OUTPT SCID Cons Air Conditioning Supervisor's Choice Jan 29, 2022 03:43 PM Consult Order PT [facility] OUTPT SCI/D REHAB Cons Air Conditioning Supervisor's Choice Jan 29, 2022 03:43 PM Consult Order FORENSICS ANALYST SPEECH THERAPY [facility] OUTPT DYSPHAGIA INSTRUMENTAL EVAL Cons Air Conditioning Supervisor's Choice Feb 14, 2022 08:00 AM Imaging - General ESOPHAGRAM VIDEO [place] [facility] Radiology Order SWALLOW Lab Results: +/- 30 days of the encounter This section includes the Chemistry and Hematology Lab Results on record with [place] for the patient. Radiology Reports and Pathology Reports are provided separately, in subsequent sections.Lab Results This section contains the Chemistry/Hematology Results that were resulted 30 days before or 30 daysafter the date of the Encounter. Date/Time Source Result Type Result - Unit Interpretation Reference Range Comment Jan 29, 2022 11:32 [facility] CYSTATIN C WITH EGFR Spec imen Type: PLASMA AM No comment enter ed. Ordering Provid er: DARIAN DOMINGUEZ Report Released Date/Time: Jan 29, 2022 10:57 AM Reporting Lab: [facility] [address] [facility] [id number] Performing Lab: [facility] [address] CYSTATIN C 1.09 H 0.51-1.05 CYST C EGFR(CKD-EPI) 65 >60 Jan 29, 2022 11:32 [facility] VIT D 25-OH,TOTAL Specime n Type: SERUM AM No comment enter ed. Ordering Provid er: DARIAN DOMINGUEZ Report Released Date/Time: Jan 29, 2022 10:57 AM Reporting Lab: [facility] [address] [facility] [address] Performing Lab[facility] [address] VIT D 25-OH,TOTAL 16 12-50 Social History: [...] Comment Facility Nov 21, 2021 02:00 PM [place]-TOBACCO NEVER USED KEVIN PEREZ [facility] Tobacco Use History This section includes a history of the smoking, or tobacco- related health factors, that were collected on or before the date of the Encounter. The data comes from the [place] facility where the Encounter took place. Date/Time Smoking Status/Tobacco Use Comment [facility] Aug 31, 2018 03:31 PM [facility] Aug 31, 2018 03:31 PM VA-TOBACCO QUIT 15 YRS OR MORE [facility] Jul 31, 2015 08:56 AM LIFETIME NON-TOBACCO USER [facility] Jun 24, 2010 08:52 AM LIFETIME NON-TOBACCO USER [facility] Radiology Reports: +/- 30 days of the [...] the Encounter. The data comes from all [place] treatment facilities. Date/Time Radiology Report Provider Source Jan 08, 2022 02:34 PM NON [place] MRI CERVICAL SPINE: [facility] ROXY CALHOUN [id number] -1945 M Exm Date: JAN 08, 2022@14:34 Req Phys: LISA TRINIDAD Loc: [facility] XRAY GENERAL AM (Req'g Loc Img Loc: OUTSOURCE MRI Service: Unknown (Case [id number] COMPLETE) NON [place] MRI CERVICAL SPINE ( MRI Detailed) CPT:86338 Reason for Study: OUTSIDE STUDY Clinical History: OUTSIDE STUDY Report Status: Electronically Filed Date Report ed: JAN 15, 2022 Report: This is an outside Imaging study and/or report imported for continuity of patient care. This Imaging study and/or report was not reviewed or verified by a [place] Radiologist. Impression: This is an outside Imaging study and/or report imported for continuity of patient care. This Imaging study and/or report was not reviewed or verified by a [place] Radiologist. Primary Diagnostic Code: VERIFIED BY: / *ELECTRONICALLY FILED* Encounter Notes: All associated encounter notes This section contains the clinical notes associated to the Encounter. Date/Time Encounter Note(s) Provider Source Jan 28, 2022 03:02 REPORT OF CONTACT: ARIELA ROACH [facility] PM LOCAL TITLE: PATIENT CONTACT NOTE STANDARD TITLE: REPORT OF CONTACT DATE OF NOTE: JAN 28, 2022@15:02 ENTRY DATE: JAN 28, 2022@15:02:59 AUTHOR: ARIELA ROACH EXP COSIGNER: URGENCY: STATUS: COMPLETED Patient contact Name of [place]: ROXY CALHOUN Name/Relationship of Contact if other than Veter an: Date & Time of Contact: Jan@15:03 Type of Contact: Other Reason for Contact: Records recieved, copied and set to scanning. 52 pages Copies at the help desk support for 04/29/22 mari patel. /pb/ ARIELA ROACH MSA PRE FABRICATOR Signed: 01/28/2022 15:04 Jan 28, 2022 12:11 UROLOGY NURSING OUTPATIENT NOTE: MONICA ZHANG [facility] PM LOCAL TITLE: UROLOGY CLINIC NURSING NOTE A STANDARD TITLE: UROLOGY NURSING OUTPATIENT NOTE DATE OF NOTE: JAN 28, 2022@12:11 ENTRY DATE: JAN 28, 2022@12:11:09 AUTHOR: PAUL ZHANG EXP COSIGNER: URGENCY: STATUS: COMPLETED Nursing Procedures: Intermittent Self Catherization (SIC) Participant(s) given Self Catherization handout . Participant(s) can verbalize and/or demonstrate : Purpose of S.I.C. and to catheterize often enou gh to keep RU <450mL. Clean technique. Insertion and removal of catheter and relaxed b reathing technique. Use catheter once and throw away. Measure residual urines and flow flex schedule. Graduate provided. To report symptoms of urinary tract infection, hematuria, or difficulty catheterizing. Phone number provided 14f speedicaths catheters 120/month with 11 refills per provider. Comments: is resistant to handwashing, stating he's been self- cathing for 2 years with never washing his hands or glans penis; emphasized importance of clean technique. Vet self-cathed t josefina in clinic with RU: 50mL. /pb/ PAUL ZHANG, MONOTYPE OPERATOR NURSE Signed: 01/28/2022 12:14 Jan 28, 2022 11:06 UROLOGY CONSULT: LUKASZ GRAVES [facility] AM LOCAL TITLE: UROLOGY CONSULT STANDARD TITLE: UROLOGY CONSULT DATE OF NOTE: JAN 28, 2022@11:06 ENTRY DATE: JAN 28, 2022@11:06:22 AUTHOR: LUKASZ GRAVES COSIGNER: URGENCY: STATUS: COMPLETED Chief Complaint: Urinary retention, neurogenic b ladder A/P ROXY Daniels is a 76 year old Vete ran who presents for Urinary retention secondary to neurogenic bladder. PLAN: 1. Urinary retention secondary to neurogenic dea dder - Volume based [facility]. Will have the nurse review c leanliness and technique. - obtain records from [facility] - rtc in 3 months for review of cathing and symp toms HPI: ROXY Daniels is a 76 year old Vete ran who presents for Urinary retention secondary to neurogenic bladder. 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 He had a UDS which reportedly s howed neurogenic bladder. He dribbles when he has urgency and can urinate a s mall amount. He self caths around 6 times daily. He mary s not measure. He is reusing catheters in an effort to save money. He has been waking up 3 t imes overnight and cathing himself. He has the feeling of urgency a nd he also leaks urine. His NON [facility] urologist started him on a medication last wee k which he takes before bed to relax the bladder. He has no idea what it is. Last week he inserted a fole y catheter into himself so he could get a good night of sleep. He removed it in the morning. He drink s 3 cups coffee daily. He has alcohol 1-2 times month. He has a diagnosis of obstructive sleep apnea and does not use CPAP. Medical history as below. 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) Osteoarthritis (ICD-9-CM 715.90) Constipation, u nspecified (ICD-9-CM 564.00) Impotence of organic origin (ICD-9-CM 60Sinusiti s (ICD-9-CM 473.9) Tremor (ICD-9-CM 781.0) 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) Health Maintenance (ICD-9-CM V65.9) Primary nonV A MD (ICD-9-CM 799.9) Family History of Stroke (CerebrovasculaAnemia ( ICD-9-CM 285.9) Leukocytopenia, unspecified (ICD-9-CM 28 H/O Malignant melanoma (SCT 445401923) Atrial fibrillation (SCT 41617505) Depression (S CT 48252247) Tremor (SCT 45805979) PAST SURGICAL HISTORY SURGERIES - NON [facility] surgeries Medications: Active Outpatient Medications (including Supplie s): Active Non-VA Medications Status 1) Non-VA ASPIRIN 325MG TAB 325MG MOUTH EVERY DA Y ACTIVE 2) Non-VA CITALOPRAM HYDROBROMIDE 20MG TAB 30 MG MOUTH ACTIVE EVERY DAY 3) Non-VA METOPROLOL TARTRATE TAB 12.5 MG MOUTH EVERY ACTIVE DAY 4) Non-VA SIMVASTATIN 40MG TAB 20MG MOUTH AT BED TIME ACTIVE Allergies: EPINEPHRINE (Jun 24, 2010) FAMILY HISTORY Hx of prostate cancer: Maternal uncle Hx of renal cancer: denies Hx of bladder cancer: denies Father age 63 stroke Mother age 88 in her sleep SOCIAL HISTORY Lives at home with: Children: 2 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 Tobacco use: denies Alcohol use: 1-2 month Illicit drug use: denies Branch of service: [employer] Agent orange exposure: denies Chemical/dye exposure: denies REVIEW OF SYSTEMS General: denies weight loss/gain, fevers, chills HEENT: denies complaints of headache, change in vision Cardio: denies chest pain/palpitations Gastro: denies dysphagia, nausea, vomiting : See HPI Musc: denies any new back pain, arthralgias, mus jeri ache Neuro: denies weakness, numbness, gait difficult ies Psych: denies new onset depression, mood changes , anxiety Skin: denies rashes Heme: denies easy bruising/bleeding PHYSICAL EXAM ====== Gen: no acute distress, alert and oriented x 3 Neck: no JVD, trachea midline, no abnormal adeno eleazar Resp: breathing comfortably, room air Abd: nondistended, no flank pain bilat Skin: Warm and dry, no visible rashes/bruises Ext: No cyanosis, or edema. Neuro: Cranial nerves II-XII grossly intact LABS: ====== PSA 2.99 PLASMA (09/20/18 10:53) Collection DT Specimen Test Name Result Units Re f Range 11/21/2021 15:39 PLASMA SODIUM 138 mmol/L 136 - 145 11/21/2021 15:39 PLASMA POTASSIUM 4.3 mmol/L 3.5 - 5.1 11/21/2021 15:39 PLASMA CHLORIDE 105 mmol/L 98 - 107 11/21/2021 15:39 PLASMA CO2 25 mmol/L 22 - 29 11/21/2021 15:39 PLASMA ANION GAP 8 mmol/L 5 - 1 5 11/21/2021 15:39 PLASMA UREA NITROGEN 14 mg/dL 8 - 26 11/21/2021 15:39 PLASMA CREATININE 0.8 mg/dL 0.7 - 1.2 11/21/2021 15:39 PLASMA ALBUMIN 3.6 g/dL 3.5 - 5 .2 11/21/2021 15:39 PLASMA CALCIUM 8.9 mg/dL 8.4 - 10.2 11/21/2021 15:39 PLASMA GLUCOSE 94 mg/dL 74 - 10 0 11/21/2021 15:39 BLOOD WBC 4.36 K/cmm 4.0 - 11.0 11/21/2021 15:39 BLOOD RBC 4.63 M/cmm 4.6 - 6.2 11/21/2021 15:39 BLOOD HGB 13.3 L g/dL 13.5 - 17 .9 11/21/2021 15:39 BLOOD HCT 39.7 L % 41 - 54 11/21/2021 15:39 BLOOD MCV 85.7 fL 80 - 100 11/21/2021 15:39 BLOOD MCH 28.7 pg 27 - 33 11/21/2021 15:39 BLOOD MCHC 33.5 g/dL 32.0 - 37. 5 11/21/2021 15:39 BLOOD PLT 183 K/cmm 150 - 400 11/21/2021 15:39 BLOOD MPV 9.9 fL 7.4 - 10.4 11/21/2021 15:39 BLOOD RDW 12.9 % 11.5 - 14.5 11/21/2021 15:39 PLASMA CREAT EGFR(CKD-EP >90 Re f: >=60 IMAGING ========= None for this visit I have reviewed the records and medications. I spent 40 minutes on this visit > 50% on counse ling. Lukasz Graves NP /pb/ LUKASZ GRAVES NP NURSE PRACTITIONER Signed: 01/28/2022 12:50
--- OUTSIDE RECORDS SUMMARY | 2022-02-07 16:02 | XMS_ITS | Encounter Summary ---
:1945 Author Organization [facility] Address [address] [place] [id number] Support Name Relationship Address Phone JIMY CALHOUN Unavailable [address] [place] [address] LAURA IGNACIO Unavailable [address] [place] [address] NEFTALI CALHOUN Unavailable [address] [place] [address] Insurance Providers: All historical and current Section [...] Carr [place] MEDICARE MCR May 18, [id number] GONZALO CALHOUN P ATIENT [facility] (WNR) ADVANTAGE (WNR) 2018 8 [id number] [phone] ENT 1 MEDICA MCR MEDICARE MCR Jun 18 [id number] 800 GONZALO CALHOUN PATIENT (WNR) ADVANTAGE (WNR) 2012 32 [phone] ENT MEDICARE MEDICARE PART Feb 15, PART A [id number] 800 GONZALO CALHOUN ATIENT (WNR) (M) A 2009 [id number] [phone] ENT MEDICARE MEDICARE PART Feb 15, PART B [id number] 800 UNIQUEBR P ATIENT (WNR) (M) B 2009 [id number] [phone] ENT Selected Encounter This section includes the information on record at [place] for the Encounter. Date/Time Encounter Type Encounter Description Reason Provider Source Jan 31, 2022 04:28 Outpatient Encounter SPINAL CORD INJURY PM IHE Encounter Template Text not used by [place] Plan of Treatment: Future Appointments (+ 6 months) and Future Tests (+/- 45 days) The Plan of Treatment section includes future care activities for the patient from all [place] treatmentfacilities. This section includes future appointments and future orders which are active, pending orscheduled.Future Appointments This section includes appointments that were scheduled to occur 6 months from the date of the Encounter, up to a maximum of 20 appointments. The data comes from all [place] treatment facilities. Appointment Date/Time Appointment Type Appointment Facili ty Name Mar 31, 2022 02:00 PM AMBULATORY - REHAB MEDICINE JIM Banks [facility] Apr 29, 2022 01:30 PM AMBULATORY - SURGERY [facility] Active, Pending, and Scheduled Orders This section includes a listing of several types of active, pending, and scheduled orders, including clinic medications orders, diagnostic test orders, procedure orders and consult orders; where the start date of the order is 45 days before the date of the Encounter or 45 days after the date of the Encounter. The data comes from all [place] treatment facilities. Test Date/Time Test Type Test Details Facility Name Jan 10, 2022 05:17 PM Consult Order COMMUNITY JIM Banks [facility] CARE-NEUROSURGERY Cons [facility] Jan 29, 2022 12:00 AM Imaging - CT Scan CT HEAD (P) [facility] Order Jan 29, 2022 12:00 AM Imaging - Ultrasound US RENAL (P) DORA CORCORANLIS [facility] Order Jan 29, 2022 03:43 PM Consult Order OT OCCUPATIONAL THERAPY [place] [facility] OUTPT SCID Cons [facility]ist[facility] Choice Jan 29, 2022 03:43 PM Consult Order PT PHYSICAL THERAPY [facility] POLIS [facility] OUTPT SCI/D REHAB Cons [facility]ist[facility] Jan 29, 2022 03:43 PM Consult Order STRUCTURAL METAL FABRICATOR APPRENTICE SPEECH THERAPY [facility] OLIS [facility] OUTPT DYSPHAGIA INSTRUMENTAL EVAL Cons [facility]ist[facility] Feb 14, 2022 08:00 AM Imaging - General ESOPHAGRAM VIDEO [facility] OLIS [facility] Radiology Order SWALLOW Lab Results: +/- [...] Range Comment Jan 29, 2022 11:32 [facility] CYSTATIN C WITH EGFR Spec imen Type: PLASMA AM No comment enter ed. Ordering Provid er: DARIAN DOMINGUEZ Report Released Date/Time: Jan 29, 2022 10:57 AM Reporting Lab: [facility] [address] [facility] [id number] Performing Lab: [facility] [id number] CYSTATIN C 1.09 H 0.51-1.05 CYST C EGFR(CKD-EPI) 65 >60 Jan 29, 2022 11:32 [facility] VIT D 25-OH,TOTAL Specime n Type: SERUM AM No comment enter ed. Ordering Provid er: DARIAN DOMINGUEZ Report Released Date/Time: Jan 29, 2022 10:57 AM Reporting Lab: [facility] [address] [facility] [id number] Performing Lab: [facility] [id number] VIT D 25-OH,TOTAL 16 12-50 Social History: Smoking Status (Most current) and Tobacco Use (All prior to encounter date) This section includes the most current, and the historical, smoking and tobacco-related health factors from the [place] facility where the Encounter took place.Current Smoking Status This section includes the most current smoking, or tobacco-related health factor, from the [place] facility where the Encounter took place. Date/Time Current Smoking Status Comment Facility Nov 21, 2021 02:00 PM MI-TOBACCO NEVER USED ALEXANDRSudha JEFERSONJOANNBRIAN [facility] Tobacco Use History This section includes a history of the smoking, or tobacco- related health factors, that were collected on or before the date of the Encounter. The data comes from the [place] facility where the Encounter took place. Date/Time Smoking Status/Tobacco Use Comment Spencer wilson Aug 31, 2018 03:31 PM [place]-TOBACCO FORMER USER ALEXANDR [facility] Aug 31, 2018 03:31 PM MI-TOBACCO QUIT [address] [facility] Jul 31, 2015 08:56 AM LIFETIME NON-TOBACCO USER [facility] Jun 24, 2010 08:52 AM LIFETIME NON-TOBACCO USER [facility] Radiology Reports: +/- 30 days of [...] the Encounter. The data comes from all [place] treatment facilities. Date/Time Radiology Report Provider Source Jan 08, 2022 02:34 PM NON VA MRI CERVICAL SPINE: [facility] ROXY CALHOUN [id number] -1945 M Exm Date: JAN 08, 2022@14:34 Req Phys: LISA TRINIDAD Loc: MSP XRAY GENERAL AM (Req'g Loc Img Loc: OUTSOURCE MRI Service: Unknown (Case [id number] COMPLETE) NON VA MRI CERVICAL SPINE ( MRI Detailed) CPT:60184 Reason for Study: OUTSIDE STUDY Clinical History: OUTSIDE STUDY Report Status: Electronically Filed Date Report ed: JAN 15, 2022 Report: This is an outside Imaging study and/or report imported for continuity of patient care. This Imaging study and/or report was not reviewed or verified by a [place] Radiologist. Impression: This is an outside Imaging study and/or report imported for continuity of patient care. This Imaging study and/or report was not reviewed or verified by a [place] Radiologist. Primary Diagnostic Code: VERIFIED BY: / *ELECTRONICALLY FILED* Encounter Notes: All associated encounter notes This section contains the clinical notes associated to the Encounter. Date/Time Encounter Note(s) Provider Source Jan 31, 2022 04:28 PM SOCIAL WORK NOTE: SADIE MERCER [facility] LOCAL TITLE: MADHU SOCIAL WORK PROGRESS NOTE STANDARD TITLE: SOCIAL WORK NOTE DATE OF NOTE: JAN 31, 2022@16:28 ENTRY DATE: JAN 31, 2022@16:28:19 AUTHOR: SADIE MERCER COSIGNER: URGENCY: STATUS: COMPLETED MADHU SOCIAL WORK PROGRESS NOTE Has ADDENDA * MADHU returned a phone call to Christina, oneyda was calling about travel benefits. She was told they should get s igned up. MADHU explained the eligibility requirements for benetravel. Blair would not q angelika for that. Then MADHU talked with her about [employer] [facility]. She thinks they are too far away for this service. SW is uncertain so wi ll check with [employer] next week. She said they may not need this type of service just yet. She said she can drive him to his appts. MADHU will let her know whether they are in range for [employer] or not, for future reference. /es/ DAWNA CHAIDEZ Sr SCI/D Medical Delivery Technician Signed: 01/31/2022 16:37 02/07/2022 ADDENDUM STATUS: COMPLETED SW checked with [employer] and they will provid e rides from [place]. Called Christina at the above number. Left a message asking for a re turn call. /pb/ DAWNA CHAIDEZ Sr SCI/D Medical Delivery Technician Signed: 02/07/2022 15:50
--- OUTSIDE RECORDS SUMMARY | 2022-02-07 16:02 | XMS_ITS | Encounter Summary ---
:1945 Author Organization [facility] Address [address] [place] [address] Support Name Relationship Address Phone JIMY CALHOUN Unavailable [address] [facility] [place] [address] LAURA IGNACIO Unavailable [address] [place] [address] NEFTALI CALHOUN Unavailable [address] [place] [address] Insurance Providers: All historical and current Section [...] Carr [place] MED[place]ARE MCR May 18, [id number] UNIQUEBR P ATIENT [facility] (WNR) ADVANTAGE (WNR) 2018 8 [id number] [phone] ENT 1 MEDICA MCR MEDICARE MCR Jun 18 [id number] 800 GONZALO CALHOUN PATIENT (WNR) ADVANTAGE (WNR) 2012 32 [phone] ENT MEDICARE MEDICARE PART Feb 15, PART A [id number] 800 UNIQUEBR P ATIENT (WNR) (M) A 2009 [id number] [phone] ENT MEDICARE MEDICARE PART Feb 15, PART B [id number] 800 UNIQUEBR P ATIENT (WNR) (M) B 2009 [id number] [phone] ENT Selected Encounter This section includes the information on record at [place] for the Encounter. Date/Time Encounter Type Encounter Reason Provider Source Description Jan 29, 2022 OFFICE SPINAL CORD ICD-10-CM DARIAN DOMINGUEZ 09:30 AM CONSULTATION INJURY G82.54 K Quadriplegia, C5-C7 incomplete with Provider Comments: Quadriplegia, C5-C7 Incomplete IHE Encounter Template Text not used by [place] Assessments - Encounter Diagnoses This section includes the primary and secondary diagnoses documented for the Encounter. Date/Time Primary/Secondary Diagnosis Name Provider Source Diagnosis Feb 05, 2022 PRIMARY Quadriplegia, DARIAN DOMINGUEZ V A 12:44 PM C5-C7 incomplete K [facility] Feb 05, 2022 SECONDARY Constipation, DARIAN DOMINGUEZ V A 12:44 PM unspecified K [facility] Feb 05, 2022 SECONDARY Neuromuscular DARIAN DOMINGUEZ V A 12:44 PM dysfunction of [facility] bladder, unspecified Plan of Treatment: Future Appointments (+ 6 months) and Future Tests (+/- 45 days) The Plan of Treatment section includes future care activities for the patient from all [place] treatmentfaciluab [facility]. This section includes future appointments and future orders which are active, pending orscheduled.Future Appointments This section includes appointments that were scheduled to occur 6 months from the date of the Encounter, up to a maximum of 20 appointments. The data comes from all [place] treatment facilities. Appointment Date/Time Appointment Type Appointment Facili ty Name Mar 31, 2022 02:00 PM AMBULATORY - REHAB MEDICINE [facility] Apr 29, 2022 01:30 PM AMBULATORY - SURGERY [facility] Active, Pending, and Scheduled Orders This section includes a listing of several types of active, pending, and scheduled orders, including clinic medications orders, diagnostic test orders, procedure orders and consult orders; where the start date of the order is 45 days before the date of the Encounter or 45 days after the date of the Encounter. The data comes from all [place] treatment facilities. Test Date/Time Test Type Test Details Facility Name Jan 10, 2022 05:17 PM Consult Order COMMUNITY [facility] Jocelyn [facility] CARE-NEUROSURGERY Cons Tank Pumper Panelboard's Choice Jan 29, 2022 12:00 AM Imaging - CT Scan CT HEAD (P) [facility] Order Jan 29, 2022 12:00 AM Imaging - Ultrasound US RENAL (P) DORA JUAREZ [facility] Order Jan 29, 2022 03:43 PM Consult Order OT OCCUPATIONAL THERAPY [place] [facility] OUTPT SCID Cons Tank Pumper [facility] Jan 29, 2022 03:43 PM Consult Order PT PHYSICAL THERAPY [facility] ROSARIO [facility] OUTPT SCI/D REHAB Cons Tank P[employer] [facility] Jan 29, 2022 03:43 PM Consult Order HEALTHCARE FINANCIAL ANALYST SPEECH THERAPY [facility] HOOKER [facility] OUTPT DYSPHAGIA INSTRUMENTAL EVAL Cons Tank [facility] Feb 14, 2022 08:00 AM Imaging - General ESOPHAGRAM VIDEO [facility] Radiology Order SWALLOW Lab Results: [...] Reference Range Comment Jan 29, 2022 11:32 [facility] CYSTATIN C WITH EGFR Spec imen Type: PLASMA AM No comment enter ed. Ordering Provid er: DARIAN DOMINGUEZ Report Released Date/Time: Jan 29, 2022 10:57 AM Reporting Lab: [facility] [id number] Performing Lab: [facility] [id number] CYSTATIN C 1.09 H 0.51-1.05 CYST C EGFR(CKD-EPI) 65 >60 Jan 29, 2022 11:32 [facility] VIT D 25-OH,TOTAL Specime n Type: SERUM AM No comment enter ed. Ordering Provid er: DARIAN DOMINGUEZ Report Released Date/Time: Jan 29, 2022 10:57 AM Reporting Lab: [facility] [address] [facility] [address] [facility] [phone] Performing Lab: [facility] [id number] VIT D 25-OH,TOTAL 16 12-50 Vital Signs: All taken on the encounter date This section contains inpatient and outpatient Vital Signs collected on the date of the Encounter. Date/Time Temperature Pulse Blood Respiratory SP02 Pain Height Weight Dameon dy Source Pressure Rate Mass Index Jan 29, 96.5 F 69 [facility] 2021 09:33 /min [facility] AM [facility] Jan 29 112/63 96 % [facility] 2021 09:32 /min mm[Hg] [facility] Social History: Smoking Status (Most current) and Tobacco Use (All prior to encounter date) This section includes the most current, and the historical, smoking and tobacco-related health factors from the [place] facility where the Encounter took place.Current Smoking Status This section includes the most current smoking, or tobacco-related health factor, from the [place] facility where the Encounter took place. Date/Time Current Smoking Status Comment Facility Nov 21, 2021 02:00 PM VA-TOBACCO NEVER USED KEVIN PEREZ [facility] Tobacco Use History This section includes a history of the smoking, or tobacco- related health factors, that were collected on or before the date of the Encounter. The data comes from the [place] facility where the Encounter took place. Date/Time Smoking Status/Tobacco Use Comment [facility] it Aug 31, 2018 03:31 PM VA-TOBACCO FORMER USER ALEXANDR MIRANDA [facility] Aug 31, 2018 03:31 PM [place]-TOBACCO QUIT 15 YRS OR MORE [facility] Jul 31, 2015 08:56 AM LIFETIME NON-TOBACCO USER [facility] Jun 24, 2010 08:52 AM LIFETIME NON-TOBACCO USER [facility] Radiology Reports: +/- 30 days of [...] the Encounter. The data comes from all [place] treatment facilities. Date/Time Radiology Report Provider Source Jan 08, 2022 02:34 PM NON VA MRI CERVICAL SPINE: [facility] ROXY CALHOUN [id number] -1945 M Exm Date: JAN 08, 2022@14:34 Req Phys: LISA TRINIDAD Loc: [facility] XRAY GENERAL AM (Req'g Loc Img Loc: OUTSOURCE MRI Service: Unknown (Case [id number] COMPLETE) NON [place] MRI CERVICAL SPINE ( MRI Detailed) CPT:35627 Reason for Study: OUTSIDE STUDY Clinical History: OUTSIDE STUDY Report Status: Electronically Filed Date Report ed: JAN 15, 2022 Report: This is an outside Imaging study and/or report imported for continuity of patient care. This Imaging study and/or report was not reviewed or verified by a [place] Radiologist. Impression: This is an outside Imaging study and/or report imported for continuity of patient care. This Imaging study and/or report was not reviewed or verified by a [place] Radiologist. Primary Diagnostic Code: VERIFIED BY: / *ELECTRONICALLY FILED* Encounter Notes: All associated encounter notes This section contains the clinical notes associated to the Encounter. Date/Time Encounter Note(s) Provider Source Jan 29, 2022 01:37 SPINAL CORD INJURY [facility] TITLE: SCI/D CONSULT STANDARD TITLE: SPINAL CORD INJURY CONSULT DATE OF NOTE: JAN 29, 2022@13:37 ENTRY DATE: JAN 29, 2022@13:37:51 AUTHOR: DARIAN DOMINGUEZ EXP COSIGNER: URGENCY: STATUS: COMPLETED SCI/D Outpatient Consult Note CC: establish SCI care HPI: Mr. 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 Information is obtained from the patient, spouse and from chart review. Briefly, Mr. CALHOUN has a known cervical cord ma ss previously dx as cavernous hemangioma in the . He was told this was non operable and that no further intervention was needed as h e was quite functional at that time. 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 However, he has had progressive UE weakness and sensory changes, particularly dista lly, in the last few years. Balance has been more proble matic as well. Describes impaired sensation to temp, pain, light touch bilat hands as well as temp in R(?) trunk. Walking has been impacted more in recent years as well, as he was noted to have lumbar spinal stenosis and underwent lumba r fusion at L4-5 in 2019, though notes from this are not currently available, pt reports done via [facility]. Has not yet seen Neurosurgery since sx began progressing. Endorses difficulty w/ bladder control, has been performing SIC; does not seem to have v olitional voiding, though reports he pees off the top when bladder is to o full. Had cath volume of 900cc last night. Also endor ses constipation, not on formal bowel program. Some spasticity/spasms val in LE, no formal ROM or HE P for this, not taking medications. Functionally, w as seen by PT in November for evaluation of mobility but has not been seen since. Had been using rollator , issued new upright/platform walker at that time. No further PT planned at at time. Has not been seen by OT or HEALTHCARE FINANCIAL ANALYST recently, but endorses concern s for self cares as well as difficulty w/ swallow. Otherwise doing OK, no recent hospit alizations or significant illnesses reported. REVIEW OF SYSTEMS: As above SOCIAL Hx: Lives in [place] w/ spouse, no johny e care service, some concerns about accessibility of home and transfers w/in t he home as above MEDICATIONS: Active Outpatient Medications (including Supplie s): Active Non-VA Medications Status 1) Non-VA ASPIRIN 325MG TAB 325MG MOUTH EVERY DA Y ACTIVE 2) Non-VA CITALOPRAM HYDROBROMIDE 20MG TAB 30 MG MOUTH ACTIVE EVERY DAY 3) Non-VA METOPROLOL TARTRATE TAB 12.5 MG MOUTH EVERY ACTIVE DAY 4) Non-VA SIMVASTATIN 40MG TAB 20MG MOUTH AT BED TIME ACTIVE PHYSICAL EXAMINATION: Exam: Temperature: 96.5 F [35.8 C] (01/29/2022 09:33) Pulse: 69 (01/29/2022 09:33) Respirations: 18 (11/21/2021 13:54) Blood Pressure: 112/63 (01/29/2022 09:32) Pain: 0 (11/21/2021 13:54) General: Pt alert and cooperative, in NAD HEENT: no swelling, erythema or excessive secret ions. Respiratory: breathing nonlabored, no cough Peripheral vascular: fair distal extremity warmt h; no significant edema. Neurology: at least antigravity on observation, detailed exam deferred given time constraints IMAGING: MRI reviewed w/ pt, report available in [facility] ASSESSMENT/PLAN: Mr. 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 # Incomplete tetraplegia: Will consult PT, OT and HEALTHCARE FINANCIAL ANALYST given functional con cerns as noted above Check Vit D and cystatin C, as this has not been checked previously Neurosurgery consult for [facility] has been previously placed by PCP Dr. Trinidad, agree w/ this particularly given symptomatic progressi on Additionally, will obtain head CT (unabl e to have MRI at [place] given pacer) given symptoms, no brain imaging previously and concer n for ?ventriculomegaly given size of central canal and ?syrinx based on avail able imaging # Bladder: Managed via SIC w/ some incontinence, presumably overflow Will obtain renal US to r/o hydronephrosis Will likely need to arrange for further Urology f/u and/or UDS F/u at next visit # Bowel: Managed via voluntary BM, no formal program thou gh endorsing constipation No acute concerns for obstru ction but would likely benefit from more aggressive management when bladder is under better eli leary Will discuss further at next visit # Dysphagia Nature of this not entirely clear given his hist ory Will obtain head CT to r/o other etiologies HEALTHCARE FINANCIAL ANALYST consult placed to further evaluate swallow F/u at next visit # FOLLOW UP: RTC in 2 months, will call if questions or malgorzata rns in the interim Total physician [id number] time spent was 50 minutes, with more than 50% spent in counseling and coordination of care for the i ssues detailed above. /es/ DARIAN DOMINGUEZ MD STAFF PHYSICIAN Signed: 02/05/2022 12:44 Jan 29, 2022 09:34 SPINAL CORD INJURY NURSING NOTE: MIGUEL RICHARDS V [facility] LOCAL TITLE: SCI/D CLINIC NURSE NOTE STANDARD TITLE: SPINAL CORD INJURY NURSING NOTE DATE OF NOTE: JAN 29, 2022@09:34 ENTRY DATE: JAN 29, 2022@09:34:29 AUTHOR: JACK RICHARDS V EXP COSIGNER: URGENCY: STATUS: COMPLETED Appointment Check-In... TYPE OF VISIT: Appointment Check In Type of appointment: In-person appointment REASON FOR VISIT: SCI/D Clinic Appointment with Dr. Dominguez ALLERGIES: EPINEPHRINE (Jun 24, 2010) VITAL SIGNS: Blood Pressure: 112/63 (01/29/2022 09:32) Pulse: 69 (01/29/2022 09:33) Respiration: 18 (11/21/2021 13:54) Temperature: 96.5 F [35.8 C] (01/29/2022 09:33) Weight: Unavailable (11/21/2021 13:54) Height: Unavailable (11/21/2021 13:54) BMI: BMI not available without height O2 Sat: 96% (01/29/2022 09:32) Pain: 0 (11/21/2021 13:54) Pain Screening: * Are you griffith ving significant pain that you want to talk to your provider about today? PAIN SCREEN: Patient is not having significant pain that the y wish to discuss with their provider today. Medication Reconciliation Active Outpatient Medications (excluding Supplie s): Non-VA Medications Status 1) Non-VA ASPIRIN 325MG TAB 325MG MOUTH EVERY DA Y ACTIVE 2) Non-VA CITALOPRAM HYDROBROMIDE 20MG TAB 30 MG MOUTH ACTIVE EVERY DAY 3) Non-VA METOPROLOL TARTRATE TAB 12.5 MG MOUTH EVERY ACTIVE DAY 4) Non-VA SIMVASTATIN 40MG TAB 20MG MOUTH AT BED TIME ACTIVE Barbeau no longer taking above medications. He is only taking fluoxetine per pt's and she can't remember the dose either . INPT MEDICATIONS:NONE Medication list has been reviewed with patient and accuracy verified. /pb/ JACK RICHARDS REGISTERED NURSE Signed: 01/29/2022 09:39
--- OUTSIDE RECORDS SUMMARY | 2022-02-07 16:02 | XMS_ITS | Continuity of Care Document ---
:1945 Author Organization [facility] Address [address] [place] [phone] Phone Care Team Providers Name Role Phone Truman Cobb MD Unavailable Unavailable Allergies, Adverse Reactions, Alerts Substance Reaction Status Criticality epinephrine Tachycardia Active No Information Medications Medication Instructions Dosage Effective Dates Status Comment s (start - stop) fluoxetine 10 mg take 1 Capsule by oral 10 MG - Acti ve capsule route every day magnesium 400 mg (as - Active magnesium oxide) tablet Ecotrin 325 mg take 1 tablet by oral 325 MG - Active tablet,enteric coated route every day Calcium Plus MenaQ7 - Active Senior 600 mg-1,000 unit-90 mcg tablet Procedures Procedure Date Telephone E&M II 11-20 Min [facility] Colonoscopy Flex; Dx (sep Pro) Telephone E&M III 21-30 Min [facility] Advance Directives Directive Yes / No Effective Date File Name No Information Encounters Encounter Practice Location Reason(s) Diagnoses Date Provider Provide rs Description For Visit Copied on Encounter [facility] [place] No Information Jul- Jordyn MARIE [facility], [address] [address], [address] [place], [address], [id number], [place], [place] [id number], [phone]. [phone] tel:[phone] Telephone [facility] Constipation, Yulia MARIE Refer ring E&M II 04-06 [facility] Symptoms unspecified Branden. Pro vider: Min [facility], [address]. [address], ([address], [place] complaint) [address], [place], [place], [place], [id number], [place], [place] [id number], tel:[phone] tel:[phone] [facility] [place] [facility] Constipation, Sep-2 Santiago MARIE Refe rring [facility] unspecifiedConst Jorge. Pr ovider: [facility], Center ipation, [address] unspecified [place] [address] [address], [place] [address], [place], [place], [place], [id number], [place], [place] [id number], tel:[phone]. [phone] tel:[phone] Telephone [facility] Change in bowel Sep- Yulia MARIE Ref erring E&M III [facility] Symptoms habitsUnspecifie Branden. Pro vider: 21-30 Min [facility], or d [address] Jair FIONA [address] [place] [address], [address], [address], [address] [place] complaint) [address], [place], [place], [address], [id number], [place], [facility] [id number], , [place], tel:[phone] [place]. [phone] tel: tel: [phone] [facility] No Information Sep-0 No Referring Digestive Information Provider: [facility], 0 Jair [address] [address], [address], [address] [place] [address], [place], [address], [id number], [facility] , [place], tel: [phone] tel:[phone] Family History Family Member Type Diagnosis Age At Onset Mother Problem (finding) Father Problem (finding) Daughter Problem (finding) Alive and well Sister Problem (finding) Son Problem (finding) Alive and well Immunizations Vaccine Date Status Comments influenza, seasonal vaccine, administered Not e: [facility] bi-directional quadrivalent, adjuvanted, .5mL i nterface ; Source: Other dose, preservative free Registry Seasonal trivalent influenza administered Not e: [facility] bi-directional vaccine, adjuvanted, interface ; Source: Other preservative free Registry zoster vaccine recombinant administered Note: [facility] bi-directional interface ; Sour ce: Other Registry Seasonal trivalent influenza administered Not e: [facility] bi-directional vaccine, adjuvanted, interface ; Source: Other preservative free Registry Seasonal trivalent influenza administered Not e: [facility] bi-directional vaccine, adjuvanted, interface ; Source: Other preservative free Registry tetanus toxoid, reduced administered Note: [facility] bi-directional diphtheria toxoid, and acellular interface ; Source: Other pertussis vaccine, adsorbed Genny stry Fluzone Quad 6mo or older administered Note: [facility] bi-directional interface ; Sour ce: Other Registry Prevnar 13 administered Note: [facility] bi-di rectional interface ; Sour ce: Other Registry influenza, high dose seasonal, administered N ote: [facility] bi-directional preservative-free interface ; So urce: Other Registry influenza, high dose seasonal, administered N ote: [facility] bi-directional preservative-free interface ; So urce: Other Registry Pneumovax 23 administered Note: [facility] bi-di rectional interface ; Sour ce: Other Registry Influenza, seasonal, injectable, administered Note: [facility] bi-directional preservative free interface ; So urce: Other Registry Influenza, seasonal, injectable, administered Note: [facility] bi-directional preservative free interface ; So urce: Other Registry Influenza, seasonal, injectable administered Note: [facility] bi-directional interface ; Sour ce: Other Registry Payers Payer name Insurance type Covered libertarian ID Authorization(s ) No Information Social History Type Description Quantity Date Captured Comments Sex Male Smoking Status No Information Chief Complaint And Reason For Visit No Information Reason For Referral Reason For Referral No Information Plan Of Treatment Date Type Action Status Referral Ordered: ordered referred to Colon an d Rectal Surgery for Consult with Pelvic Floor MD to disc (related to Constipation, unspecified) Referral Ordered: ordered referred to Colon and Rectal Henrry noguera for Consult with Pelvic Floor MD to disc Referral Ordered: ordered Colonoscopy Appointment date/timeframe: 02/14/2020 History Of Present Illness Encounter Date Complaint History Of Present I llness GI Symptoms or Concerns This is a 75-yea r-old male with a change in bowel habits, milagros addison who I am seeing for a virtual visit ramon pardo.The patient had previous back surger y. He has had a 20-pound weight loss previous ly. Colonoscopy was done by Dr. Henderson on , which just showed internal hemo rrhoids, only a fair preparation despite a double prep. Also, after the procedure, the p atient continued on MiraLax daily and de spite that, it still was 8 days before he had a bowel movement.He notes his stools are diffe rent and that they are pencil-thin ribbons and come out like slim jims. He may have a n urge to have a bowel movement every day, but when he goes to the bathroom, he cannot evacuate stool at that time. He also has pr oblems evacuating his bladder and urinates frequently. He may have a bowel movement every 2 to 3 days that is quite soft and again narro wed. GI Symptoms or Concerns This is a 74-yea r-old male referred for consultation by Dr. Jair Hancock for change in bowel habits, nellisandra cyn, due for colonoscopy. The vis it was done virtually. I did get consent to stephen smith with the visit.The patient has a histor y of lumbar surgery in May 2019. He rep orts having surgery for L4-L5 apparently wit h nerve compression that was repaired. 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 He had a col onoscopy last done 08/2012, apparently it was a poor prep and was stopped, unable to r each the end and a barium enema was done after that. It was thought perhaps followup bar ium enema in 5 or so years.He has had pro blems with constipation over the years, mayb e having a bowel movement twice per week. Now since the surgery, he has had a bowel movement only once per week. Recently went 8 days without a bowel movement. He does not get abdo carolyn pain. He has tried fiber, which init Functional Status Date Functional Assessment No Information Instructions Date Instruction Additional Informati on Colon Cancer Prevention Related to Const ipation, unspecified Hemorrhoids Related to Constipat ion, unspecified high fiber diet Related to Constipat ion, unspecified Constipation Bowel Cleanse (Adult) Relat ed to Unspecified constipation Assessments Type Assessment Date No Information Patient Care Teams Name Effective Dates (start - stop) Status M embers No Information
--- OUTSIDE RECORDS SUMMARY | 2022-02-07 16:03 | XMS_ITS | Encounter Summary ---
:1945 Author Care Team Providers Name Role Phone Jair Hancock MD Primary Care Provider [phone] Reason for Visit Neurogenic Bladder Assessment and Plan 1. Flaccid neurogenic bladder Dr. Biswas's notes reviewed. Urodynamic testing does show an atonic bladder. He is catheterizing himself several times a da y. He has a lot of urgency at night. We will try him on Gemtesa 2. Urinary incontinence Having incontinence at night. Patient w larry like to leave a Neff catheter in overnight and remove it in the morning. Catheter given today. Discussion Note: None recorded.Patient educational handouts: No information available. Plan of Care Reminders Provider Appointments None recorded. ? ? Lab None recorded. ? ? Referral None recorded. ? ? Procedures None recorded. ? ? Surgeries None recorded. ? ? Imaging None recorded. ? ? Medications Name Start Date ? ? Prozac 10 mg capsule ? Take 1 capsule every day by oral route. Senexon-S 8.6 mg-50 mg tablet ? TAKE 3 TABLETS BY MOUTH TWICE A DAY Medications Administered None recorded. Vitals Height Weight BMI 6 ft 1 in 170 lbs 22.4 kg/m2 Results Lab Results None recorded. Allergies Code Code System Name Reaction Severity Onset NKDA ? ? ? Problems Name Status Onset Date Source ? Gastroesophageal Reflux Disease Active 08/06/2020 ? Procedures Date Name Performed by ? 05/18/2019 Colonoscopy Information not avai lable Vaccine List Vaccine Type COVID-19, mRNA, LNP-S, PF, 30 mcg/0.3 mL dose ([employer]) 07/12/2020 08/02/2020 Influenza vaccine, quadrivalent, adjuvan cali 01/20/2020 02/25/2021 influenza, high dose seasonal 02/13/2014 04/05/2015 influenza, injectable, quadrivalent, pre servative free 07/15/2016 influenza, seasonal, injectable 02/06/2009 04/26/2012 03/01/2013 influenza, seasonal, injectable, preserv ative free 02/12/2010 03/06/2011 influenza, trivalent, adjuvanted 03/10/2017 03/23/2018 02/23/2019 pneumococcal conjugate PCV 13 04/05/2015 pneumococcal polysaccharide PPV23 03/06/2011 Tdap 07/15/2016 zoster recombinant 10/22/2018 Social History Tobacco Smoking Status Never Smoker What is your level of alcohol consumption? Occasional Marital status Do you or have you ever used smokeless tobacco? Never used s Me-Mover tobacco Preferred Language Mexican How much tobacco do you chew? none What was the date of your most recent tobacco 01/23/2022 screening? Ethnicity Not / Do you or have you ever used e-cigarettes or Never used elec tronic cigarettes vape? What is your level of caffeine consumption? Moderate Race White Recreational Drug Use N Family History Relation Problem Onset Age of Age Notes Father Family history of (No Information) N/A (No No carlos) Hypertension Maternal Uncle Family history of prostate (No Information) N/A (No Notes) cancer Functional Status Unknown. Past Encounters 01/23/2022 Flaccid Neurogenic Bladder; Urinary Inco ntinence Kem Mukherjee MD: [address] [facility], [address], [place] [address], Ph. History of Present Illness Note: <p>Patient is here for follow-up visit. He has a known neurogenic bladder. He does catheterize himself every 2 hours.</p><div>
</div> Review of Systems ? Comprehensive General Adult ROS Reported By: Patient Constitutional: Constitutional: no fever, no chills Eyes: Eyes: no dry eyes, no vision change, no irritation Endocrine: Endocrine: no fatigue, no in creased thirst Cardiovascular: Cardiovascular: no chest serafin n, no palpitations Integumentary: Skin: no rashes, no change i n skin color Respiratory: Respiratory: no wheezing, no cough, no shortness of breath Gastrointestinal: Gastrointestinal: no abdomin al pain, no nausea, no vomiting, no constipation, GERD Musculoskeletal: Musculoskeletal: no neck serafin n, no back pain Neurologic: Neurologic: no dizziness, no headaches, tremor, numbness Genitourinary: Genitourinary: no incontinen ce, difficulty urinating ENMT: Ears: no ear pain. Mouth/Thr oat: no sore throat Allergic/Immunologic: Allergy/Immunologic: no itch ing, no hives Hematologic/Lymphatic: Hematologic/Lymphatic no swo llen glands, no excessive bleeding Psychiatric: Psych: no hallucinations, (n ormal) sleep disturbances: mismatch of sleep / wake holly edule with lifestyle needs Physical Exam None recorded.
--- OUTSIDE RECORDS SUMMARY | 2022-02-07 16:03 | XMS_ITS ---
:1945 Author Care Team Providers Name Role Phone BARRIE WOOD MD Primary Care Provider [phone] Allergies Code Code System Name Reaction Severity Status Onset NKDA ? Medications Name Status Start Date Stop Date ? ? amoxicillin 875 mg-potassium clavulanate 125 mg tablet Completed ? 08/30/2020 PLEASE SEE ATTACHED FOR DETAILED DIRECTIONS cephalexin 250 mg capsule Completed ? 2020 TAKE 1 CAPSULE BY MOUTH 4 TIMES A DAY ciprofloxacin 750 mg tablet Completed ? 08/16 TAKE 1 TABLET BY MOUTH TWICE A DAY doxycycline monohydrate 100 mg tablet Completed ? 08/30/2020 TAKE 1 TABLET BY MOUTH EVERY 12HOURS AVOID SUNLIGHT WHILE TAKIN G MEDICATION finasteride 5 mg tablet Completed ? 08/31/19 21 TAKE 1 TABLET BY MOUTH EVERY DAY IN THE MORNING nitrofurantoin monohydrate/macrocrystals 100 mg capsule Complete d ? 08/30/2020 TAKE 1 CAPSULE BY MOUTH 2 TIMES DAILY FOR 3 DAYS Prozac 10 mg capsule Active ? Not availab le Take 1 capsule every day by oral route. Senexon-S 8.6 mg-50 mg tablet Active ? No t available TAKE 3 TABLETS BY MOUTH TWICE A DAY tamsulosin 0.4 mg capsule Completed ? 2021 Take 1 capsule every day by oral route. Problems Name Status Onset Date Source ? Gastroesophageal Reflux Disease Active 08/06/2020 ? Procedures Date Name Performed by ? 05/18/2019 Colonoscopy Information not avai lable Results Lab Results Date Name Specimen Result Interpretation Description Value Range Status Address ? 08/20/2020 Urinalysis, UR ? Color yellow yellow Final [place] [facility]: [address] [facility] [address], [place] ? ? UR ? Appearance clear clear Final [place] [facility]: [address] [facility] [address], [place] ? ? UR ? Glucose negative negative Final [place] [facility] mg/dL mg/dL [facility]: [address] [address], [place] ? ? UR ? Bilirubin negative negative Final [place] [facility]: [address] [address], [place] ? ? UR ? Ketones negative negative Final [place] [facility] mg/dL mg/dL [facility]: [address] [address], [place] ? ? UR ? Sp. [place] 1.015 1.010-1.02 Final [place] [facility] 5 [facility]: [address] [address], [place] ? ? UR ? pH -[facility] 7.0 5.0-8.0 Final [place] [facility]: [address] [address], [place] ? ? UR ? Protein negative negative Final [place] [facility] mg/dL mg/dL [facility]: [address] [address], [place] ? ? UR ? Urobilinogen 1.0 normal Final [place] [facility]: [address] [address], [place] ? ? UR ? Nitrites negative negative Final [place] [facility]: [address] [address], [place] ? ? UR ? 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 ? UR ? Leukocytes negative negative Final [place] [facility]: [address] [address], [place] ? ? UR ? Performed by roshan Hickman ? Final [place] [facility]: [address] [address], [place] ? ? UR ? Total Urine 75 /mL ? Final [place] Volume (mL) [facility]: [address] [address], [place] Past Encounters 01/23/2022 Flaccid Neurogenic Bladder; Urinary Inco ntinence Kem Mukherjee MD: [address], [address] [address], Ph. 08/30/2020 Flaccid Neurogenic Bladder Kem Mukherjee MD: [address] [facility] [place] [facility] [address], [place] [address], Ph. 08/20/2020 Benign Prostatic Hyperplasia with Outflo w Obstruction Kem Mukherjee MD: [address] [facility], [address], [place] [address], Ph. Social History Tobacco Smoking Status Never Smoker Vaccine List Vaccine Type COVID-19, mRNA, LNP-S, PF, 30 mcg/0.3 mL dose ([employer]) 07/12/2020 08/02/2020 Influenza vaccine, quadrivalent, adjuvan cali 01/20/2020 02/25/2021 influenza, high dose seasonal 02/13/2014 04/05/2015 influenza, injectable, quadrivalent, pre servative free 07/15/2016 influenza, seasonal, injectable 02/06/2009 04/26/2012 03/01/2013 influenza, seasonal, injectable, preserv ative free 02/12/2010 03/06/2011 influenza, trivalent, adjuvanted 03/10/2017 03/23/2018 02/23/2019 pneumococcal conjugate PCV 13 04/05/2015 pneumococcal polysaccharide PPV23 03/06/2011 Tdap 07/15/2016 zoster recombinant 10/22/2018 Plan of Care Reminders Provider Appointments None recorded. ? ? Lab None recorded. ? ? Referral None recorded. ? ? Procedures None recorded. ? ? Surgeries None recorded. ? ? Imaging None recorded. ? ? Vitals 01/23/2022 11:10AM ESTABLISHED 10 Height Weight BMI 6 ft 1 in 170 lbs 22.4 kg/m2 08/30/2020 10:20AM ESTABLISHED 10 Height Weight BMI 6 ft 1 in 170 lbs 22.4 kg/m2 08/20/2020 10:00AM URODYNAMICS PROC 90 Height Weight BMI 6 ft 1 in 170 lbs 22.4 kg/m2 08/06/2020 02:40PM NEW PATIENT 20 Height Weight BMI 6 ft 1 in 170 lbs 22.4 kg/m2
[2022-02-07 16:29] LABS: Basophils Percent Auto 0.8 % (0.0-3.0); Eosinophils Percent Auto 8.4 % (0.0-7.0); Hematocrit 36.4 % (37.0-53.0); Hemoglobin* 12.2 gm/dL (13.5-17.5); Lymphocytes Percent Auto 17.6 % (20-44); Mean Corpuscular HGB Conc 34 gm/dL (32-36); Mean Corpuscular Hemoglobin 29 pg (26-34); Mean Corpuscular Volume 85 fL (80-100); Monocytes Percent Auto 8.4 % (0.0-11.0); Neutrophils Percent Auto 64.8 % (42.0-72.0); Platelet Count* 221 K/uL (140-440); RDW Coefficient of Variation % 12.4 % (11.5-15.5); Red Blood Count 4.28 m/uL (4.30-5.90); White Blood Count* 3.93 K/uL (4.50-11.00)
[2022-02-07 16:30] VITALS: BP 113/81
[2022-02-07 16:30] LABS: Slide Review Reflex No
[2022-02-07 16:41] LABS: Chloride* 102 mmol/L (96-114); Potassium* 4.5 mmol/L (3.6-5.1); Sodium* 134 mmol/L (135-149)
[2022-02-07 16:44] LABS: Carbon Dioxide* 29 mmol/L (20-32); Creatinine* 0.7 mg/dL (0.5-1.5); Est. Creatinine Clearance* 68.54; Estimated Glomerular Filt Rate 95 ml/min
[2022-02-07 16:45] LABS: Blood Urea Nitrogen* 15 mg/dL (7-30); Calcium* 8.4 mg/dL (8.4-10.6); Glucose* 108 mg/dL (60-115)
--- NOTE | 2022-02-07 17:41 | ED.NURSE ---
Pt up to BR to self cath.
[2022-02-07 18:34] VITALS: BP 137/76; PULSE 60; RESP 16; TEMP 36.7; O2SAT 96
--- NOTE | 2022-02-07 18:46 | ED.NURSE ---
Mag citrate not available from pharmacy. Pt will get OTC
== END 2022-02-07 18:47 | disposition home or self-care (01) ==
PROVIDERS: Emergency Provider Emergency Medicine Emergency Medical Services; PCP Family Medicine
DX: K59.00 Constipation, unspecified (principal)
CPT/HCPCS: 36415; 74177; 80048; 85025; 99284; Q9967

== ENCOUNTER 2023-09-17 18:38 | Emergency (ER) | payer MEDICARE, SELFPAY ==
--- NOTE | 2023-09-17 18:40 | ED_ITS ---
HPI - General Adult General Date Seen: 09/17/23 Chief complaint: Fall/Minor Trauma Stated complaint: Needs stitches Time Seen by Provider: 09/17/23 18:39 History of Present Illness HPI narrative: 78-year-old male with a history of lumbar spine problem for and previous L-spine surgery, and also chronic cervical cord compression. He has chronic left upper extremity and right lower extremity weakness as well as some weakness in his left lower extremity. He is wheelchair-bound.. Per records from [facility] he also has a history of chronic diastolic CHF, atrial fibrillation (on Eliquis), ablation for AFib, hypertension, coronary disease, GERD. He presents to the ER tonight with his with concern for a right forehead injury after he fell out of his wheelchair. It sounds like he fell out of his wheelchair accidentally. Afternoon he was moved away from the table, but they did not have up the left arm rest of his wheelchair so he fell sideways on the left and landed on his left side. He is not sure how but he struck his right forehead against the floor. No loss of consciousness. He does not have a headache. No blurry vision. No nausea or vomiting. He is not having any neck pain. He did suffer a laceration to his right forehead with significant bleeding that his was able to control by applying direct pressure and wrapping his forehead with a towel. He did take his Eliquis this morning but had not had time to take his Eliquis yet this evening. He normally takes after dinner. No other injuries in the fall. Related Data Home Medications Medication Instructions Recorded Confirmed fluoxetine 10 mg capsule 10 mg PO DAILY 02/07/22 09/17/23 gemster 02/07/22 apixaban .ROUTE 09/17/23 furosemide .ROUTE 09/17/23 Allergies Allergy/AdvReac Type Severity Reaction Status Date / Time epinephrine AdvReac tacycardia Verified 02/07/22 17:07 procaine [From Novocain] AdvReac tachycardia Verified 09/17/23 18:44 PFSH PFS Social History Smoking Status: Never smoker Do you use any of these nicotine containing products: None Second hand tobacco smoke exposure: No How often do you have a drink containing alcohol: monthly or less How many standard drinks containing alcohol do you have on a typical day: 1 or 2 AUDIT-C Alcohol total score: 1 Non-prescribed substance use: denies use service: No Exam Narrative: Exam Narrative: Primary Survey: A- patent. Speaking clearly. Phonation normal. No stridor. B- breathing easily. Lung sounds clear and equal. Oxygen saturation normal on room air C- no active bleeding. Blood pressure stable. Symmetric pulses and cap refill in 4 extremities. D- alert and oriented x3. GCS 15. 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 No other new deficits. Constitutional: Appears well-developed and well-nourished. Alert. Conversant. Non toxic. HENT: Head: He has a fairly large bleeding wound from his right forehead. No pulsatile bleeding. Venous oozing all over his tall that his brought him in from home. After cleaning up the wound I see that he has a 7 cm laceration. It runs about 5 cm horizontal just superior to the right eyebrow. There is also a 2 cyst cm vertical stellate component. No foreign body. Laceration is into the frontalis muscle but not down to the skull. Nose: Nose normal. Mouth/Throat: Oral mucosa is clear and moist. no trismus. Pharynx normal. Tonsils symmetric. No tonsillar enlargement, erythema, or exudate. Eyes: Conjunctivae normal. EOM normal. Pupils equal, round, and reactive to light. No scleral icterus. Neck: Normal range of motion. Neck supple. No tracheal deviation present. No posterior midline tenderness or step-off. Cardiovascular: Normal rate, regular rhythm. No gallop. No friction rub. No murmur heard. Symmetric radial artery pulses Pulmonary/Chest: Effort normal. No stridor. No respiratory distress. No wheezes. No rales. No rhonchi . No tenderness. Abdominal: Soft. Bowel sounds normal. No distension. No mass. No tenderness. No rebound. No guarding. Musculoskeletal: RUE: Normal range of motion. No tenderness. No deformity LUE: Normal range of motion. No tenderness. No deformity RLE: Normal range of motion. No edema. No tenderness. No deformity LLE: Normal range of motion. No edema. No tenderness. No deformity No C, T, L-spine tenderness. Neurological: Alert and oriented to person, place, and time. Normal strength. CN II-VII intact. No sensory deficit. GCS eye subscore is 4. GCS verbal subscore is 5. GCS motor subscore is 6. Normal coordination . Chronic left upper extremity and right lower extremity weakness. No new focal deficits Skin: Skin is warm and dry. No rash noted. No pallor. Normal capillary refill. Psychiatric: Normal mood. Normal affect. Const: Vital Signs, click to edit/add: Vital Signs - 24 hr 09/17/23 18:45 Temperature 97.6 F Pulse Rate [Pulse Oximeter] 89 Respiratory Rate 20 Blood Pressure [Le ft Upper Arm] 142/110 H Pulse Oximetry 92 Oxygen Delivery Me thod Room Air Course Vital Signs Vital signs: Initial Vital Signs Temperature 97.6 F 09/17/23 18:45 Temperature Source Temporal Artery Scan 09/17/23 18:45 Pulse Rate 89 09/17/23 18:45 Pulse Rhythm Irregular 09/17/23 18:45 Respiratory Rate 20 09/17/23 18:45 Blood Pressure 142/110 H 09/17/23 18:45 Blood Pressure Mean 120 H 09/17/23 18:45 Blood Pressure Position Semi-Fowlers 09/17/23 18:45 Pulse Oximetry 92 09/17/23 18:45 Oxygen Delivery Method Room Air 09/17/23 18:45 Vital Signs Temperature 97.6 F 09/17/23 18:45 Pulse Rate 89 09/17/23 18:45 Respiratory Rate 20 09/17/23 18:45 Blood Pressure 142/110 H 09/17/23 18:45 Pulse Oximetry 92 09/17/23 18:45 Oxygen Delivery Method Room Air 09/17/23 18:45 Temperature 97.6 F 09/17/23 18:45 Pulse Rate 89 09/17/23 18:45 Respiratory Rate 20 09/17/23 18:45 Blood Pressure 142/110 H 09/17/23 18:45 Pulse Oximetry 92 09/17/23 18:45 Oxygen Delivery Method Room Air 09/17/23 18:45 Medications Administered Medications: Discontinued Medications Generic Name Dose Route Start Last Admin Trade Name Freq PRN Reason Stop Dose Admin Bupivacaine HCl 30 ml 09/17/23 19:45 09/17/23 19:15 Bupivacaine 0.25% 30 Ml INJECTION 09/17/23 19:46 30 ml ONCE ONE Administration Medical Decision Making MDM Narrative Medical decision making narrative: This is a very pleasant gentleman who has an unfortunate history of spinal cord problems will leading to left upper extremity and right lower extremity weakness. He is now wheelchair bound. He presents to the ER today for evaluation of an accidental injury that occurred when he fell out of his wheelchair and struck his head against the floor. Findings and exam are consistent with an complex right for laceration which was repaired as noted above. It was stellate and required 16 sutures to bring the flaps together. Also , bleeding was somewhat difficult to control because the patient was on Eliquis but I was able to control the bleeding by direct pressure and then he hemostasis provided by sutures. No arterial bleeders. Because of the head trauma in a patient on Eliquis we did obtain head CT which is fortunately negative. There is no evidence at this time to suggest any associated fracture or foreign body. There is no evidence to suggest intracranial injury and patient is neurologically in tact here in the ER.. The patient is to follow up for suture removal as instructed in 7 days. Indications to seek urgent reevaluation and signs of infection (including but not limited to increasing pain, redness, swelling, fevers, and drainage) were reviewed. Tetanus is up-to-date. This is a clean and noncontaminated wound in which prophylactic antibiotics are not indicated. An understanding of the discharge instructions and need for follow up were verbally confirmed. Remainder of his trauma exam is negative. No evidence for C-spine injury. No evidence for any thoracic or abdominal injury. No evidence for any long bone or shoulder injury. At this point I do not think he needs additional radiographs or CT imaging. Imaging Data CT scan - head: Attestation: I have reviewed the pertinent imaging results. Radiologist's impression: IMPRESSION: Slightly suboptimal examination secondary to motion artifact. No acute intracranial abnormality. Discharge Plan Discharge Clinical Impression: Complex laceration of forehead Patient Disposition: Home, Self-Care Condition: Stable Instructions: Laceration (DC) Additional Instructions: Please go to Urgent care or contact your regular doctor for a nurse visit in 7 days to have the sutures removed. Keep the dressing in place tonight and tomorrow. If you bleed or are soaking through the dressing, please remove it and apply direct pressure to the wound. If you have uncontrolled bleeding at any time please come back to the ER right away After tomorrow, you can remove the dressing and clean the wound gently once per day with soap and water. After you clean the wound, gently dry it, reapply antibiotic ointment (Bacitracin) and a dressing to keep the stitches and wound covered until the sutures are removed. If you have any redness, swelling, pus draining from the wound, or other signs of infection, return to the ER right away Prescriptions: No Action apixaban [Eliquis] .ROUTE furosemide [Lasix] .ROUTE fluoxetine 10 mg capsule 10 mg PO DAILY Patient Comments: TAKE 1 CAPSULE BY MOUTH ONCE DAILY. gemster Follow Up/Referrals: Jair Hancock MD [Primary Care Provider] - Stand Alone Forms: [facility] Info Instructions Procedures Laceration RIght forehead laceration: Pre procedure diagnosis: forehead laceration Verification/time out: correct patient, correct site and correct procedure Site: face Side (If applicable): right Size (cm): 7 Description: stellate (with a 5cm horizontal limb and a 2cm vertical limb) Depth: simple, single layer Local Anesthetic: bupivacaine 0.25% Amount of anesthesia used (mL): 7 Pre-repair: wound explored, irrigated extensively and deep structures intact Skin layer closed with: nylon Size (cm): 6-0 Number of sutures: 16 Technique: simple, interrupted
[2023-09-17 18:45] VITALS: BP 142/110; PULSE 89; RESP 20; TEMP 36.4; O2SAT 92; BMI 24.4
--- NOTE | 2023-09-17 18:56 | CT_ITS ---
Patient: ROXY CALHOUN Facility:?[facility] Patient ID:?[id number] Site Patient ID:?[id number] Site :?[id number] Study:?CT-Head WITHOUT-09/17/2023 7:21:21 PM Ordering Physician:DARLIN Final Report: INDICATION: FALL, HEAD TRAUMA, FRONTAL RT LACERATION, ON ELIQUIS TECHNIQUE: CT of the head was performed without IV contrast. COMPARISON: None. FINDINGS: Slightly suboptimal examination secondary to motion artifact. Parenchyma: No acute hemorrhage, infarction, or mass. Mild scattered periventricular white matter hypoattenuation is nonspecific and is favored to represent chronic small vessel ischemic disease. Ventricles and extra-axial spaces: Appropriate for age. Visualized paranasal sinuses: Small right and moderate left maxillary sinus mucosal retention cysts versus polyps. Mastoid air cells: Clear. Bones: No focal abnormality. Additional comment: Moderate right frontal scalp swelling with associated laceration. Left lens surgery. IMPRESSION: Slightly suboptimal examination secondary to motion artifact. No acute intracranial abnormality. Please note that all CT scans at this facility use dose modulation, iterative reconstruction, and/or weight-based dosing when appropriate to reduce radiation dose to as low as reasonably achievable. Dictated by Jose Ramirez MD @ 09/17/2023 7:34:17 PM Signed by:?Jose Ramirez MD @09/17/2023 7:34:17 PM (Electronic Signature)
[2023-09-17] MEDS: BUPIVACAINE 0.25% 30 ML INJECTION (19:15)
== END 2023-09-17 21:12 | disposition home or self-care (01) ==
PROVIDERS: Emergency Provider Emergency Medicine; PCP Family Medicine
DX: S01.81XA Laceration without foreign body of other part of head, initial encounter (principal); W05.0XXA Fall from non-moving wheelchair, initial encounter
CPT/HCPCS: 12053; 70450; 99284; J0665